=== PATIENT | male | born 1950 | race Caucasian/White ===

== ENCOUNTER 2016-11-17 12:54 | Day surgery (SDC) | payer OTHER ==
[2016-11-17] MEDS: MARCAINE 0.25% WITH EPI IJ ONE ×2 (13:38→14:16)
[2016-11-17] MEDS: KENALOG INJ 40 MG ONE ×2 (13:39→14:16)
--- NOTE | 2016-11-17 14:01 | DR.H&P ---
H&P - History & Physical for Day of: H&P Date: 11/17/16 - Chief Complaint Chief Complaint: my back hurts down to my right calf - Allergies Allergies/Adverse Reactions: Allergies Allergy/AdvReac Type Severity Reaction Status Date / Time No Known Drug Allergy Allergy Verified 12/04/15 09:26 - History of Present Illness History of Present Illness: long standing h/o back pain with radiculopathy. taking trip [place] later in summer and wants some relief. had a series of 4 radha 3-4 yrs ago with moderate to good relief - Social History Does patient currently use any type of tobacco product: No Have you used tobacco products in the last 12 months: No Type of Tobacco Use: None How many years tobacco product used: 35 Packs per day or dips/chews per day: pt quit in 2013 Does any household member use tobacco: No Alcohol Use: Occasionally Drug Use: None - Physical Exam Vital Signs: Temperature 98.1 F Pulse Rate 79 Respiratory Rate 18 Blood Pressure 128/75 O2 Sat by Pulse Oximetry 95 Musculoskeletal: Back:Lumbar (pain on rotation/lateral tilt. no stepoff/ deformity.) Mood Description: Calm Affect: Normal - Assessment/Plan (1) Lumbar disc disease with radiculopathy Status: Acute Plan: intralaminar radha L4-5 right
[2016-11-17 14:46] VITALS: BP 143/73
== END 2016-11-17 14:45 | disposition home or self-care (01) ==
LOC: SURG1 12:54
PROVIDERS: ATTEND Specialist
PROC: B01BZZZ Fluoroscopy of Spinal Cord (ICD-10-PCS; principal; 2016-11-17 13:00)
PROC: 3E0R33Z Introduction of Anti-inflammatory into Spinal Canal, Percutaneous Approach (ICD-10-PCS; principal; 2016-11-17 13:00)
PROC: 3E0R3BZ Introduction of Anesthetic Agent into Spinal Canal, Percutaneous Approach (ICD-10-PCS; principal; 2016-11-17 13:00)
DX: M51.36 Other intervertebral disc degeneration, lumbar region (principal)
CPT/HCPCS: 62323; 76000; A4222; S0020; J3301

== ENCOUNTER → 2017-05-21 | Outpatient (CLI) | payer OTHER ==
[2017-05-21 14:15] LABS: BASOPHILS % (AUTO) 0.6 % (0.2-1.0); EOSINOPHILS % (AUTO) 0.7 % (0.9-2.9); HEMATOCRIT 43.2 % (42.0-54.0); HEMOGLOBIN 14.8 g/dL (13.5-18.0); LYMPHOCYTES # (AUTO) 0.8 X10^3/uL (1.3-2.9); LYMPHOCYTES % (AUTO) 14.2 % (21.0-51.0); MEAN CORPUSCULAR HEMOGLOBIN 32.6 pg (27.0-34.0); MEAN CORPUSCULAR HGB CONC 34.3 g/dL (33.0-35.0); MEAN CORPUSCULAR VOLUME 95.1 fL (80.0-100.0); MEAN PLATELET VOLUME 7.8 fL (7.4-11.0); MONOCYTES # (AUTO) 0.5 x10^3/uL (0.3-0.8); MONOCYTES % (AUTO) 9.4 % (0.0-13.0); NEUTROPHILS # (AUTO) 4.3 x10^3/uL (2.2-4.8); NEUTROPHILS % (AUTO) 75.1 % (42.0-75.0); PLATELET COUNT 198 X10^3/uL (150.0-450.0); RED BLOOD COUNT 4.54 X10^6/uL (4.7-6.0); RED CELL DISTRIBUTION WIDTH 14.8 % (11.6-16.5); WHITE BLOOD COUNT 5.7 X10^3/uL (3.6-10.0)
[2017-05-21 14:19] LABS: ALANINE AMINOTRANSFERASE 108 Units/L (12-78); ALBUMIN 3.8 g/dL (3.4-5.0); ALKALINE PHOSPHATASE 87 Units/L (46-116); ASPARTATE AMINO TRANSFERASE 65 Units/L (15-37); BLOOD UREA NITROGEN 13 mg/dL (7-18); CARBON DIOXIDE 25.3 mmol/L (21-32); CHLORIDE 104 mmol/L (98-107); COR NA(FOR HYPERGLY) 139 mmol/L (136-145); CREATININE 1.02 mg/dL (0.70-1.30); SODIUM 139 mmol/L (136-145); eGFR BLACK RACES > 60 (>60); eGFR NON BLACK RACES > 60 (>60)
[2017-05-21 14:20] LABS: BILIRUBIN,URINE 1+ (NEGATIVE); BLOOD/HEMOGLOBIN,URINE NEGATIVE (NEGATIVE); GLUCOSE, URINE NEGATIVE (NEGATIVE); KETONES,URINE 1+ (NEGATIVE); LEUKOCYTE ESTERASE ,URINE 1+ (NEGATIVE); NITRITES,URINE NEGATIVE (NEGATIVE); PROTEIN,URINE 2+ (NEGATIVE); UROBILINOGEN,URINE 2+ (NORMAL)
[2017-05-21 14:29] LABS: APPEARANCE,URINE CLEAR (CLEAR); COLOR,URINE DARK YELLOW (YELLOW)
[2017-05-21 14:30] LABS: BACTERIA,URINE TRACE /HPF (NEGATIVE); MUCUS,URINE FEW /HPF (NEGATIVE); RBC,URINE NONE SEEN /HPF (NEGATIVE); SQUAMOUS EPITHELIAL CELL,UR FEW /HPF (NEGATIVE)
[2017-05-21 14:58] LABS: ERYTHROCYTE SEDIMENTATION RATE 9 MM/HOUR (0-15)
--- NOTE | 2017-05-25 14:22 | RAD ---
HISTORY: Preoperative exam for knee surgery Study: Two views of the chest Comparison: None Findings: The trachea is midline. The cardiac silhouette is enlarged. Subsegmental atelectasis is noted withi n the lung bases. Otherwise the lungs are clear without focal infiltrate or effusion. IMPRESSION: 1. Cardiomegaly. Reported By:
== END | disposition home or self-care (01) ==
LOC: LAB 13:06
PROVIDERS: ATTEND Orthopaedic Surgery
DX: Z01.818 Encounter for other preprocedural examination (principal); Z79.899 Other long term (current) drug therapy; Z11.8 Encounter for screening for other infectious and parasitic diseases; Z79.01 Long term (current) use of anticoagulants; I51.7 Cardiomegaly; M17.0 Bilateral primary osteoarthritis of knee
CPT/HCPCS: 36415; 71020; 80053; 81001; 85025; 85610; 85652; 85730; 86140; 86850; 86900; 86901; 87640; 87641; 93005; 93010

== ENCOUNTER 2017-05-27 07:10 | Inpatient (IN) | payer OTHER ==
[2017-05-27] MEDS ORDERED: D5 LR 1000 ML 1,000 ML IV ONE (07:25)
[2017-05-27] MEDS ORDERED: NS 100 ML IV 100 ML IV ONE (07:25)
[2017-05-27] MEDS ORDERED: ANCEF VIAL 1 GM ONE (07:26)
[2017-05-27] MEDS ORDERED: DILAUDID INJ ONE ×2 (07:27→12:37)
[2017-05-27] MEDS ORDERED: FENTANYL INJ 250 mcg ONE (07:27)
[2017-05-27] MEDS ORDERED: BACTROBAN OINT ONE (07:28)
[2017-05-27] MEDS ORDERED: HYDROGEN PEROXIDE 3% ONE (07:28)
[2017-05-27] MEDS ORDERED: MARCAINE 0.25% INJ ONE (07:28)
[2017-05-27 07:52] VITALS: BMI 35.9
[2017-05-27] MEDS ORDERED: NS 1000 ML 20 ML, MARCAINE 0.5% 20 ML IV NR ×2 (08:00)
[2017-05-27] MEDS ORDERED: MARCAINE IV NR ×6 (08:00)
[2017-05-27] MEDS ORDERED: [UNRECOGNIZED DRUG - OTHER] IV NR ×6 (08:00)
[2017-05-27] MEDS ORDERED: MORPHINE SULFATE IV NR ×6 (08:00)
[2017-05-27] MEDS ORDERED: NS IV NR ×6 (08:00)
[2017-05-27] MEDS ORDERED: NAROPIN EPIDURAL 0.2% 100 ML ONE (08:17)
[2017-05-27] MEDS ORDERED: NS IRRIGATION 1000 ML 1,000 ML with BACITRACIN VIAL 50,000 UNT IR ONE ×2 (09:04)
[2017-05-27] MEDS ORDERED: NS IRRIGATION 3000 ML 3,000 ML with BACITRACIN VIAL 50,000 UNT IR ONE ×4 (09:04)
[2017-05-27 09:25] LABS: BILIRUBIN,URINE NEGATIVE (NEGATIVE); BLOOD/HEMOGLOBIN,URINE NEGATIVE (NEGATIVE); GLUCOSE, URINE NEGATIVE (NEGATIVE); KETONES,URINE NEGATIVE (NEGATIVE); LEUKOCYTE ESTERASE ,URINE NEGATIVE (NEGATIVE); NITRITES,URINE NEGATIVE (NEGATIVE); PROTEIN,URINE NEGATIVE (NEGATIVE); UROBILINOGEN,URINE NORMAL (NORMAL)
[2017-05-27 09:47] LABS: APPEARANCE,URINE CLEAR (CLEAR); BACTERIA,URINE NEGATIVE /HPF (NEGATIVE); COLOR,URINE YELLOW (YELLOW); RBC,URINE 0 /HPF (NEGATIVE); SQUAMOUS EPITHELIAL CELL,UR RARE /HPF (NEGATIVE)
[2017-05-27] MEDS ORDERED: NAROPIN EPIDURAL 0.2% 400 MG, NS 250 ML IV 200 ML EPI PRN ×2 (10:00)
[2017-05-27] MEDS ORDERED: Q PUMP EPI ONE (10:00)
[2017-05-27] MEDS ORDERED: NEO-SYNEPHRINE INJ ONE (10:03)
[2017-05-27] MEDS ORDERED: ROBINUL ONE (10:04)
[2017-05-27] MEDS ORDERED: XYLOCAINE 2 % (PLAIN) ONE (10:04)
[2017-05-27] MEDS ORDERED: VERSED ONE (10:04)
[2017-05-27] MEDS ORDERED: SUPRANE IN ONE (10:04)
[2017-05-27] MEDS ORDERED: NORCURON INJ 10 MG VIAL ONE (10:04)
[2017-05-27] MEDS ORDERED: QUELICIN (OR ANECTINE) ONE (10:04)
[2017-05-27] MEDS ORDERED: NEOSTIGMINE INJ ONE (10:04)
[2017-05-27] MEDS ORDERED: DIPRIVAN VIAL ONE (10:04)
[2017-05-27] MEDS ORDERED: ZOFRAN INJ 4 MG VIAL ONE (10:04)
[2017-05-27] MEDS ORDERED: EPHEDRINE SULFATE INJ ONE (10:04)
[2017-05-27] MEDS: LR 1000 ML IV 1,000 ML IV ONE ×2 (10:27→10:43)
[2017-05-27] MEDS ORDERED: ZOFRAN INJ 4 MG VIAL IVP PRN ×2 (12:22→12:30)
[2017-05-27] MEDS ORDERED: REGLAN INJ 10 MG VIAL IVP PRN (12:30)
[2017-05-27] MEDS ORDERED: PHENERGAN INJ 25 MG IVP PRN (12:30)
[2017-05-27] MEDS ORDERED: BENADRYL INJ 50 MG VIAL IVP PRN (12:30)
[2017-05-27] MEDS: DILAUDID INJ IVP PRN ×4 (12:38→12:53)
[2017-05-27] MEDS: MORPHINE SULFATE PCA 30 MG IV PRN (13:58)
--- NOTE | 2017-05-27 14:45 | RAD ---
Examination: Left knee, two views History: Postop TKA Comparison reference: 11/01/2015 Findings: Arthroplasty components are now present, related anatomically. There is no evidence for dis placement, periprosthetic fracture or hardware abnormality. The expected postsurgical soft tissue patrick nges are observed. Impression: Interval performance of left TKA; no postoperative complication identified. Reported By:
[2017-05-27] MEDS ORDERED: NS 1000 ML 1,000 ML ONE (16:42)
[2017-05-27] MEDS: NS 1000 ML 1,000 ML IV SCH (17:30)
[2017-05-27] MEDS ORDERED: NS 1000 ML 1,000 ML IV SCH (17:30)
[2017-05-27] MEDS: MORPHINE SULFATE INJ 2 MG INJ IVP PRN (22:45)
[2017-05-28 06:13] LABS: BASOPHILS % (AUTO) 0.1 % (0.2-1.0); HEMATOCRIT 36.4 % (42.0-54.0); HEMOGLOBIN 12.5 g/dL (13.5-18.0); LYMPHOCYTES # (AUTO) 0.5 X10^3/uL (1.3-2.9); LYMPHOCYTES % (AUTO) 6.1 % (21.0-51.0); MEAN CORPUSCULAR HEMOGLOBIN 32.5 pg (27.0-34.0); MEAN CORPUSCULAR HGB CONC 34.3 g/dL (33.0-35.0); MEAN CORPUSCULAR VOLUME 94.7 fL (80.0-100.0); MONOCYTES % (AUTO) 12.8 % (0.0-13.0); NEUTROPHILS # (AUTO) 6.3 x10^3/uL (2.2-4.8); PLATELET COUNT 193 X10^3/uL (150.0-450.0); RED BLOOD COUNT 3.84 X10^6/uL (4.7-6.0); RED CELL DISTRIBUTION WIDTH 14.1 % (11.6-16.5); WHITE BLOOD COUNT 7.8 X10^3/uL (3.6-10.0)
[2017-05-28 06:17] LABS: BLOOD UREA NITROGEN 10 mg/dL (7-18); CALCIUM 8.7 mg/dL (8.5-10.1); CARBON DIOXIDE 27.9 mmol/L (21-32); CHLORIDE 104 mmol/L (98-107); COR NA(FOR HYPERGLY) 140 mmol/L (136-145); CREATININE 0.82 mg/dL (0.70-1.30); SODIUM 139 mmol/L (136-145); eGFR BLACK RACES > 60 (>60); eGFR NON BLACK RACES > 60 (>60)
[2017-05-28] MEDS: NS 1000 ML 1,000 ML IV SCH ×4 (06:52→22:26)
[2017-05-28] MEDS: MORPHINE SULFATE PCA 30 MG IV PRN (07:44)
[2017-05-28] MEDS ORDERED: TERAZOSIN HCL 2 MG PO SCH (09:00)
[2017-05-28] MEDS ORDERED: PATIENT'S HOME MEDICATION (Cholecalciferol (Vitamin D3) [Vitamin D3] 5,000 UNIT) PO SCH (09:00)
[2017-05-28] MEDS ORDERED: PATIENT'S HOME MEDICATION (Biotin [Biotin] 10,000 MCG) PO SCH (09:00)
[2017-05-28] MEDS: VITAMIN D3 PO SCH (10:20)
[2017-05-28] MEDS: ASPIRIN EC 81 MG PO SCH ×2 (10:20→10:22)
[2017-05-28] MEDS: ZYLOPRIM PO SCH (10:21)
[2017-05-28] MEDS: CELEXA PO SCH (10:21)
[2017-05-28] MEDS: MOBIC TAB 15 MG PO SCH (10:21)
[2017-05-28] MEDS: TAB-A-VITE PO SCH (10:21)
[2017-05-28] MEDS: ZyrTEC TAB 10 MG PO SCH (10:21)
[2017-05-28] MEDS: HYTRIN PO SCH (10:22)
[2017-05-28] MEDS: PERCOCET TAB 5/325 MG PO PRN ×2 (15:17→22:04)
[2017-05-28] MEDS: MORPHINE SULFATE INJ 2 MG INJ IVP PRN ×2 (18:18→23:43)
[2017-05-28] MEDS ORDERED: PATIENT'S HOME MEDICATION (Rosuvastatin Calcium [Rosuvastatin Calcium] 20 MG) PO SCH (21:00)
[2017-05-28] MEDS: LOVENOX INJ 30 MG SYR SC SCH (21:57)
[2017-05-28] MEDS: MILK OF MAGNESIA PO SCH ×2 (21:57→22:02)
[2017-05-28] MEDS: COLACE CAP 100 MG PO SCH (21:57)
[2017-05-28] MEDS: CRESTOR TAB 10 MG PO SCH (21:57)
[2017-05-28] MEDS ORDERED: VALIUM ONE (23:37)
[2017-05-28] MEDS: VALIUM PO PRN (23:43)
[2017-05-29 06:11] LABS: BASOPHILS % (AUTO) 0.3 % (0.2-1.0); EOSINOPHILS % (AUTO) 0.7 % (0.9-2.9); HEMATOCRIT 34.6 % (42.0-54.0); HEMOGLOBIN 11.9 g/dL (13.5-18.0); LYMPHOCYTES # (AUTO) 0.7 X10^3/uL (1.3-2.9); LYMPHOCYTES % (AUTO) 11.4 % (21.0-51.0); MEAN CORPUSCULAR HEMOGLOBIN 32.6 pg (27.0-34.0); MEAN CORPUSCULAR HGB CONC 34.5 g/dL (33.0-35.0); MEAN CORPUSCULAR VOLUME 94.6 fL (80.0-100.0); MEAN PLATELET VOLUME 8.1 fL (7.4-11.0); MONOCYTES # (AUTO) 0.9 x10^3/uL (0.3-0.8); MONOCYTES % (AUTO) 13.3 % (0.0-13.0); NEUTROPHILS # (AUTO) 4.8 x10^3/uL (2.2-4.8); NEUTROPHILS % (AUTO) 74.3 % (42.0-75.0); PLATELET COUNT 159 X10^3/uL (150.0-450.0); RED BLOOD COUNT 3.65 X10^6/uL (4.7-6.0); RED CELL DISTRIBUTION WIDTH 13.9 % (11.6-16.5); WHITE BLOOD COUNT 6.5 X10^3/uL (3.6-10.0)
[2017-05-29 06:40] LABS: BLOOD UREA NITROGEN 8 mg/dL (7-18); CALCIUM 8.9 mg/dL (8.5-10.1); CHLORIDE 104 mmol/L (98-107); COR NA(FOR HYPERGLY) 139 mmol/L (136-145); CREATININE 0.86 mg/dL (0.70-1.30); SODIUM 139 mmol/L (136-145); eGFR BLACK RACES > 60 (>60); eGFR NON BLACK RACES > 60 (>60)
[2017-05-29] MEDS: MORPHINE SULFATE INJ 2 MG INJ IVP PRN (07:01)
[2017-05-29] MEDS: VALIUM PO PRN (07:01)
[2017-05-29] MEDS: VITAMIN D3 PO SCH (08:28)
[2017-05-29] MEDS: MOBIC TAB 15 MG PO SCH (08:29)
[2017-05-29] MEDS: HYTRIN PO SCH (08:29)
[2017-05-29] MEDS: ZYLOPRIM PO SCH (08:29)
[2017-05-29] MEDS: ZyrTEC TAB 10 MG PO SCH (08:29)
[2017-05-29] MEDS: PERCOCET TAB 5/325 MG PO PRN ×2 (08:30→13:17)
[2017-05-29] MEDS: MILK OF MAGNESIA PO SCH ×2 (08:30→21:09)
[2017-05-29] MEDS: CELEXA PO SCH (08:30)
[2017-05-29] MEDS: TAB-A-VITE PO SCH (08:30)
[2017-05-29] MEDS: ASPIRIN EC 81 MG PO SCH (08:30)
[2017-05-29] MEDS ORDERED: MORPHINE SULFATE INJ 2 MG INJ IVP PRN ×2 (09:38→12:26)
[2017-05-29] MEDS: NS 1000 ML 1,000 ML IV SCH (10:53)
[2017-05-29] MEDS: BACITRACIN ZINC TOP PRN (12:20)
[2017-05-29] MEDS ORDERED: BACITRACIN ZINC TOP SCH (13:00)
[2017-05-29] MEDS: ROXICODONE TAB 5 MG PO PRN ×2 (15:43→18:37)
[2017-05-29] MEDS: LOVENOX INJ 30 MG SYR SC SCH (21:08)
[2017-05-29] MEDS: COLACE CAP 100 MG PO SCH (21:08)
[2017-05-29] MEDS: KLONOPIN TAB 1 MG PO SCH (21:08)
[2017-05-29] MEDS: CRESTOR TAB 10 MG PO SCH (21:08)
[2017-05-30] MEDS: ROXICODONE TAB 5 MG PO PRN ×4 (02:10→20:48)
[2017-05-30] MEDS: NS 1000 ML 1,000 ML IV SCH ×3 (03:00→16:46)
[2017-05-30 06:27] LABS: BASOPHILS % (AUTO) 0.6 % (0.2-1.0); EOSINOPHILS % (AUTO) 0.9 % (0.9-2.9); HEMATOCRIT 33.1 % (42.0-54.0); HEMOGLOBIN 11.3 g/dL (13.5-18.0); LYMPHOCYTES # (AUTO) 0.7 X10^3/uL (1.3-2.9); MEAN CORPUSCULAR HGB CONC 34.2 g/dL (33.0-35.0); MEAN CORPUSCULAR VOLUME 93.6 fL (80.0-100.0); MEAN PLATELET VOLUME 7.9 fL (7.4-11.0); MONOCYTES # (AUTO) 0.6 x10^3/uL (0.3-0.8); MONOCYTES % (AUTO) 11.5 % (0.0-13.0); NEUTROPHILS # (AUTO) 4.2 x10^3/uL (2.2-4.8); PLATELET COUNT 169 X10^3/uL (150.0-450.0); RED BLOOD COUNT 3.54 X10^6/uL (4.7-6.0); RED CELL DISTRIBUTION WIDTH 14.1 % (11.6-16.5); WHITE BLOOD COUNT 5.6 X10^3/uL (3.6-10.0)
[2017-05-30 06:31] LABS: BLOOD UREA NITROGEN 8 mg/dL (7-18); CALCIUM 8.8 mg/dL (8.5-10.1); CARBON DIOXIDE 25.2 mmol/L (21-32); CHLORIDE 104 mmol/L (98-107); CREATININE 0.85 mg/dL (0.70-1.30); SODIUM 138 mmol/L (136-145); eGFR BLACK RACES > 60 (>60); eGFR NON BLACK RACES > 60 (>60)
[2017-05-30] MEDS: MOBIC TAB 15 MG PO SCH (08:12)
[2017-05-30] MEDS: ZyrTEC TAB 10 MG PO SCH (08:13)
[2017-05-30] MEDS: VITAMIN D3 PO SCH (08:13)
[2017-05-30] MEDS: TAB-A-VITE PO SCH (08:13)
[2017-05-30] MEDS: ZYLOPRIM PO SCH (08:14)
[2017-05-30] MEDS: CELEXA PO SCH (08:14)
[2017-05-30] MEDS: HYTRIN PO SCH (08:14)
[2017-05-30] MEDS: ASPIRIN EC 81 MG PO SCH (08:14)
[2017-05-30] MEDS: MILK OF MAGNESIA PO SCH ×2 (08:15→20:54)
[2017-05-30] MEDS: VALIUM PO PRN (09:40)
[2017-05-30] MEDS: KLONOPIN TAB 1 MG PO SCH (20:50)
[2017-05-30] MEDS: CRESTOR TAB 10 MG PO SCH (20:50)
[2017-05-30] MEDS: COLACE CAP 100 MG PO SCH (20:50)
[2017-05-30] MEDS: LOVENOX INJ 30 MG SYR SC SCH (20:51)
[2017-05-31] MEDS: ROXICODONE TAB 5 MG PO PRN ×3 (05:48→19:32)
[2017-05-31 06:22] LABS: BASOPHILS % (AUTO) 0.5 % (0.2-1.0); EOSINOPHILS # (AUTO) 0.1 x10^3/uL (0.0-0.2); EOSINOPHILS % (AUTO) 2.4 % (0.9-2.9); HEMATOCRIT 31.2 % (42.0-54.0); LYMPHOCYTES # (AUTO) 0.6 X10^3/uL (1.3-2.9); MEAN CORPUSCULAR HEMOGLOBIN 32.8 pg (27.0-34.0); MEAN CORPUSCULAR HGB CONC 35.3 g/dL (33.0-35.0); MEAN CORPUSCULAR VOLUME 93.2 fL (80.0-100.0); MEAN PLATELET VOLUME 7.4 fL (7.4-11.0); MONOCYTES # (AUTO) 0.7 x10^3/uL (0.3-0.8); MONOCYTES % (AUTO) 12.4 % (0.0-13.0); NEUTROPHILS # (AUTO) 3.9 x10^3/uL (2.2-4.8); NEUTROPHILS % (AUTO) 72.7 % (42.0-75.0); PLATELET COUNT 221 X10^3/uL (150.0-450.0); RED BLOOD COUNT 3.35 X10^6/uL (4.7-6.0); RED CELL DISTRIBUTION WIDTH 14.1 % (11.6-16.5); WHITE BLOOD COUNT 5.3 X10^3/uL (3.6-10.0)
[2017-05-31 06:43] LABS: ALANINE AMINOTRANSFERASE 38 Units/L (12-78); ALBUMIN 2.6 g/dL (3.4-5.0); ALKALINE PHOSPHATASE 59 Units/L (46-116); ASPARTATE AMINO TRANSFERASE 25 Units/L (15-37); BLOOD UREA NITROGEN 9 mg/dL (7-18); CALCIUM 8.7 mg/dL (8.5-10.1); CARBON DIOXIDE 23.9 mmol/L (21-32); CHLORIDE 106 mmol/L (98-107); COR CA(FOR HYPOALB) 9.8 mg/dL (8.5-10.1); CREATININE 0.75 mg/dL (0.70-1.30); SODIUM 140 mmol/L (136-145); eGFR BLACK RACES > 60 (>60); eGFR NON BLACK RACES > 60 (>60)
[2017-05-31] MEDS: TAB-A-VITE PO SCH (09:22)
[2017-05-31] MEDS: VITAMIN D3 PO SCH (09:22)
[2017-05-31] MEDS: ASPIRIN EC 81 MG PO SCH (09:22)
[2017-05-31] MEDS: ZYLOPRIM PO SCH (09:22)
[2017-05-31] MEDS: CELEXA PO SCH (09:22)
[2017-05-31] MEDS: MOBIC TAB 15 MG PO SCH (09:22)
[2017-05-31] MEDS: HYTRIN PO SCH (09:23)
[2017-05-31] MEDS: ZyrTEC TAB 10 MG PO SCH (09:23)
[2017-05-31] MEDS: NS 1000 ML 1,000 ML IV SCH (09:23)
[2017-05-31] MEDS: MILK OF MAGNESIA PO SCH ×2 (09:24→23:21)
[2017-05-31] MEDS ORDERED: NS 250 ML IV 250 ML IV ONE (21:27)
[2017-05-31] MEDS: VANCOMYCIN HCL 1 GM VIAL IV SCH (21:34)
[2017-05-31] MEDS: KLONOPIN TAB 1 MG PO SCH (21:34)
[2017-05-31] MEDS: LOVENOX INJ 30 MG SYR SC SCH (21:35)
[2017-05-31] MEDS: CRESTOR TAB 10 MG PO SCH (21:35)
[2017-05-31] MEDS: COLACE CAP 100 MG PO SCH (21:48)
[2017-06-01] MEDS: ROXICODONE TAB 5 MG PO PRN ×5 (01:11→22:34)
[2017-06-01 05:27] LABS: BASOPHILS % (AUTO) 0.6 % (0.2-1.0); EOSINOPHILS # (AUTO) 0.1 x10^3/uL (0.0-0.2); EOSINOPHILS % (AUTO) 2.4 % (0.9-2.9); HEMATOCRIT 33.4 % (42.0-54.0); HEMOGLOBIN 11.4 g/dL (13.5-18.0); LYMPHOCYTES # (AUTO) 0.8 X10^3/uL (1.3-2.9); LYMPHOCYTES % (AUTO) 15.6 % (21.0-51.0); MEAN CORPUSCULAR HGB CONC 34.2 g/dL (33.0-35.0); MEAN CORPUSCULAR VOLUME 93.6 fL (80.0-100.0); MEAN PLATELET VOLUME 7.2 fL (7.4-11.0); MONOCYTES # (AUTO) 0.7 x10^3/uL (0.3-0.8); MONOCYTES % (AUTO) 12.4 % (0.0-13.0); NEUTROPHILS # (AUTO) 3.7 x10^3/uL (2.2-4.8); PLATELET COUNT 264 X10^3/uL (150.0-450.0); RED BLOOD COUNT 3.57 X10^6/uL (4.7-6.0); RED CELL DISTRIBUTION WIDTH 13.8 % (11.6-16.5); WHITE BLOOD COUNT 5.4 X10^3/uL (3.6-10.0)
[2017-06-01 05:33] LABS: ALANINE AMINOTRANSFERASE 41 Units/L (12-78); ALBUMIN 2.7 g/dL (3.4-5.0); ALKALINE PHOSPHATASE 67 Units/L (46-116); ASPARTATE AMINO TRANSFERASE 26 Units/L (15-37); BLOOD UREA NITROGEN 11 mg/dL (7-18); CALCIUM 8.7 mg/dL (8.5-10.1); CARBON DIOXIDE 28.3 mmol/L (21-32); CHLORIDE 106 mmol/L (98-107); COR CA(FOR HYPOALB) 9.7 mg/dL (8.5-10.1); CREATININE 0.92 mg/dL (0.70-1.30); SODIUM 141 mmol/L (136-145); TOTAL PROTEIN 6.3 g/dL (6.4-8.2); eGFR BLACK RACES > 60 (>60); eGFR NON BLACK RACES > 60 (>60)
--- NOTE | 2017-06-01 05:50 | PCM.PROG ---
Progress Note - Progress Note for Day of Date: 05/28/17 - Subjective Subjective: IS STATUS POST LEFT TOTAL KNEE REPLACEMENT. SURGERY WAS ON 05/27/17 BY . TODAY, PATIENT IS ALERT AND ORIENTED, LYING IN BED ON MORNING ROUNDS. HE IS NOTED WITH COMPLAINTS OF LEFT KNEE PAIN. THIS IS TO BE EXPECTED FOLLOWING SURGERY. ON EXAMINATION, LUNGS ARE CLEAR TO AUSCULTATION. ABDOMEN IS ROUND, SOFT, AND NON-TENDER WITH NORMAL BOWEL SOUNDS NOTED IN ALL QUADRANTS. LEFT BILATERAL LEGS ARE NOTED WITH HUSEYIN HOSE AND SCDS. LEFT KNEE IS NOTED WITH A SURGICAL DRESSING. DRESSING DRY AND INTACT WITH NO SIGNS OR SYMPTOMS OF INFECTION NOTED TO SITE. HIS VITAL SIGNS THIS MORNING ARE 99.8-83-16 -97%-98/56. ABNORMAL LAB VALUES INCLUDE THE FOLLOWING: RBC 3.84, HGB 12.5, HCT 36.4, GLUCOSE 140. POST OP KNEE XRAY REPORTS NO POSTOPERATIVE COMPLICATION IDENTIFIED. TODAY, WE PLAN TO CONTINUE WITH PHYSICAL THERAPY AND OCCUPATIONAL THERAPY WITH WEIGHTBEARING PER 'S RECOMMENDATIONS. WE WILL CONTINUE WITH CURRENT MEDICATIONS AND REVIEW PATIENT'S HOME MEDICATONS AND RESTART APPROPRIATE. WE PLAN TO FOLLOW UP WITH AM LABS AND CONTINUE TO MONITOR PATIENT. - Past Medical Family Social History Past Med/Fam/Surg Hx: No changes since H&P Allergies: Allergies No Known Drug Allergies Allergy (Verified 05/27/17 07:43) - Review of Systems ROS: No change since H&P - Vital Signs and I&O's Vital Signs: Temperature 98.4 F Pulse Rate [Left Brachial] 70 Pulse Rate [Right Brachial] 83 Pulse Rate 70 Respiratory Rate 13 Blood Pressure [Left Arm] 149/77 Blood Pressure [Right Arm] 120/62 Blood Pressure 94/53 O2 Sat by Pulse Oximetry 96 Intake and Output: Intake & Output 05/29/17 05/30/17 05/31/17 06/01/17 12:59 12:59 11:59 11:59 Intake Total 1445 Output Total 600 Balance 845 - Physical Exam Oriented: Normal Eyes: Normal Ear: Normal Nose: Normal Throat: Normal Respiratory: Normal Cardiovascular: Normal : Normal Auscultation: Bowel Sounds: Normal Palpation: Normal Tenderness: Normal Skin: Wound (surgical wound left knee) Musculoskeletal: Left, Knee, Tender, Instability (status post left total knee replacement, left knee surgical incision ) Psychiatric: Normal Mood Description: Calm Speech Pattern: Clear, Appropriate - Laboratory and Diagnostics Result Diagrams: 06/01/17 04:45 06/01/17 04:45 Labs: Laboratory WBC 5.4 X10^3/uL (3.6-10.0) 06/01/17 04:45 RBC 3.57 X10^6/uL (4.7-6.0) L 06/01/17 04:45 Hgb 11.4 g/dL (13.5-18.0) L 06/01/17 04:45 Hct 33.4 % (42.0-54.0) L 06/01/17 04:45 MCV 93.6 fL (80.0-100.0) 06/01/17 04:45 MCH 32.0 pg (27.0-34.0) 06/01/17 04:45 MCHC 34.2 g/dL (33.0-35.0) 06/01/17 04:45 RDW 13.8 % (11.6-16.5) 06/01/17 04:45 Plt Count 264 X10^3/uL (150.0-450.0) 06/01/17 04:45 MPV 7.2 fL (7.4-11.0) L 06/01/17 04:45 Neut % 69.0 % (42.0-75.0) 06/01/17 04:45 Lymph % 15.6 % (21.0-51.0) L 06/01/17 04:45 [place] % 12.4 % (0.0-13.0) 06/01/17 04:45 Eos % 2.4 % (0.9-2.9) 06/01/17 04:45 Baso % 0.6 % (0.2-1.0) 06/01/17 04:45 Neut # 3.7 x10^3/uL (2.2-4.8) 06/01/17 04:45 Lymph # 0.8 X10^3/uL (1.3-2.9) L 06/01/17 04:45 [place] # 0.7 x10^3/uL (0.3-0.8) 06/01/17 04:45 Eos # 0.1 x10^3/uL (0.0-0.2) 06/01/17 04:45 Baso # 0.0 X10^3/uL (0.0-0.1) 06/01/17 04:45 Absolute Nucleated RBC 0.1 /100WBC 06/01/17 04:45 Sodium 141 mmol/L (136-145) 06/01/17 04:45 Corrected Sodium TNP 06/01/17 04:45 Potassium 3.9 mmol/L (3.5-5.1) 06/01/17 04:45 Chloride 106 mmol/L (98-107) 06/01/17 04:45 Carbon Dioxide 28.3 mmol/L (21-32) 06/01/17 04:45 BUN 11 mg/dL (7-18) 06/01/17 04:45 Creatinine 0.92 mg/dL (0.70-1.30) 06/01/17 04:45 Est GFR (MDRD) Af Amer > 60 (>60) 06/01/17 04:45 Est GFR (MDRD) Non-Af > 60 (>60) 06/01/17 04:45 Glucose 109 mg/dL (65-99) H 06/01/17 04:45 Calcium 8.7 mg/dL (8.5-10.1) 06/01/17 04:45 Corrected Calcium 9.7 mg/dL (8.5-10.1) 06/01/17 04:45 Total Bilirubin 0.80 mg/dL (0.2-1.0) 06/01/17 04:45 AST 26 Units/L (15-37) 06/01/17 04:45 ALT 41 Units/L (12-78) 06/01/17 04:45 Alkaline Phosphatase 67 Units/L (46-116) 06/01/17 04:45 Total Protein 6.3 g/dL (6.4-8.2) L 06/01/17 04:45 Albumin 2.7 g/dL (3.4-5.0) L 06/01/17 04:45 Globulin 3.6 g/dL (2.5-4.5) 06/01/17 04:45 Albumin/Globulin Ratio 0.8 Ratio (1.1-2.1) L 06/01/17 04:45 Specimen Type Catherized urine 05/27/17 09:07 Urine Color Yellow (YELLOW) 05/27/17 09:07 Urine Appearance Clear (CLEAR) 05/27/17 09:07 Urine pH 6.0 (5.0 - 8.0) 05/27/17 09:07 Ur Specific [place] 1.015 (1.000-1.030) 05/27/17 09:07 Urine Protein Negative (NEGATIVE) 05/27/17 09:07 Urine Glucose (UA) Negative (NEGATIVE) 05/27/17 09:07 Urine Ketones Negative (NEGATIVE) 05/27/17 09:07 Urine Occult Blood Negative (NEGATIVE) 05/27/17 09:07 Urine Nitrite Negative (NEGATIVE) 05/27/17 09:07 Urine Bilirubin Negative (NEGATIVE) 05/27/17 09:07 Urine Urobilinogen Normal (NORMAL) 05/27/17 09:07 Ur Leukocyte Esterase Negative (NEGATIVE) 05/27/17 09:07 Urine RBC 0 /HPF (NEGATIVE) 05/27/17 09:07 Urine WBC 0 /HPF (NEGATIVE) 05/27/17 09:07 Ur Squamous Epith Cells Rare /HPF (NEGATIVE) 05/27/17 09:07 Urine Bacteria Negative /HPF (NEGATIVE) 05/27/17 09:07 Ur Culture Indicated? No/not indicated 05/27/17 09:07 - Plan (1) Total knee replacement status Status: Acute Qualifiers: Laterality: left Qualified Code(s): Z96.652 - Presence of left artificial knee joint Plan: status post left total knee replacement. continue PT/OT. fall precautions. administer pain medications. continue to monitor
[2017-06-01] MEDS ORDERED: NS 250 ML IV 250 ML IV ONE (08:22)
[2017-06-01] MEDS: ASPIRIN EC 81 MG PO SCH (08:59)
[2017-06-01] MEDS: MOBIC TAB 15 MG PO SCH (09:00)
[2017-06-01] MEDS: TAB-A-VITE PO SCH (09:00)
[2017-06-01] MEDS: HYTRIN PO SCH (09:00)
[2017-06-01] MEDS: MILK OF MAGNESIA PO SCH ×2 (09:00→22:14)
[2017-06-01] MEDS: VANCOMYCIN HCL 1 GM VIAL IV SCH (09:00)
[2017-06-01] MEDS: CELEXA PO SCH (09:00)
[2017-06-01] MEDS: ZyrTEC TAB 10 MG PO SCH (09:01)
[2017-06-01] MEDS: ZYLOPRIM PO SCH (09:01)
[2017-06-01] MEDS: VITAMIN D3 PO SCH (10:09)
--- NOTE | 2017-06-01 10:42 | PCM.PROG ---
Progress Note - Progress Note for Day of Date: 05/29/17 - Subjective Subjective: IS STATUS POST LEFT TOTAL KNEE REPLACEMENT. SURGERY WAS ON 05/27/17 BY . TODAY, PATIENT IS ALERT AND ORIENTED, SITTING UP IN BED ON MORNING ROUNDS. HE CONTINUES WITH COMPLAINTS OF SEVERE LEFT KNEE PAIN. PATIENT REPORTS THAT PAIN IS WORSE TODAY THAN YESTERDAY. STAFF REPORTS THAT PATIENT IS NOT TOLERATING PHYSICAL THERAPY WELL DUE TO PAIN. PATIENT ALSO REPORTS DIFFICULTY SLEEPING DUE TO PAIN. ON EXAMINATION, LUNGS ARE CLEAR TO AUSCULTATION. ABDOMEN IS ROUND, SOFT, AND NON-TENDER WITH NORMAL BOWEL SOUNDS NOTED IN ALL QUADRANTS. LEFT BILATERAL LEGS ARE NOTED WITH HUSEYIN HOSE AND SCDS. SURGICAL DRESSING TO LEFT KNEE IS DRY AND INTACT WITH NO SIGNS OR SYMPTOMS OF INFECTION NOTED TO SITE. HIS VITAL SIGNS THIS MORNING ARE 99.6-78-20-94%-150/ 79. ABNORMAL LAB VALUES INCLUDE THE FOLLOWING: RBC 3.65, HGB 11.9, HCT 34.6, GLUCOSE 112. WE DISCUSSED WITH PATIENT HIS PLANS FOR AFTER DISCHARGE. PATIENT REPORTS THAT HE HAS NO ONE TO CARE FOR HIM AT HOME AFTER DISCHARGE. WE DISCUSSED AN EXTENDED STAY FOR THERAPY WITH PATIENT ON OUR SWINGBED OPTION. PATIENT IS IN AGREEMENT. WE WILL FURTHER DISCUSS THIS WITH AND CASE MANAGEMENT. TODAY, WE PLAN TO CONTINUE WITH PHYSICAL THERAPY AND OCCUPATIONAL THERAPY WITH WEIGHTBEARING PER 'S RECOMMENDATIONS. WE WILL START KLONOPIN 1MG AT BEDTIME AND INCREASE MORPHINE TO EVERY TWO HOURS NEEDED. WE PLAN TO FOLLOW UP WITH AM LABS AND CONTINUE TO MONITOR PATIENT. - Past Medical Family Social History Past Med/Fam/Surg Hx: No changes since H&P Allergies: Allergies No Known Drug Allergies Allergy (Verified 05/27/17 07:43) - Review of Systems ROS: No change since H&P - Vital Signs and I&O's Vital Signs: Temperature 97.9 F Pulse Rate [Left Brachial] 72 Pulse Rate [Right Brachial] 83 Pulse Rate 70 Respiratory Rate 18 Blood Pressure [Left Arm] 119/57 Blood Pressure [Right Arm] 120/62 Blood Pressure 94/53 O2 Sat by Pulse Oximetry 93 Intake and Output: Intake & Output 05/29/17 05/30/17 05/31/17 06/01/17 12:59 12:59 11:59 11:59 Intake Total 1525 Output Total 1350 Balance 175 - Physical Exam Oriented: Normal Eyes: Normal Ear: Normal Nose: Normal Throat: Normal Respiratory: Normal Cardiovascular: Normal : Normal Auscultation: Bowel Sounds: Normal Palpation: Normal Tenderness: Normal Skin: Wound (surgical wound left knee) Musculoskeletal: Left, Knee, Tender, Instability (status post left total knee replacement, left knee surgical incision ) Psychiatric: Normal Mood Description: Calm Speech Pattern: Clear, Appropriate - Laboratory and Diagnostics Result Diagrams: 06/01/17 04:45 06/01/17 04:45 Labs: Laboratory WBC 5.4 X10^3/uL (3.6-10.0) 06/01/17 04:45 RBC 3.57 X10^6/uL (4.7-6.0) L 06/01/17 04:45 Hgb 11.4 g/dL (13.5-18.0) L 06/01/17 04:45 Hct 33.4 % (42.0-54.0) L 06/01/17 04:45 MCV 93.6 fL (80.0-100.0) 06/01/17 04:45 MCH 32.0 pg (27.0-34.0) 06/01/17 04:45 MCHC 34.2 g/dL (33.0-35.0) 06/01/17 04:45 RDW 13.8 % (11.6-16.5) 06/01/17 04:45 Plt Count 264 X10^3/uL (150.0-450.0) 06/01/17 04:45 MPV 7.2 fL (7.4-11.0) L 06/01/17 04:45 Neut % 69.0 % (42.0-75.0) 06/01/17 04:45 Lymph % 15.6 % (21.0-51.0) L 06/01/17 04:45 [place] % 12.4 % (0.0-13.0) 06/01/17 04:45 Eos % 2.4 % (0.9-2.9) 06/01/17 04:45 Baso % 0.6 % (0.2-1.0) 06/01/17 04:45 Neut # 3.7 x10^3/uL (2.2-4.8) 06/01/17 04:45 Lymph # 0.8 X10^3/uL (1.3-2.9) L 06/01/17 04:45 [place] # 0.7 x10^3/uL (0.3-0.8) 06/01/17 04:45 Eos # 0.1 x10^3/uL (0.0-0.2) 06/01/17 04:45 Baso # 0.0 X10^3/uL (0.0-0.1) 06/01/17 04:45 Absolute Nucleated RBC 0.1 /100WBC 06/01/17 04:45 Sodium 141 mmol/L (136-145) 06/01/17 04:45 Corrected Sodium TNP 06/01/17 04:45 Potassium 3.9 mmol/L (3.5-5.1) 06/01/17 04:45 Chloride 106 mmol/L (98-107) 06/01/17 04:45 Carbon Dioxide 28.3 mmol/L (21-32) 06/01/17 04:45 BUN 11 mg/dL (7-18) 06/01/17 04:45 Creatinine 0.92 mg/dL (0.70-1.30) 06/01/17 04:45 Est GFR (MDRD) Af Amer > 60 (>60) 06/01/17 04:45 Est GFR (MDRD) Non-Af > 60 (>60) 06/01/17 04:45 Glucose 109 mg/dL (65-99) H 06/01/17 04:45 Calcium 8.7 mg/dL (8.5-10.1) 06/01/17 04:45 Corrected Calcium 9.7 mg/dL (8.5-10.1) 06/01/17 04:45 Total Bilirubin 0.80 mg/dL (0.2-1.0) 06/01/17 04:45 AST 26 Units/L (15-37) 06/01/17 04:45 ALT 41 Units/L (12-78) 06/01/17 04:45 Alkaline Phosphatase 67 Units/L (46-116) 06/01/17 04:45 Total Protein 6.3 g/dL (6.4-8.2) L 06/01/17 04:45 Albumin 2.7 g/dL (3.4-5.0) L 06/01/17 04:45 Globulin 3.6 g/dL (2.5-4.5) 06/01/17 04:45 Albumin/Globulin Ratio 0.8 Ratio (1.1-2.1) L 06/01/17 04:45 Specimen Type Catherized urine 05/27/17 09:07 Urine Color Yellow (YELLOW) 05/27/17 09:07 Urine Appearance Clear (CLEAR) 05/27/17 09:07 Urine pH 6.0 (5.0 - 8.0) 05/27/17 09:07 Ur Specific [place] 1.015 (1.000-1.030) 05/27/17 09:07 Urine Protein Negative (NEGATIVE) 05/27/17 09:07 Urine Glucose (UA) Negative (NEGATIVE) 05/27/17 09:07 Urine Ketones Negative (NEGATIVE) 05/27/17 09:07 Urine Occult Blood Negative (NEGATIVE) 05/27/17 09:07 Urine Nitrite Negative (NEGATIVE) 05/27/17 09:07 Urine Bilirubin Negative (NEGATIVE) 05/27/17 09:07 Urine Urobilinogen Normal (NORMAL) 05/27/17 09:07 Ur Leukocyte Esterase Negative (NEGATIVE) 05/27/17 09:07 Urine RBC 0 /HPF (NEGATIVE) 05/27/17 09:07 Urine WBC 0 /HPF (NEGATIVE) 05/27/17 09:07 Ur Squamous Epith Cells Rare /HPF (NEGATIVE) 05/27/17 09:07 Urine Bacteria Negative /HPF (NEGATIVE) 05/27/17 09:07 Ur Culture Indicated? No/not indicated 05/27/17 09:07 - Plan (1) Total knee replacement status Status: Acute Qualifiers: Laterality: left Qualified Code(s): Z96.652 - Presence of left artificial knee joint Plan: status post left total knee replacement. continue PT/OT. fall precautions. administer pain medications. continue lovenox for dvt prophylaxis, continue to monitor (2) Constipation Status: Acute Qualifiers: Constipation type: drug induced constipation Qualified Code(s): K59.03 - Drug induced constipation Plan: CONTINUE COLACE AND MILK OF MAGNESIA, CONTINUE TO MONITOR (3) Gout Status: Chronic Qualifiers: Gout site: unspecified site Encounter type: subsequent encounter Chronicity: chronic Presence of tophus: without tophus Plan: CONTINUE ZYLOPRIM, CONTINUE TO MONITOR (4) Seasonal allergies Status: Chronic Qualifiers: Chronicity: chronic Allergic rhinitis trigger: unspecified Qualified Code (s): J30.2 - Other seasonal allergic rhinitis Plan: CONTINUE ZYRTEC, CONTINUE TO MONITOR (5) Generalized anxiety disorder Status: Chronic Plan: CONTINUE VALIUM 5MG PO Q8H PRN, CONTINUE TO MONITOR (6) Hypertension Status: Chronic Qualifiers: Hypertension type: essential hypertension Qualified Code(s): I10 - Essential (primary) hypertension Plan: CONTINUE HYTRIN, CONTINUE TO MONITOR
[2017-06-01] MEDS: BACITRACIN ZINC TOP PRN (12:10)
--- NOTE | 2017-06-01 12:24 | VAS ---
History: Left leg pain and swelling Study: Left lower extremity venous Findings: linear array ultrasound and Doppler evaluation of the veins of the left lower extremity are performed. The common and superficial femoral and popliteal veins are patent and show appropriate co mpression and augmentation. Impression: There is no ultrasound evidence of left lower extremity deep venous thrombosis. Reported By:
[2017-06-01] MEDS: CELEBREX PO SCH ×2 (13:21→21:14)
[2017-06-01] MEDS: NEURONTIN CAP 100 MG PO SCH ×2 (13:21→22:15)
--- NOTE | 2017-06-01 15:06 | OR.GENERIC ---
Post-Op Note Generic - Post-Op Note Operative Report: PREOPERATIVE DIAGNOSIS: LEFT degenerative arthritis of the knees. POSTOPERATIVE DIAGNOSIS: LEFT degenerative arthritis of the knees. PROCEDURE PERFORMED: LEFT total knee arthroplasty ANESTHESIA: General. COMPLICATIONS: None. ESTIMATED BLOOD LOSS: 100 CC. COMPONENTS: William Triathlon PS Femur #5, tibia #6, base plate plus cemented stem, 9 mm PS insert, patella 9mm x 33, HISTORY OF PRESENT ILLNESS: The patient is a 70-year-old male who presented to the office complaining of LEFT knee pain for a couple of years. He has failed conservative management with therapy, cortisone and Synvisc injection. The patient complained of increasing pain and stiffness, which affected his daily activities of living. PROCEDURE: After all potential complications, risks as well as anticipated benefits of the above-named procedure was discussed at length, the patient's informed consent was obtained. The LEFT knee was marked. He got a femoral block with catheter in place. Appropriate antibiotic was administered. He was wheeled to the operating room and placed on the operating room table in supine position. All bony prominences were well padded at this time. Then anesthesia administered general anesthetic to the patient. The nonsterile tourniquet was then applied to the LEFT upper thigh of the patient, but not inflated at this time. The LEFT lower extremity was sterilely prepped and draped in the usual sterile fashion. The right upper extremity was then elevated and exsanguinated using an Esmarch and the tourniquet was inflated using 325 mmHg. Incision marked after identifying tibial tubercle, patella, and patellar ligament. A straight midline incision starting 5-6 centimeters proximal to the proximal pole of the patella was placed and continuing just distal to the tibial tubercle. The skin incision was carried straight down to the deep fascia which exposed the extensor mechanism. Medially skin flap was elevated just deep to the fascia the perforating arteries which supply the skin run just superficial to the deep fascia. The medial aspect of patellar tendon and quadriceps tendon was identified. Medial para patellar arthrotomy was performed. Starting from the proximal aspect in a longitudinal manner curving medially around the patella and leaving 3-5 mm of soft tissue on the patella to assist with arthrotomy closure later in the case. The arthrotomy completed distally by a straight distal cut along the medial border of the patellar ligament avoiding any disruption of the tendon insertion on the tibial tubercle. Proximal tibia soft tissue release completed. Sharp dissection of the medial capsular sleeve off of the tibia to provide exposure of the joint. Patient had fixed varus deformity and dissection was carried more posteriorly to provide good exposure. The medial tibial osteophytes were present and removed. The knee was flexed beyond 90 and patella was everted. Fat pad, ACL, PCL and meniscus were removed. Appropriate femoral rotation was identified by intercondylar sulcus and epicondylar axis. The femoral intramedullary guide was placed with the entry point in the midline just anterior to the intercondylar notch. Canal irrigated and suctioned. Femoral distal cutting gig placed and after rotational alignment confirmed, the jig was secured with pins. Femur was sized to # 5 with anterior referencing. A 4 in 1 Cutting block was placed and rest of the femoral cuts finished. Posterior capsule released and posterior osteophytes removed. Care was taken to protect MCL during the cuts. Tibial retractors placed and proximal tibia exposed. Extra medullary tibial guide and cutting placed in desired varus/ valgus alignment with posterior slope. Desired resection was measured with tibial resection of the diseased side. Jig fixed with multiple pins. Tibial cut finished with saw and resected bone removed. Tibia was sized to #6 and placed in appropriate rotation at medial 1/3 of patellar ligament. The tibia was prepared after fixing the base plate. The tibial and femoral trial implants were placed and soft tissue balancing was accessed. A 9-mm trial poly provided the best stability and complete extension and 120 deg flexion. No lift off of components was noted. Flexion and extension gaps were good. There was minimal tightness noted medially and that was addressed with medial release. It was stable to varus and valgus stress in flexion and extension. The hip to ankle alignment was found to be correct. The patella was prepared and a 9-mm patellar cut was completed with a jig. Patella was sized to 33, 3 lug holes created. Patella was denervated by cautery along the circumference and Marginal osteophytes removed. patella medialized and the patellar thickness with prosthesis matched the pre-resection thickness. Patellar tracking was checked with no hand technique and found to be tracking well. Posterior capsule injected with cocktail. Through irrigation with pulse lavage completed and bone tapped dry. Cementing completed with final definitive prosthesis with trial poly. The extruded cement was removed. The rest of the cock tail was injected. A 9mm definitive poly was inserted. Final check of alignment, ROM and stability was done and found satisfactory. Thorough irrigation was done. Arthrotomy was closed water tight in interrupted sutures. Tourniquet deflated and hemostasis maintained. No need for drain seen. The subcutaneous tissue and skin closed. Sterile dressing applied. Patient was woken up from the anesthesia and was stable when he was shifted to PACU. Post op instructions were ordered and also that discussed with the family. The family was met in the consultation room after the surgery to update them about the surgery.
[2017-06-01] MEDS: CRESTOR TAB 10 MG PO SCH (21:14)
[2017-06-01] MEDS: COLACE CAP 100 MG PO SCH (21:14)
[2017-06-01] MEDS: LOVENOX INJ 30 MG SYR SC SCH (21:15)
[2017-06-01] MEDS: KLONOPIN TAB 1 MG PO SCH (21:15)
[2017-06-02] MEDS: ROXICODONE TAB 5 MG PO PRN ×4 (04:36→21:24)
[2017-06-02] MEDS: NEURONTIN CAP 100 MG PO SCH ×3 (05:49→21:20)
[2017-06-02 06:20] LABS: ALANINE AMINOTRANSFERASE 39 Units/L (12-78); ALBUMIN 2.6 g/dL (3.4-5.0); ALKALINE PHOSPHATASE 69 Units/L (46-116); ASPARTATE AMINO TRANSFERASE 28 Units/L (15-37); BASOPHILS % (AUTO) 0.7 % (0.2-1.0); BLOOD UREA NITROGEN 13 mg/dL (7-18); CALCIUM 8.8 mg/dL (8.5-10.1); CARBON DIOXIDE 25.5 mmol/L (21-32); CHLORIDE 105 mmol/L (98-107); COR CA(FOR HYPOALB) 9.9 mg/dL (8.5-10.1); CREATININE 0.88 mg/dL (0.70-1.30); EOSINOPHILS # (AUTO) 0.2 x10^3/uL (0.0-0.2); HEMATOCRIT 32.4 % (42.0-54.0); HEMOGLOBIN 11.2 g/dL (13.5-18.0); LYMPHOCYTES % (AUTO) 17.4 % (21.0-51.0); MEAN CORPUSCULAR HEMOGLOBIN 32.2 pg (27.0-34.0); MEAN CORPUSCULAR HGB CONC 34.5 g/dL (33.0-35.0); MEAN CORPUSCULAR VOLUME 93.2 fL (80.0-100.0); MONOCYTES # (AUTO) 0.8 x10^3/uL (0.3-0.8); MONOCYTES % (AUTO) 14.5 % (0.0-13.0); NEUTROPHILS # (AUTO) 3.6 x10^3/uL (2.2-4.8); NEUTROPHILS % (AUTO) 64.4 % (42.0-75.0); PLATELET COUNT 272 X10^3/uL (150.0-450.0); RED BLOOD COUNT 3.48 X10^6/uL (4.7-6.0); RED CELL DISTRIBUTION WIDTH 13.9 % (11.6-16.5); SODIUM 139 mmol/L (136-145); WHITE BLOOD COUNT 5.6 X10^3/uL (3.6-10.0); eGFR BLACK RACES > 60 (>60); eGFR NON BLACK RACES > 60 (>60)
[2017-06-02] MEDS: ASPIRIN EC 81 MG PO SCH (08:05)
[2017-06-02] MEDS: CELEXA PO SCH (08:07)
[2017-06-02] MEDS: MOBIC TAB 15 MG PO SCH (08:07)
[2017-06-02] MEDS: MILK OF MAGNESIA PO SCH ×2 (08:07→22:23)
[2017-06-02] MEDS: TAB-A-VITE PO SCH (08:07)
[2017-06-02] MEDS: VITAMIN D3 PO SCH (08:07)
[2017-06-02] MEDS: CELEBREX PO SCH ×2 (08:07→21:23)
[2017-06-02] MEDS: HYTRIN PO SCH (08:07)
[2017-06-02] MEDS: ZyrTEC TAB 10 MG PO SCH (08:08)
[2017-06-02] MEDS: ZYLOPRIM PO SCH (08:08)
--- NOTE | 2017-06-02 10:54 | PCM.PROG ---
Progress Note - Progress Note for Day of Date: 06/01/17 - Subjective Subjective: Mr. Arroyo is post left knee replacement. he reports that the knee pain is still bothering him. he reports that he cannot get "comfortable". he does have some back pain too. he is currently on oral narcotic pain mediations. he has developed a resh in the left upper thigh. he was placed in a knee immobilizer and he reports that it has been itching and irritaing his skin. he reports that he has been taking alcohol every day for many years now and he is kind of getting withdrawal symptoms. his labs are normal WBC normal, no temp. Dressing was changed today. the incison site is clean and dry, NO INFECTION SIGNS. knee minimal effusion , no warmth noted. he has been having issue with urinary retention and reports that it has been bothering him. we will add celecoxib and neurontin for his pain. we will discontinue the knee immobilizer. he cannot be sent to jail for rehb as there are no beds for him. so we will swing him for PT. we will stop antibiotics as he does not have any infection. we will get urine analysis and culture also. his DVT scan is negative. plan- continue PT. oral zaynab meds. urinary consultation. urine analusis and culture. regular dressing change every 3 days. - Past Medical Family Social History Past Med/Fam/Surg Hx: No changes since H&P Allergies: Allergies No Known Drug Allergies Allergy (Verified 05/27/17 07:43) - Review of Systems ROS: No change since H&P - Vital Signs and I&O's Vital Signs: Temperature 98.4 F Pulse Rate [Left Brachial] 71 Pulse Rate [Right Brachial] 83 Pulse Rate 70 Respiratory Rate 20 Blood Pressure [Left Arm] 124/68 Blood Pressure [Right Arm] 119/61 Blood Pressure 94/53 O2 Sat by Pulse Oximetry 94 Intake and Output: Intake & Output 05/30/17 05/31/17 06/01/17 06/02/17 12:59 11:59 11:59 11:59 Intake Total 1525 2020 Output Total 1350 1500 Balance 175 520 - Physical Exam Oriented: Normal Eyes: Normal Ear: Normal Nose: Normal Throat: Normal Respiratory: Normal Cardiovascular: Normal : Normal Auscultation: Bowel Sounds: Normal Tenderness: Normal Skin: Wound (surgical wound left knee) Musculoskeletal: Left, Knee, Tender, Instability (status post left total knee replacement, left knee surgical incision ) Psychiatric: Normal Mood Description: Calm Speech Pattern: Clear, Appropriate - Laboratory and Diagnostics Result Diagrams: 06/02/17 04:15 06/02/17 04:15 Labs: Laboratory WBC 5.6 X10^3/uL (3.6-10.0) 06/02/17 04:15 RBC 3.48 X10^6/uL (4.7-6.0) L 06/02/17 04:15 Hgb 11.2 g/dL (13.5-18.0) L 06/02/17 04:15 Hct 32.4 % (42.0-54.0) L 06/02/17 04:15 MCV 93.2 fL (80.0-100.0) 06/02/17 04:15 MCH 32.2 pg (27.0-34.0) 06/02/17 04:15 MCHC 34.5 g/dL (33.0-35.0) 06/02/17 04:15 RDW 13.9 % (11.6-16.5) 06/02/17 04:15 Plt Count 272 X10^3/uL (150.0-450.0) 06/02/17 04:15 MPV 7.0 fL (7.4-11.0) L 06/02/17 04:15 Neut % 64.4 % (42.0-75.0) 06/02/17 04:15 Lymph % 17.4 % (21.0-51.0) L 06/02/17 04:15 [place] % 14.5 % (0.0-13.0) H 06/02/17 04:15 Eos % 3.0 % (0.9-2.9) H 06/02/17 04:15 Baso % 0.7 % (0.2-1.0) 06/02/17 04:15 Neut # 3.6 x10^3/uL (2.2-4.8) 06/02/17 04:15 Lymph # 1.0 X10^3/uL (1.3-2.9) L 06/02/17 04:15 [place] # 0.8 x10^3/uL (0.3-0.8) 06/02/17 04:15 Eos # 0.2 x10^3/uL (0.0-0.2) 06/02/17 04:15 Baso # 0.0 X10^3/uL (0.0-0.1) 06/02/17 04:15 Absolute Nucleated RBC 0.1 /100WBC 06/02/17 04:15 Sodium 139 mmol/L (136-145) 06/02/17 04:15 Corrected Sodium TNP 06/02/17 04:15 Potassium 3.8 mmol/L (3.5-5.1) 06/02/17 04:15 Chloride 105 mmol/L (98-107) 06/02/17 04:15 Carbon Dioxide 25.5 mmol/L (21-32) 06/02/17 04:15 BUN 13 mg/dL (7-18) 06/02/17 04:15 Creatinine 0.88 mg/dL (0.70-1.30) 06/02/17 04:15 Est GFR (MDRD) Af Amer > 60 (>60) 06/02/17 04:15 Est GFR (MDRD) Non-Af > 60 (>60) 06/02/17 04:15 Glucose 106 mg/dL (65-99) H 06/02/17 04:15 Calcium 8.8 mg/dL (8.5-10.1) 06/02/17 04:15 Corrected Calcium 9.9 mg/dL (8.5-10.1) 06/02/17 04:15 Total Bilirubin 1.00 mg/dL (0.2-1.0) 06/02/17 04:15 AST 28 Units/L (15-37) 06/02/17 04:15 ALT 39 Units/L (12-78) 06/02/17 04:15 Alkaline Phosphatase 69 Units/L (46-116) 06/02/17 04:15 Total Protein 6.0 g/dL (6.4-8.2) L 06/02/17 04:15 Albumin 2.6 g/dL (3.4-5.0) L 06/02/17 04:15 Globulin 3.4 g/dL (2.5-4.5) 06/02/17 04:15 Albumin/Globulin Ratio 0.8 Ratio (1.1-2.1) L 06/02/17 04:15 Specimen Type Catherized urine 05/27/17 09:07 Urine Color Yellow (YELLOW) 05/27/17 09:07 Urine Appearance Clear (CLEAR) 05/27/17 09:07 Urine pH 6.0 (5.0 - 8.0) 05/27/17 09:07 Ur Specific [place] 1.015 (1.000-1.030) 05/27/17 09:07 Urine Protein Negative (NEGATIVE) 05/27/17 09:07 Urine Glucose (UA) Negative (NEGATIVE) 05/27/17 09:07 Urine Ketones Negative (NEGATIVE) 05/27/17 09:07 Urine Occult Blood Negative (NEGATIVE) 05/27/17 09:07 Urine Nitrite Negative (NEGATIVE) 05/27/17 09:07 Urine Bilirubin Negative (NEGATIVE) 05/27/17 09:07 Urine Urobilinogen Normal (NORMAL) 05/27/17 09:07 Ur Leukocyte Esterase Negative (NEGATIVE) 05/27/17 09:07 Urine RBC 0 /HPF (NEGATIVE) 05/27/17 09:07 Urine WBC 0 /HPF (NEGATIVE) 05/27/17 09:07 Ur Squamous Epith Cells Rare /HPF (NEGATIVE) 05/27/17 09:07 Urine Bacteria Negative /HPF (NEGATIVE) 05/27/17 09:07 Ur Culture Indicated? No/not indicated 05/27/17 09:07 - Plan (1) Total knee replacement status Status: Acute Qualifiers: Laterality: left Qualified Code(s): Z96.652 - Presence of left artificial knee joint Plan: status post left total knee replacement. continue PT/OT. fall precautions. administer pain medications. continue lovenox for dvt prophylaxis, continue to monitor
--- NOTE | 2017-06-02 12:32 | PCM.PROG ---
Progress Note - Progress Note for Day of Date: 06/01/17 - Subjective Subjective: IS STATUS POST LEFT TOTAL KNEE REPLACEMENT. SURGERY WAS ON 05/27/17 BY . TODAY, PATIENT IS ALERT AND ORIENTED, LYING IN BED ON MORNING ROUNDS. HE CONTINUES WITH COMPLAINTS OF SEVERE LEFT KNEE PAIN. PATIENT REPORTS THAT PAIN DOES NOT SEEM TO BE IMPROVING. STAFF CONTINUES TO REPORT THAT PATIENT IS NOT TOLERATING PHYSICAL THERAPY WELL DUE TO PAIN. ON EXAMINATION, LUNGS ARE CLEAR TO AUSCULTATION. ABDOMEN IS ROUND, SOFT, AND NON-TENDER WITH NORMAL BOWEL SOUNDS NOTED IN ALL QUADRANTS. LEFT BILATERAL LEGS ARE NOTED WITH HUSEYIN HOSE AND SCDS. SURGICAL DRESSING TO LEFT KNEE NOTED TO BE DRY AND INTACT. LEFT UPPER LEG IS NOTED WITH MODERATE REDNESS AND WARMTH FROM KNEE TO GROIN. HIS VITAL SIGNS THIS MORNING ARE 97.9-72-18-93%-119/57. ABNORMAL LAB VALUES INCLUDE THE FOLLOWING: RBC 3.57, HGB 11.4, HCT 33.4, GLUCOSE 109, TOTAL PROTEIN 6.3, ALBUMIN 2.7, ALBUMIN 0.8. WE ORDERED A VENOUS DOPPLER OF THE LEFT LEG TO ASSESS FOR DVT. IT REPORTED NEGATIVE FOR DVT. PATIENT AND ARE IN AGREEMENT TO SWING PATIENT FOR PHYSICAL THERAPY. TODAY, WE PLAN TO CONTINUE WITH PHYSICAL THERAPY. WE PLAN TO FOLLOW UP WITH AM LABS AND CONTINUE TO MONITOR PATIENT. - Past Medical Family Social History Past Med/Fam/Surg Hx: No changes since H&P Allergies: Allergies No Known Drug Allergies Allergy (Verified 05/27/17 07:43) - Review of Systems ROS: No change since H&P - Vital Signs and I&O's Vital Signs: Temperature 98.4 F Pulse Rate [Left Brachial] 71 Pulse Rate [Right Brachial] 83 Pulse Rate 70 Respiratory Rate 20 Blood Pressure [Left Arm] 124/68 Blood Pressure [Right Arm] 119/61 Blood Pressure 94/53 O2 Sat by Pulse Oximetry 94 Intake and Output: Intake & Output 05/31/17 06/01/17 06/02/17 06/03/17 11:59 11:59 11:59 11:59 Intake Total 1525 2020 Output Total 1350 1500 Balance 175 520 - Physical Exam Oriented: Normal Eyes: Normal Ear: Normal Nose: Normal Throat: Normal Respiratory: Normal Cardiovascular: Normal : Normal Auscultation: Bowel Sounds: Normal Tenderness: Normal Skin: Wound (surgical wound left knee) Musculoskeletal: Left, Knee, Tender, Instability (status post left total knee replacement, left knee surgical incision ) Psychiatric: Normal Mood Description: Calm Speech Pattern: Clear, Appropriate - Laboratory and Diagnostics Result Diagrams: 06/02/17 04:15 06/02/17 04:15 Labs: Laboratory WBC 5.6 X10^3/uL (3.6-10.0) 06/02/17 04:15 RBC 3.48 X10^6/uL (4.7-6.0) L 06/02/17 04:15 Hgb 11.2 g/dL (13.5-18.0) L 06/02/17 04:15 Hct 32.4 % (42.0-54.0) L 06/02/17 04:15 MCV 93.2 fL (80.0-100.0) 06/02/17 04:15 MCH 32.2 pg (27.0-34.0) 06/02/17 04:15 MCHC 34.5 g/dL (33.0-35.0) 06/02/17 04:15 RDW 13.9 % (11.6-16.5) 06/02/17 04:15 Plt Count 272 X10^3/uL (150.0-450.0) 06/02/17 04:15 MPV 7.0 fL (7.4-11.0) L 06/02/17 04:15 Neut % 64.4 % (42.0-75.0) 06/02/17 04:15 Lymph % 17.4 % (21.0-51.0) L 06/02/17 04:15 [place] % 14.5 % (0.0-13.0) H 06/02/17 04:15 Eos % 3.0 % (0.9-2.9) H 06/02/17 04:15 Baso % 0.7 % (0.2-1.0) 06/02/17 04:15 Neut # 3.6 x10^3/uL (2.2-4.8) 06/02/17 04:15 Lymph # 1.0 X10^3/uL (1.3-2.9) L 06/02/17 04:15 [place] # 0.8 x10^3/uL (0.3-0.8) 06/02/17 04:15 Eos # 0.2 x10^3/uL (0.0-0.2) 06/02/17 04:15 Baso # 0.0 X10^3/uL (0.0-0.1) 06/02/17 04:15 Absolute Nucleated RBC 0.1 /100WBC 06/02/17 04:15 Sodium 139 mmol/L (136-145) 06/02/17 04:15 Corrected Sodium TNP 06/02/17 04:15 Potassium 3.8 mmol/L (3.5-5.1) 06/02/17 04:15 Chloride 105 mmol/L (98-107) 06/02/17 04:15 Carbon Dioxide 25.5 mmol/L (21-32) 06/02/17 04:15 BUN 13 mg/dL (7-18) 06/02/17 04:15 Creatinine 0.88 mg/dL (0.70-1.30) 06/02/17 04:15 Est GFR (MDRD) Af Amer > 60 (>60) 06/02/17 04:15 Est GFR (MDRD) Non-Af > 60 (>60) 06/02/17 04:15 Glucose 106 mg/dL (65-99) H 06/02/17 04:15 Calcium 8.8 mg/dL (8.5-10.1) 06/02/17 04:15 Corrected Calcium 9.9 mg/dL (8.5-10.1) 06/02/17 04:15 Total Bilirubin 1.00 mg/dL (0.2-1.0) 06/02/17 04:15 AST 28 Units/L (15-37) 06/02/17 04:15 ALT 39 Units/L (12-78) 06/02/17 04:15 Alkaline Phosphatase 69 Units/L (46-116) 06/02/17 04:15 Total Protein 6.0 g/dL (6.4-8.2) L 06/02/17 04:15 Albumin 2.6 g/dL (3.4-5.0) L 06/02/17 04:15 Globulin 3.4 g/dL (2.5-4.5) 06/02/17 04:15 Albumin/Globulin Ratio 0.8 Ratio (1.1-2.1) L 06/02/17 04:15 Specimen Type Catherized urine 05/27/17 09:07 Urine Color Yellow (YELLOW) 05/27/17 09:07 Urine Appearance Clear (CLEAR) 05/27/17 09:07 Urine pH 6.0 (5.0 - 8.0) 05/27/17 09:07 Ur Specific [place] 1.015 (1.000-1.030) 05/27/17 09:07 Urine Protein Negative (NEGATIVE) 05/27/17 09:07 Urine Glucose (UA) Negative (NEGATIVE) 05/27/17 09:07 Urine Ketones Negative (NEGATIVE) 05/27/17 09:07 Urine Occult Blood Negative (NEGATIVE) 05/27/17 09:07 Urine Nitrite Negative (NEGATIVE) 05/27/17 09:07 Urine Bilirubin Negative (NEGATIVE) 05/27/17 09:07 Urine Urobilinogen Normal (NORMAL) 05/27/17 09:07 Ur Leukocyte Esterase Negative (NEGATIVE) 05/27/17 09:07 Urine RBC 0 /HPF (NEGATIVE) 05/27/17 09:07 Urine WBC 0 /HPF (NEGATIVE) 05/27/17 09:07 Ur Squamous Epith Cells Rare /HPF (NEGATIVE) 05/27/17 09:07 Urine Bacteria Negative /HPF (NEGATIVE) 05/27/17 09:07 Ur Culture Indicated? No/not indicated 05/27/17 09:07 - Plan (1) Total knee replacement status Status: Acute Qualifiers: Laterality: left Qualified Code(s): Z96.652 - Presence of left artificial knee joint Plan: status post left total knee replacement. continue PT/OT. fall precautions. administer pain medications. continue lovenox for dvt prophylaxis, continue to monitor (2) Constipation Status: Acute Qualifiers: Constipation type: drug induced constipation Qualified Code(s): K59.03 - Drug induced constipation Plan: CONTINUE COLACE AND MILK OF MAGNESIA, CONTINUE TO MONITOR (3) Gout Status: Chronic Qualifiers: Gout site: unspecified site Encounter type: subsequent encounter Chronicity: chronic Presence of tophus: without tophus Plan: CONTINUE ZYLOPRIM, CONTINUE TO MONITOR (4) Seasonal allergies Status: Chronic Qualifiers: Chronicity: chronic Allergic rhinitis trigger: unspecified Qualified Code (s): J30.2 - Other seasonal allergic rhinitis Plan: CONTINUE ZYRTEC, CONTINUE TO MONITOR (5) Generalized anxiety disorder Status: Chronic Plan: CONTINUE VALIUM 5MG PO Q8H PRN, CONTINUE TO MONITOR (6) Hypertension Status: Chronic Qualifiers: Hypertension type: essential hypertension Qualified Code(s): I10 - Essential (primary) hypertension Plan: CONTINUE HYTRIN, CONTINUE TO MONITOR
[2017-06-02] MEDS: CRESTOR TAB 10 MG PO SCH (21:20)
[2017-06-02] MEDS: COLACE CAP 100 MG PO SCH (21:20)
[2017-06-02] MEDS: KLONOPIN TAB 1 MG PO SCH (21:20)
[2017-06-02] MEDS: LOVENOX INJ 30 MG SYR SC SCH (21:21)
[2017-06-03] MEDS: NEURONTIN CAP 100 MG PO SCH (05:25)
[2017-06-03] MEDS: ROXICODONE TAB 5 MG PO PRN (05:45)
[2017-06-03 06:16] LABS: BASOPHILS % (AUTO) 0.8 % (0.2-1.0); EOSINOPHILS # (AUTO) 0.1 x10^3/uL (0.0-0.2); EOSINOPHILS % (AUTO) 2.5 % (0.9-2.9); HEMATOCRIT 33.9 % (42.0-54.0); HEMOGLOBIN 11.7 g/dL (13.5-18.0); LYMPHOCYTES # (AUTO) 1.1 X10^3/uL (1.3-2.9); LYMPHOCYTES % (AUTO) 19.6 % (21.0-51.0); MEAN CORPUSCULAR HEMOGLOBIN 32.2 pg (27.0-34.0); MEAN CORPUSCULAR HGB CONC 34.6 g/dL (33.0-35.0); MONOCYTES # (AUTO) 0.8 x10^3/uL (0.3-0.8); MONOCYTES % (AUTO) 13.7 % (0.0-13.0); NEUTROPHILS # (AUTO) 3.6 x10^3/uL (2.2-4.8); NEUTROPHILS % (AUTO) 63.4 % (42.0-75.0); PLATELET COUNT 278 X10^3/uL (150.0-450.0); RED BLOOD COUNT 3.65 X10^6/uL (4.7-6.0); RED CELL DISTRIBUTION WIDTH 14.1 % (11.6-16.5); WHITE BLOOD COUNT 5.7 X10^3/uL (3.6-10.0)
[2017-06-03 06:29] LABS: ALANINE AMINOTRANSFERASE 42 Units/L (12-78); ALBUMIN 2.7 g/dL (3.4-5.0); ALKALINE PHOSPHATASE 76 Units/L (46-116); ASPARTATE AMINO TRANSFERASE 33 Units/L (15-37); BLOOD UREA NITROGEN 13 mg/dL (7-18); CALCIUM 8.9 mg/dL (8.5-10.1); CARBON DIOXIDE 26.7 mmol/L (21-32); CHLORIDE 105 mmol/L (98-107); COR CA(FOR HYPOALB) 9.9 mg/dL (8.5-10.1); CREATININE 0.86 mg/dL (0.70-1.30); SODIUM 140 mmol/L (136-145); TOTAL PROTEIN 6.1 g/dL (6.4-8.2); eGFR BLACK RACES > 60 (>60); eGFR NON BLACK RACES > 60 (>60)
[2017-06-03] MEDS: ZYLOPRIM PO SCH (08:12)
[2017-06-03] MEDS: HYTRIN PO SCH (08:13)
[2017-06-03] MEDS: CELEBREX PO SCH (08:13)
[2017-06-03] MEDS: VITAMIN D3 PO SCH (08:13)
[2017-06-03] MEDS: ZyrTEC TAB 10 MG PO SCH (08:13)
[2017-06-03] MEDS: ASPIRIN EC 81 MG PO SCH (08:13)
[2017-06-03] MEDS: MOBIC TAB 15 MG PO SCH (08:13)
[2017-06-03] MEDS: CELEXA PO SCH (08:13)
[2017-06-03] MEDS: TAB-A-VITE PO SCH (08:13)
[2017-06-03] MEDS: MILK OF MAGNESIA PO SCH (08:14)
[2017-06-03 12:31] VITALS: BP 125/67
--- NOTE | 2017-06-04 21:47 | PCM.PROG ---
Progress Note - Progress Note for Day of Date: 06/02/17 - Subjective Subjective: IS STATUS POST LEFT TOTAL KNEE REPLACEMENT. SURGERY WAS ON 05/27/17 BY . TODAY, PATIENT IS ALERT AND ORIENTED, LYING IN BED ON MORNING ROUNDS. HE CONTINUES WITH COMPLAINTS OF SEVERE LEFT KNEE PAIN. PATIENT CONTINUES WITH MINIMAL PARTICIPATION IN PHYSICAL THERAPY DUE TO PAIN. ON EXAMINATION, LUNGS ARE CLEAR TO AUSCULTATION. ABDOMEN IS ROUND, SOFT, AND NON- TENDER WITH NORMAL BOWEL SOUNDS NOTED IN ALL QUADRANTS. LEFT BILATERAL LEGS ARE NOTED WITH HUSEYIN RODRIGUEZ AND SCDS. SURGICAL DRESSING TO LEFT KNEE NOTED TO BE DRY AND INTACT. REDNESS TO LEFT UPPER LEG APPEAR TO HAVE MINIMAL IMPROVEMENT SINCE YESTERDAY. HIS VITAL SIGNS THIS MORNING ARE 98.4-71-20-94%-124/68. ABNORMAL LAB VALUES INCLUDE THE FOLLOWING: RBC 3.48, HGB 11.2, HCT 32.4, GLUCOSE 106, TOTAL PROTEIN 6.0, ALBUMIN 2.6, ALBUMIN 0.8. STARTED GABAPENTIN AND CELEBREX TO AID IN PAIN RELIEF. TODAY, WE PLAN TO CONTINUE WITH PHYSICAL THERAPY. WE PLAN TO FOLLOW UP WITH AM LABS AND CONTINUE TO MONITOR PATIENT. - Past Medical Family Social History Past Med/Fam/Surg Hx: No changes since H&P Allergies: Allergies No Known Drug Allergies Allergy (Verified 05/27/17 07:43) - Review of Systems ROS: No change since H&P - Vital Signs and I&O's Vital Signs: Temperature 97.8 F Pulse Rate [Left Brachial] 84 Pulse Rate [Right Brachial] 83 Pulse Rate 70 Respiratory Rate 20 Blood Pressure [Left Arm] 125/67 Blood Pressure [Right Arm] 146/83 Blood Pressure 94/53 O2 Sat by Pulse Oximetry 92 Intake and Output: Intake & Output 06/02/17 06/03/17 06/04/17 06/05/17 11:59 11:59 11:59 11:59 Intake Total 2020 1210 Output Total 1500 240 Balance 520 970 - Physical Exam Oriented: Normal Eyes: Normal Ear: Normal Nose: Normal Throat: Normal Respiratory: Normal Cardiovascular: Normal : Normal Auscultation: Bowel Sounds: Normal Palpation: Normal Tenderness: Normal Skin: Wound (surgical wound left knee) Musculoskeletal: Left, Knee, Tender, Instability (status post left total knee replacement, left knee surgical incision ) Psychiatric: Normal Mood Description: Calm Speech Pattern: Clear, Appropriate - Laboratory and Diagnostics Result Diagrams: 06/03/17 04:50 06/03/17 04:50 Labs: Laboratory WBC 5.7 X10^3/uL (3.6-10.0) 06/03/17 04:50 RBC 3.65 X10^6/uL (4.7-6.0) L 06/03/17 04:50 Hgb 11.7 g/dL (13.5-18.0) L 06/03/17 04:50 Hct 33.9 % (42.0-54.0) L 06/03/17 04:50 MCV 93.0 fL (80.0-100.0) 06/03/17 04:50 MCH 32.2 pg (27.0-34.0) 06/03/17 04:50 MCHC 34.6 g/dL (33.0-35.0) 06/03/17 04:50 RDW 14.1 % (11.6-16.5) 06/03/17 04:50 Plt Count 278 X10^3/uL (150.0-450.0) 06/03/17 04:50 MPV 7.0 fL (7.4-11.0) L 06/03/17 04:50 Neut % 63.4 % (42.0-75.0) 06/03/17 04:50 Lymph % 19.6 % (21.0-51.0) L 06/03/17 04:50 [place] % 13.7 % (0.0-13.0) H 06/03/17 04:50 Eos % 2.5 % (0.9-2.9) 06/03/17 04:50 Baso % 0.8 % (0.2-1.0) 06/03/17 04:50 Neut # 3.6 x10^3/uL (2.2-4.8) 06/03/17 04:50 Lymph # 1.1 X10^3/uL (1.3-2.9) L 06/03/17 04:50 [place] # 0.8 x10^3/uL (0.3-0.8) 06/03/17 04:50 Eos # 0.1 x10^3/uL (0.0-0.2) 06/03/17 04:50 Baso # 0.0 X10^3/uL (0.0-0.1) 06/03/17 04:50 Absolute Nucleated RBC 0.1 /100WBC 06/03/17 04:50 Sodium 140 mmol/L (136-145) 06/03/17 04:50 Corrected Sodium TNP 06/03/17 04:50 Potassium 3.9 mmol/L (3.5-5.1) 06/03/17 04:50 Chloride 105 mmol/L (98-107) 06/03/17 04:50 Carbon Dioxide 26.7 mmol/L (21-32) 06/03/17 04:50 BUN 13 mg/dL (7-18) 06/03/17 04:50 Creatinine 0.86 mg/dL (0.70-1.30) 06/03/17 04:50 Est GFR (MDRD) Af Amer > 60 (>60) 06/03/17 04:50 Est GFR (MDRD) Non-Af > 60 (>60) 06/03/17 04:50 Glucose 107 mg/dL (65-99) H 06/03/17 04:50 Calcium 8.9 mg/dL (8.5-10.1) 06/03/17 04:50 Corrected Calcium 9.9 mg/dL (8.5-10.1) 06/03/17 04:50 Total Bilirubin 1.10 mg/dL (0.2-1.0) H 06/03/17 04:50 AST 33 Units/L (15-37) 06/03/17 04:50 ALT 42 Units/L (12-78) 06/03/17 04:50 Alkaline Phosphatase 76 Units/L (46-116) 06/03/17 04:50 Total Protein 6.1 g/dL (6.4-8.2) L 06/03/17 04:50 Albumin 2.7 g/dL (3.4-5.0) L 06/03/17 04:50 Globulin 3.4 g/dL (2.5-4.5) 06/03/17 04:50 Albumin/Globulin Ratio 0.8 Ratio (1.1-2.1) L 06/03/17 04:50 Specimen Type Catherized urine 05/27/17 09:07 Urine Color Yellow (YELLOW) 05/27/17 09:07 Urine Appearance Clear (CLEAR) 05/27/17 09:07 Urine pH 6.0 (5.0 - 8.0) 05/27/17 09:07 Ur Specific [place] 1.015 (1.000-1.030) 05/27/17 09:07 Urine Protein Negative (NEGATIVE) 05/27/17 09:07 Urine Glucose (UA) Negative (NEGATIVE) 05/27/17 09:07 Urine Ketones Negative (NEGATIVE) 05/27/17 09:07 Urine Occult Blood Negative (NEGATIVE) 05/27/17 09:07 Urine Nitrite Negative (NEGATIVE) 05/27/17 09:07 Urine Bilirubin Negative (NEGATIVE) 05/27/17 09:07 Urine Urobilinogen Normal (NORMAL) 05/27/17 09:07 Ur Leukocyte Esterase Negative (NEGATIVE) 05/27/17 09:07 Urine RBC 0 /HPF (NEGATIVE) 05/27/17 09:07 Urine WBC 0 /HPF (NEGATIVE) 05/27/17 09:07 Ur Squamous Epith Cells Rare /HPF (NEGATIVE) 05/27/17 09:07 Urine Bacteria Negative /HPF (NEGATIVE) 05/27/17 09:07 Ur Culture Indicated? No/not indicated 05/27/17 09:07 - Plan (1) Total knee replacement status Status: Acute Qualifiers: Laterality: left Qualified Code(s): Z96.652 - Presence of left artificial knee joint Plan: status post left total knee replacement. continue PT/OT. fall precautions. administer pain medications. continue lovenox for dvt prophylaxis, continue to monitor (2) Constipation Status: Acute Qualifiers: Constipation type: drug induced constipation Qualified Code(s): K59.03 - Drug induced constipation Plan: CONTINUE COLACE AND MILK OF MAGNESIA, CONTINUE TO MONITOR (3) Gout Status: Chronic Qualifiers: Gout site: unspecified site Encounter type: subsequent encounter Chronicity: chronic Presence of tophus: without tophus Plan: CONTINUE ZYLOPRIM, CONTINUE TO MONITOR (4) Seasonal allergies Status: Chronic Qualifiers: Chronicity: chronic Allergic rhinitis trigger: unspecified Qualified Code (s): J30.2 - Other seasonal allergic rhinitis Plan: CONTINUE ZYRTEC, CONTINUE TO MONITOR (5) Generalized anxiety disorder Status: Chronic Plan: CONTINUE VALIUM 5MG PO Q8H PRN, CONTINUE TO MONITOR (6) Hypertension Status: Chronic Qualifiers: Hypertension type: essential hypertension Qualified Code(s): I10 - Essential (primary) hypertension Plan: CONTINUE HYTRIN, CONTINUE TO MONITOR
== END 2017-06-03 12:00 | disposition swing bed (61) | DRG 470 ==
LOC: MED/SURG 07:10
PROVIDERS: ADMIT Orthopaedic Surgery; ATTEND Internal Medicine
PROC: 0SRD0J9 Replacement of Left Knee Joint with Synthetic Substitute, Cemented, Open Approach (ICD-10-PCS; principal; 2017-05-27 09:15)
DX: M17.12 Unilateral primary osteoarthritis, left knee (principal); M25.562 Pain in left knee; M25.462 Effusion, left knee; I10 Essential (primary) hypertension; K59.03 Drug induced constipation; J30.2 Other seasonal allergic rhinitis; F41.8 Other specified anxiety disorders; M1A.9XX0 Chronic gout, unspecified, without tophus (tophi); R33.8 Other retention of urine; R26.89 Other abnormalities of gait and mobility
CPT/HCPCS: 36415; 64448; 73560; 80048; 80053; 81001; 85025; 93971; 94640; 94762; 97535; A4216; A4222; S0020; J0170; J0330; J0690; J0696; J1030; J1170; J1650; J2001; J2250; J2270; J2271; J2370; J2405; J2710; J2795; J3010; J3370; J3490; J7120

== ENCOUNTER 2017-06-03 12:00 | Inpatient (IN) | payer OTHER ==
[2017-06-03] MEDS ORDERED: MILK OF MAGNESIA PO SCH (14:41)
[2017-06-03] MEDS ORDERED: PATIENT'S HOME MEDICATION (Cholecalciferol (Vitamin D3) [Vitamin D3] 5,000 UNIT) PO SCH (14:41)
[2017-06-03] MEDS ORDERED: PATIENT'S HOME MEDICATION (Biotin [Biotin] 10,000 MCG) PO SCH (14:41)
[2017-06-03] MEDS: ROXICODONE TAB 5 MG PO PRN ×2 (15:22→21:26)
[2017-06-03] MEDS: MILK OF MAGNESIA PO SCH ×2 (17:26→21:22)
[2017-06-03] MEDS: CELEBREX PO SCH (21:16)
[2017-06-03] MEDS: COLACE CAP 100 MG PO SCH (21:17)
[2017-06-03] MEDS: CRESTOR TAB 10 MG PO SCH (21:17)
[2017-06-03] MEDS: KLONOPIN TAB 1 MG PO SCH (21:18)
[2017-06-03] MEDS: NEURONTIN CAP 100 MG PO SCH (21:18)
[2017-06-03] MEDS: LOVENOX INJ 30 MG SYR SC SCH (21:21)
[2017-06-04] MEDS: NEURONTIN CAP 100 MG PO SCH ×3 (05:53→22:29)
[2017-06-04] MEDS ORDERED: MOBIC TAB 15 MG PO SCH (09:00)
[2017-06-04] MEDS ORDERED: ZESTRIL TAB 20 MG ONE (09:18)
[2017-06-04] MEDS: TAB-A-VITE PO SCH (09:43)
[2017-06-04] MEDS: MILK OF MAGNESIA PO SCH ×4 (09:44→21:18)
[2017-06-04] MEDS: CELEBREX PO SCH ×2 (09:44→21:17)
[2017-06-04] MEDS: ROXICODONE TAB 5 MG PO PRN ×3 (09:44→20:50)
[2017-06-04] MEDS: ZESTRIL TAB 20 MG PO SCH (09:44)
[2017-06-04] MEDS: HYTRIN PO SCH (09:44)
[2017-06-04] MEDS: ZyrTEC TAB 10 MG PO SCH (09:44)
[2017-06-04] MEDS: CELEXA PO SCH (09:44)
[2017-06-04] MEDS: MIRALAX POWDER (1 DOSE 17GM) PO SCH (09:49)
[2017-06-04] MEDS: ZYLOPRIM PO SCH (09:49)
[2017-06-04 11:09] VITALS: BMI 34.2
[2017-06-04] MEDS: CRESTOR TAB 10 MG PO SCH (20:50)
[2017-06-04] MEDS: COLACE CAP 100 MG PO SCH (20:52)
[2017-06-04] MEDS: KLONOPIN TAB 1 MG PO SCH (21:17)
[2017-06-04] MEDS: LOVENOX INJ 30 MG SYR SC SCH (21:17)
[2017-06-05] MEDS: ROXICODONE TAB 5 MG PO PRN ×4 (05:08→21:32)
[2017-06-05] MEDS: NEURONTIN CAP 100 MG PO SCH ×3 (05:08→21:33)
[2017-06-05] MEDS ORDERED: ZESTRIL TAB 20 MG ONE (08:30)
[2017-06-05] MEDS: HYTRIN PO SCH (08:37)
[2017-06-05] MEDS: MILK OF MAGNESIA PO SCH ×4 (08:37→21:33)
[2017-06-05] MEDS: TAB-A-VITE PO SCH (08:37)
[2017-06-05] MEDS: ZESTRIL TAB 20 MG PO SCH (08:37)
[2017-06-05] MEDS: CELEBREX PO SCH ×2 (08:37→21:33)
[2017-06-05] MEDS: CELEXA PO SCH (08:37)
[2017-06-05] MEDS: MIRALAX POWDER (1 DOSE 17GM) PO SCH (08:37)
[2017-06-05] MEDS: ZyrTEC TAB 10 MG PO SCH (08:38)
[2017-06-05] MEDS: ZYLOPRIM PO SCH (08:38)
[2017-06-05] MEDS ORDERED: NS 1000 ML 1,000 ML ONE (09:55)
[2017-06-05] MEDS: CRESTOR TAB 10 MG PO SCH (21:32)
[2017-06-05] MEDS: LOVENOX INJ 30 MG SYR SC SCH (21:32)
[2017-06-05] MEDS: COLACE CAP 100 MG PO SCH (21:33)
[2017-06-05] MEDS: KLONOPIN TAB 1 MG PO SCH (21:33)
[2017-06-06] MEDS: ROXICODONE TAB 5 MG PO PRN ×4 (02:37→21:28)
[2017-06-06] MEDS: NEURONTIN CAP 100 MG PO SCH ×3 (05:47→21:28)
[2017-06-06 06:22] LABS: BASOPHILS # (AUTO) 0.1 X10^3/uL (0.0-0.1); BASOPHILS % (AUTO) 0.8 % (0.2-1.0); EOSINOPHILS # (AUTO) 0.1 x10^3/uL (0.0-0.2); EOSINOPHILS % (AUTO) 1.8 % (0.9-2.9); HEMOGLOBIN 11.8 g/dL (13.5-18.0); LYMPHOCYTES # (AUTO) 1.3 X10^3/uL (1.3-2.9); LYMPHOCYTES % (AUTO) 18.4 % (21.0-51.0); MEAN CORPUSCULAR HEMOGLOBIN 32.9 pg (27.0-34.0); MEAN CORPUSCULAR HGB CONC 35.6 g/dL (33.0-35.0); MEAN CORPUSCULAR VOLUME 92.5 fL (80.0-100.0); MEAN PLATELET VOLUME 6.8 fL (7.4-11.0); MONOCYTES # (AUTO) 0.7 x10^3/uL (0.3-0.8); MONOCYTES % (AUTO) 10.6 % (0.0-13.0); NEUTROPHILS # (AUTO) 4.7 x10^3/uL (2.2-4.8); NEUTROPHILS % (AUTO) 68.4 % (42.0-75.0); PLATELET COUNT 308 X10^3/uL (150.0-450.0); RED BLOOD COUNT 3.57 X10^6/uL (4.7-6.0); RED CELL DISTRIBUTION WIDTH 14.6 % (11.6-16.5); WHITE BLOOD COUNT 6.8 X10^3/uL (3.6-10.0)
[2017-06-06 06:40] LABS: ALANINE AMINOTRANSFERASE 45 Units/L (12-78); ALBUMIN 2.8 g/dL (3.4-5.0); ALKALINE PHOSPHATASE 83 Units/L (46-116); ASPARTATE AMINO TRANSFERASE 39 Units/L (15-37); BLOOD UREA NITROGEN 14 mg/dL (7-18); CARBON DIOXIDE 26.4 mmol/L (21-32); CHLORIDE 106 mmol/L (98-107); CREATININE 0.86 mg/dL (0.70-1.30); SODIUM 141 mmol/L (136-145); TOTAL PROTEIN 6.1 g/dL (6.4-8.2); eGFR BLACK RACES > 60 (>60); eGFR NON BLACK RACES > 60 (>60)
[2017-06-06] MEDS: ZYLOPRIM PO SCH (08:33)
[2017-06-06] MEDS: TAB-A-VITE PO SCH (08:33)
[2017-06-06] MEDS: CELEXA PO SCH (08:33)
[2017-06-06] MEDS: ZyrTEC TAB 10 MG PO SCH (08:33)
[2017-06-06] MEDS: HYTRIN PO SCH (08:33)
[2017-06-06] MEDS: VALIUM PO PRN (08:33)
[2017-06-06] MEDS: CELEBREX PO SCH ×2 (08:33→21:28)
[2017-06-06] MEDS: MILK OF MAGNESIA PO SCH ×3 (08:34→17:16)
[2017-06-06] MEDS: MIRALAX POWDER (1 DOSE 17GM) PO SCH (08:35)
[2017-06-06] MEDS: ZESTRIL TAB 20 MG PO SCH (13:55)
[2017-06-06] MEDS: COLACE CAP 100 MG PO SCH (21:28)
[2017-06-06] MEDS: CRESTOR TAB 10 MG PO SCH (21:28)
[2017-06-06] MEDS: KLONOPIN TAB 1 MG PO SCH (21:28)
[2017-06-06] MEDS: LOVENOX INJ 30 MG SYR SC SCH (21:29)
[2017-06-07] MEDS: MILK OF MAGNESIA PO SCH ×5 (01:42→21:04)
[2017-06-07] MEDS: NEURONTIN CAP 100 MG PO SCH ×3 (05:53→21:04)
[2017-06-07] MEDS ORDERED: ZESTRIL TAB 20 MG ONE (07:23)
[2017-06-07] MEDS: CELEXA PO SCH (09:11)
[2017-06-07] MEDS: MIRALAX POWDER (1 DOSE 17GM) PO SCH (09:11)
[2017-06-07] MEDS: HYTRIN PO SCH (09:12)
[2017-06-07] MEDS: ZYLOPRIM PO SCH (09:12)
[2017-06-07] MEDS: CELEBREX PO SCH ×2 (09:13→21:04)
[2017-06-07] MEDS: ZESTRIL TAB 20 MG PO SCH (09:13)
[2017-06-07] MEDS: ZyrTEC TAB 10 MG PO SCH (09:14)
[2017-06-07] MEDS: TAB-A-VITE PO SCH (09:26)
[2017-06-07] MEDS: ROXICODONE TAB 5 MG PO PRN ×3 (10:42→21:05)
[2017-06-07] MEDS: COLACE CAP 100 MG PO SCH (21:04)
[2017-06-07] MEDS: CRESTOR TAB 10 MG PO SCH (21:04)
[2017-06-07] MEDS: LOVENOX INJ 30 MG SYR SC SCH (21:05)
[2017-06-07] MEDS: KLONOPIN TAB 1 MG PO SCH (21:05)
[2017-06-08] MEDS: NEURONTIN CAP 100 MG PO SCH ×3 (05:11→21:00)
[2017-06-08] MEDS ORDERED: ZESTRIL TAB 20 MG ONE (07:28)
[2017-06-08] MEDS: CELEXA PO SCH (09:18)
[2017-06-08] MEDS: ROXICODONE TAB 5 MG PO PRN ×3 (09:18→20:55)
[2017-06-08] MEDS: ZYLOPRIM PO SCH (09:18)
[2017-06-08] MEDS: CELEBREX PO SCH ×2 (09:18→20:54)
[2017-06-08] MEDS: HYTRIN PO SCH (09:18)
[2017-06-08] MEDS: VALIUM PO PRN (09:18)
[2017-06-08] MEDS: ZESTRIL TAB 20 MG PO SCH (09:18)
[2017-06-08] MEDS: ZyrTEC TAB 10 MG PO SCH (09:18)
[2017-06-08] MEDS: MIRALAX POWDER (1 DOSE 17GM) PO SCH (09:19)
[2017-06-08] MEDS: TAB-A-VITE PO SCH (09:19)
[2017-06-08] MEDS: MILK OF MAGNESIA PO SCH ×4 (09:19→21:00)
[2017-06-08] MEDS: COLACE CAP 100 MG PO SCH (20:54)
[2017-06-08] MEDS: KLONOPIN TAB 1 MG PO SCH (20:55)
[2017-06-08] MEDS: CRESTOR TAB 10 MG PO SCH (20:55)
[2017-06-08] MEDS: LOVENOX INJ 30 MG SYR SC SCH (20:57)
--- NOTE | 2017-06-08 21:21 | PCM.PROG ---
Progress Note - Progress Note for Day of Date: 06/06/17 - Subjective Subjective: IS STATUS POST LEFT TOTAL KNEE REPLACEMENT. SURGERY WAS ON 05/27/17 BY . PATIENT IS CURRENTLY ON SWINGBED STATUS FOR PHYSICAL THERAPY. TODAY, PATIENT IS ALERT AND ORIENTED, LYING IN BED ON MORNING ROUNDS. HE CONTINUES WITH COMPLAINTS OF LEFT KNEE PAIN, HOWEVER, REPORTS THAT PAIN HAS IMPROVED SINCE OUR LAST VISIT WITH HIM. PATIENT CONTINUES WITH MINIMAL PARTICIPATION IN PHYSICAL THERAPY DUE TO PAIN. ON EXAMINATION, LUNGS ARE CLEAR TO AUSCULTATION. ABDOMEN IS ROUND, SOFT, AND NON-TENDER WITH NORMAL BOWEL SOUNDS NOTED IN ALL QUADRANTS. BILATERAL LEGS ARE NOTED WITH HUSEYIN HOSE AND SCDS. S[place]VER[place] DRESSING TO LEFT KNEE NOTED TO BE DRY AND INTACT. REDNESS THAT WAS NOTED TO LEFT UPPER LEG HAS DECREASED A SIGNIFICANT AMOUNT. HIS VITAL SIGNS THIS MORNING ARE 98.6-67-20-94%-126/54. ABNORMAL LAB VALUES INCLUDE THE FOLLOWING: RBC 3.57, HGB 11.8, HCT 33.0, GLUCOSE 1062, TOTAL BILI 1.10, AST 39, TOTAL PROTEIN 6.1, ALBUMIN 2.8, A/G RATIO 0.8. PATIENT WAS NOTED WITH A DECREASE IN BLOOD PRESSURE TO 58/32 WHILE AMBULATING YESTERDAY. AFTER REST, BLOOD PRESSURE INCREASED TO 75/45. PATIENT REMAINED ALERT AND ORIENTED TO SITUATION. TODAY, WE PLAN TO CONTINUE WITH PHYSICAL THERAPY. WE PLAN TO FOLLOW UP WITH AM LABS AND CONTINUE TO MONITOR PATIENT. WE WILL CONTINUE TO MONITOR BLOOD PRESSURE. - Past Medical Family Social History Past Med/Fam/Surg Hx: No changes since H&P Allergies: Allergies No Known Drug Allergies Allergy (Verified 05/27/17 07:43) - Review of Systems ROS: No change since H&P - Vital Signs and I&O's Vital Signs: Temperature 98.6 F Pulse Rate [Left] 80 Pulse Rate [Right] 85 Respiratory Rate 18 Blood Pressure [Left Arm] 99/53 Blood Pressure [Right Arm] 96/57 Blood Pressure 125/67 O2 Sat by Pulse Oximetry 92 Intake and Output: Intake & Output 06/06/17 06/07/17 06/08/17 06/09/17 11:59 11:59 11:59 11:59 Intake Total 680 910 820 720 Output Total 275 Balance 680 635 820 720 - Physical Exam Oriented: Normal Eyes: Normal Ear: Normal Nose: Normal Throat: Normal Respiratory: Normal Cardiovascular: Edema (LEFT UPPER EXTREMITY EDEMA ) : Normal Auscultation: Bowel Sounds: Normal Palpation: Normal Tenderness: Normal Skin: Red, Tender, Wound Musculoskeletal: Left, Knee, Leg, Swelling, Tender, Instability Psychiatric: Normal Mood Description: Calm Affect: Normal Speech Pattern: Clear, Appropriate - Laboratory and Diagnostics Result Diagrams: 06/06/17 04:35 06/06/17 04:35 Labs: Laboratory WBC 6.8 X10^3/uL (3.6-10.0) 06/06/17 04:35 RBC 3.57 X10^6/uL (4.7-6.0) L 06/06/17 04:35 Hgb 11.8 g/dL (13.5-18.0) L 06/06/17 04:35 Hct 33.0 % (42.0-54.0) L 06/06/17 04:35 MCV 92.5 fL (80.0-100.0) 06/06/17 04:35 MCH 32.9 pg (27.0-34.0) 06/06/17 04:35 MCHC 35.6 g/dL (33.0-35.0) H 06/06/17 04:35 RDW 14.6 % (11.6-16.5) 06/06/17 04:35 Plt Count 308 X10^3/uL (150.0-450.0) 06/06/17 04:35 MPV 6.8 fL (7.4-11.0) L 06/06/17 04:35 Neut % 68.4 % (42.0-75.0) 06/06/17 04:35 Lymph % 18.4 % (21.0-51.0) L 06/06/17 04:35 Snyder % 10.6 % (0.0-13.0) 06/06/17 04:35 Eos % 1.8 % (0.9-2.9) 06/06/17 04:35 Baso % 0.8 % (0.2-1.0) 06/06/17 04:35 Neut # 4.7 x10^3/uL (2.2-4.8) 06/06/17 04:35 Lymph # 1.3 X10^3/uL (1.3-2.9) 06/06/17 04:35 Snyder # 0.7 x10^3/uL (0.3-0.8) 06/06/17 04:35 Eos # 0.1 x10^3/uL (0.0-0.2) 06/06/17 04:35 Baso # 0.1 X10^3/uL (0.0-0.1) 06/06/17 04:35 Absolute Nucleated RBC 0.2 /100WBC 06/06/17 04:35 Sodium 141 mmol/L (136-145) 06/06/17 04:35 Corrected Sodium TNP 06/06/17 04:35 Potassium 3.8 mmol/L (3.5-5.1) 06/06/17 04:35 Chloride 106 mmol/L (98-107) 06/06/17 04:35 Carbon Dioxide 26.4 mmol/L (21-32) 06/06/17 04:35 BUN 14 mg/dL (7-18) 06/06/17 04:35 Creatinine 0.86 mg/dL (0.70-1.30) 06/06/17 04:35 Est GFR (MDRD) Af Amer > 60 (>60) 06/06/17 04:35 Est GFR (MDRD) Non-Af > 60 (>60) 06/06/17 04:35 Glucose 102 mg/dL (65-99) H 06/06/17 04:35 Calcium 9.0 mg/dL (8.5-10.1) 06/06/17 04:35 Corrected Calcium 10.0 mg/dL (8.5-10.1) 06/06/17 04:35 Total Bilirubin 1.10 mg/dL (0.2-1.0) H 06/06/17 04:35 AST 39 Units/L (15-37) H 06/06/17 04:35 ALT 45 Units/L (12-78) 06/06/17 04:35 Alkaline Phosphatase 83 Units/L (46-116) 06/06/17 04:35 Total Protein 6.1 g/dL (6.4-8.2) L 06/06/17 04:35 Albumin 2.8 g/dL (3.4-5.0) L 06/06/17 04:35 Globulin 3.3 g/dL (2.5-4.5) 06/06/17 04:35 Albumin/Globulin Ratio 0.8 Ratio (1.1-2.1) L 06/06/17 04:35 - Plan (1) Total knee replacement status Status: Acute Qualifiers: Laterality: left Qualified Code(s): Z96.652 - Presence of left artificial knee joint Plan: PHYSICAL THERAPY, WOUND CARE, ADMINISTER PAIN MEDS, CONTINUE TO MONITOR
[2017-06-09 05:21] LABS: ALANINE AMINOTRANSFERASE 51 Units/L (12-78); ALKALINE PHOSPHATASE 101 Units/L (46-116); ASPARTATE AMINO TRANSFERASE 46 Units/L (15-37); BLOOD UREA NITROGEN 15 mg/dL (7-18); CALCIUM 9.6 mg/dL (8.5-10.1); CARBON DIOXIDE 28.5 mmol/L (21-32); COR CA(FOR HYPOALB) 10.4 mg/dL (8.5-10.1); CREATININE 1.06 mg/dL (0.70-1.30); TOTAL PROTEIN 6.5 g/dL (6.4-8.2); eGFR BLACK RACES > 60 (>60); eGFR NON BLACK RACES > 60 (>60)
[2017-06-09 05:30] LABS: BASOPHILS % (AUTO) 0.5 % (0.2-1.0); EOSINOPHILS # (AUTO) 0.2 x10^3/uL (0.0-0.2); EOSINOPHILS % (AUTO) 2.5 % (0.9-2.9); HEMATOCRIT 36.1 % (42.0-54.0); HEMOGLOBIN 12.3 g/dL (13.5-18.0); LYMPHOCYTES # (AUTO) 1.4 X10^3/uL (1.3-2.9); MEAN CORPUSCULAR HEMOGLOBIN 31.7 pg (27.0-34.0); MEAN CORPUSCULAR HGB CONC 34.1 g/dL (33.0-35.0); MEAN CORPUSCULAR VOLUME 93.1 fL (80.0-100.0); MEAN PLATELET VOLUME 6.8 fL (7.4-11.0); MONOCYTES # (AUTO) 0.8 x10^3/uL (0.3-0.8); MONOCYTES % (AUTO) 10.2 % (0.0-13.0); NEUTROPHILS # (AUTO) 5.2 x10^3/uL (2.2-4.8); NEUTROPHILS % (AUTO) 67.8 % (42.0-75.0); PLATELET COUNT 326 X10^3/uL (150.0-450.0); RED BLOOD COUNT 3.88 X10^6/uL (4.7-6.0); RED CELL DISTRIBUTION WIDTH 14.6 % (11.6-16.5); WHITE BLOOD COUNT 7.6 X10^3/uL (3.6-10.0)
[2017-06-09 05:33] LABS: CHLORIDE 102 mmol/L (98-107); SODIUM 140 mmol/L (136-145)
[2017-06-09] MEDS: NEURONTIN CAP 100 MG PO SCH ×2 (05:46→12:59)
[2017-06-09] MEDS: ROXICODONE TAB 5 MG PO PRN ×2 (05:47→12:59)
[2017-06-09] MEDS ORDERED: ZESTRIL TAB 20 MG ONE (08:41)
[2017-06-09] MEDS: HYTRIN PO SCH (09:36)
[2017-06-09] MEDS: VALIUM PO PRN (09:36)
[2017-06-09] MEDS: TAB-A-VITE PO SCH (09:36)
[2017-06-09] MEDS: MIRALAX POWDER (1 DOSE 17GM) PO SCH (09:37)
[2017-06-09] MEDS: ZYLOPRIM PO SCH (09:37)
[2017-06-09] MEDS: ZESTRIL TAB 20 MG PO SCH (09:37)
[2017-06-09] MEDS: CELEXA PO SCH (09:37)
[2017-06-09] MEDS: ZyrTEC TAB 10 MG PO SCH (09:37)
[2017-06-09] MEDS: CELEBREX PO SCH (09:37)
[2017-06-09] MEDS: MILK OF MAGNESIA PO SCH ×2 (09:37→12:59)
[2017-06-09 11:22] VITALS: BP 88/54
== END 2017-06-09 14:00 | disposition home health service (06) | DRG 950 ==
LOC: MED/SURG 12:00
PROVIDERS: ADMIT Internal Medicine; ATTEND Internal Medicine
DX: Z51.89 Encounter for other specified aftercare (principal); M17.12 Unilateral primary osteoarthritis, left knee; M25.562 Pain in left knee; M25.462 Effusion, left knee; I10 Essential (primary) hypertension; J30.2 Other seasonal allergic rhinitis; F41.8 Other specified anxiety disorders; M1A.9XX0 Chronic gout, unspecified, without tophus (tophi); R33.8 Other retention of urine; R26.89 Other abnormalities of gait and mobility; Z96.652 Presence of left artificial knee joint
CPT/HCPCS: 36415; 80053; 85025; 97535; A4216; J1650

== ENCOUNTER → 2017-06-15 | Outpatient (CLI) | payer OTHER ==
[2017-06-09 11:22] VITALS: BP 88/54
--- NOTE | 2017-06-15 12:45 | RAD ---
Examination: Left knee, four views History: Follow up total knee Comparison reference: 05/27/2017 Findings: Arthroplasty components remain anatomically related, without evidence for displacement, fra cture or hardware abnormality. There is persistent but improving postsurgical soft tissue change in t he anterior soft tissues. The patella remains in normal position. There is no evidence for large syno vial effusion. Impression: Stable appearance of left TKA. Reported By:
== END ==
LOC: RAD 11:43
PROVIDERS: ATTEND Orthopaedic Surgery
DX: Z98.890 Other specified postprocedural states (principal); Z96.652 Presence of left artificial knee joint
CPT/HCPCS: 73564

== ENCOUNTER → 2017-07-06 | Outpatient (CLI) | payer OTHER ==
[2017-06-09 11:22] VITALS: BP 88/54
--- NOTE | 2017-07-06 15:00 | RAD ---
Examination: Left knee, three views History: Postop Comparison reference 06/15/2017 Findings: Arthroplasty components remain anatomically related without evidence for displacement, frac ture, loosening or infection. No definite synovial effusion is identified. Impression: Stable appearance of left TKA. Reported By:
== END ==
LOC: RAD 14:13
PROVIDERS: ATTEND Orthopaedic Surgery
DX: M17.0 Bilateral primary osteoarthritis of knee (principal); Z96.652 Presence of left artificial knee joint
CPT/HCPCS: 73564

== ENCOUNTER → 2017-10-15 | Outpatient (CLI) | payer OTHER ==
[2017-10-15 14:03] LABS: BASOPHILS # (AUTO) 0.1 X10^3/uL (0.0-0.1); BASOPHILS % (AUTO) 0.8 % (0.2-1.0); EOSINOPHILS # (AUTO) 0.1 x10^3/uL (0.0-0.2); EOSINOPHILS % (AUTO) 2.4 % (0.9-2.9); HEMATOCRIT 42.5 % (42.0-54.0); HEMOGLOBIN 14.4 g/dL (13.5-18.0); LYMPHOCYTES # (AUTO) 1.3 X10^3/uL (1.3-2.9); LYMPHOCYTES % (AUTO) 20.4 % (21.0-51.0); MEAN CORPUSCULAR HEMOGLOBIN 30.3 pg (27.0-34.0); MEAN CORPUSCULAR HGB CONC 33.8 g/dL (33.0-35.0); MEAN CORPUSCULAR VOLUME 89.8 fL (80.0-100.0); MONOCYTES # (AUTO) 0.6 x10^3/uL (0.3-0.8); MONOCYTES % (AUTO) 9.1 % (0.0-13.0); NEUTROPHILS # (AUTO) 4.2 x10^3/uL (2.2-4.8); NEUTROPHILS % (AUTO) 67.3 % (42.0-75.0); PLATELET COUNT 191 X10^3/uL (150.0-450.0); RED BLOOD COUNT 4.73 X10^6/uL (4.7-6.0); RED CELL DISTRIBUTION WIDTH 15.3 % (11.6-16.5); WHITE BLOOD COUNT 6.2 X10^3/uL (3.6-10.0)
[2017-10-15 14:06] LABS: BILIRUBIN,URINE NEGATIVE (NEGATIVE); BLOOD/HEMOGLOBIN,URINE NEGATIVE (NEGATIVE); GLUCOSE, URINE NEGATIVE (NEGATIVE); KETONES,URINE NEGATIVE (NEGATIVE); LEUKOCYTE ESTERASE ,URINE 1+ (NEGATIVE); NITRITES,URINE NEGATIVE (NEGATIVE); PROTEIN,URINE 1+ (NEGATIVE); UROBILINOGEN,URINE 2+ (NORMAL)
[2017-10-15 14:15] LABS: APPEARANCE,URINE CLEAR (CLEAR); COLOR,URINE YELLOW (YELLOW)
[2017-10-15 14:16] LABS: RBC,URINE 0-2 /HPF (NONE SEEN)
[2017-10-15 14:17] LABS: BACTERIA,URINE TRACE /HPF (NEGATIVE); SQUAMOUS EPITHELIAL CELL,UR MODERATE /HPF (NEGATIVE)
[2017-10-15 14:21] LABS: ALANINE AMINOTRANSFERASE 55 Units/L (12-78); ALBUMIN 3.8 g/dL (3.4-5.0); ALKALINE PHOSPHATASE 98 Units/L (46-116); ASPARTATE AMINO TRANSFERASE 30 Units/L (15-37); BLOOD UREA NITROGEN 18 mg/dL (7-18); CALCIUM 8.7 mg/dL (8.5-10.1); CARBON DIOXIDE 26.6 mmol/L (21-32); CHLORIDE 103 mmol/L (98-107); COR NA(FOR HYPERGLY) 141 mmol/L (136-145); CREATININE 0.97 mg/dL (0.70-1.30); SODIUM 141 mmol/L (136-145); TOTAL PROTEIN 7.3 g/dL (6.4-8.2); eGFR BLACK RACES > 60 (>60); eGFR NON BLACK RACES > 60 (>60)
--- NOTE | 2017-10-15 14:51 | RAD ---
HISTORY: Preoperative exam for knee replacement Study: Two views of the chest Comparison: May 21, 2017 Findings: The trachea is midline. The cardiac silhouette is enlarged. The lungs are clear without focal infil trate or effusion. IMPRESSION: 1. Cardiomegaly. Reported By:
[2017-10-15 15:14] LABS: ERYTHROCYTE SEDIMENTATION RATE 5 MM/HOUR (0-15)
== END | disposition home or self-care (01) | DRG 951 ==
LOC: LAB 13:07
PROVIDERS: ATTEND Orthopaedic Surgery
DX: Z01.818 Encounter for other preprocedural examination (principal); Z79.899 Other long term (current) drug therapy; Z11.8 Encounter for screening for other infectious and parasitic diseases; Z79.01 Long term (current) use of anticoagulants; Z01.810 Encounter for preprocedural cardiovascular examination; Z01.811 Encounter for preprocedural respiratory examination; M17.0 Bilateral primary osteoarthritis of knee; I51.7 Cardiomegaly
CPT/HCPCS: 36415; 71046; 80053; 81001; 81003; 85025; 85610; 85652; 85730; 86140; 86850; 86900; 86901; 87640; 87641; 93005; 93010

== ENCOUNTER 2017-10-19 07:45 | Inpatient (IN) | payer OTHER ==
[2017-10-19] MEDS ORDERED: ANCEF 1 GM IV PREMIX* 1 GM/50 ML BAG IV ONE ×2 (07:58→10:34)
[2017-10-19] MEDS ORDERED: D5 LR 1000 ML 1,000 ML IV ONE (07:58)
[2017-10-19 08:30] VITALS: BMI 33.7
[2017-10-19] MEDS ORDERED: DILAUDID INJ ONE ×2 (09:26→13:43)
[2017-10-19] MEDS ORDERED: FENTANYL INJ 250 mcg ONE (09:26)
[2017-10-19] MEDS ORDERED: LR 1000 ML IV 1,000 ML IV ONE ×2 (10:10→14:27)
[2017-10-19] MEDS ORDERED: NS IRRIGATION 1000 ML 1,000 ML with BACITRACIN VIAL 50,000 UNT IR ONE ×2 (10:43)
[2017-10-19] MEDS ORDERED: NS IRRIGATION 3000 ML 3,000 ML with BACITRACIN VIAL 50,000 UNT IR ONE ×4 (10:43)
[2017-10-19] MEDS ORDERED: FENTANYL INJ 100 mcg ONE (11:24)
[2017-10-19] MEDS: MARCAINE 0.25% INJ ONE ×2 (11:26→15:35)
[2017-10-19] MEDS: XYLOCAINE 1% and EPINEPHRINE 1:100,000 ONE ×2 (11:26→15:35)
[2017-10-19] MEDS ORDERED: ZOFRAN INJ 4 MG VIAL IVP PRN (13:34)
[2017-10-19] MEDS ORDERED: REGLAN INJ 10 MG VIAL IVP PRN (13:34)
[2017-10-19] MEDS ORDERED: DILAUDID INJ IVP PRN (13:34)
[2017-10-19] MEDS ORDERED: PHENERGAN INJ 25 MG IVP PRN (13:34)
[2017-10-19] MEDS ORDERED: BENADRYL INJ 50 MG VIAL IVP PRN (13:34)
[2017-10-19] MEDS ORDERED: DILAUDID INJ IVP ONE ×2 (13:45→14:05)
--- NOTE | 2017-10-19 14:41 | RAD ---
HISTORY: Right knee arthroplasty Study: Right knee: Two views Comparison: 11/01/2015 Findings: A right knee arthroplasty has been performed. Lucency is noted around the femoral component, most li azid due to repositioning. The tibial component is imbedded in methacrylate. Surgical drain and sta ples are present. Gas is noted within the soft tissues. IMPRESSION: 1. Right knee arthroplasty has been performed. 2. Lucency around the femoral component suggesting there was repositioning. Reported By:
[2017-10-19 14:47] LABS: HEMATOCRIT 39.1 % (42.0-54.0); HEMOGLOBIN 13.2 g/dL (13.5-18.0)
[2017-10-19] MEDS: MORPHINE SULFATE PCA 30 MG IV PRN ×2 (15:18→21:37)
[2017-10-19] MEDS: LR 1000 ML IV 1,000 ML IV SCH (19:17)
[2017-10-19] MEDS: DILAUDID INJ IVP PRN ×2 (19:17→21:36)
[2017-10-20] MEDS: DILAUDID INJ IVP PRN ×3 (05:58→16:09)
[2017-10-20 06:04] LABS: BLOOD UREA NITROGEN 18 mg/dL (7-18); CALCIUM 8.4 mg/dL (8.5-10.1); CARBON DIOXIDE 28.6 mmol/L (21-32); CHLORIDE 101 mmol/L (98-107); COR NA(FOR HYPERGLY) 138 mmol/L (136-145); CREATININE 1.48 mg/dL (0.70-1.30); SODIUM 138 mmol/L (136-145); eGFR BLACK RACES > 60 (>60); eGFR NON BLACK RACES 51 (>60)
[2017-10-20 06:19] LABS: BASOPHILS % (AUTO) 0.3 % (0.2-1.0); EOSINOPHILS # (AUTO) 0.1 x10^3/uL (0.0-0.2); EOSINOPHILS % (AUTO) 0.6 % (0.9-2.9); HEMATOCRIT 35.2 % (42.0-54.0); HEMOGLOBIN 12.1 g/dL (13.5-18.0); LYMPHOCYTES # (AUTO) 0.9 X10^3/uL (1.3-2.9); MEAN CORPUSCULAR HEMOGLOBIN 30.7 pg (27.0-34.0); MEAN CORPUSCULAR HGB CONC 34.4 g/dL (33.0-35.0); MEAN CORPUSCULAR VOLUME 89.4 fL (80.0-100.0); MEAN PLATELET VOLUME 8.2 fL (7.4-11.0); MONOCYTES # (AUTO) 1.3 x10^3/uL (0.3-0.8); MONOCYTES % (AUTO) 13.9 % (0.0-13.0); NEUTROPHILS # (AUTO) 7.3 x10^3/uL (2.2-4.8); NEUTROPHILS % (AUTO) 76.2 % (42.0-75.0); PLATELET COUNT 196 X10^3/uL (150.0-450.0); RED BLOOD COUNT 3.93 X10^6/uL (4.7-6.0); RED CELL DISTRIBUTION WIDTH 15.4 % (11.6-16.5); WHITE BLOOD COUNT 9.6 X10^3/uL (3.6-10.0)
[2017-10-20] MEDS: MORPHINE SULFATE PCA 30 MG IV PRN (08:07)
[2017-10-20] MEDS: LR 1000 ML IV 1,000 ML IV SCH ×2 (08:12→20:40)
[2017-10-20] MEDS ORDERED: PATIENT'S HOME MEDICATION (Biotin [Biotin] 10,000 MCG) PO SCH (10:30)
[2017-10-20] MEDS: CELEXA PO SCH (11:14)
[2017-10-20] MEDS: ZyrTEC TAB 10 MG PO SCH (11:14)
[2017-10-20] MEDS: ZYLOPRIM PO SCH (11:14)
[2017-10-20] MEDS: TAB-A-VITE PO SCH (11:14)
[2017-10-20] MEDS: LOVENOX INJ 30 MG SYR SC SCH ×2 (12:43→20:38)
[2017-10-20] MEDS ORDERED: VERSED ONE (13:58)
[2017-10-20] MEDS ORDERED: SUPRANE IN ONE (13:58)
[2017-10-20] MEDS ORDERED: ZOFRAN INJ 4 MG VIAL ONE (13:58)
[2017-10-20] MEDS ORDERED: DIPRIVAN VIAL ONE (13:58)
[2017-10-20] MEDS ORDERED: QUELICIN (OR ANECTINE) ONE (13:58)
[2017-10-20] MEDS ORDERED: NORCURON INJ 10 MG VIAL ONE (13:58)
[2017-10-20] MEDS ORDERED: XYLOCAINE 2 % (PLAIN) ONE (13:58)
[2017-10-20] MEDS ORDERED: EPHEDRINE SULFATE INJ ONE (13:58)
[2017-10-20] MEDS ORDERED: NEOSTIGMINE INJ ONE (13:58)
[2017-10-20] MEDS ORDERED: ROBINUL ONE (13:58)
[2017-10-20] MEDS ORDERED: MORPHINE SULFATE PCA 30 MG IV PRN (15:31)
--- NOTE | 2017-10-20 20:30 | PCM.PROG ---
Progress Note - Progress Note for Day of Date: 10/20/17 - Subjective Subjective: Mister Samuel Bello is postoperative day 1. He had a right total knee arthroplasty. No complications. His pain is well controlled at this time. 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 He has been having issues with blood pressure. We will have Dr. Porter look at it and make recommendations. he could not get his physical therapy due to low blood pressure. Surgical dressing clean and dry. Drain in place. Afebrile. Stable vitals.postoperative x-ray looks acceptable alignment and well fixed left total knee arthroplasty. - Past Medical Family Social History Allergies: Allergies No Known Drug Allergies Allergy (Verified 05/27/17 07:43) - Vital Signs and I&O's Vital Signs: Temperature 98.8 F Pulse Rate [Left Brachial] 85 Pulse Rate 98 Respiratory Rate 20 Blood Pressure [Left Arm] 109/50 Blood Pressure [Right Arm] 96/57 Blood Pressure 109/52 O2 Sat by Pulse Oximetry 94 Intake and Output: Intake & Output 10/18/17 10/19/17 10/20/17 10/21/17 11:59 11:59 11:59 11:59 Intake Total 770 1380 Output Total 6175 650 Balance -5405 730 - Physical Exam Speech Pattern: Clear, Appropriate - Laboratory and Diagnostics Result Diagrams: 10/20/17 04:25 10/20/17 04:25 Labs: Laboratory WBC 9.6 X10^3/uL (3.6-10.0) 10/20/17 04:25 RBC 3.93 X10^6/uL (4.7-6.0) L 10/20/17 04:25 Hgb 12.1 g/dL (13.5-18.0) L 10/20/17 04:25 Hct 35.2 % (42.0-54.0) L 10/20/17 04:25 MCV 89.4 fL (80.0-100.0) 10/20/17 04:25 MCH 30.7 pg (27.0-34.0) 10/20/17 04:25 MCHC 34.4 g/dL (33.0-35.0) 10/20/17 04:25 RDW 15.4 % (11.6-16.5) 10/20/17 04:25 Plt Count 196 X10^3/uL (150.0-450.0) 10/20/17 04:25 MPV 8.2 fL (7.4-11.0) 10/20/17 04:25 Neut % (Auto) 76.2 % (42.0-75.0) H 10/20/17 04:25 Lymph % (Auto) 9.0 % (21.0-51.0) L 10/20/17 04:25 Glenn % (Auto) 13.9 % (0.0-13.0) H 10/20/17 04:25 Eos % (Auto) 0.6 % (0.9-2.9) L 10/20/17 04:25 Baso % (Auto) 0.3 % (0.2-1.0) 10/20/17 04:25 Neut # (Auto) 7.3 x10^3/uL (2.2-4.8) H 10/20/17 04:25 Lymph # (Auto) 0.9 X10^3/uL (1.3-2.9) L 10/20/17 04:25 Glenn # (Auto) 1.3 x10^3/uL (0.3-0.8) H 10/20/17 04:25 Eos # (Auto) 0.1 x10^3/uL (0.0-0.2) 10/20/17 04:25 Baso # (Auto) 0.0 X10^3/uL (0.0-0.1) 10/20/17 04:25 Absolute Nucleated RBC 0.0 /100WBC 10/20/17 04:25 Sodium 138 mmol/L (136-145) 10/20/17 04:25 Corrected Sodium 138 mmol/L (136-145) 10/20/17 04:25 Potassium 4.3 mmol/L (3.5-5.1) 10/20/17 04:25 Chloride 101 mmol/L (98-107) 10/20/17 04:25 Carbon Dioxide 28.6 mmol/L (21-32) 10/20/17 04:25 BUN 18 mg/dL (7-18) 10/20/17 04:25 Creatinine 1.48 mg/dL (0.70-1.30) H 10/20/17 04:25 Est GFR (MDRD) Af Amer > 60 (>60) 10/20/17 04:25 Est GFR (MDRD) Non-Af 51 (>60) L 10/20/17 04:25 Glucose 116 mg/dL (65-99) H 10/20/17 04:25 Calcium 8.4 mg/dL (8.5-10.1) L 10/20/17 04:25 - Plan (1) Total knee replacement status Status: Chronic Qualifiers: Laterality: right Qualified Code(s): Z96.651 - Presence of right artificial knee joint Plan: he is first postoperative right total knee arthroplasty. #1. Continue physical therapy. #2. We will transition him to oral by mouth pain meds. #3. We will remove the drains tomorrw. 4. Medical management per Dr. Porter.
[2017-10-20] MEDS: HYTRIN PO SCH (20:38)
[2017-10-20] MEDS: PERCOCET TAB 5/325 MG PO PRN (20:39)
[2017-10-21] MEDS: PERCOCET TAB 5/325 MG PO PRN ×5 (00:29→22:18)
[2017-10-21] MEDS: DILAUDID INJ IVP PRN ×2 (02:18→04:34)
[2017-10-21 05:42] LABS: BLOOD UREA NITROGEN 11 mg/dL (7-18); CALCIUM 8.5 mg/dL (8.5-10.1); CARBON DIOXIDE 27.8 mmol/L (21-32); CHLORIDE 99 mmol/L (98-107); COR NA(FOR HYPERGLY) 135 mmol/L (136-145); CREATININE 0.95 mg/dL (0.70-1.30); SODIUM 135 mmol/L (136-145); eGFR BLACK RACES > 60 (>60); eGFR NON BLACK RACES > 60 (>60)
[2017-10-21 05:52] LABS: BASOPHILS % (AUTO) 0.3 % (0.2-1.0); EOSINOPHILS # (AUTO) 0.1 x10^3/uL (0.0-0.2); HEMATOCRIT 33.1 % (42.0-54.0); HEMOGLOBIN 11.5 g/dL (13.5-18.0); LYMPHOCYTES # (AUTO) 0.9 X10^3/uL (1.3-2.9); LYMPHOCYTES % (AUTO) 8.8 % (21.0-51.0); MEAN CORPUSCULAR HEMOGLOBIN 30.9 pg (27.0-34.0); MEAN CORPUSCULAR HGB CONC 34.7 g/dL (33.0-35.0); MEAN CORPUSCULAR VOLUME 88.9 fL (80.0-100.0); MEAN PLATELET VOLUME 7.8 fL (7.4-11.0); MONOCYTES # (AUTO) 1.2 x10^3/uL (0.3-0.8); MONOCYTES % (AUTO) 11.5 % (0.0-13.0); NEUTROPHILS # (AUTO) 8.1 x10^3/uL (2.2-4.8); NEUTROPHILS % (AUTO) 78.4 % (42.0-75.0); PLATELET COUNT 192 X10^3/uL (150.0-450.0); RED BLOOD COUNT 3.73 X10^6/uL (4.7-6.0); RED CELL DISTRIBUTION WIDTH 15.1 % (11.6-16.5); WHITE BLOOD COUNT 10.3 X10^3/uL (3.6-10.0)
[2017-10-21] MEDS: TAB-A-VITE PO SCH (08:04)
[2017-10-21] MEDS: CELEXA PO SCH (08:04)
[2017-10-21] MEDS: ZyrTEC TAB 10 MG PO SCH (08:04)
[2017-10-21] MEDS: HYTRIN PO SCH (08:04)
[2017-10-21] MEDS: LOVENOX INJ 30 MG SYR SC SCH ×2 (08:05→20:02)
[2017-10-21] MEDS: ZYLOPRIM PO SCH (08:05)
[2017-10-21] MEDS: VITAMIN D3 PO SCH (08:05)
--- NOTE | 2017-10-21 13:43 | OR.GENERIC ---
Post-Op Note Generic - Post-Op Note Operative Report: PREOPERATIVE DIAGNOSIS: Degenerative arthritis of the RIGHT knee. POSTOPERATIVE DIAGNOSIS: Degenerative arthritis of the RIGHT knee. PROCEDURE PERFORMED: RIGHT total knee arthroplasty. DATE OF SURGERY-10/19/2017 BLOOD LOSS: 200 cc. ANESTHESIA: General. IMPLANT USED FOR PROCEDURE: William Triathlon femur- size 5, posterior stabilized tibia-size 6, 12 50 cemented stem Patella-symmetrical , 319 Polyethylene insert- size 611 mm INDICATIONS- Mr. JANELLE Acosta is a 67-year-old male presented to the office after risks LEFT total knee arthroplasty. The patient wanted to have a RIGHT total knee arthroplasty done. Past history is significant for failing conservative management in the form of injection placed physical therapy and multiple injections.it is affecting him significantly and on a daily basis. He is not able to do activities of daily living. He needs assistance with that. Patient will proceed with a RIGHT total knee arthroplasty. Risks and benefits were discussed with him. Complications including but not limited to infection, loosening him a patella fracture, fracture around the fracture stem, instability , need for revision for the total knee arthroplasty were discussed with him. Patient agreed and consented for surgery. GROSS INTRAOPERATIVE FINDINGS: Degenerative rahman of three compartments of the trochlea, the medial, as well as the lateral femoral condyles as well was the plateau. pREOPERATIVE- patient was seen in the preoperative holding area. RIGHT knee was marked. Patient with appropriate block. Patient was met with the conduit installer.patient got the appropriate antibiotic. consent was again revisited. Patient consented for the procedure. PROCEDURE: The patient was wheeled back to operating room and was placed supine on the operating room table. At this time, a nonsterile tourniquet was placed on the left upper thigh, but not inflated. An Esmarch was then used to exsanguinate the extremity and the left extremity was then prepped and draped in the usual sterile fashion for this procedure. The tourniquet was then inflated to 325 mmHg. At this time, a standard midline incision was made. medial parapatellar arthrotomy was completed. medial release of proximl tibia, fat pad excision, ant femoral synovium excision was ompleted. Medail and lateral meniscua and ACL and PCL was excised.the patella was everted. At this time with a better exposure of the proximal tibia, we placed external tibial guide. This was placed with longitudinal axis of the tibia and carefully positioned in order to obtain an optimal cut for the proximal tibia. At this time with careful soft tissue retraction and protection, an oscillating saw was used to make a proximal tibial osteotomy. Prior to the osteotomy, the cut was checked with a depth gauge in order to assure appropriate bony resection. At this time, I then used a drill to cannulate the distal femoral canal in order to place the intramedullary guide. Distal femroal osteotomy was completed. siz 5 femur was determined. Epicondylar axis was determined. 4 in 1 block placed and bone cuts complted. posterior osteophytes removed with osteotome and curette. box cut finished. The block was then removed and an osteotome was then used to remove all the bony cut pieces. the tibia was sized and found to be size 6. Keep in mind the appropriate rotation as well as alignment of the tibia was prepared. A Luis Miguel retractor was then reinserted and replaced peg tibial tray in order to peg the proximal tibia. Once the drill holes were performed, we then copiously irrigated the wound and then suctioned it dry to get ready and prepped for cementation of the drilled components Flexion and extension gaps were checked and found to be appropriate. Once this was removed, we then implanted our trial components of size 5 to the femur and a size 6 mm tibial tray with 11 mm plastic articulating surface. The knee was taken through range of motion and revealed excellent femorotibial articulation. The patella was prepared free hand and its inital thickness maintained. At this time, the prosthesis was removed. . At this time, polymethyl methacrylate cement was then mixed. The cement was placed on the tibial surface as well as the underneath surface of the component. The component was then placed and impacted with excess cement removed. In a similar fashion, the femoral and atellar component was also placed. A 11 mm plastic tray was then placed and the leg held in full extension and compression in order to obtain adequate bony cement content. Once the cement was fully hardened, the knee was flexed and a small osteotome was used to remove any extruding cement from around the prosthesis of the bone. Once this was performed, copious irrigation was used to irrigate the wound and the wound was then suctioned dry. We decided to go with a #11 mm polyethylene tray. At this time, this was placed to the tibial articulation and then left in place. This was rechecked with careful attention to detail with checking no soft tissue interpositioned between the polyethylene tray and the metal tray of the tibia. The knee was again taken through range of motion and revealed excellent tracking of the patella with good femur and tibial contact. A drain was placed and cut to length. At this time, the knee was irrigated and copiously suction dried. #1-0 vicryl suture was then used to approximate the medial parapatellar arthrotomy in figure -of-eight fashion. A tight capsular closure was performed. This was reinforced with a #1-0 running Vicryl suture. At this time, the knee was again taken through range of motion to assure tight capsular closure. At this time, copious irrigation was used to irrigate the superficial wound. #2-0 Vicryl was used to approximate the wound with [id number] inverted suture. The skin was then approximated with kimo. The leg was then cleansed. Sterile dressing consisting of Adaptic, 4x4, ABDs, and Kerlix roll were then applied. At this time, the patient was extubated and transferred to recovery in stable condition. Prognosis is good for this patient.post op xrays were satisfactory.
--- NOTE | 2017-10-21 13:47 | PCM.PROG ---
Progress Note - Progress Note for Day of Date: 10/21/17 - Subjective Subjective: Mister Samule Bello is postoperative day 2. He had a right total knee arthroplasty. No complications. His pain is well controlled at this time. 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 He is taking by mouth pain medications at this time. His blood pressure is being well maintained at this time. He got his physical therapy and is walking well. Dressing was changed. Drain was removed. Surgical incision clean and dry without any signs of infection. Afebrile. Stable vitals.postoperative x-ray looks acceptable alignment and well fixed left total knee arthroplasty. - Past Medical Family Social History Allergies: Allergies No Known Drug Allergies Allergy (Verified 05/27/17 07:43) - Vital Signs and I&O's Vital Signs: Temperature 98 F Pulse Rate [Left Brachial] 88 Pulse Rate 98 Respiratory Rate 22 Blood Pressure [Left Arm] 105/56 Blood Pressure [Right Arm] 96/57 Blood Pressure 109/52 O2 Sat by Pulse Oximetry 94 Intake and Output: Intake & Output 10/19/17 10/20/17 10/21/17 10/22/17 11:59 11:59 11:59 11:59 Intake Total 770 2880 Output Total 6175 2300 Balance -5405 580 - Physical Exam Speech Pattern: Clear - Laboratory and Diagnostics Result Diagrams: 10/21/17 05:14 10/21/17 05:14 Labs: Laboratory WBC 10.3 X10^3/uL (3.6-10.0) H 10/21/17 05:14 RBC 3.73 X10^6/uL (4.7-6.0) L 10/21/17 05:14 Hgb 11.5 g/dL (13.5-18.0) L 10/21/17 05:14 Hct 33.1 % (42.0-54.0) L 10/21/17 05:14 MCV 88.9 fL (80.0-100.0) 10/21/17 05:14 MCH 30.9 pg (27.0-34.0) 10/21/17 05:14 MCHC 34.7 g/dL (33.0-35.0) 10/21/17 05:14 RDW 15.1 % (11.6-16.5) 10/21/17 05:14 Plt Count 192 X10^3/uL (150.0-450.0) 10/21/17 05:14 MPV 7.8 fL (7.4-11.0) 10/21/17 05:14 Neut % (Auto) 78.4 % (42.0-75.0) H 10/21/17 05:14 Lymph % (Auto) 8.8 % (21.0-51.0) L 10/21/17 05:14 Hunt % (Auto) 11.5 % (0.0-13.0) 10/21/17 05:14 Eos % (Auto) 1.0 % (0.9-2.9) 10/21/17 05:14 Baso % (Auto) 0.3 % (0.2-1.0) 10/21/17 05:14 Neut # (Auto) 8.1 x10^3/uL (2.2-4.8) H 10/21/17 05:14 Lymph # (Auto) 0.9 X10^3/uL (1.3-2.9) L 10/21/17 05:14 Hunt # (Auto) 1.2 x10^3/uL (0.3-0.8) H 10/21/17 05:14 Eos # (Auto) 0.1 x10^3/uL (0.0-0.2) 10/21/17 05:14 Baso # (Auto) 0.0 X10^3/uL (0.0-0.1) 10/21/17 05:14 Absolute Nucleated RBC 0.0 /100WBC 10/21/17 05:14 Sodium 135 mmol/L (136-145) L 10/21/17 05:14 Corrected Sodium 135 mmol/L (136-145) L 10/21/17 05:14 Potassium 4.1 mmol/L (3.5-5.1) 10/21/17 05:14 Chloride 99 mmol/L (98-107) 10/21/17 05:14 Carbon Dioxide 27.8 mmol/L (21-32) 10/21/17 05:14 BUN 11 mg/dL (7-18) 10/21/17 05:14 Creatinine 0.95 mg/dL (0.70-1.30) 10/21/17 05:14 Est GFR (MDRD) Af Amer > 60 (>60) 10/21/17 05:14 Est GFR (MDRD) Non-Af > 60 (>60) 10/21/17 05:14 Glucose 114 mg/dL (65-99) H 10/21/17 05:14 Calcium 8.5 mg/dL (8.5-10.1) 10/21/17 05:14 - Plan (1) Total knee replacement status Status: Chronic Qualifiers: Laterality: right Qualified Code(s): Z96.651 - Presence of right artificial knee joint Plan: he is 2nd postoperative right total knee arthroplasty. #1. Continue physical therapy. #2. continue him to oral by mouth pain meds. #3. Medical management per Dr. Porter. #4. We can plan on discharging him. visitor services representative consultation to discuss that with the family.
--- NOTE | 2017-10-21 21:23 | PCM.PROG ---
Progress Note - Progress Note for Day of Date: 10/20/17 - Subjective Subjective: IS STATUS POST RIGHT TOTAL KNEE. HE IS ONE DAY POST-OP. TODAY, HE IS ALERT AND ORIENTED, LYING IN BED ON MORNING ROUNDS. SPOUSE IS AT BEDSIDE. HE IS NOTED WITH COMPLAINTS OF RIGHT KNEE PAIN. A SURGICAL DRESSING IS NOTED TO KNEE. DRY AND INTACT WITH NO SIGNS OR SX INFECTION NOTED AT THIS TIME. A HEMOVAC IS ALSO IN PLACE. HIS VITALS THIS MORNING ARE 97.9-89-20-95%-113/56. LABS WERE OBTAINED. ABNORMAL LAB VALUES INCLUDE THE FOLLOWING: RBC 3.93, HGB 12.1, HCT 35.2, CREATININE 1.48, GLUCOSE 116, CALCIUM 8.4. PATIENTS BLOOD PRESSURE HAS RAN IN THE 90s/50s THROUGHOUT THE NIGHT. HE HAS A HISTORY OF HYPERTENSION. WE WILL HOLD HIS ANTIHYPERTENSIVES AT THIS TIME. TODAY, WE WILL CONTINUE WITH CURRENT PLAN OF CARE. PHYSICAL THERAPY WILL WORK WITH PATIENT WHEN HIS BLOOD PRESSURE IS STABLE. OTHERWISE, WE PLAN TO FOLLOW UP WITH AM LABS AND CONTINUE TO MONITOR PATIENT. - Past Medical Family Social History Past Med/Fam/Surg Hx: No changes since H&P Allergies: Allergies No Known Drug Allergies Allergy (Verified 05/27/17 07:43) - Review of Systems ROS: No change since H&P - Vital Signs and I&O's Vital Signs: Temperature 98.8 F Pulse Rate [Left Brachial] 91 Pulse Rate 98 Respiratory Rate 22 Blood Pressure [Left Arm] 132/61 Blood Pressure [Right Arm] 96/57 Blood Pressure 109/52 O2 Sat by Pulse Oximetry 91 Intake and Output: Intake & Output 10/19/17 10/20/17 10/21/17 10/22/17 11:59 11:59 11:59 11:59 Intake Total 770 2880 680 Output Total 6175 2300 1300 Balance -5405 580 -620 - Physical Exam Oriented: Normal Eyes: Normal Ear: Normal Nose: Normal Throat: Normal Respiratory: Normal Cardiovascular: Normal : Normal Auscultation: Bowel Sounds: Normal Palpation: Normal Tenderness: Normal Skin: Wound (RIGHT KNEE SURGICAL WOUND) Musculoskeletal: Right, Knee, Tender Psychiatric: Normal Mood Description: Calm Affect: Normal Speech Pattern: Clear - Laboratory and Diagnostics Result Diagrams: 10/21/17 05:14 10/21/17 05:14 Labs: Laboratory WBC 10.3 X10^3/uL (3.6-10.0) H 10/21/17 05:14 RBC 3.73 X10^6/uL (4.7-6.0) L 10/21/17 05:14 Hgb 11.5 g/dL (13.5-18.0) L 10/21/17 05:14 Hct 33.1 % (42.0-54.0) L 10/21/17 05:14 MCV 88.9 fL (80.0-100.0) 10/21/17 05:14 MCH 30.9 pg (27.0-34.0) 10/21/17 05:14 MCHC 34.7 g/dL (33.0-35.0) 10/21/17 05:14 RDW 15.1 % (11.6-16.5) 10/21/17 05:14 Plt Count 192 X10^3/uL (150.0-450.0) 10/21/17 05:14 MPV 7.8 fL (7.4-11.0) 10/21/17 05:14 Neut % (Auto) 78.4 % (42.0-75.0) H 10/21/17 05:14 Lymph % (Auto) 8.8 % (21.0-51.0) L 10/21/17 05:14 Dubois % (Auto) 11.5 % (0.0-13.0) 10/21/17 05:14 Eos % (Auto) 1.0 % (0.9-2.9) 10/21/17 05:14 Baso % (Auto) 0.3 % (0.2-1.0) 10/21/17 05:14 Neut # (Auto) 8.1 x10^3/uL (2.2-4.8) H 10/21/17 05:14 Lymph # (Auto) 0.9 X10^3/uL (1.3-2.9) L 10/21/17 05:14 Dubois # (Auto) 1.2 x10^3/uL (0.3-0.8) H 10/21/17 05:14 Eos # (Auto) 0.1 x10^3/uL (0.0-0.2) 10/21/17 05:14 Baso # (Auto) 0.0 X10^3/uL (0.0-0.1) 10/21/17 05:14 Absolute Nucleated RBC 0.0 /100WBC 10/21/17 05:14 Sodium 135 mmol/L (136-145) L 10/21/17 05:14 Corrected Sodium 135 mmol/L (136-145) L 10/21/17 05:14 Potassium 4.1 mmol/L (3.5-5.1) 10/21/17 05:14 Chloride 99 mmol/L (98-107) 10/21/17 05:14 Carbon Dioxide 27.8 mmol/L (21-32) 10/21/17 05:14 BUN 11 mg/dL (7-18) 10/21/17 05:14 Creatinine 0.95 mg/dL (0.70-1.30) 10/21/17 05:14 Est GFR (MDRD) Af Amer > 60 (>60) 10/21/17 05:14 Est GFR (MDRD) Non-Af > 60 (>60) 10/21/17 05:14 Glucose 114 mg/dL (65-99) H 10/21/17 05:14 Calcium 8.5 mg/dL (8.5-10.1) 10/21/17 05:14 - Plan (1) Total knee replacement status Status: Chronic Qualifiers: Laterality: right Qualified Code(s): Z96.651 - Presence of right artificial knee joint Plan: he is 1ST postoperative right total knee arthroplasty. #1. Continue physical therapy. #2. continue him to oral by mouth pain meds. #3. Medical management #4 legal services manager consultation to discuss that with the family.
[2017-10-22] MEDS: PERCOCET TAB 5/325 MG PO PRN ×4 (02:19→16:37)
[2017-10-22 05:51] LABS: BLOOD UREA NITROGEN 9 mg/dL (7-18); CALCIUM 8.9 mg/dL (8.5-10.1); CARBON DIOXIDE 25.7 mmol/L (21-32); CHLORIDE 100 mmol/L (98-107); COR NA(FOR HYPERGLY) 136 mmol/L (136-145); CREATININE 0.85 mg/dL (0.70-1.30); SODIUM 136 mmol/L (136-145); eGFR BLACK RACES > 60 (>60); eGFR NON BLACK RACES > 60 (>60)
[2017-10-22] MEDS: LR 1000 ML IV 1,000 ML IV SCH (06:05)
[2017-10-22 06:12] LABS: BASOPHILS % (AUTO) 0.4 % (0.2-1.0); EOSINOPHILS # (AUTO) 0.1 x10^3/uL (0.0-0.2); EOSINOPHILS % (AUTO) 1.4 % (0.9-2.9); HEMATOCRIT 33.2 % (42.0-54.0); HEMOGLOBIN 11.4 g/dL (13.5-18.0); LYMPHOCYTES # (AUTO) 0.9 X10^3/uL (1.3-2.9); LYMPHOCYTES % (AUTO) 9.2 % (21.0-51.0); MEAN CORPUSCULAR HEMOGLOBIN 30.8 pg (27.0-34.0); MEAN CORPUSCULAR HGB CONC 34.4 g/dL (33.0-35.0); MEAN CORPUSCULAR VOLUME 89.7 fL (80.0-100.0); MEAN PLATELET VOLUME 8.1 fL (7.4-11.0); MONOCYTES # (AUTO) 1.1 x10^3/uL (0.3-0.8); MONOCYTES % (AUTO) 11.2 % (0.0-13.0); NEUTROPHILS # (AUTO) 7.5 x10^3/uL (2.2-4.8); NEUTROPHILS % (AUTO) 77.8 % (42.0-75.0); PLATELET COUNT 201 X10^3/uL (150.0-450.0); RED CELL DISTRIBUTION WIDTH 15.2 % (11.6-16.5); WHITE BLOOD COUNT 9.7 X10^3/uL (3.6-10.0)
[2017-10-22] MEDS: ZYLOPRIM PO SCH (08:17)
[2017-10-22] MEDS: VITAMIN D3 PO SCH (08:18)
[2017-10-22] MEDS: ZyrTEC TAB 10 MG PO SCH (08:18)
[2017-10-22] MEDS: TAB-A-VITE PO SCH (08:19)
[2017-10-22] MEDS: HYTRIN PO SCH (08:19)
[2017-10-22] MEDS: CELEXA PO SCH (08:19)
[2017-10-22] MEDS: LOVENOX INJ 30 MG SYR SC SCH (08:19)
[2017-10-22] MEDS ORDERED: DULCOLAX SUPPOSITORY 10 MG RECTAL ONE (14:38)
[2017-10-22 16:46] VITALS: BP 128/62
[2017-10-22] MEDS ORDERED: HYTRIN PO ONE (19:31)
== END 2017-10-22 16:45 | DRG 554 ==
LOC: MED/SURG 07:45
PROVIDERS: ADMIT Orthopaedic Surgery; ATTEND Internal Medicine
PROC: 0SRC069 Replacement of Right Knee Joint with Oxidized Zirconium on Polyethylene Synthetic Substitute, Cemented, Open Approach (ICD-10-PCS; principal; 2017-10-19 09:30)
DX: M17.11 Unilateral primary osteoarthritis, right knee (principal); M25.561 Pain in right knee; R26.89 Other abnormalities of gait and mobility; Z96.652 Presence of left artificial knee joint
CPT/HCPCS: 36415; 73560; 80048; 85014; 85018; 85025; 94762; 97535; A4216; A4222; S0020; J0330; J0690; J1170; J1650; J2001; J2250; J2271; J2405; J2710; J3010; J3490; J7120

== ENCOUNTER 2022-11-24 16:22 | Inpatient (IN) ==
[2022-11-24] MEDS ORDERED: TORADOL 30 MG VIAL IVP PRN (17:10)
[2022-11-24 17:33] LABS: BASOPHILS % (AUTO) 0.4 % (0.2-1.0); EOSINOPHILS % (AUTO) 0.2 % (0.9-2.9); HEMATOCRIT 38.4 % (42.0-54.0); HEMOGLOBIN 13.1 g/dL (13.5-18.0); LYMPHOCYTES # (AUTO) 0.5 X10^3/uL (1.3-2.9); LYMPHOCYTES % (AUTO) 4.1 % (21.0-51.0); MEAN CORPUSCULAR HEMOGLOBIN 28.9 pg (27.0-34.0); MEAN CORPUSCULAR HGB CONC 34.1 g/dL (33.0-35.0); MEAN CORPUSCULAR VOLUME 84.9 fL (80.0-100.0); MEAN PLATELET VOLUME 7.7 fL (7.4-11.0); MONOCYTES # (AUTO) 1.1 x10^3/uL (0.3-0.8); MONOCYTES % (AUTO) 9.2 % (0.0-13.0); NEUTROPHILS # (AUTO) 10.6 x10^3/uL (2.2-4.8); NEUTROPHILS % (AUTO) 86.1 % (42.0-75.0); PLATELET COUNT 315 X10^3/uL (150.0-450.0); RED BLOOD COUNT 4.53 X10^6/uL (4.7-6.0); RED CELL DISTRIBUTION WIDTH 13.8 % (11.6-16.5); WHITE BLOOD COUNT 12.4 X10^3/uL (3.6-10.0)
[2022-11-24 17:42] LABS: ALANINE AMINOTRANSFERASE 35 Units/L (12-78); ALBUMIN 2.9 g/dL (3.4-5.0); ALKALINE PHOSPHATASE 107 Units/L (46-116); AMYLASE 34 Units/L (25-115); ASPARTATE AMINO TRANSFERASE 37 Units/L (15-37); BLOOD UREA NITROGEN 22 mg/dL (7-18); CALCIUM 8.6 mg/dL (8.5-10.1); CARBON DIOXIDE 19.8 mmol/L (21-32); CHLORIDE 97 mmol/L (98-107); COR CA(FOR HYPOALB) 9.5 mg/dL (8.5-10.1); COR NA(FOR HYPERGLY) 133 mmol/L (136-145); CREATININE 1.26 mg/dL (0.70-1.30); GLUCOSE 143 mg/dL (65-99); LIPASE 62 Units/L (73-393); POTASSIUM 3.2 mmol/L (3.5-5.1); SODIUM 132 mmol/L (136-145); TOTAL PROTEIN 7.4 g/dL (6.4-8.2); eGFR NON BLACK RACES 60 (>60)
[2022-11-24] MEDS: NS 1,000 ML IV 1,000 ML IV SCH (18:13)
[2022-11-24] MEDS: CIPRO IV 400 MG PREMIX* 400 MG/200 ML IV.SOLN. IV SCH (18:19)
[2022-11-24] MEDS ORDERED: MICRO K EXTEN CAP 10 MEQ PO PRN (18:20)
[2022-11-24] MEDS ORDERED: POTASSIUM CHL 60 MEQ/NS 0.45% 500 ML IV PRN (18:20)
[2022-11-24] MEDS ORDERED: POTASSIUM CHLORIDE LIQ 20 MEQ UDC PO PRN (18:20)
[2022-11-24] MEDS ORDERED: NS 100 ML IV 100 ML ONE (21:02)
[2022-11-24] MEDS: FORTAZ or TAZICEF VIAL INJ 1 G in NS 100 ML IV + SPIKE MINIBAG* 100 ML IV SCH (21:07)
[2022-11-24 21:29] LABS: BILIRUBIN,URINE 2+ (NEGATIVE); BLOOD/HEMOGLOBIN,URINE 1+ (NEGATIVE); GLUCOSE, URINE NEGATIVE (NEGATIVE); KETONES,URINE 1+ (NEGATIVE); LEUKOCYTE ESTERASE ,URINE 1+ (NEGATIVE); NITRITES,URINE POSITIVE (NEGATIVE); PROTEIN,URINE 2+ (NEGATIVE); UROBILINOGEN,URINE 4+ (NORMAL)
[2022-11-24 21:40] LABS: APPEARANCE,URINE HAZY (CLEAR); BACTERIA,URINE TRACE /HPF (NEGATIVE); COLOR,URINE DARK YELLOW (YELLOW); SQUAMOUS EPITHELIAL CELL,UR RARE /HPF (NEGATIVE)
[2022-11-25] MEDS ORDERED: NS 100 ML IV 100 ML ONE (06:17)
[2022-11-25] MEDS: FORTAZ or TAZICEF VIAL INJ 1 G in NS 100 ML IV + SPIKE MINIBAG* 100 ML IV SCH (06:20)
[2022-11-25 06:21] LABS: BASOPHILS % (AUTO) 0.5 % (0.2-1.0); EOSINOPHILS # (AUTO) 0.1 x10^3/uL (0.0-0.2); EOSINOPHILS % (AUTO) 1.7 % (0.9-2.9); HEMATOCRIT 33.9 % (42.0-54.0); LYMPHOCYTES # (AUTO) 0.6 X10^3/uL (1.3-2.9); LYMPHOCYTES % (AUTO) 8.4 % (21.0-51.0); MEAN CORPUSCULAR HEMOGLOBIN 29.9 pg (27.0-34.0); MEAN CORPUSCULAR HGB CONC 35.5 g/dL (33.0-35.0); MEAN CORPUSCULAR VOLUME 84.2 fL (80.0-100.0); MEAN PLATELET VOLUME 8.1 fL (7.4-11.0); MONOCYTES # (AUTO) 0.6 x10^3/uL (0.3-0.8); MONOCYTES % (AUTO) 9.1 % (0.0-13.0); NEUTROPHILS # (AUTO) 5.7 x10^3/uL (2.2-4.8); NEUTROPHILS % (AUTO) 80.3 % (42.0-75.0); PLATELET COUNT 231 X10^3/uL (150.0-450.0); RED BLOOD COUNT 4.02 X10^6/uL (4.7-6.0); RED CELL DISTRIBUTION WIDTH 13.9 % (11.6-16.5); WHITE BLOOD COUNT 7.1 X10^3/uL (3.6-10.0)
[2022-11-25] MEDS: NS 1,000 ML IV 1,000 ML IV SCH ×3 (06:21→20:18)
[2022-11-25 06:34] LABS: ALANINE AMINOTRANSFERASE 36 Units/L (12-78); ALBUMIN 2.3 g/dL (3.4-5.0); ALKALINE PHOSPHATASE 93 Units/L (46-116); ASPARTATE AMINO TRANSFERASE 40 Units/L (15-37); BLOOD UREA NITROGEN 18 mg/dL (7-18); CALCIUM 8.1 mg/dL (8.5-10.1); CARBON DIOXIDE 24.2 mmol/L (21-32); CHLORIDE 99 mmol/L (98-107); COR CA(FOR HYPOALB) 9.5 mg/dL (8.5-10.1); GLUCOSE 99 mg/dL (65-99); SODIUM 134 mmol/L (136-145); TOTAL PROTEIN 6.4 g/dL (6.4-8.2); eGFR NON BLACK RACES > 60 (>60)
[2022-11-25 06:39] LABS: POTASSIUM 2.9 mmol/L (3.5-5.1)
[2022-11-25] MEDS: K-DUR TAB 20 MEQ PO PRN (06:44)
--- NOTE | 2022-11-25 07:58 | CT ---
HISTORYAbdominal painSTUDYCT abdomen pelvis with contrastTechnique: Axial post-contrast images with coronal and sagittal reformats. Dose reduction procedures were used with mA/kv adjusted for body size.COMPARISONNoneFINDINGSMild peripheral interstitial lung changes are present in the right lung base. Multiple foci of subsegmental atelectasis present in the left lung base. The liver is normal in size and configuration and demonstrates no significant focal space-occupying disease. The attenuation of the hepatic parenchyma is decreased suggestive of diffuse fatty infiltration. No opaque stones are present within the gallbladder. The spleen, adrenal glands, and pancreas are within normal limits. Kidneys are unobstructed and without stones or masses. No ureteral calculi are identified. Calcific atherosclerotic changes present throughout the abdominal aorta and common iliac vessels. There is minimal saccular dilatation of the mid infrarenal abdominal aorta however AP diameter is only 3.4 cm and transverse diameter only 3.1 cm. No intraperitoneal or retroperitoneal lymphadenopathy of significance is identified. The appendix is normal. There are no findings suggestive of enteritis, colitis, or diverticulitis. There is diffuse diverticulosis coli involving the distal descending and sigmoid colon. No pelvic masses, pelvic fluid, or pelvic lymphadenopathy is identified. No bladder abnormality is identified. Prostate gland is not enlarged. Diffuse degenerative disc and facet degenerative joint disease is present throughout the lumbar spine.IMPRESSIONNo acute inflammatory process identified within the abdomen or pelvisDiffuse fatty infiltration of the liverMild saccular dilatation of the mid infrarenal abdominal aorta maximum AP diameter is only 3.4 cm and maximum transverse diameter is only 3.1 cmElectronically signed by: CHERI CORBETT (November 25, 2022 07:56:45)
[2022-11-25] MEDS: CIPRO IV 400 MG PREMIX* 400 MG/200 ML IV.SOLN. IV SCH ×2 (08:41→20:16)
[2022-11-25] MEDS ORDERED: TORADOL 15 MG VIAL IVP SCH (11:00)
[2022-11-25] MEDS: LOVENOX INJ 40 MG SYR SC SCH ×2 (12:02→13:11)
--- NOTE | 2022-11-25 12:17 | DR.UPDATE ---
H&P Update H&P Reviewed: Yes Any changes to H&P?: Yes Changes noted:: WAS ADMITTED TO THE HOSPITAL FOR FURTHER TREATMENT AND EVALUATION OF LLQ ABDOMINAL PAIN, NAUSEA, AND DECREASED APPETITE. ON ADMISSION, HE RATED HIS ABDOMINAL PAIN A 5/10. HIS VITALS WERE 98.1-18-91%-97/56. LABS WERE OBTAINED. WBC 12.4, RBC 4.53, HGB 13.1, HCT 38.4, PLT COUNT 315, SODIUM 132, POTASSIUM 3.2, CHLORIDE 97, BUN 22, CREATININE 1.26, GLUCOSE 143, MAGENSIUM 1.9, TOTAL BILI 1.60, AST 37, ALT 35, ALK PHOS 107, TOTAL PROTEIN 7.4, ALBUMIN 2.9, AMYLASE 34, LIPASE 62. A URINALYSIS WAS OBTAINED AND REVEALED: WBC 3-5, RBC 3-5, LEUKOCYTES 1+, BACTERIA TRACE, MUCUS MODERATE, NITRITE POSITIVE. A URINE CULTURE WAS SET UP. AN ABDOMEN/PELVIS CT WITH CONTRAST WAS OBTAINED TO RULE OUT A KIDNEY STONE AND OTHER ABNORMALITIES. IT REVEALED: Mild peripheral interstitial lung changes are present in the right lung base. Multiple foci of subsegmental atelectasis present in the left lung base. The liver is normal in size and configuration and demonstrates no significant focal space-occupying disease. The attenuation of the hepatic parenchyma is decreased suggestive of diffuse fatty infiltration. No opaque stones are present within the gallbladder. The spleen, adrenal glands, and pancreas are within normal limits. Kidneys are unobstructed and without stones or masses. No ureteral calculi are identified. Calcific atherosclerotic changes present throughout the abdominal aorta and common iliac vessels. There is minimal saccular dilatation of the mid infrarenal abdominal aorta however AP diameter is only 3.4 cm and transverse diameter only 3.1 cm. No intraperitoneal or retroperitoneal lymphadenopathy of significance is identified. The appendix is normal. There are no findings suggestive of enteritis, colitis, or diverticulitis. There is diffuse diverticulosis coli involving the distal descending and sigmoid colon. No pelvic masses, pelvic fluid, or pelvic lymphadenopathy is identified. No bladder abnormality is identified. Prostate gland is not enlarged. Diffuse degenerative disc and facet degenerative joint disease is present throughout the lumbar spine. HE WAS STARTED ON NORMAL SALINE AT 80 ML/HR, CIPRO 400MG IV Q12H, CEFTAZIDIME 1G IV Q8H, LOVENOX 40MG SC DAILY, TORADOL 15MG IV Q8H, OTBS ACHS, AND THE POTASSIUM AND MAGNESIUM PROTOCOLS. WE WILL REVIEW HIS HOME MEDICATIONS AND RESUME APPROPRIATE. OTHERWISE, WE WILL FOLLOW-UP WITH AM LABS AND CONTINUE TO MONITOR. TIME SPENT ON CLINICAL ASSESSMENT, REVIWING LABS AND IMAGING, DECISION MAKING, AND DOCUMENTATION GREATER THAN 75 MINUTES. Patient was examined?: Yes
[2022-11-25] MEDS: FORTAZ or TAZICEF VIAL INJ 1 G in NS 100 ML IV 100 ML IV SCH ×2 (13:10→21:35)
[2022-11-25] MEDS: TORADOL 15 MG VIAL IVP SCH ×2 (15:10→23:28)
[2022-11-26] MEDS: FORTAZ or TAZICEF VIAL INJ 1 G in NS 100 ML IV 100 ML IV SCH ×3 (06:21→21:45)
[2022-11-26 06:50] LABS: BASOPHILS % (AUTO) 0.3 % (0.2-1.0); EOSINOPHILS # (AUTO) 0.1 x10^3/uL (0.0-0.2); EOSINOPHILS % (AUTO) 1.1 % (0.9-2.9); HEMATOCRIT 35.6 % (42.0-54.0); HEMOGLOBIN 12.3 g/dL (13.5-18.0); LYMPHOCYTES # (AUTO) 0.4 X10^3/uL (1.3-2.9); MEAN CORPUSCULAR HEMOGLOBIN 29.4 pg (27.0-34.0); MEAN CORPUSCULAR HGB CONC 34.5 g/dL (33.0-35.0); MEAN CORPUSCULAR VOLUME 85.2 fL (80.0-100.0); MEAN PLATELET VOLUME 8.5 fL (7.4-11.0); MONOCYTES # (AUTO) 0.4 x10^3/uL (0.3-0.8); MONOCYTES % (AUTO) 7.3 % (0.0-13.0); NEUTROPHILS # (AUTO) 5.2 x10^3/uL (2.2-4.8); NEUTROPHILS % (AUTO) 85.3 % (42.0-75.0); PLATELET COUNT 229 X10^3/uL (150.0-450.0); RED BLOOD COUNT 4.17 X10^6/uL (4.7-6.0); WHITE BLOOD COUNT 6.1 X10^3/uL (3.6-10.0)
[2022-11-26 07:03] LABS: ALANINE AMINOTRANSFERASE 39 Units/L (12-78); ALBUMIN 2.2 g/dL (3.4-5.0); ALKALINE PHOSPHATASE 110 Units/L (46-116); ASPARTATE AMINO TRANSFERASE 52 Units/L (15-37); BLOOD UREA NITROGEN 13 mg/dL (7-18); CALCIUM 7.9 mg/dL (8.5-10.1); CARBON DIOXIDE 22.1 mmol/L (21-32); CHLORIDE 103 mmol/L (98-107); COR CA(FOR HYPOALB) 9.3 mg/dL (8.5-10.1); COR NA(FOR HYPERGLY) 138 mmol/L (136-145); CREATININE 0.95 mg/dL (0.70-1.30); GLUCOSE 127 mg/dL (65-99); POTASSIUM 3.3 mmol/L (3.5-5.1); SODIUM 137 mmol/L (136-145); TOTAL PROTEIN 6.1 g/dL (6.4-8.2); eGFR NON BLACK RACES > 60 (>60)
[2022-11-26] MEDS: TORADOL 15 MG VIAL IVP SCH (09:29)
[2022-11-26] MEDS: NS 1,000 ML IV 1,000 ML IV SCH ×2 (09:30→21:46)
[2022-11-26] MEDS: LOVENOX INJ 40 MG SYR SC SCH (09:30)
[2022-11-26] MEDS: CIPRO IV 400 MG PREMIX* 400 MG/200 ML IV.SOLN. IV SCH ×2 (09:30→21:43)
[2022-11-26] MEDS: K-DUR TAB 20 MEQ PO PRN (09:30)
[2022-11-26] MEDS: MAGNESIUM SULFATE 1 GRAM/100 mL PREMIX 1 G/100 ML BAG IV PRN ×2 (09:30→11:27)
[2022-11-26] MEDS: MODAFINIL 200 MG PO SCH (10:57)
--- NOTE | 2022-11-26 11:10 | EKG ---
Test Reason : SOB Blood Pressure : */* mmHG Vent. Rate : 70 BPM Atrial Rate : 70 BPM P-R Int : 200 ms QRS Dur : 156 ms QT Int : 430 ms P-R-T Axes : 49 0 94 degrees QTc Int : 464 ms Normal sinus rhythm Nonspecific intraventricular block Lateral infarct , age undetermined Abnormal ECG No previous ECGs available Confirmed by Ranjeet Peralta ([id number]) on 11/28/2022 10:22:56 AM Referred By: Confirmed By: Ranjeet Peralta
[2022-11-26] MEDS: OXYBUTYNIN CHLORIDE ER PO SCH (11:26)
[2022-11-26] MEDS: SINGULAIR TAB 10 MG PO SCH (11:26)
[2022-11-26] MEDS: PLAQUENIL PO SCH ×2 (11:26→21:46)
[2022-11-26] MEDS: JANUVIA PO SCH (11:26)
[2022-11-26] MEDS: NEURONTIN CAP 100 MG PO SCH (11:26)
[2022-11-26] MEDS: ZYLOPRIM PO SCH (11:26)
[2022-11-26] MEDS: CYMBALTA PO SCH (11:26)
[2022-11-26] MEDS: SYNTHROID 75 mcg TAB PO SCH (11:26)
[2022-11-26] MEDS: ROXICODONE TAB 15 MG PO PRN (11:27)
[2022-11-26] MEDS: GLUCOPHAGE XR 24-HR PO SCH (11:27)
[2022-11-26] MEDS: TORADOL 30 MG VIAL IVP SCH ×3 (11:46→22:37)
--- NOTE | 2022-11-26 13:32 | EKG ---
Test Reason : SOB Blood Pressure : */* mmHG Vent. Rate : 75 BPM Atrial Rate : 75 BPM P-R Int : 182 ms QRS Dur : 172 ms QT Int : 432 ms P-R-T Axes : 80 0 82 degrees QTc Int : 482 ms Normal sinus rhythm Left bundle branch block Abnormal ECG When compared with ECG of 26-NOV-2022 10:30, (Unconfirmed) Left bundle branch block has replaced Nonspecific intraventricular block Confirmed by Ranjeet Peralta ([id number]) on 11/28/2022 10:20:52 AM Referred By: Confirmed By: Ranjeet Peralta
[2022-11-26] MEDS: MIRAPEX TAB 1 MG PO SCH ×2 (14:20→21:46)
--- NOTE | 2022-11-26 18:23 | EKG ---
Test Reason : SOB Blood Pressure : */* mmHG Vent. Rate : 76 BPM Atrial Rate : 76 BPM P-R Int : 196 ms QRS Dur : 174 ms QT Int : 456 ms P-R-T Axes : 35 14 88 degrees QTc Int : 513 ms Normal sinus rhythm Left bundle branch block Abnormal ECG When compared with ECG of 26-NOV-2022 13:25, (Unconfirmed) No significant change was found Confirmed by Ranjeet Peralta ([id number]) on 11/28/2022 10:20:20 AM Referred By: Confirmed By: Ranjeet Peralta
[2022-11-26] MEDS: KLONOPIN TAB 1 MG PO SCH (21:49)
[2022-11-27] MEDS: ROXICODONE TAB 15 MG PO PRN ×2 (00:13→19:45)
[2022-11-27] MEDS: FORTAZ or TAZICEF VIAL INJ 1 G in NS 100 ML IV 100 ML IV SCH ×3 (05:44→22:07)
[2022-11-27] MEDS: TORADOL 30 MG VIAL IVP SCH ×4 (05:46→22:42)
[2022-11-27] MEDS: MIRAPEX TAB 1 MG PO SCH ×3 (05:46→22:08)
[2022-11-27 06:00] LABS: BASOPHILS # (AUTO) 0.1 X10^3/uL (0.0-0.1); BASOPHILS % (AUTO) 0.4 % (0.2-1.0); EOSINOPHILS # (AUTO) 0.1 x10^3/uL (0.0-0.2); EOSINOPHILS % (AUTO) 0.5 % (0.9-2.9); HEMATOCRIT 36.3 % (42.0-54.0); HEMOGLOBIN 12.2 g/dL (13.5-18.0); LYMPHOCYTES # (AUTO) 0.6 X10^3/uL (1.3-2.9); LYMPHOCYTES % (AUTO) 4.2 % (21.0-51.0); MEAN CORPUSCULAR HEMOGLOBIN 28.9 pg (27.0-34.0); MEAN CORPUSCULAR HGB CONC 33.6 g/dL (33.0-35.0); MEAN PLATELET VOLUME 7.9 fL (7.4-11.0); MONOCYTES # (AUTO) 0.9 x10^3/uL (0.3-0.8); MONOCYTES % (AUTO) 6.4 % (0.0-13.0); NEUTROPHILS % (AUTO) 88.5 % (42.0-75.0); PLATELET COUNT 256 X10^3/uL (150.0-450.0); RED BLOOD COUNT 4.22 X10^6/uL (4.7-6.0); RED CELL DISTRIBUTION WIDTH 14.5 % (11.6-16.5); WHITE BLOOD COUNT 14.7 X10^3/uL (3.6-10.0)
[2022-11-27] MEDS: SYNTHROID 75 mcg TAB PO SCH (06:17)
[2022-11-27 07:03] LABS: ALANINE AMINOTRANSFERASE 33 Units/L (12-78); ALKALINE PHOSPHATASE 107 Units/L (46-116); ASPARTATE AMINO TRANSFERASE 40 Units/L (15-37); BLOOD UREA NITROGEN 8 mg/dL (7-18); CALCIUM 7.8 mg/dL (8.5-10.1); CARBON DIOXIDE 21.4 mmol/L (21-32); CHLORIDE 100 mmol/L (98-107); COR CA(FOR HYPOALB) 9.4 mg/dL (8.5-10.1); CREATININE 0.91 mg/dL (0.70-1.30); GLUCOSE 96 mg/dL (65-99); MAGNESIUM 2.1 mg/dL (2.0-2.9); POTASSIUM 4.1 mmol/L (3.5-5.1); SODIUM 132 mmol/L (136-145); TOTAL PROTEIN 5.9 g/dL (6.4-8.2); eGFR NON BLACK RACES > 60 (>60)
[2022-11-27] MEDS: NEURONTIN CAP 100 MG PO SCH (09:31)
[2022-11-27] MEDS: SINGULAIR TAB 10 MG PO SCH (09:32)
[2022-11-27] MEDS: GLUCOPHAGE XR 24-HR PO SCH (09:32)
[2022-11-27] MEDS: JANUVIA PO SCH (09:32)
[2022-11-27] MEDS: ZYLOPRIM PO SCH (09:32)
[2022-11-27] MEDS: CYMBALTA PO SCH (09:32)
[2022-11-27] MEDS: OXYBUTYNIN CHLORIDE ER PO SCH (09:32)
[2022-11-27] MEDS: PLAQUENIL PO SCH ×2 (09:32→20:52)
[2022-11-27] MEDS: CIPRO IV 400 MG PREMIX* 400 MG/200 ML IV.SOLN. IV SCH ×2 (09:33→20:51)
[2022-11-27] MEDS: LOVENOX INJ 40 MG SYR SC SCH (09:33)
[2022-11-27] MEDS: MODAFINIL 200 MG PO SCH (09:55)
[2022-11-27] MEDS: NS 1,000 ML IV 1,000 ML IV SCH ×2 (11:28→22:43)
[2022-11-27] MEDS: KLONOPIN TAB 1 MG PO SCH (20:49)
[2022-11-27] MEDS: COLACE CAP 100 MG PO SCH (20:51)
[2022-11-28] MEDS: FORTAZ or TAZICEF VIAL INJ 1 G in NS 100 ML IV 100 ML IV SCH (05:10)
[2022-11-28] MEDS: MIRAPEX TAB 1 MG PO SCH ×3 (05:10→21:30)
[2022-11-28] MEDS: TORADOL 30 MG VIAL IVP SCH ×4 (05:10→22:17)
[2022-11-28] MEDS: SYNTHROID 75 mcg TAB PO SCH (06:10)
[2022-11-28 06:12] LABS: BASOPHILS % (AUTO) 0.2 % (0.2-1.0); EOSINOPHILS # (AUTO) 0.2 x10^3/uL (0.0-0.2); HEMATOCRIT 35.8 % (42.0-54.0); HEMOGLOBIN 12.2 g/dL (13.5-18.0); LYMPHOCYTES # (AUTO) 0.6 X10^3/uL (1.3-2.9); LYMPHOCYTES % (AUTO) 3.1 % (21.0-51.0); MEAN CORPUSCULAR HEMOGLOBIN 29.1 pg (27.0-34.0); MEAN CORPUSCULAR HGB CONC 34.1 g/dL (33.0-35.0); MEAN CORPUSCULAR VOLUME 85.2 fL (80.0-100.0); MEAN PLATELET VOLUME 7.6 fL (7.4-11.0); MONOCYTES # (AUTO) 0.9 x10^3/uL (0.3-0.8); MONOCYTES % (AUTO) 4.8 % (0.0-13.0); NEUTROPHILS # (AUTO) 16.3 x10^3/uL (2.2-4.8); NEUTROPHILS % (AUTO) 90.9 % (42.0-75.0); PLATELET COUNT 251 X10^3/uL (150.0-450.0); RED BLOOD COUNT 4.21 X10^6/uL (4.7-6.0); RED CELL DISTRIBUTION WIDTH 14.4 % (11.6-16.5)
[2022-11-28 06:27] LABS: ALANINE AMINOTRANSFERASE 25 Units/L (12-78); ALBUMIN 1.9 g/dL (3.4-5.0); ALKALINE PHOSPHATASE 104 Units/L (46-116); ASPARTATE AMINO TRANSFERASE 25 Units/L (15-37); BLOOD UREA NITROGEN 10 mg/dL (7-18); CARBON DIOXIDE 21.8 mmol/L (21-32); CHLORIDE 100 mmol/L (98-107); COR CA(FOR HYPOALB) 9.7 mg/dL (8.5-10.1); CREATININE 0.91 mg/dL (0.70-1.30); GLUCOSE 100 mg/dL (65-99); POTASSIUM 3.7 mmol/L (3.5-5.1); SODIUM 132 mmol/L (136-145); TOTAL PROTEIN 5.9 g/dL (6.4-8.2); eGFR NON BLACK RACES > 60 (>60)
[2022-11-28 06:47] LABS: BAND NEUTROPHILS % 6 % (0-10); PLATELET MORPHOLOGY COMMENT NORMAL (NORMAL)
[2022-11-28] MEDS: CIPRO IV 400 MG PREMIX* 400 MG/200 ML IV.SOLN. IV SCH ×2 (09:16→20:41)
[2022-11-28] MEDS: SINGULAIR TAB 10 MG PO SCH (09:17)
[2022-11-28] MEDS: COLACE CAP 100 MG PO SCH ×2 (09:17→20:41)
[2022-11-28] MEDS: PLAQUENIL PO SCH ×2 (09:17→20:41)
[2022-11-28] MEDS: NEURONTIN CAP 100 MG PO SCH (09:18)
[2022-11-28] MEDS: JANUVIA PO SCH (09:18)
[2022-11-28] MEDS: ZYLOPRIM PO SCH (09:18)
[2022-11-28] MEDS: CYMBALTA PO SCH (09:18)
[2022-11-28] MEDS: GLUCOPHAGE XR 24-HR PO SCH (09:18)
[2022-11-28] MEDS: OXYBUTYNIN CHLORIDE ER PO SCH (09:18)
[2022-11-28] MEDS: LOVENOX INJ 40 MG SYR SC SCH (09:19)
[2022-11-28] MEDS: K-DUR TAB 20 MEQ PO PRN (09:26)
[2022-11-28] MEDS: ZOSYN VIAL 3.375 GRAMS 3.375 G in NS 100 ML IV 100 ML IV SCH ×2 (10:33→21:29)
[2022-11-28] MEDS: NS 1,000 ML IV 1,000 ML IV SCH ×2 (11:30→20:41)
--- NOTE | 2022-11-28 12:32 | RAD ---
HISTORYSOBSTUDYPortable AP chestCOMPARISONReport only October 15, 2017FINDINGSThe heart is enlarged. There is linear atelectasis noted at the level of the left diaphragm. A diffuse interstitial infiltrate is noted in the right lung without airspace component or pleural effusion.IMPRESSIONInterstitial process in the right lung may represent an acute inflammatory process, less likely asymmetric edema. Correlate with clinical findings in this regard and follow-up.Electronically signed by: MAURISIO SALMERON (November 28, 2022 12:31:49)
[2022-11-28] MEDS ORDERED: KLONOPIN TAB 1 MG ONE (19:31)
[2022-11-28] MEDS: KLONOPIN TAB 1 MG PO SCH (20:42)
[2022-11-29] MEDS: ROXICODONE TAB 15 MG PO PRN ×2 (00:19→16:53)
[2022-11-29] MEDS: NS 1,000 ML IV 1,000 ML IV SCH ×3 (02:41→20:47)
[2022-11-29] MEDS: TORADOL 30 MG VIAL IVP SCH (05:25)
[2022-11-29] MEDS: ZOSYN VIAL 3.375 GRAMS 3.375 G in NS 100 ML IV 100 ML IV SCH ×3 (05:26→22:04)
[2022-11-29] MEDS: MIRAPEX TAB 1 MG PO SCH ×3 (05:26→22:03)
[2022-11-29 05:57] LABS: BASOPHILS % (AUTO) 0.3 % (0.2-1.0); EOSINOPHILS # (AUTO) 0.3 x10^3/uL (0.0-0.2); EOSINOPHILS % (AUTO) 3.1 % (0.9-2.9); HEMATOCRIT 36.6 % (42.0-54.0); HEMOGLOBIN 12.5 g/dL (13.5-18.0); LYMPHOCYTES # (AUTO) 0.5 X10^3/uL (1.3-2.9); LYMPHOCYTES % (AUTO) 5.5 % (21.0-51.0); MEAN CORPUSCULAR HGB CONC 34.1 g/dL (33.0-35.0); MEAN PLATELET VOLUME 7.1 fL (7.4-11.0); MONOCYTES # (AUTO) 0.4 x10^3/uL (0.3-0.8); MONOCYTES % (AUTO) 4.9 % (0.0-13.0); NEUTROPHILS % (AUTO) 86.2 % (42.0-75.0); PLATELET COUNT 265 X10^3/uL (150.0-450.0); RED CELL DISTRIBUTION WIDTH 14.7 % (11.6-16.5)
[2022-11-29] MEDS: SYNTHROID 75 mcg TAB PO SCH (06:05)
[2022-11-29 06:13] LABS: ALANINE AMINOTRANSFERASE 37 Units/L (12-78); ALBUMIN 1.9 g/dL (3.4-5.0); ALKALINE PHOSPHATASE 115 Units/L (46-116); ASPARTATE AMINO TRANSFERASE 56 Units/L (15-37); BLOOD UREA NITROGEN 14 mg/dL (7-18); CARBON DIOXIDE 24.8 mmol/L (21-32); CHLORIDE 102 mmol/L (98-107); COR CA(FOR HYPOALB) 9.7 mg/dL (8.5-10.1); CREATININE 0.89 mg/dL (0.70-1.30); GLUCOSE 90 mg/dL (65-99); POTASSIUM 3.5 mmol/L (3.5-5.1); SODIUM 135 mmol/L (136-145); TOTAL PROTEIN 5.8 g/dL (6.4-8.2); eGFR NON BLACK RACES > 60 (>60)
[2022-11-29 06:38] LABS: WHITE BLOOD COUNT 9.2 X10^3/uL (3.6-10.0)
[2022-11-29] MEDS: MODAFINIL 200 MG PO SCH (07:29)
[2022-11-29] MEDS: K-DUR TAB 20 MEQ PO PRN (08:12)
[2022-11-29] MEDS: CYMBALTA PO SCH (08:13)
[2022-11-29] MEDS: PLAQUENIL PO SCH ×2 (08:13→20:42)
[2022-11-29] MEDS: SINGULAIR TAB 10 MG PO SCH (08:13)
[2022-11-29] MEDS: NEURONTIN CAP 100 MG PO SCH (08:13)
[2022-11-29] MEDS: OXYBUTYNIN CHLORIDE ER PO SCH (08:13)
[2022-11-29] MEDS: COLACE CAP 100 MG PO SCH ×2 (08:13→20:42)
[2022-11-29] MEDS: ZYLOPRIM PO SCH (08:13)
[2022-11-29] MEDS: LOVENOX INJ 40 MG SYR SC SCH (08:14)
[2022-11-29] MEDS: CIPRO IV 400 MG PREMIX* 400 MG/200 ML IV.SOLN. IV SCH (08:14)
[2022-11-29] MEDS ORDERED: TESSALON PERLES PO PRN (10:33)
--- NOTE | 2022-11-29 10:53 | PCM.PROG ---
Progress Note Progress Note for Day of Date of Exam: 11/29/22 Subjective Subjective: Patient seen at bedside, no events overnight. He is currently being treated for diverticulitis and pneumonia. He states having shortness of breath and cough. He has been using O2 here, currently on room air. He reports dry cough. He has not been eating much, reports no appetite, denies N/V/D. Labs/imaging reviewed CXR: Right lung infiltrate Urine Cx (-) Plan: Will add nebs and pulmicort. Wean O2 as tolerated. RT assessment for home O2 needs. Will DC Cipro, continue Zosyn. Add tessalon pearls for cough. Continue home medications. PT/OT as tolerated. Monitor AM labs/imaging. Past Medical Family Social History Allergies: Allergies No Known Drug Allergies Allergy (Verified 02/05/19 11:58) Vital Signs and I&O's Vital Signs: Temperature 97.9 F Pulse Rate [Right Brachial] 90 Pulse Rate [Left] 78 Respiratory Rate 20 Blood Pressure [Right Arm] 110/78 Blood Pressure [Left Arm] 107/63 O2 Sat by Pulse Oximetry 92 Intake and Output: Intake & Output 11/26/22 11/27/22 11/28/22 11/29/22 23:59 23:59 23:59 23:59 Intake Total 3956 / 3956 2265 / 2265 2642 / 2642 702 / 702 Output Total 500 / 500 Balance 3456 / 3456 2265 / 2265 2642 / 2642 702 / 702 Physical Exam Oriented: Normal Eyes: Normal Throat: Normal Respiratory: Right, Wheezes and Rhonchi Cardiovascular: Normal Auscultation: Bowel Sounds: Normal Tenderness: Epigastric and Mild Skin: Normal Musculoskeletal: Normal Psychiatric: Normal Mood Description: Calm Affect: Normal Speech Pattern: Clear and Appropriate Laboratory and Diagnostics Result Diagrams: 11/29/22 05:40 11/29/22 05:40 Labs: 11/24/22 21:10 Urine,Clean Catch Urine Culture - Final Laboratory WBC 9.2 X10^3/uL (3.6-10.0) D 11/29/22 05:40 RBC 4.30 X10^6/uL (4.7-6.0) L 11/29/22 05:40 Hgb 12.5 g/dL (13.5-18.0) L 11/29/22 05:40 Hct 36.6 % (42.0-54.0) L 11/29/22 05:40 MCV 85.0 fL (80.0-100.0) 11/29/22 05:40 MCH 29.0 pg (27.0-34.0) 11/29/22 05:40 MCHC 34.1 g/dL (33.0-35.0) 11/29/22 05:40 RDW 14.7 % (11.6-16.5) 11/29/22 05:40 Plt Count 265 X10^3/uL (150.0-450.0) 11/29/22 05:40 Plt Count Comment Adequate (ADEQUATE) 11/28/22 05:46 MPV 7.1 fL (7.4-11.0) L 11/29/22 05:40 Neut % (Auto) 86.2 % (42.0-75.0) H 11/29/22 05:40 Lymph % (Auto) 5.5 % (21.0-51.0) L 11/29/22 05:40 [place] % (Auto) 4.9 % (0.0-13.0) 11/29/22 05:40 Eos % (Auto) 3.1 % (0.9-2.9) H 11/29/22 05:40 Baso % (Auto) 0.3 % (0.2-1.0) 11/29/22 05:40 Neut # (Auto) 8.0 x10^3/uL (2.2-4.8) H 11/29/22 05:40 Lymph # (Auto) 0.5 X10^3/uL (1.3-2.9) L 11/29/22 05:40 [place] # (Auto) 0.4 x10^3/uL (0.3-0.8) 11/29/22 05:40 Eos # (Auto) 0.3 x10^3/uL (0.0-0.2) H 11/29/22 05:40 Baso # (Auto) 0.0 X10^3/uL (0.0-0.1) 11/29/22 05:40 Absolute Nucleated RBC 0.0 /100WBC 11/29/22 05:40 Total Counted 100 11/28/22 05:46 Neutrophils % (Manual) 92 % (39-76) H 11/28/22 05:46 Band Neutrophils % 6 % (0-10) 11/28/22 05:46 Lymphocytes % (Manual) Not Reportable 11/28/22 05:46 Eosinophils % (Manual) 2 % (0-6) 11/28/22 05:46 Plt Morphology Comment Normal (NORMAL) 11/28/22 05:46 RBC Morphology Normal (NORMAL) 11/28/22 05:46 Sodium 135 mmol/L (136-145) L 11/29/22 05:40 Corrected Sodium TNP 11/29/22 05:40 Potassium 3.5 mmol/L (3.5-5.1) 11/29/22 05:40 Chloride 102 mmol/L (98-107) 11/29/22 05:40 Carbon Dioxide 24.8 mmol/L (21-32) 11/29/22 05:40 BUN 14 mg/dL (7-18) 11/29/22 05:40 Creatinine 0.89 mg/dL (0.70-1.30) 11/29/22 05:40 Est GFR (MDRD) Af Amer > 60 (>60) 11/29/22 05:40 Est GFR (MDRD) Non-Af > 60 (>60) 11/29/22 05:40 Glucose 90 mg/dL (65-99) 11/29/22 05:40 POC Glucose (mg/dL) 84 mg/dL (65-99) 11/29/22 05:28 Calcium 8.0 mg/dL (8.5-10.1) L 11/29/22 05:40 Corrected Calcium 9.7 mg/dL (8.5-10.1) 11/29/22 05:40 Magnesium 2.1 mg/dL (2.0-2.9) 11/27/22 05:29 Total Bilirubin 1.40 mg/dL (0.2-1.0) H 11/29/22 05:40 AST 56 Units/L (15-37) H 11/29/22 05:40 ALT 37 Units/L (12-78) 11/29/22 05:40 Alkaline Phosphatase 115 Units/L (46-116) 11/29/22 05:40 Creatine Kinase 25 Units/L (39-308) L 11/26/22 18:48 Troponin I High Sens 18.2 ng/L (4.0-60.0) 11/26/22 18:48 Total Protein 5.8 g/dL (6.4-8.2) L 11/29/22 05:40 Albumin 1.9 g/dL (3.4-5.0) L 11/29/22 05:40 Globulin 3.9 g/dL (2.5-4.5) 11/29/22 05:40 Albumin/Globulin Ratio 0.5 Ratio (1.1-2.1) L 11/29/22 05:40 Amylase 34 Units/L (25-115) 11/24/22 17:20 Lipase 62 Units/L (73-393) L 11/24/22 17:20 Specimen Type Clean catch urine 11/24/22 21:10 Urine Color Dark yellow (YELLOW) 11/24/22 21:10 Urine Appearance Hazy (CLEAR) 11/24/22 21:10 Urine pH 5.0 (5.0 - 8.0) 11/24/22 21:10 Ur Specific [place] 1.020 (1.000-1.030) 11/24/22 21:10 Urine Protein 2+ (NEGATIVE) 11/24/22 21:10 Urine Glucose (UA) Negative (NEGATIVE) 11/24/22 21:10 Urine Ketones 1+ (NEGATIVE) 11/24/22 21:10 Urine Blood 1+ (NEGATIVE) 11/24/22 21:10 Urine Nitrite Positive (NEGATIVE) 11/24/22 21:10 Urine Bilirubin 2+ (NEGATIVE) 11/24/22 21:10 Urine Urobilinogen 4+ (NORMAL) 11/24/22 21:10 Ur Leukocyte Esterase 1+ (NEGATIVE) 11/24/22 21:10 Urine RBC 3-5 /HPF (0-3) A 11/24/22 21:10 Urine WBC 3-5 /HPF (0-5) 11/24/22 21:10 Ur Squamous Epith Cells Rare /HPF (NEGATIVE) 11/24/22 21:10 Urine Bacteria Trace /HPF (NEGATIVE) 11/24/22 21:10 Urine Mucus Moderate /HPF (NEGATIVE) 11/24/22 21:10 Ur Culture Indicated? Yes/culture set up 05/01/23 21:10 Plan (1) Pneumonia: Status: Acute (2) Abdominal pain: Status: Acute (3) Decreased appetite: Status: Acute (4) Hypertension: Status: Chronic Qualifiers: Hypertension type: essential hypertension Qualified Code(s): I10 - Essential (primary) hypertension (5) Generalized anxiety disorder: Status: Chronic (6) Type 2 diabetes mellitus: Status: Acute
[2022-11-29] MEDS: GLUCOPHAGE XR 24-HR PO SCH (11:06)
[2022-11-29] MEDS: JANUVIA PO SCH (11:06)
[2022-11-29] MEDS: PULMICORT NEB TX 0.5 MG NEB SCH ×2 (11:12→20:45)
[2022-11-29] MEDS: DUONEB 0.5 MG/3 MG (3 mL) NEB SCH ×4 (11:12→17:00)
--- NOTE | 2022-11-29 17:13 | PCM.PROG ---
Progress Note - Progress Note for Day of Date of Exam: 11/25/22 - Subjective Subjective: IS CURRENTLY OBSERVATION STATUS FOR TREATMENT OF ABDOMINAL PAIN, DEHYDRATION, NAUSEA, AND GENERALIZED WEAKNESS. TODAY, HE IS ALERT AND ORIENTED, LYING IN BED ON MORNING ROUNDS. HE CONTINUES TO COMPLAIN OF ABDOMINAL PAIN AND WEAKNESS. PAIN IS DIFFUSE. HE DENIES SIGNIFICANT IMPROVEMENT IN SYMPTOMS SINCE ADMISSION. ADDITIONALLY, HE COMPLAINS OF FREQUENT URINATION. ON EXAMINATION, HEART IS REGULAR IN RATE AND RHYTHM. BILATERAL LUNGS ARE NOTED WITH DIMINISHED LUNG SOUNDS THROUGOUT. ABDOMEN IS ROUND, SOFT, AND NOTED WITH LLQ TENDERNESS. NORMAL BOWEL SOUNDS NOTED IN ALL QUADRANTS. GOOD MOVEMENT NOTED TO UPPER AND LOWER EXTREMITIES. TRACE EDEMA NOTED TO LOWER EXTREMITIES. HIS JED LS THIS MORNING ARE: 97.8-68-18-94%-101/50. LABS WERE OBTAINED. WBC 7.1, RBC 4.02, HGB 12.0, HCT 33.9, PLT COUNT 231, SODIUM 134, POTASSIUM 2.9, CHLORIDE 99, BUN 18, CREATININE 90, GLUCOSE 99, CALCIUM 8.1, TOTAL BILI 1.10, AST 40, ALT 36, ALK PHOS 93, TOTAL PROTEIN 6.4, ALBUMIN 2.3. URINE CULTURE IS PENDING. HE IS CURRENTLY RECEIVING NORMAL SALINE AT 80 ML/HR, CIPRO 400MG IV Q12H, CEFTAZIDIME 1G IV Q8H, LOVENOX 40MG SC DAILY, TORADOL 15MG IV Q8H, OTBS ACHS, AND THE POTASSIUM AND MAGNESIUM PROTOCOLS. HIS HOME MEDICATIONS WERE RESUMED. WE WILL CONTINUE WITH CURRENT PLAN OF CARE TODAY. OTHERWISE, WE WILL FOLLOW-UP WITH AM LABS AND CONTINUE TO MONITOR. TIME SPENT ON CLINICAL ASSESSMENT, REVIEWING LABS AND IMAGING, DECISION MAKING, AND DOCUMENTATION GREATER THAN 45 MINUTES. - Past Medical Family Social History Past Med/Fam/Surg Hx: No changes since H&P Allergies: Allergies No Known Drug Allergies Allergy (Verified 02/05/19 11:58) - Review of Systems ROS: No change since H&P - Vital Signs and I&O's Vital Signs: Temperature 98 F Pulse Rate [Right Brachial] 90 Pulse Rate [Left] 78 Pulse Rate 90 Respiratory Rate 22 Blood Pressure [Right Arm] 130/69 Blood Pressure [Left Arm] 107/63 O2 Sat by Pulse Oximetry 94 Intake and Output: Intake & Output 05/04/23 11/28/22 11/29/22 11/30/22 11:59 11:59 11:59 11:59 Intake Total 3026 / 3026 2435 / 2435 2464 / 2464 813 / 813 Output Total 200 / 200 Balance 2826 / 2826 2435 / 2435 2464 / 2464 813 / 813 - Physical Exam Oriented: Normal Eyes: Normal Ear: Normal Throat: Normal Respiratory: Diminished Cardiovascular: Normal Auscultation: Bowel Sounds: Normal Palpation: Normal Tenderness: LLQ, Mild Skin: Normal Musculoskeletal: Normal Psychiatric: Normal Mood Description: Calm Affect: Normal Speech Pattern: Clear, Appropriate - Laboratory and Diagnostics Result Diagrams: 11/29/22 05:40 11/29/22 10:40 Labs: 11/24/22 21:10 Urine,Clean Catch Urine Culture - Final Laboratory WBC 9.2 X10^3/uL (3.6-10.0) D 11/29/22 05:40 RBC 4.30 X10^6/uL (4.7-6.0) L 11/29/22 05:40 Hgb 12.5 g/dL (13.5-18.0) L 11/29/22 05:40 Hct 36.6 % (42.0-54.0) L 11/29/22 05:40 MCV 85.0 fL (80.0-100.0) 11/29/22 05:40 MCH 29.0 pg (27.0-34.0) 11/29/22 05:40 MCHC 34.1 g/dL (33.0-35.0) 11/29/22 05:40 RDW 14.7 % (11.6-16.5) 11/29/22 05:40 Plt Count 265 X10^3/uL (150.0-450.0) 11/29/22 05:40 Plt Count Comment Adequate (ADEQUATE) 11/28/22 05:46 MPV 7.1 fL (7.4-11.0) L 11/29/22 05:40 Neut % (Auto) 86.2 % (42.0-75.0) H 11/29/22 05:40 Lymph % (Auto) 5.5 % (21.0-51.0) L 11/29/22 05:40 [place] % (Auto) 4.9 % (0.0-13.0) 11/29/22 05:40 Eos % (Auto) 3.1 % (0.9-2.9) H 11/29/22 05:40 Baso % (Auto) 0.3 % (0.2-1.0) 11/29/22 05:40 Neut # (Auto) 8.0 x10^3/uL (2.2-4.8) H 11/29/22 05:40 Lymph # (Auto) 0.5 X10^3/uL (1.3-2.9) L 11/29/22 05:40 [place] # (Auto) 0.4 x10^3/uL (0.3-0.8) 11/29/22 05:40 Eos # (Auto) 0.3 x10^3/uL (0.0-0.2) H 11/29/22 05:40 Baso # (Auto) 0.0 X10^3/uL (0.0-0.1) 11/29/22 05:40 Absolute Nucleated RBC 0.0 /100WBC 11/29/22 05:40 Total Counted 100 11/28/22 05:46 Neutrophils % (Manual) 92 % (39-76) H 11/28/22 05:46 Band Neutrophils % 6 % (0-10) 11/28/22 05:46 Lymphocytes % (Manual) Not Reportable 11/28/22 05:46 Eosinophils % (Manual) 2 % (0-6) 11/28/22 05:46 Plt Morphology Comment Normal (NORMAL) 11/28/22 05:46 RBC Morphology Normal (NORMAL) 11/28/22 05:46 Sodium 135 mmol/L (136-145) L 11/29/22 05:40 Corrected Sodium TNP 11/29/22 05:40 Potassium 4.5 mmol/L (3.5-5.1) 11/29/22 10:40 Chloride 102 mmol/L (98-107) 11/29/22 05:40 Carbon Dioxide 24.8 mmol/L (21-32) 11/29/22 05:40 BUN 14 mg/dL (7-18) 11/29/22 05:40 Creatinine 0.89 mg/dL (0.70-1.30) 11/29/22 05:40 Est GFR (MDRD) Af Amer > 60 (>60) 11/29/22 05:40 Est GFR (MDRD) Non-Af > 60 (>60) 11/29/22 05:40 Glucose 90 mg/dL (65-99) 11/29/22 05:40 POC Glucose (mg/dL) 87 mg/dL (65-99) 11/29/22 16:21 Calcium 8.0 mg/dL (8.5-10.1) L 11/29/22 05:40 Corrected Calcium 9.7 mg/dL (8.5-10.1) 11/29/22 05:40 Magnesium 2.1 mg/dL (2.0-2.9) 11/27/22 05:29 Total Bilirubin 1.40 mg/dL (0.2-1.0) H 11/29/22 05:40 AST 56 Units/L (15-37) H 11/29/22 05:40 ALT 37 Units/L (12-78) 11/29/22 05:40 Alkaline Phosphatase 115 Units/L (46-116) 11/29/22 05:40 Creatine Kinase 25 Units/L (39-308) L 11/26/22 18:48 Troponin I High Sens 18.2 ng/L (4.0-60.0) 11/26/22 18:48 Total Protein 5.8 g/dL (6.4-8.2) L 11/29/22 05:40 Albumin 1.9 g/dL (3.4-5.0) L 11/29/22 05:40 Globulin 3.9 g/dL (2.5-4.5) 11/29/22 05:40 Albumin/Globulin Ratio 0.5 Ratio (1.1-2.1) L 11/29/22 05:40 Amylase 34 Units/L (25-115) 11/24/22 17:20 Lipase 62 Units/L (73-393) L 11/24/22 17:20 Specimen Type Clean catch urine 11/24/22 21:10 Urine Color Dark yellow (YELLOW) 11/24/22 21:10 Urine Appearance Hazy (CLEAR) 11/24/22 21:10 Urine pH 5.0 (5.0 - 8.0) 11/24/22 21:10 Ur Specific [place] 1.020 (1.000-1.030) 11/24/22 21:10 Urine Protein 2+ (NEGATIVE) 11/24/22 21:10 Urine Glucose (UA) Negative (NEGATIVE) 11/24/22 21:10 Urine Ketones 1+ (NEGATIVE) 11/24/22 21:10 Urine Blood 1+ (NEGATIVE) 11/24/22 21:10 Urine Nitrite Positive (NEGATIVE) 11/24/22 21:10 Urine Bilirubin 2+ (NEGATIVE) 11/24/22 21:10 Urine Urobilinogen 4+ (NORMAL) 11/24/22 21:10 Ur Leukocyte Esterase 1+ (NEGATIVE) 11/24/22 21:10 Urine RBC 3-5 /HPF (0-3) A 11/24/22 21:10 Urine WBC 3-5 /HPF (0-5) 11/24/22 21:10 Ur Squamous Epith Cells Rare /HPF (NEGATIVE) 11/24/22 21:10 Urine Bacteria Trace /HPF (NEGATIVE) 11/24/22 21:10 Urine Mucus Moderate /HPF (NEGATIVE) 11/24/22 21:10 Ur Culture Indicated? Yes/culture set up 11/24/22 21:10 - Plan (1) Abdominal pain Status: Acute Qualifiers: Abdominal location: left lower quadrant Qualified Code(s): R10.32 - Left lower quadrant pain Plan: NORMAL SALINE AT 80 ML/HR, CIPRO 400MG IV Q12H, CEFTAZIDIME 1G IV Q8H, LOVENOX 40MG SC DAILY, TORADOL 15MG IV Q8H, OTBS ACHS, AND THE POTASSIUM AND MAGNESIUM PROTOCOLS. HIS HOME MEDICATIONS WERE RESUMED. (2) Dehydration Status: Acute (3) Urinary tract infection Status: Acute Qualifiers: Urinary tract infection type: acute cystitis Hematuria presence: without hematuria Qualified Code(s): N30.00 - Acute cystitis without hematuria (4) Nausea Status: Acute (5) Generalized weakness Status: Acute (6) BPH (benign prostatic hyperplasia) Status: Chronic Qualifiers: Lower urinary tract symptom presence: symptoms present Lower urinary tract symptom detail: urinary frequency Qualified Code(s): N40.1 - Benign prostatic hyperplasia with lower urinary tract symptoms; R35.0 - Frequency of micturition (7) Hypothyroidism Status: Chronic Qualifiers: Hypothyroidism type: acquired Qualified Code(s): E03.9 - Hypothyroidism, unspecified (8) Gout Status: Chronic Qualifiers: Gout site: unspecified site Encounter type: subsequent encounter Chronicity: chronic Presence of tophus: without tophus
--- NOTE | 2022-11-29 18:00 | PCM.PROG ---
Progress Note - Progress Note for Day of Date of Exam: 11/26/22 - Subjective Subjective: IS CURRENTLY OBSERVATION STATUS FOR TREATMENT OF ABDOMINAL PAIN, URINARY TRACT INFECTION, DEHYDRATION, NAUSEA, AND GENERALIZED WEAKNESS. TODAY, HE IS ALERT AND ORIENTED, LYING IN BED ON MORNING ROUNDS. HE CONTINUES TO COMPLAIN OF ABDOMINAL PAIN AND WEAKNESS. PAIN IS DIFFUSE. HE DENIES SIGNIFICANT IMPROVEMENT IN SYMPTOMS SINCE ADMISSION. ADDITIONALLY, HE COMPLAINS OF FREQUENT URINATION, DIFFICULTY SLEEPING, AND SHORTNESS OF BREATH. ON EXAMINATION, HEART IS REGULAR IN RATE AND RHYTHM. BILATERAL LUNGS ARE NOTED WITH DIMINISHED LUNG SOUNDS THROUGOUT. ABDOMEN IS ROUND, SOFT, AND NOTED WITH DIFFUSE TENDERNESS. NORMAL BOWEL SOUNDS NOTED IN ALL QUADRANTS. GOOD MOVEMENT NOTED TO UPPER AND LOWER EXTREMITIES. TRACE EDEMA NOTED TO LOWER EXTREMITIES. HIS VITALS THIS MORNING ARE: 98.5-71-20-91%-120/59. LABS WERE OBTAINED. WBC 6.1, RBC 4.17, HGB 12.3, HCT 35.6, PLT COUNT 229, SODIUM 137, POTASSIUM 3.3, BUN 13, CREATININE 0.95, GLUCOSE 127, CALCIUM 7.9, MAGNESIUM 1.8, TOTAL BILI 1.00, AST 52, ALT 39, ALK PHOS 110, TOTAL PROTEIN 6.1, ALBUMIN 2.2. URINE CULTURE IS PENDING. HE IS CURRENTLY RECEIVING NORMAL SALINE AT 80 ML/HR, CIPRO 400MG IV Q12H, CEFTAZIDIME 1G IV Q8H, LOVENOX 40MG SC DAILY, TORADOL 15MG IV Q8H, OTBS ACHS, AND THE POTASSIUM AND MAGNESIUM PROTOCOLS. HIS HOME MEDICATIONS WERE RESUMED. TODAY, WE WILL OBTAIN SERIAL CARDIAC ENZYMES AND EKGS. WE WILL INCREASE TORADOL TO 30MG IV Q6H AND ADD KLONOPIN 1MG AT BEDTIME. OTHERWISE, WE WILL CONTINUE WITH CURRENT PLAN OF CARE. WE WILL FOLLOW-UP WITH AM LABS AND CONTINUE TO MONITOR. TIME SPENT ON CLINICAL ASSESSMENT, REVIEWING LABS AND IMAGING, DECISION MAKING, AND DOCUMENTATION GREATER THAN 45 MINUTES. - Past Medical Family Social History Past Med/Fam/Surg Hx: No changes since H&P Allergies: Allergies No Known Drug Allergies Allergy (Verified 02/05/19 11:58) - Review of Systems ROS: No change since H&P - Vital Signs and I&O's Vital Signs: Temperature 98 F Pulse Rate [Right Brachial] 90 Pulse Rate [Left] 78 Pulse Rate 90 Respiratory Rate 22 Blood Pressure [Right Arm] 130/69 Blood Pressure [Left Arm] 107/63 O2 Sat by Pulse Oximetry 94 Intake and Output: Intake & Output 11/27/22 11/28/22 11/29/22 11/30/22 11:59 11:59 11:59 11:59 Intake Total 3026 / 3026 2435 / 2435 2464 / 2464 1013 / 1013 Output Total 200 / 200 Balance 2826 / 2826 2435 / 2435 2464 / 2464 1013 / 1013 - Physical Exam Oriented: Normal Eyes: Normal Ear: Normal Nose: Normal Throat: Normal Respiratory: Diminished Cardiovascular: Normal : Frequency Auscultation: Bowel Sounds: Normal Palpation: Normal Tenderness: Diffuse, Mild Skin: Normal Musculoskeletal: Normal Psychiatric: Normal Mood Description: Calm Affect: Normal Speech Pattern: Clear, Appropriate - Laboratory and Diagnostics Result Diagrams: 11/29/22 05:40 11/29/22 10:40 Labs: 11/24/22 21:10 Urine,Clean Catch Urine Culture - Final Laboratory WBC 9.2 X10^3/uL (3.6-10.0) D 11/29/22 05:40 RBC 4.30 X10^6/uL (4.7-6.0) L 11/29/22 05:40 Hgb 12.5 g/dL (13.5-18.0) L 11/29/22 05:40 Hct 36.6 % (42.0-54.0) L 11/29/22 05:40 MCV 85.0 fL (80.0-100.0) 11/29/22 05:40 MCH 29.0 pg (27.0-34.0) 11/29/22 05:40 MCHC 34.1 g/dL (33.0-35.0) 11/29/22 05:40 RDW 14.7 % (11.6-16.5) 11/29/22 05:40 Plt Count 265 X10^3/uL (150.0-450.0) 11/29/22 05:40 Plt Count Comment Adequate (ADEQUATE) 11/28/22 05:46 MPV 7.1 fL (7.4-11.0) L 11/29/22 05:40 Neut % (Auto) 86.2 % (42.0-75.0) H 11/29/22 05:40 Lymph % (Auto) 5.5 % (21.0-51.0) L 11/29/22 05:40 [place] % (Auto) 4.9 % (0.0-13.0) 11/29/22 05:40 Eos % (Auto) 3.1 % (0.9-2.9) H 11/29/22 05:40 Baso % (Auto) 0.3 % (0.2-1.0) 11/29/22 05:40 Neut # (Auto) 8.0 x10^3/uL (2.2-4.8) H 11/29/22 05:40 Lymph # (Auto) 0.5 X10^3/uL (1.3-2.9) L 11/29/22 05:40 [place] # (Auto) 0.4 x10^3/uL (0.3-0.8) 11/29/22 05:40 Eos # (Auto) 0.3 x10^3/uL (0.0-0.2) H 11/29/22 05:40 Baso # (Auto) 0.0 X10^3/uL (0.0-0.1) 11/29/22 05:40 Absolute Nucleated RBC 0.0 /100WBC 11/29/22 05:40 Total Counted 100 11/28/22 05:46 Neutrophils % (Manual) 92 % (39-76) H 11/28/22 05:46 Band Neutrophils % 6 % (0-10) 11/28/22 05:46 Lymphocytes % (Manual) Not Reportable 11/28/22 05:46 Eosinophils % (Manual) 2 % (0-6) 11/28/22 05:46 Plt Morphology Comment Normal (NORMAL) 11/28/22 05:46 RBC Morphology Normal (NORMAL) 11/28/22 05:46 Sodium 135 mmol/L (136-145) L 11/29/22 05:40 Corrected Sodium TNP 11/29/22 05:40 Potassium 4.5 mmol/L (3.5-5.1) 11/29/22 10:40 Chloride 102 mmol/L (98-107) 11/29/22 05:40 Carbon Dioxide 24.8 mmol/L (21-32) 11/29/22 05:40 BUN 14 mg/dL (7-18) 11/29/22 05:40 Creatinine 0.89 mg/dL (0.70-1.30) 11/29/22 05:40 Est GFR (MDRD) Af Amer > 60 (>60) 11/29/22 05:40 Est GFR (MDRD) Non-Af > 60 (>60) 11/29/22 05:40 Glucose 90 mg/dL (65-99) 11/29/22 05:40 POC Glucose (mg/dL) 87 mg/dL (65-99) 11/29/22 16:21 Calcium 8.0 mg/dL (8.5-10.1) L 11/29/22 05:40 Corrected Calcium 9.7 mg/dL (8.5-10.1) 11/29/22 05:40 Magnesium 2.1 mg/dL (2.0-2.9) 11/27/22 05:29 Total Bilirubin 1.40 mg/dL (0.2-1.0) H 11/29/22 05:40 AST 56 Units/L (15-37) H 11/29/22 05:40 ALT 37 Units/L (12-78) 11/29/22 05:40 Alkaline Phosphatase 115 Units/L (46-116) 11/29/22 05:40 Creatine Kinase 25 Units/L (39-308) L 11/26/22 18:48 Troponin I High Sens 18.2 ng/L (4.0-60.0) 11/26/22 18:48 Total Protein 5.8 g/dL (6.4-8.2) L 11/29/22 05:40 Albumin 1.9 g/dL (3.4-5.0) L 11/29/22 05:40 Globulin 3.9 g/dL (2.5-4.5) 11/29/22 05:40 Albumin/Globulin Ratio 0.5 Ratio (1.1-2.1) L 11/29/22 05:40 Amylase 34 Units/L (25-115) 11/24/22 17:20 Lipase 62 Units/L (73-393) L 11/24/22 17:20 Specimen Type Clean catch urine 11/24/22 21:10 Urine Color Dark yellow (YELLOW) 11/24/22 21:10 Urine Appearance Hazy (CLEAR) 11/24/22 21:10 Urine pH 5.0 (5.0 - 8.0) 11/24/22 21:10 Ur Specific [place] 1.020 (1.000-1.030) 11/24/22 21:10 Urine Protein 2+ (NEGATIVE) 11/24/22 21:10 Urine Glucose (UA) Negative (NEGATIVE) 11/24/22 21:10 Urine Ketones 1+ (NEGATIVE) 11/24/22 21:10 Urine Blood 1+ (NEGATIVE) 11/24/22 21:10 Urine Nitrite Positive (NEGATIVE) 11/24/22 21:10 Urine Bilirubin 2+ (NEGATIVE) 11/24/22 21:10 Urine Urobilinogen 4+ (NORMAL) 11/24/22 21:10 Ur Leukocyte Esterase 1+ (NEGATIVE) 11/24/22 21:10 Urine RBC 3-5 /HPF (0-3) A 11/24/22 21:10 Urine WBC 3-5 /HPF (0-5) 11/24/22 21:10 Ur Squamous Epith Cells Rare /HPF (NEGATIVE) 11/24/22 21:10 Urine Bacteria Trace /HPF (NEGATIVE) 11/24/22 21:10 Urine Mucus Moderate /HPF (NEGATIVE) 11/24/22 21:10 Ur Culture Indicated? Yes/culture set up 11/24/22 21:10 - Plan (1) Abdominal pain Status: Acute Qualifiers: Abdominal location: left lower quadrant Qualified Code(s): R10.32 - Left lower quadrant pain Plan: NORMAL SALINE AT 80 ML/HR, CIPRO 400MG IV Q12H, CEFTAZIDIME 1G IV Q8H, LOVENOX 40MG SC DAILY, TORADOL 30MG IV Q6H, KLONOPIN 1GM HS, OTBS ACHS, AND THE POTASSIUM AND MAGNESIUM PROTOCOLS. HIS HOME MEDICATIONS WERE RESUMED. SERIAL CARDIAC ENZYMES AND EKGS (2) Dehydration Status: Acute (3) Urinary tract infection Status: Acute Qualifiers: Urinary tract infection type: acute cystitis Hematuria presence: without hematuria Qualified Code(s): N30.00 - Acute cystitis without hematuria (4) Nausea Status: Acute (5) Generalized weakness Status: Acute (6) Dyspnea Status: Acute Qualifiers: Dyspnea type: shortness of breath Qualified Code(s): R06.02 - Shortness of breath (7) BPH (benign prostatic hyperplasia) Status: Chronic Qualifiers: Lower urinary tract symptom presence: symptoms present Lower urinary tract symptom detail: urinary frequency Qualified Code(s): N40.1 - Benign prostatic hyperplasia with lower urinary tract symptoms; R35.0 - Frequency of micturition (8) Hypothyroidism Status: Chronic Qualifiers: Hypothyroidism type: acquired Qualified Code(s): E03.9 - Hypothyroidism, unspecified (9) Gout Status: Chronic Qualifiers: Gout site: unspecified site Encounter type: subsequent encounter Chronicity: chronic Presence of tophus: without tophus
--- NOTE | 2022-11-29 19:09 | PCM.PROG ---
Progress Note - Progress Note for Day of Date of Exam: 11/27/22 - Subjective Subjective: IS CURRENTLY OBSERVATION STATUS FOR TREATMENT OF ABDOMINAL PAIN, DEHYDRATION, NAUSEA, SHORTNESS OF BREATH, AND GENERALIZED WEAKNESS. TODAY, HE IS ALERT AND ORIENTED, LYING IN BED ON MORNING ROUNDS. HE CONTINUES TO COMPLAIN OF GENERALIZED WEAKNESS, DIFFUSE ABDOMINAL PAIN, AND SHORT NESS OF BREATH. HE COMPLAINS OF CONSTIPATION. ON EXAMINATION, HEART IS REGULAR IN RATE AND RHYTHM. BILATERAL LUNGS ARE NOTED WITH DIMINISHED LUNG SOUNDS THROUGOUT. ABDOMEN IS ROUND, SOFT, AND NOTED WITH DIFFUSE TENDERNESS. NORMAL BOWEL SOUNDS NOTED IN ALL QUADRANTS. GOOD MOVEMENT NOTED TO UPPER AND LOWER EXTREMITIES. TRACE EDEMA NOTED TO LOWER EXTREMITIES. HIS VITALS THIS MORNING ARE: 98.2-81-20-92%-133/63. LABS WERE OBTAINED. WBC 14.7, RBC 4.22, HGB 12.2, HCT 36.3, PLT COUNT 256, SODIUM 132, POTASSIUM 4.1, CHLORIDE 100, BUN 8, CREATININE 0.91, GLUCOSE 96, CALCIUM 7.8, MAGNESIUM 2.1, TOTAL BILI 1.10, AST 40, ALT 33, ALK PHOS 107, TOTAL PROTEIN 5.9, ALBUMIN 2.0. CARDIAC ENZYMES AND EKGs HAVE BEEN WITHIN NORMAL LIMITS. URINE CULTURE IS PENDING. HE IS CURRENTLY RECEIVING NORMAL SALINE AT 80 ML/HR, CIPRO 400MG IV Q12H, CEFTAZIDIME 1G IV Q8H, LOVENOX 40MG SC DAILY, TORADOL 15MG IV Q8H, OTBS ACHS, AND THE POTASSIUM AND MAGNESIUM PROTOCOLS. HIS HOME MEDICATIONS WERE RESUMED. TODAY, WE WILL ADD COLACE 200MG PO Q12H. OTHERWISE, WE WILL CONTINUE WITH CURRENT PLAN OF CARE. WE WILL FOLLOW-UP WITH AM LABS AND CONTINUE TO MONITOR. TIME SPENT ON CLINICAL ASSESSMENT, REVIEWING LABS AND IMAGING, DECISION MAKING, AND DOCUMENTATION GREATER THAN 45 MINUTES. - Past Medical Family Social History Past Med/Fam/Surg Hx: No changes since H&P Allergies: Allergies No Known Drug Allergies Allergy (Verified 02/05/19 11:58) - Review of Systems ROS: No change since H&P - Vital Signs and I&O's Vital Signs: Temperature 98 F Pulse Rate [Right Brachial] 90 Pulse Rate [Left] 78 Pulse Rate 90 Respiratory Rate 22 Blood Pressure [Right Arm] 130/69 Blood Pressure [Left Arm] 107/63 O2 Sat by Pulse Oximetry 94 Intake and Output: Intake & Output 11/27/22 11/28/22 11/29/22 11/30/22 11:59 11:59 11:59 11:59 Intake Total 3026 / 3026 2435 / 2435 2464 / 2464 1013 / 1013 Output Total 200 / 200 Balance 2826 / 2826 2435 / 2435 2464 / 2464 1013 / 1013 - Physical Exam Oriented: Normal Eyes: Normal Ear: Normal Nose: Normal Throat: Normal Respiratory: Diminished Cardiovascular: Normal : Frequency Auscultation: Bowel Sounds: Normal Palpation: Normal Tenderness: Diffuse, Mild Skin: Normal Musculoskeletal: Normal Psychiatric: Normal Mood Description: Calm Affect: Normal Speech Pattern: Clear, Appropriate - Laboratory and Diagnostics Result Diagrams: 11/29/22 05:40 11/29/22 10:40 Labs: 11/24/22 21:10 Urine,Clean Catch Urine Culture - Final Laboratory WBC 9.2 X10^3/uL (3.6-10.0) D 11/29/22 05:40 RBC 4.30 X10^6/uL (4.7-6.0) L 11/29/22 05:40 Hgb 12.5 g/dL (13.5-18.0) L 11/29/22 05:40 Hct 36.6 % (42.0-54.0) L 11/29/22 05:40 MCV 85.0 fL (80.0-100.0) 11/29/22 05:40 MCH 29.0 pg (27.0-34.0) 11/29/22 05:40 MCHC 34.1 g/dL (33.0-35.0) 11/29/22 05:40 RDW 14.7 % (11.6-16.5) 11/29/22 05:40 Plt Count 265 X10^3/uL (150.0-450.0) 11/29/22 05:40 Plt Count Comment Adequate (ADEQUATE) 11/28/22 05:46 MPV 7.1 fL (7.4-11.0) L 11/29/22 05:40 Neut % (Auto) 86.2 % (42.0-75.0) H 11/29/22 05:40 Lymph % (Auto) 5.5 % (21.0-51.0) L 11/29/22 05:40 [place] % (Auto) 4.9 % (0.0-13.0) 11/29/22 05:40 Eos % (Auto) 3.1 % (0.9-2.9) H 11/29/22 05:40 Baso % (Auto) 0.3 % (0.2-1.0) 11/29/22 05:40 Neut # (Auto) 8.0 x10^3/uL (2.2-4.8) H 11/29/22 05:40 Lymph # (Auto) 0.5 X10^3/uL (1.3-2.9) L 11/29/22 05:40 [place] # (Auto) 0.4 x10^3/uL (0.3-0.8) 11/29/22 05:40 Eos # (Auto) 0.3 x10^3/uL (0.0-0.2) H 11/29/22 05:40 Baso # (Auto) 0.0 X10^3/uL (0.0-0.1) 11/29/22 05:40 Absolute Nucleated RBC 0.0 /100WBC 11/29/22 05:40 Total Counted 100 11/28/22 05:46 Neutrophils % (Manual) 92 % (39-76) H 11/28/22 05:46 Band Neutrophils % 6 % (0-10) 11/28/22 05:46 Lymphocytes % (Manual) Not Reportable 11/28/22 05:46 Eosinophils % (Manual) 2 % (0-6) 11/28/22 05:46 Plt Morphology Comment Normal (NORMAL) 11/28/22 05:46 RBC Morphology Normal (NORMAL) 11/28/22 05:46 Sodium 135 mmol/L (136-145) L 11/29/22 05:40 Corrected Sodium TNP 11/29/22 05:40 Potassium 4.5 mmol/L (3.5-5.1) 11/29/22 10:40 Chloride 102 mmol/L (98-107) 11/29/22 05:40 Carbon Dioxide 24.8 mmol/L (21-32) 11/29/22 05:40 BUN 14 mg/dL (7-18) 11/29/22 05:40 Creatinine 0.89 mg/dL (0.70-1.30) 11/29/22 05:40 Est GFR (MDRD) Af Amer > 60 (>60) 11/29/22 05:40 Est GFR (MDRD) Non-Af > 60 (>60) 11/29/22 05:40 Glucose 90 mg/dL (65-99) 11/29/22 05:40 POC Glucose (mg/dL) 87 mg/dL (65-99) 11/29/22 16:21 Calcium 8.0 mg/dL (8.5-10.1) L 11/29/22 05:40 Corrected Calcium 9.7 mg/dL (8.5-10.1) 11/29/22 05:40 Magnesium 2.1 mg/dL (2.0-2.9) 11/27/22 05:29 Total Bilirubin 1.40 mg/dL (0.2-1.0) H 11/29/22 05:40 AST 56 Units/L (15-37) H 11/29/22 05:40 ALT 37 Units/L (12-78) 11/29/22 05:40 Alkaline Phosphatase 115 Units/L (46-116) 11/29/22 05:40 Creatine Kinase 25 Units/L (39-308) L 11/26/22 18:48 Troponin I High Sens 18.2 ng/L (4.0-60.0) 11/26/22 18:48 Total Protein 5.8 g/dL (6.4-8.2) L 11/29/22 05:40 Albumin 1.9 g/dL (3.4-5.0) L 11/29/22 05:40 Globulin 3.9 g/dL (2.5-4.5) 11/29/22 05:40 Albumin/Globulin Ratio 0.5 Ratio (1.1-2.1) L 11/29/22 05:40 Amylase 34 Units/L (25-115) 11/24/22 17:20 Lipase 62 Units/L (73-393) L 11/24/22 17:20 Specimen Type Clean catch urine 11/24/22 21:10 Urine Color Dark yellow (YELLOW) 11/24/22 21:10 Urine Appearance Hazy (CLEAR) 11/24/22 21:10 Urine pH 5.0 (5.0 - 8.0) 11/24/22 21:10 Ur Specific [place] 1.020 (1.000-1.030) 11/24/22 21:10 Urine Protein 2+ (NEGATIVE) 11/24/22 21:10 Urine Glucose (UA) Negative (NEGATIVE) 11/24/22 21:10 Urine Ketones 1+ (NEGATIVE) 11/24/22 21:10 Urine Blood 1+ (NEGATIVE) 11/24/22 21:10 Urine Nitrite Positive (NEGATIVE) 11/24/22 21:10 Urine Bilirubin 2+ (NEGATIVE) 11/24/22 21:10 Urine Urobilinogen 4+ (NORMAL) 11/24/22 21:10 Ur Leukocyte Esterase 1+ (NEGATIVE) 11/24/22 21:10 Urine RBC 3-5 /HPF (0-3) A 11/24/22 21:10 Urine WBC 3-5 /HPF (0-5) 11/24/22 21:10 Ur Squamous Epith Cells Rare /HPF (NEGATIVE) 11/24/22 21:10 Urine Bacteria Trace /HPF (NEGATIVE) 11/24/22 21:10 Urine Mucus Moderate /HPF (NEGATIVE) 11/24/22 21:10 Ur Culture Indicated? Yes/culture set up 11/24/22 21:10 - Plan (1) Abdominal pain Status: Acute Qualifiers: Abdominal location: left lower quadrant Qualified Code(s): R10.32 - Left lower quadrant pain Plan: NORMAL SALINE AT 80 ML/HR, CIPRO 400MG IV Q12H, CEFTAZIDIME 1G IV Q8H, LOVENOX 40MG SC DAILY, TORADOL 30MG IV Q6H, KLONOPIN 1GM HS, OTBS ACHS, COLACE 200MG PO Q12H, AND THE POTASSIUM AND MAGNESIUM PROTOCOLS. HIS HOME MEDICATIONS WERE RESUMED. (2) Dehydration Status: Acute (3) Urinary tract infection Status: Acute Qualifiers: Urinary tract infection type: acute cystitis Hematuria presence: without hematuria Qualified Code(s): N30.00 - Acute cystitis without hematuria (4) Nausea Status: Acute (5) Generalized weakness Status: Acute (6) Dyspnea Status: Acute Qualifiers: Dyspnea type: shortness of breath Qualified Code(s): R06.02 - Shortness of breath (7) BPH (benign prostatic hyperplasia) Status: Chronic Qualifiers: Lower urinary tract symptom presence: symptoms present Lower urinary tract symptom detail: urinary frequency Qualified Code(s): N40.1 - Benign prostatic hyperplasia with lower urinary tract symptoms; R35.0 - Frequency of micturition (8) Hypothyroidism Status: Chronic Qualifiers: Hypothyroidism type: acquired Qualified Code(s): E03.9 - Hypothyroidism, unspecified (9) Gout Status: Chronic Qualifiers: Gout site: unspecified site Encounter type: subsequent encounter Technology Officer nicity: chronic Presence of tophus: without tophus
--- NOTE | 2022-11-29 19:34 | PCM.PROG ---
Progress Note - Progress Note for Day of Date of Exam: 11/28/22 - Subjective Subjective: IS CURRENTLY OBSERVATION STATUS FOR TREATMENT OF ABDOMINAL PAIN, DEHYDRATION, NAUSEA, SHORTNESS OF BREATH, AND GENERALIZED WEAKNESS. TODAY, HE IS ALERT AND ORIENTED, LYING IN BED ON MORNING ROUNDS. HE CONTINUES TO COMPLAIN OF GENERALIZED WEAKNESS, DIFFUSE ABDOMINAL PAIN (MILD), AN D INCREASED SHORTNESS OF BREATH. ON EXAMINATION, HEART IS REGULAR IN RATE AND RHYTHM. BILATERAL LUNGS ARE NOTED WITH RHONCHI THROUGOUT. ABDOMEN IS ROUND, SOFT, AND NOTED WITH DIFFUSE TENDERNESS. NORMAL BOWEL SOUNDS NOTED IN ALL QUADRANTS. GOOD MOVEMENT NOTED TO UPPER AND LOWER EXTREMITIES. TRACE EDEMA NOTED TO LOWER EXTREMITIES. HIS VITALS THIS MORNING ARE: 97.7-75-18-94%-91/55. LABS WERE OBTAINED. WBC 18.0, RBC 4.21, HGB 12.2, HCT 35.8, PLT COUNT 251, SODIUM 132, POTASSIUM 3.7, CHLORIDE 100, BUN 10, CREATININE 0.91, GLUCOSE 100, CALCIUM 8.0, TOTAL BILI 1.50, AST 25, ALT 25, ALK PHOS 104, TOTAL PROTEIN 5.9, ALBUMIN 1.9. A CHEST XRAY WAS OBTAINED AND REVEALED: Interstitial process in the right lung may represent an acute inflammatory process, less likely asymmetric edema. Correlate with clinical findings in this regard and follow-up. HE IS CURRENTLY RECEIVING NORMAL SALINE AT 80 ML/HR, CIPRO 400MG IV Q12H, CEFTAZIDIME 1G IV Q8H, LOVENOX 40MG SC DAILY, TORADOL 30MG IV Q6H, COLACE 200MG IV Q12H, KLONOPIN 2MG HS, OTBS ACHS, AND THE POTASSIUM AND MAGNESIUM PROTOCOLS. HIS HOME MEDICATIONS WERE RESUMED. TODAY, WE WILL DISCONTINUE THE CEFTAZIDIME AND ADD ZOSYN 3.375G IV TID. OTHERWISE, WE WILL CONTINUE WITH CURRENT PLAN OF CARE. WE WILL FOLLOW-UP WITH AM LABS AND CHEST XRAY AND CONTINUE TO MONITOR. TIME SPENT ON CLINICAL ASSESSMENT, REVIEWING LABS AND IMAGING, DECISION MAKING, AND DOCUMENTATION GREATER THAN 45 MINUTES. - Past Medical Family Social History Past Med/Fam/Surg Hx: No changes since H&P Allergies: Allergies No Known Drug Allergies Allergy (Verified 02/05/19 11:58) - Review of Systems ROS: No change since H&P - Vital Signs and I&O's Vital Signs: Temperature 98 F Pulse Rate [Right Brachial] 90 Pulse Rate [Left] 78 Pulse Rate 90 Respiratory Rate 22 Blood Pressure [Right Arm] 130/69 Blood Pressure [Left Arm] 107/63 O2 Sat by Pulse Oximetry 94 Intake and Output: Intake & Output 11/27/22 11/28/22 11/29/22 11/30/22 11:59 11:59 11:59 11:59 Intake Total 3026 / 3026 2435 / 2435 2464 / 2464 1013 / 1013 Output Total 200 / 200 Balance 2826 / 2826 2435 / 2435 2464 / 2464 1013 / 1013 - Physical Exam Oriented: Normal Eyes: Normal Ear: Normal Nose: Normal Throat: Normal Respiratory: Diminished, Rhonchi Cardiovascular: Normal : Frequency Auscultation: Bowel Sounds: Normal Palpation: Normal Tenderness: Diffuse, Mild Skin: Normal Musculoskeletal: Normal Psychiatric: Normal Mood Description: Calm Affect: Normal Speech Pattern: Clear, Appropriate - Laboratory and Diagnostics Result Diagrams: 11/29/22 05:40 11/29/22 10:40 Labs: 11/24/22 21:10 Urine,Clean Catch Urine Culture - Final Laboratory WBC 9.2 X10^3/uL (3.6-10.0) D 11/29/22 05:40 RBC 4.30 X10^6/uL (4.7-6.0) L 11/29/22 05:40 Hgb 12.5 g/dL (13.5-18.0) L 11/29/22 05:40 Hct 36.6 % (42.0-54.0) L 11/29/22 05:40 MCV 85.0 fL (80.0-100.0) 11/29/22 05:40 MCH 29.0 pg (27.0-34.0) 11/29/22 05:40 MCHC 34.1 g/dL (33.0-35.0) 11/29/22 05:40 RDW 14.7 % (11.6-16.5) 11/29/22 05:40 Plt Count 265 X10^3/uL (150.0-450.0) 11/29/22 05:40 Plt Count Comment Adequate (ADEQUATE) 11/28/22 05:46 MPV 7.1 fL (7.4-11.0) L 11/29/22 05:40 Neut % (Auto) 86.2 % (42.0-75.0) H 11/29/22 05:40 Lymph % (Auto) 5.5 % (21.0-51.0) L 11/29/22 05:40 [place] % (Auto) 4.9 % (0.0-13.0) 11/29/22 05:40 Eos % (Auto) 3.1 % (0.9-2.9) H 11/29/22 05:40 Baso % (Auto) 0.3 % (0.2-1.0) 11/29/22 05:40 Neut # (Auto) 8.0 x10^3/uL (2.2-4.8) H 11/29/22 05:40 Lymph # (Auto) 0.5 X10^3/uL (1.3-2.9) L 11/29/22 05:40 [place] # (Auto) 0.4 x10^3/uL (0.3-0.8) 11/29/22 05:40 Eos # (Auto) 0.3 x10^3/uL (0.0-0.2) H 11/29/22 05:40 Baso # (Auto) 0.0 X10^3/uL (0.0-0.1) 11/29/22 05:40 Absolute Nucleated RBC 0.0 /100WBC 11/29/22 05:40 Total Counted 100 11/28/22 05:46 Neutrophils % (Manual) 92 % (39-76) H 11/28/22 05:46 Band Neutrophils % 6 % (0-10) 11/28/22 05:46 Lymphocytes % (Manual) Not Reportable 11/28/22 05:46 Eosinophils % (Manual) 2 % (0-6) 11/28/22 05:46 Plt Morphology Comment Normal (NORMAL) 11/28/22 05:46 RBC Morphology Normal (NORMAL) 11/28/22 05:46 Sodium 135 mmol/L (136-145) L 11/29/22 05:40 Corrected Sodium TNP 11/29/22 05:40 Potassium 4.5 mmol/L (3.5-5.1) 11/29/22 10:40 Chloride 102 mmol/L (98-107) 11/29/22 05:40 Carbon Dioxide 24.8 mmol/L (21-32) 11/29/22 05:40 BUN 14 mg/dL (7-18) 11/29/22 05:40 Creatinine 0.89 mg/dL (0.70-1.30) 11/29/22 05:40 Est GFR (MDRD) Af Amer > 60 (>60) 11/29/22 05:40 Est GFR (MDRD) Non-Af > 60 (>60) 11/29/22 05:40 Glucose 90 mg/dL (65-99) 11/29/22 05:40 POC Glucose (mg/dL) 87 mg/dL (65-99) 11/29/22 16:21 Calcium 8.0 mg/dL (8.5-10.1) L 11/29/22 05:40 Corrected Calcium 9.7 mg/dL (8.5-10.1) 11/29/22 05:40 Magnesium 2.1 mg/dL (2.0-2.9) 11/27/22 05:29 Total Bilirubin 1.40 mg/dL (0.2-1.0) H 11/29/22 05:40 AST 56 Units/L (15-37) H 11/29/22 05:40 ALT 37 Units/L (12-78) 11/29/22 05:40 Alkaline Phosphatase 115 Units/L (46-116) 11/29/22 05:40 Creatine Kinase 25 Units/L (39-308) L 11/26/22 18:48 Troponin I High Sens 18.2 ng/L (4.0-60.0) 11/26/22 18:48 Total Protein 5.8 g/dL (6.4-8.2) L 11/29/22 05:40 Albumin 1.9 g/dL (3.4-5.0) L 11/29/22 05:40 Globulin 3.9 g/dL (2.5-4.5) 11/29/22 05:40 Albumin/Globulin Ratio 0.5 Ratio (1.1-2.1) L 11/29/22 05:40 Amylase 34 Units/L (25-115) 11/24/22 17:20 Lipase 62 Units/L (73-393) L 11/24/22 17:20 Specimen Type Clean catch urine 11/24/22 21:10 Urine Color Dark yellow (YELLOW) 11/24/22 21:10 Urine Appearance Hazy (CLEAR) 11/24/22 21:10 Urine pH 5.0 (5.0 - 8.0) 11/24/22 21:10 Ur Specific [place] 1.020 (1.000-1.030) 11/24/22 21:10 Urine Protein 2+ (NEGATIVE) 11/24/22 21:10 Urine Glucose (UA) Negative (NEGATIVE) 11/24/22 21:10 Urine Ketones 1+ (NEGATIVE) 11/24/22 21:10 Urine Blood 1+ (NEGATIVE) 11/24/22 21:10 Urine Nitrite Positive (NEGATIVE) 11/24/22 21:10 Urine Bilirubin 2+ (NEGATIVE) 11/24/22 21:10 Urine Urobilinogen 4+ (NORMAL) 11/24/22 21:10 Ur Leukocyte Esterase 1+ (NEGATIVE) 11/24/22 21:10 Urine RBC 3-5 /HPF (0-3) A 11/24/22 21:10 Urine WBC 3-5 /HPF (0-5) 11/24/22 21:10 Ur Squamous Epith Cells Rare /HPF (NEGATIVE) 11/24/22 21:10 Urine Bacteria Trace /HPF (NEGATIVE) 11/24/22 21:10 Urine Mucus Moderate /HPF (NEGATIVE) 11/24/22 21:10 Ur Culture Indicated? Yes/culture set up 11/24/22 21:10 - Plan (1) Abdominal pain Status: Acute Qualifiers: Abdominal location: left lower quadrant Qualified Code(s): R10.32 - Left lower quadrant pain Plan: NORMAL SALINE AT 80 ML/HR, CIPRO 400MG IV Q12H, ZOSYN 3.375G IV TID, LOVENOX 40MG SC DAILY, TORADOL 30MG IV Q6H, KLONOPIN 2MG HS, OTBS ACHS, COLACE 200MG PO Q12H, AND THE POTASSIUM AND MAGNESIUM PROTOCOLS. HIS HOME MEDICATIONS WERE RESUMED. (2) Dehydration Status: Acute (3) Urinary tract infection Status: Acute Qualifiers: Urinary tract infection type: acute cystitis Hematuria presence: without hematuria Qualified Code(s): N30.00 - Acute cystitis without hematuria (4) Nausea Status: Acute (5) Generalized weakness Status: Acute (6) Dyspnea Status: Acute Qualifiers: Dyspnea type: shortness of breath Qualified Code(s): R06.02 - Shortness of breath (7) BPH (benign prostatic hyperplasia) Status: Chronic Qualifiers: Lower urinary tract symptom presence: symptoms present Lower urinary tract symptom detail: urinary frequency Qualified Code(s): N40.1 - Benign prostatic hyperplasia with lower urinary tract symptoms; R35.0 - Frequency of micturition (8) Hypothyroidism Status: Chronic Qualifiers: Hypothyroidism type: acquired Qualified Code(s): E03.9 - Hypothyroidism, unspecified (9) Gout Status: Chronic Qualifiers: Gout site: unspecified site Encounter type: subsequent encounter Chronicity: chronic Presence of tophus: without tophus
[2022-11-29] MEDS: KLONOPIN TAB 1 MG PO SCH (20:42)
--- NOTE | 2022-11-29 21:03 | EKG ---
Test Reason : chest pain Blood Pressure : */* mmHG Vent. Rate : 95 BPM Atrial Rate : 95 BPM P-R Int : 176 ms QRS Dur : 164 ms QT Int : 422 ms P-R-T Axes : 20 10 61 degrees QTc Int : 530 ms Normal sinus rhythm Left bundle branch block Abnormal ECG When compared with ECG of 26-NOV-2022 18:16, No significant change was found Confirmed by Ranjeet Peralta ([id number]) on 12/01/2022 7:49:51 AM Referred By: Confirmed By: Ranjeet Peralta
[2022-11-30] MEDS: ROXICODONE TAB 15 MG PO PRN ×2 (00:57→15:04)
[2022-11-30] MEDS: DUONEB 0.5 MG/3 MG (3 mL) NEB SCH ×5 (01:05→17:42)
[2022-11-30 01:06] LABS: ABG ALLEN TEST POS; ABG BASE EXCESS -1.5 mmol/L (-2.0-2.0); ABG HCO3 20.9 mmol/L (22-26)
--- NOTE | 2022-11-30 01:21 | RAD ---
HISTORYINCREASED shortness of breath relevant Clinical InformationSTUDYCHEST, 1 VIEWCOMPARISONFrontal chest radiograph November 28, 2022FINDINGSThe heart silhouette is enlarged. Bilateral interstitial and airspace infiltrates are present. There is pulmonary vascular congestion.IMPRESSIONCongestive heart failure versus pneumonia. Little interval change.Electronically signed by: Brandon Momin (November 30, 2022 01:20:45)
[2022-11-30] MEDS ORDERED: ATIVAN INJ 2 MG VIAL IVP ONE (01:51)
[2022-11-30] MEDS ORDERED: LASIX IVP ONE ×2 (01:51→01:55)
[2022-11-30] MEDS ORDERED: ATIVAN INJ 2 MG VIAL ONE ×2 (01:59→16:11)
[2022-11-30] MEDS: NS 1,000 ML IV 1,000 ML IV SCH (04:19)
[2022-11-30 05:38] LABS: BASOPHILS % (AUTO) 0 % (0.2-1.0); EOSINOPHILS # (AUTO) 0.1 x10^3/uL (0.0-0.2); EOSINOPHILS % (AUTO) 0.8 % (0.9-2.9); HEMATOCRIT 37.9 % (42.0-54.0); HEMOGLOBIN 12.9 g/dL (13.5-18.0); LYMPHOCYTES # (AUTO) 0.5 X10^3/uL (1.3-2.9); LYMPHOCYTES % (AUTO) 3.4 % (21.0-51.0); MEAN CORPUSCULAR HEMOGLOBIN 28.8 pg (27.0-34.0); MEAN CORPUSCULAR VOLUME 84.8 fL (80.0-100.0); MEAN PLATELET VOLUME 7.1 fL (7.4-11.0); MONOCYTES # (AUTO) 0.6 x10^3/uL (0.3-0.8); MONOCYTES % (AUTO) 4.3 % (0.0-13.0); NEUTROPHILS # (AUTO) 12.8 x10^3/uL (2.2-4.8); NEUTROPHILS % (AUTO) 91.5 % (42.0-75.0); PLATELET COUNT 320 X10^3/uL (150.0-450.0); RED BLOOD COUNT 4.47 X10^6/uL (4.7-6.0); RED CELL DISTRIBUTION WIDTH 14.7 % (11.6-16.5)
[2022-11-30 05:39] LABS: BLOOD UREA NITROGEN 10 mg/dL (7-18); CALCIUM 7.8 mg/dL (8.5-10.1); CARBON DIOXIDE 26.2 mmol/L (21-32); CHLORIDE 98 mmol/L (98-107); COR NA(FOR HYPERGLY) 135 mmol/L (136-145); CREATININE 0.95 mg/dL (0.70-1.30); GLUCOSE 121 mg/dL (65-99); POTASSIUM 3.5 mmol/L (3.5-5.1); SODIUM 134 mmol/L (136-145); eGFR NON BLACK RACES > 60 (>60)
[2022-11-30] MEDS: ZOSYN VIAL 3.375 GRAMS 3.375 G in NS 100 ML IV 100 ML IV SCH ×3 (05:44→21:01)
[2022-11-30] MEDS: MIRAPEX TAB 1 MG PO SCH ×3 (05:44→21:01)
[2022-11-30 06:38] LABS: PLATELET MORPHOLOGY COMMENT NORMAL (NORMAL)
[2022-11-30] MEDS: PLAQUENIL PO SCH ×2 (08:31→20:41)
[2022-11-30] MEDS: SINGULAIR TAB 10 MG PO SCH (08:32)
[2022-11-30] MEDS: NEURONTIN CAP 100 MG PO SCH (08:32)
[2022-11-30] MEDS: GLUCOPHAGE XR 24-HR PO SCH (08:32)
[2022-11-30] MEDS: ZYLOPRIM PO SCH (08:32)
[2022-11-30] MEDS: OXYBUTYNIN CHLORIDE ER PO SCH (08:33)
[2022-11-30] MEDS: K-DUR TAB 20 MEQ PO PRN (08:33)
[2022-11-30] MEDS: CYMBALTA PO SCH (08:34)
[2022-11-30] MEDS: JANUVIA PO SCH (08:34)
[2022-11-30] MEDS: COLACE CAP 100 MG PO SCH ×2 (08:34→20:40)
[2022-11-30] MEDS: SYNTHROID 75 mcg TAB PO SCH (08:35)
[2022-11-30] MEDS: LOVENOX INJ 40 MG SYR SC SCH (08:35)
[2022-11-30 09:18] LABS: BILIRUBIN,URINE NEGATIVE (NEGATIVE); BLOOD/HEMOGLOBIN,URINE 2+ (NEGATIVE); GLUCOSE, URINE NEGATIVE (NEGATIVE); KETONES,URINE NEGATIVE (NEGATIVE); LEUKOCYTE ESTERASE ,URINE NEGATIVE (NEGATIVE); NITRITES,URINE NEGATIVE (NEGATIVE); PROTEIN,URINE NEGATIVE (NEGATIVE); UROBILINOGEN,URINE 1+ (NORMAL)
[2022-11-30] MEDS: PULMICORT NEB TX 0.5 MG NEB SCH ×2 (09:25→21:56)
[2022-11-30 09:27] LABS: APPEARANCE,URINE CLEAR (CLEAR); BACTERIA,URINE TRACE /HPF (NEGATIVE); COLOR,URINE YELLOW (YELLOW); SQUAMOUS EPITHELIAL CELL,UR RARE /HPF (NEGATIVE)
--- NOTE | 2022-11-30 10:42 | PCM.PROG ---
Progress Note Progress Note for Day of Date of Exam: 11/30/22 Subjective Subjective: Patient seen at bedside, overnight patient was in respiratory distress. ABG showed hypoxia, CXR showed pulmonary congestion. Trop (-) and EKG did not show any acute ST changes. He was given IV lasix and placed on BiPAP. He is currently resting on BiPAP with sats in the 90s. Labs/imaging reviewed: WBC 14.0 Trop (-) AB.48/28/57/20.9 CXR: CHF vs pneumonia Plan: DC IVF, add lasix IV daily, order BNP. Repeat ABG. Echo ordered for AM. Wean BIPAP as tolerated to keep sats > 92%. CXR in the AM. Castillo placed. Strict I&Os, daily weights and telemetry. Continue Zosyn. Continue other medications. Monitor AM labs/imaging. Time spent for clinical assessment, reviewing labs/imaging, physical exam, decision making and documentation greater than 45 mins. Past Medical Family Social History Past Med/Fam/Surg Hx: No changes since H&P Allergies: Allergies No Known Drug Allergies Allergy (Verified 02/05/19 11:58) Review of Systems ROS: No change since H&P Vital Signs and I&O's Vital Signs: Temperature 98.2 F Pulse Rate [Right Brachial] 86 Pulse Rate [Left] 78 Pulse Rate 86 Respiratory Rate 26 Blood Pressure [Right Arm] 115/69 Blood Pressure [Left Arm] 107/63 O2 Sat by Pulse Oximetry 92 Intake and Output: Intake & Output 11/27/22 11/28/22 11/29/22 11/30/22 23:59 23:59 23:59 23:59 Intake Total 2265 / 2265 2642 / 2642 2248 / 2248 364 / 364 Balance 2265 / 2265 2642 / 2642 2248 / 2248 364 / 364 Physical Exam Oriented: Normal Eyes: Normal Ear: Normal Nose: Normal Throat: Normal Respiratory: Diminished and Rales Cardiovascular: Normal; negative Edema Auscultation: Bowel Sounds: Normal Tenderness: Normal Skin: Normal Musculoskeletal: Normal Psychiatric: Normal Mood Description: Calm Affect: Normal Speech Pattern: Artificially Ventilated (on Bipap ) Laboratory and Diagnostics Result Diagrams: 11/30/22 05:25 11/30/22 05:25 Labs: 11/24/22 21:10 Urine,Clean Catch Urine Culture - Final Laboratory WBC 14.0 X10^3/uL (3.6-10.0) H 11/30/22 05:25 RBC 4.47 X10^6/uL (4.7-6.0) L 11/30/22 05:25 Hgb 12.9 g/dL (13.5-18.0) L 11/30/22 05:25 Hct 37.9 % (42.0-54.0) L 11/30/22 05:25 MCV 84.8 fL (80.0-100.0) 11/30/22 05:25 MCH 28.8 pg (27.0-34.0) 11/30/22 05:25 MCHC 34.0 g/dL (33.0-35.0) 11/30/22 05:25 RDW 14.7 % (11.6-16.5) 11/30/22 05:25 Plt Count 320 X10^3/uL (150.0-450.0) 11/30/22 05:25 Plt Count Comment Adequate (ADEQUATE) 11/30/22 05:25 MPV 7.1 fL (7.4-11.0) L 11/30/22 05:25 Neut % (Auto) 91.5 % (42.0-75.0) H 11/30/22 05:25 Lymph % (Auto) 3.4 % (21.0-51.0) L 11/30/22 05:25 [place] % (Auto) 4.3 % (0.0-13.0) 11/30/22 05:25 Eos % (Auto) 0.8 % (0.9-2.9) L 11/30/22 05:25 Baso % (Auto) 0 % (0.2-1.0) L 11/30/22 05:25 Neut # (Auto) 12.8 x10^3/uL (2.2-4.8) H 11/30/22 05:25 Lymph # (Auto) 0.5 X10^3/uL (1.3-2.9) L 11/30/22 05:25 [place] # (Auto) 0.6 x10^3/uL (0.3-0.8) 11/30/22 05:25 Eos # (Auto) 0.1 x10^3/uL (0.0-0.2) 11/30/22 05:25 Baso # (Auto) 0.0 X10^3/uL (0.0-0.1) 11/30/22 05:25 Absolute Nucleated RBC 0.1 /100WBC 11/30/22 05:25 Total Counted 100 11/30/22 05:25 Neutrophils % (Manual) 91 % (39-76) H 11/30/22 05:25 Band Neutrophils % 6 % (0-10) 11/28/22 05:46 Lymphocytes % (Manual) 4 % (13-43) L 11/30/22 05:25 Monocytes % (Manual) 5 % (4-9) 11/30/22 05:25 Eosinophils % (Manual) Not Reportable 11/30/22 05:25 Plt Morphology Comment Normal (NORMAL) 11/30/22 05:25 RBC Morphology Normal (NORMAL) 11/30/22 05:25 Sample Site Rrad 11/30/22 01:02 ABG pH 7.480 (7.35-7.45) H 11/30/22 01:02 ABG pCO2 28.0 mmHg (35.0-45.0) L 11/30/22 01:02 ABG pO2 57.0 mmHg (80.0-100.0) L 11/30/22 01:02 ABG HCO3 20.9 mmol/L (22-26) L 11/30/22 01:02 ABG O2 Saturation 91.0 % (90-100) 11/30/22 01:02 ABG Base Excess -1.5 mmol/L (-2.0-2.0) 11/30/22 01:02 Mp Test Pos 11/30/22 01:02 A-a Gradient 136.0 mmHg 11/30/22 01:02 FiO2 32.0 11/30/22 01:02 Blood Gas Comments Susanna well-mtf 11/30/22 01:02 Sodium 134 mmol/L (136-145) L 11/30/22 05:25 Corrected Sodium 135 mmol/L (136-145) L 11/30/22 05:25 Potassium 3.5 mmol/L (3.5-5.1) 11/30/22 05:25 Chloride 98 mmol/L (98-107) 11/30/22 05:25 Carbon Dioxide 26.2 mmol/L (21-32) 11/30/22 05:25 BUN 10 mg/dL (7-18) 11/30/22 05:25 Creatinine 0.95 mg/dL (0.70-1.30) 11/30/22 05:25 Est GFR (MDRD) Af Amer > 60 (>60) 11/30/22 05:25 Est GFR (MDRD) Non-Af > 60 (>60) 11/30/22 05:25 Glucose 121 mg/dL (65-99) H 11/30/22 05:25 POC Glucose (mg/dL) 119 mg/dL (65-99) H 11/30/22 05:34 Calcium 7.8 mg/dL (8.5-10.1) L 11/30/22 05:25 Corrected Calcium 9.7 mg/dL (8.5-10.1) 11/29/22 05:40 Magnesium 2.1 mg/dL (2.0-2.9) 11/27/22 05:29 Total Bilirubin 1.40 mg/dL (0.2-1.0) H 11/29/22 05:40 AST 56 Units/L (15-37) H 11/29/22 05:40 ALT 37 Units/L (12-78) 11/29/22 05:40 Alkaline Phosphatase 115 Units/L (46-116) 11/29/22 05:40 Creatine Kinase 20 Units/L (39-308) L 11/29/22 21:16 Troponin I High Sens 9.8 ng/L (4.0-60.0) 11/29/22 21:16 Total Protein 5.8 g/dL (6.4-8.2) L 11/29/22 05:40 Albumin 1.9 g/dL (3.4-5.0) L 11/29/22 05:40 Globulin 3.9 g/dL (2.5-4.5) 11/29/22 05:40 Albumin/Globulin Ratio 0.5 Ratio (1.1-2.1) L 11/29/22 05:40 Amylase 34 Units/L (25-115) 11/24/22 17:20 Lipase 62 Units/L (73-393) L 11/24/22 17:20 Specimen Type Catherized urine 05/07/23 08:46 Urine Color Yellow (YELLOW) 11/30/22 08:46 Urine Appearance Clear (CLEAR) 11/30/22 08:46 Urine pH 6.0 (5.0 - 8.0) 11/30/22 08:46 Ur Specific [place] 1.025 (1.000-1.030) 11/30/22 08:46 Urine Protein Negative (NEGATIVE) 11/30/22 08:46 Urine Glucose (UA) Negative (NEGATIVE) 11/30/22 08:46 Urine Ketones Negative (NEGATIVE) 11/30/22 08:46 Urine Blood 2+ (NEGATIVE) 11/30/22 08:46 Urine Nitrite Negative (NEGATIVE) 11/30/22 08:46 Urine Bilirubin Negative (NEGATIVE) 11/30/22 08:46 Urine Urobilinogen 1+ (NORMAL) 11/30/22 08:46 Ur Leukocyte Esterase Negative (NEGATIVE) 11/30/22 08:46 Urine RBC 3-5 /HPF (0-3) A 11/30/22 08:46 Urine WBC None seen /HPF (0-5) 11/30/22 08:46 Ur Squamous Epith Cells Rare /HPF (NEGATIVE) 11/30/22 08:46 Urine Bacteria Trace /HPF (NEGATIVE) 11/30/22 08:46 Urine Mucus Moderate /HPF (NEGATIVE) 11/24/22 21:10 Ur Culture Indicated? No/not indicated 11/30/22 08:46 Plan (1) CHF exacerbation: Status: Acute (2) Acute respiratory failure: Status: Acute (3) Urinary tract infection: Status: Acute Qualifiers: Hematuria presence: without hematuria Urinary tract infection type: acute cystitis Qualified Code(s): N30.00 - Acute cystitis without hematuria (4) Generalized weakness: Status: Acute (5) Dyspnea: Status: Acute Qualifiers: Dyspnea type: shortness of breath Qualified Code(s): R06.02 - Shortness of breath (6) BPH (benign prostatic hyperplasia): Status: Chronic Qualifiers: Lower urinary tract symptom detail: urinary frequency Lower urinary tract symptom presence: symptoms present Qualified Code(s): N40.1 - Benign prostatic hyperplasia with lower urinary tract symptoms; R35.0 - Frequency of micturition (7) Hypothyroidism: Status: Chronic Qualifiers: Hypothyroidism type: acquired Qualified Code(s): E03.9 - Hypothy roidism, unspecified (8) Gout: Status: Chronic Qualifiers: Chronicity: chronic Encounter type: subsequent encounter Gout site: unspecified site Presence of tophus: without tophus
[2022-11-30 11:04] LABS: ABG BASE EXCESS 2.8 mmol/L (-2.0-2.0); ABG HCO3 26.1 mmol/L (22-26)
[2022-11-30 11:05] LABS: ABG ALLEN TEST POS
[2022-11-30] MEDS: LASIX IVP SCH (13:18)
[2022-11-30] MEDS: ATIVAN INJ 2 MG VIAL IVP PRN (16:16)
[2022-11-30] MEDS: KLONOPIN TAB 1 MG PO SCH (20:40)
[2022-12-01] MEDS: DUONEB 0.5 MG/3 MG (3 mL) NEB SCH ×5 (00:35→17:23)
[2022-12-01] MEDS: ATIVAN INJ 2 MG VIAL IVP PRN ×2 (01:10→10:33)
[2022-12-01] MEDS: ZOSYN VIAL 3.375 GRAMS 3.375 G in NS 100 ML IV 100 ML IV SCH ×3 (05:54→21:18)
[2022-12-01] MEDS: MIRAPEX TAB 1 MG PO SCH ×3 (05:54→21:22)
[2022-12-01 06:07] LABS: BASOPHILS # (AUTO) 0.1 X10^3/uL (0.0-0.1); BASOPHILS % (AUTO) 0.7 % (0.2-1.0); EOSINOPHILS # (AUTO) 0.2 x10^3/uL (0.0-0.2); EOSINOPHILS % (AUTO) 1.6 % (0.9-2.9); HEMATOCRIT 38.6 % (42.0-54.0); LYMPHOCYTES # (AUTO) 0.7 X10^3/uL (1.3-2.9); MEAN CORPUSCULAR HEMOGLOBIN 28.7 pg (27.0-34.0); MEAN CORPUSCULAR HGB CONC 33.6 g/dL (33.0-35.0); MEAN CORPUSCULAR VOLUME 85.5 fL (80.0-100.0); MEAN PLATELET VOLUME 7.2 fL (7.4-11.0); MONOCYTES # (AUTO) 0.8 x10^3/uL (0.3-0.8); MONOCYTES % (AUTO) 5.4 % (0.0-13.0); NEUTROPHILS # (AUTO) 12.6 x10^3/uL (2.2-4.8); NEUTROPHILS % (AUTO) 87.3 % (42.0-75.0); PLATELET COUNT 285 X10^3/uL (150.0-450.0); RED BLOOD COUNT 4.51 X10^6/uL (4.7-6.0); RED CELL DISTRIBUTION WIDTH 15.3 % (11.6-16.5); WHITE BLOOD COUNT 14.4 X10^3/uL (3.6-10.0)
[2022-12-01 06:25] LABS: ALANINE AMINOTRANSFERASE 27 Units/L (12-78); ALKALINE PHOSPHATASE 224 Units/L (46-116); ASPARTATE AMINO TRANSFERASE 37 Units/L (15-37); BLOOD UREA NITROGEN 13 mg/dL (7-18); CALCIUM 8.4 mg/dL (8.5-10.1); CARBON DIOXIDE 26.1 mmol/L (21-32); CHLORIDE 97 mmol/L (98-107); CREATININE 0.98 mg/dL (0.70-1.30); GLUCOSE 97 mg/dL (65-99); POTASSIUM 3.6 mmol/L (3.5-5.1); SODIUM 132 mmol/L (136-145); TOTAL PROTEIN 6.6 g/dL (6.4-8.2); eGFR NON BLACK RACES > 60 (>60)
--- NOTE | 2022-12-01 06:27 | RAD ---
HISTORYAbdominal pain, hypoxia, congestive heart failureSTUDYChest AP [id number]/07/2023FINDINGSHear t is within normal limits in size. Agata are normal. Lungs appear free of acute alveolar infiltrates. No definite pleural effusions identified. Bony thorax is unremarkable.IMPRESSIONNo definite evidence for congestive heart failure or pneumonia on today's examinationElectronically signed by: CHERI CORBETT (December 01, 2022 06:26:17)
[2022-12-01] MEDS: SYNTHROID 75 mcg TAB PO SCH (06:42)
[2022-12-01] MEDS: PULMICORT NEB TX 0.5 MG NEB SCH ×2 (08:57→20:07)
[2022-12-01] MEDS ORDERED: LASIX IVP ONE (09:12)
[2022-12-01 09:29] LABS: ABG BASE EXCESS 4.8 mmol/L (-2.0-2.0); ABG HCO3 28.1 mmol/L (22-26)
[2022-12-01] MEDS: PLAQUENIL PO SCH ×2 (09:50→21:22)
[2022-12-01] MEDS: ZYLOPRIM PO SCH (09:50)
[2022-12-01] MEDS: SINGULAIR TAB 10 MG PO SCH (09:50)
[2022-12-01] MEDS: COLACE CAP 100 MG PO SCH ×2 (09:53→21:19)
[2022-12-01] MEDS: CYMBALTA PO SCH (09:53)
[2022-12-01] MEDS: JANUVIA PO SCH (09:54)
[2022-12-01] MEDS: GLUCOPHAGE XR 24-HR PO SCH (09:54)
[2022-12-01] MEDS: LOVENOX INJ 40 MG SYR SC SCH (09:54)
[2022-12-01] MEDS: NEURONTIN CAP 100 MG PO SCH (09:54)
[2022-12-01] MEDS: LASIX IVP SCH (09:54)
[2022-12-01] MEDS: OXYBUTYNIN CHLORIDE ER PO SCH (09:55)
[2022-12-01] MEDS ORDERED: HALDOL INJ IVP ONE (11:45)
[2022-12-01] MEDS ORDERED: NS 100 ML IV 100 ML ONE (15:34)
[2022-12-01] MEDS: ROXICODONE TAB 15 MG PO PRN (21:20)
[2022-12-01] MEDS: KLONOPIN TAB 1 MG PO SCH (21:21)
[2022-12-01] MEDS ORDERED: NS 1,000 ML IV 1,000 ML ONE (22:32)
[2022-12-01] MEDS: NS 1,000 ML IV 1,000 ML IV SCH (22:37)
[2022-12-01] MEDS: HALDOL INJ IM PRN (23:29)
[2022-12-02] MEDS: DUONEB 0.5 MG/3 MG (3 mL) NEB SCH ×4 (00:13→17:00)
[2022-12-02 04:56] LABS: BASOPHILS # (AUTO) 0.1 X10^3/uL (0.0-0.1); BASOPHILS % (AUTO) 0.4 % (0.2-1.0); EOSINOPHILS # (AUTO) 0.2 x10^3/uL (0.0-0.2); EOSINOPHILS % (AUTO) 1.5 % (0.9-2.9); HEMATOCRIT 38.5 % (42.0-54.0); HEMOGLOBIN 12.9 g/dL (13.5-18.0); LYMPHOCYTES # (AUTO) 0.5 X10^3/uL (1.3-2.9); LYMPHOCYTES % (AUTO) 3.5 % (21.0-51.0); MEAN CORPUSCULAR HEMOGLOBIN 28.7 pg (27.0-34.0); MEAN CORPUSCULAR HGB CONC 33.6 g/dL (33.0-35.0); MEAN CORPUSCULAR VOLUME 85.3 fL (80.0-100.0); MEAN PLATELET VOLUME 7.2 fL (7.4-11.0); MONOCYTES # (AUTO) 0.6 x10^3/uL (0.3-0.8); MONOCYTES % (AUTO) 4.4 % (0.0-13.0); NEUTROPHILS # (AUTO) 12.7 x10^3/uL (2.2-4.8); NEUTROPHILS % (AUTO) 90.2 % (42.0-75.0); PLATELET COUNT 288 X10^3/uL (150.0-450.0); RED BLOOD COUNT 4.52 X10^6/uL (4.7-6.0); WHITE BLOOD COUNT 14.1 X10^3/uL (3.6-10.0)
[2022-12-02 05:10] LABS: ALANINE AMINOTRANSFERASE 24 Units/L (12-78); ALKALINE PHOSPHATASE 122 Units/L (46-116); ASPARTATE AMINO TRANSFERASE 34 Units/L (15-37); BLOOD UREA NITROGEN 15 mg/dL (7-18); CALCIUM 8.3 mg/dL (8.5-10.1); CARBON DIOXIDE 28.1 mmol/L (21-32); CHLORIDE 100 mmol/L (98-107); COR CA(FOR HYPOALB) 9.9 mg/dL (8.5-10.1); CREATININE 0.91 mg/dL (0.70-1.30); GLUCOSE 91 mg/dL (65-99); POTASSIUM 3.3 mmol/L (3.5-5.1); SODIUM 139 mmol/L (136-145); TOTAL PROTEIN 6.6 g/dL (6.4-8.2); eGFR NON BLACK RACES > 60 (>60)
[2022-12-02] MEDS: ZOSYN VIAL 3.375 GRAMS 3.375 G in NS 100 ML IV 100 ML IV SCH ×3 (05:18→21:01)
[2022-12-02] MEDS: MIRAPEX TAB 1 MG PO SCH ×4 (05:19→23:03)
--- NOTE | 2022-12-02 05:23 | RAD ---
HISTORYHYPOXIA, PNEUMONIA, CHFSTUDYCHEST, 1 [id number]/08/2023FINDINGSThe trachea is midline. The cardiac silhouette is enlarged with a tortuous thoracic aorta . The lungs are clear without focal infiltrate or effusion. The bony thorax is unremarkable.IMPRESSIONNo acute cardiopulmonary disease.Electronically signed by: CHERYL MUSE (December 02, 2022 05:22:57)
[2022-12-02 06:00] LABS: PLATELET MORPHOLOGY COMMENT NORMAL (NORMAL)
[2022-12-02] MEDS: SYNTHROID 75 mcg TAB PO SCH (06:10)
[2022-12-02] MEDS: GLUCOPHAGE XR 24-HR PO SCH (08:25)
[2022-12-02] MEDS: JANUVIA PO SCH (08:25)
[2022-12-02] MEDS: PULMICORT NEB TX 0.5 MG NEB SCH ×2 (08:39→21:05)
[2022-12-02] MEDS: PLAQUENIL PO SCH ×3 (08:48→23:03)
[2022-12-02] MEDS: COLACE CAP 100 MG PO SCH ×3 (08:50→23:02)
[2022-12-02] MEDS: OXYBUTYNIN CHLORIDE ER PO SCH (08:51)
[2022-12-02] MEDS: SINGULAIR TAB 10 MG PO SCH (08:52)
[2022-12-02] MEDS: CYMBALTA PO SCH (09:06)
[2022-12-02] MEDS: ZYLOPRIM PO SCH (09:07)
[2022-12-02] MEDS: LOVENOX INJ 40 MG SYR SC SCH (10:00)
[2022-12-02] MEDS: LASIX IVP SCH (10:00)
[2022-12-02] MEDS: NEURONTIN CAP 100 MG PO SCH (10:20)
[2022-12-02] MEDS: ROXICODONE TAB 15 MG PO PRN (12:33)
[2022-12-02] MEDS: POTASSIUM CHL 40 MEQ/NS 0.45% 500 ML IV PRN (13:10)
[2022-12-02] MEDS: HALDOL INJ IM PRN ×2 (16:19→21:01)
[2022-12-02] MEDS: KLONOPIN TAB 1 MG PO SCH ×2 (21:04→23:04)
[2022-12-02] MEDS ORDERED: NS 250 ML IV 250 ML IV ONE (23:26)
[2022-12-03] MEDS: DUONEB 0.5 MG/3 MG (3 mL) NEB SCH ×4 (00:10→17:10)
[2022-12-03] MEDS: K-RIDER 10 MEQ/NS 100 ML 10 MEQ/100 ML BAG IV PRN ×4 (00:36→04:19)
[2022-12-03 05:12] LABS: BASOPHILS % (AUTO) 0.3 % (0.2-1.0); EOSINOPHILS # (AUTO) 0.2 x10^3/uL (0.0-0.2); EOSINOPHILS % (AUTO) 1.2 % (0.9-2.9); HEMATOCRIT 40.6 % (42.0-54.0); HEMOGLOBIN 13.7 g/dL (13.5-18.0); LYMPHOCYTES # (AUTO) 0.7 X10^3/uL (1.3-2.9); LYMPHOCYTES % (AUTO) 4.6 % (21.0-51.0); MEAN CORPUSCULAR HEMOGLOBIN 28.7 pg (27.0-34.0); MEAN CORPUSCULAR HGB CONC 33.8 g/dL (33.0-35.0); MEAN CORPUSCULAR VOLUME 84.8 fL (80.0-100.0); MEAN PLATELET VOLUME 7.1 fL (7.4-11.0); MONOCYTES # (AUTO) 0.7 x10^3/uL (0.3-0.8); MONOCYTES % (AUTO) 4.6 % (0.0-13.0); NEUTROPHILS # (AUTO) 12.8 x10^3/uL (2.2-4.8); NEUTROPHILS % (AUTO) 89.3 % (42.0-75.0); PLATELET COUNT 312 X10^3/uL (150.0-450.0); RED BLOOD COUNT 4.78 X10^6/uL (4.7-6.0); RED CELL DISTRIBUTION WIDTH 14.7 % (11.6-16.5); WHITE BLOOD COUNT 14.3 X10^3/uL (3.6-10.0)
[2022-12-03] MEDS: ZOSYN VIAL 3.375 GRAMS 3.375 G in NS 100 ML IV 100 ML IV SCH ×3 (05:23→22:01)
[2022-12-03] MEDS: MIRAPEX TAB 1 MG PO SCH ×3 (05:23→21:57)
[2022-12-03 05:26] LABS: ALANINE AMINOTRANSFERASE 24 Units/L (12-78); ALBUMIN 2.2 g/dL (3.4-5.0); ALKALINE PHOSPHATASE 128 Units/L (46-116); ASPARTATE AMINO TRANSFERASE 43 Units/L (15-37); BLOOD UREA NITROGEN 15 mg/dL (7-18); CALCIUM 8.6 mg/dL (8.5-10.1); CARBON DIOXIDE 25.2 mmol/L (21-32); CHLORIDE 100 mmol/L (98-107); COR NA(FOR HYPERGLY) 138 mmol/L (136-145); CREATININE 0.95 mg/dL (0.70-1.30); GLUCOSE 111 mg/dL (65-99); MAGNESIUM 1.9 mg/dL (2.0-2.9); POTASSIUM 3.8 mmol/L (3.5-5.1); SODIUM 138 mmol/L (136-145); TOTAL PROTEIN 7.1 g/dL (6.4-8.2); eGFR NON BLACK RACES > 60 (>60)
[2022-12-03] MEDS: SYNTHROID 75 mcg TAB PO SCH (06:10)
--- NOTE | 2022-12-03 07:03 | RAD ---
HISTORYShortness of breathSTUDYCHEST, 1 [id number]/08/2023FINDINGSThe trachea is midline. The cardiac silhouette is enlarged with a tortuous thoracic aorta. Interval development interstitial changes with prominent vascular markings are observed consistent with underlying CHF.. The bony thorax is unremarkable.IMPRESSIONIncreased interstitial changes with prominent vascular markings are observed consistent with underlying CHF.Electronically signed by: CHERYL MUSE (December 03, 2022 07:01:00)
[2022-12-03] MEDS: GLUCOPHAGE XR 24-HR PO SCH (09:32)
[2022-12-03] MEDS: JANUVIA PO SCH (09:33)
[2022-12-03] MEDS: COLACE CAP 100 MG PO SCH ×2 (10:32→21:57)
[2022-12-03] MEDS: LOVENOX INJ 40 MG SYR SC SCH (10:32)
[2022-12-03] MEDS: NEURONTIN CAP 100 MG PO SCH (10:32)
[2022-12-03] MEDS: OXYBUTYNIN CHLORIDE ER PO SCH (10:32)
[2022-12-03] MEDS: CYMBALTA PO SCH (10:33)
[2022-12-03] MEDS: LASIX IVP SCH ×2 (10:33→22:00)
[2022-12-03] MEDS: ZYLOPRIM PO SCH (10:33)
[2022-12-03] MEDS: PLAQUENIL PO SCH ×2 (10:33→21:57)
[2022-12-03] MEDS: SINGULAIR TAB 10 MG PO SCH (10:33)
--- NOTE | 2022-12-03 12:52 | CT ---
HISTORYAMSSTUDYBRAIN W/O CONCOMPARISONNone available.TECHNIQUEAxial non-contrast images of the head were obtained with coronal and sagittal reformats provided.Radiation dose: 917.54 mGy-cm total DLPFINDINGSNo abnormal areas of acute attenuation in the brain parenchyma.Stoll-white differentiation remains intact.No intracranial, extra-axial, fluid collection.No hemorrhage.Periventricular chronic microvascular disease.No mass, mass effect or midline shift.Age related brain parenchymal global atrophy.No ventriculomegaly.No acute fracture.Sinuses are well aerated.Mastoid air cells are well aerated.Globes and intra-orbital contents are unremarkable.IMPRESSIONNo acute intracranial abnormality identified.Electronically signed by: Arash Mercer (December 03, 2022 12:45:59)
[2022-12-03] MEDS: ROXICODONE TAB 15 MG PO PRN ×2 (12:54→21:58)
[2022-12-03] MEDS: ALBUMIN HUMAN 25%- 100 ML 100 ML IV SCH (12:55)
[2022-12-03] MEDS: MEGACE PO SCH ×2 (12:55→21:57)
--- NOTE | 2022-12-03 13:01 | CT ---
HISTORYSOB, HYPOXIASTUDYCTA CHESTCOMPARISONNoneTECHNIQUEMultiple axial images of the chest were obtained from the thoracic inlet to the upper abdomen after the administration of IV contrast. 3D reconstructions utilizing axial MIPS imaging was performed and reviewed. Dose reduction techniques including Automated Exposure Control (AEC) and adjustment of mA and kV were utilized.FINDINGSNo pneumothorax. Small bilateral pleural effusions. Dependent consolidation versus atelectasis in the lungs. Peripheral emphysema most notable in the right upper lobe.No evidence of pulmonary embolism.Mild cardiomegaly. Coronary and aortic calcifications. No mediastinal adenopathy. Coronary and aortic calcifications. No mediastinal adenopathy.No acute osseous abnormality. Multilevel degenerative changes in the visualized spine.Hepatic steatosis. Limited visualized portions of the upper abdomen demonstrate no acute process.IMPRESSIONNo evidence of pulmonary embolism.Small bilateral pleural effusions with compressive atelectasis versus consolidation in the dependent lungs.Electronically signed by: CHERI CORBETT (December 03, 2022 13:00:20)
[2022-12-03] MEDS: PULMICORT NEB TX 0.5 MG NEB SCH ×2 (17:14→21:19)
--- NOTE | 2022-12-03 20:00 | PCM.PROG ---
Progress Note - Progress Note for Day of Date of Exam: 12/02/22 - Subjective Subjective: IS CURRENTLY OBSERVATION STATUS FOR TREATMENT OF ABDOMINAL PAIN, DEHYDRATION, NAUSEA, SHORTNESS OF BREATH, AND GENERALIZED WEAKNESS. HE BEGAN HAVING SOME RESPIRATORY ISSUE OVER THE WEEKEND. HE BECAME HYPOXIC AND WAS PLACED ON THE BIPAP. HE WAS ALSO STARTED ON LASIX DAILY. TODAY, HE IS LYING IN BED WITH EYES CLOSED ON MORNING ROUNDS. HE AWAKENS TO VERBAL STIMULI BUT DOES NOT RESPOND VERBALLY. HE IS CURRENTLY ON HEATED HIGH FLOW OXYGEN AT 48%. HIS SPOUSE IS AT BEDSIDE AND REPORTS THAT HE HAS BEEN AGITATED AT TIMES. ON EXAMINATION, HEART IS REGULAR IN RATE AND RHYTHM. BILATERAL LUNGS ARE NOTED WITH EXPIRATORY WHEEZING AND DIMINISHED LUNG SOUNDS. ABDOMEN IS OBESE, SOFT, AND NOTED WITH DIFFUSE TENDERNESS. NORMAL BOWEL SOUNDS NOTED IN ALL QUADRANTS. TRACE EDEMA NOTED TO LOWER EXTREMITIES. HIS VITALS THIS MORNING ARE: 97.3-93-32-99%-135/62. LABS WERE OBTAINED. WBC 14.1, RBC 4.52, HGB 12.9, HC 38.5, PLT COUNT 288, SODIUM 139, POTASSIUM 3.3, BUN 15, CREATININE 0.91, CALCIUM 8.3, TOTAL BILI 1.40, AST 34, ALT 24, ALK PHOS 122, BNP 149, TOTAL PROTEIN 6.6, ALBUMIN 2.0. A RESPIRATORY VIRAL PANEL IS PENDING. A CHEST XRAY WAS OBTAINED AND REVEALED: No acute cardiopulmonary disease. AN ECHO WAS OBTAINED YESTERDAY AND REVEALED AN EJECTION FRACTION OF 39%. RVSP 28 mmHG. INSIGNIFICANT PERICARDIAL EFFUSION. HE IS CURRENTLY RECEIVING CIPRO 400MG IV Q12H, ZOSYN 3.375G IV TID, DUONEBS Q6H, PULMICORT NEBS BID, TESSALON PERLES TID PRN, LOVENOX 40MG SC DAILY, TORADOL 30MG IV Q6H, COLACE 200MG IV Q12H, KLONOPIN 2MG HS, ATIVAN PRNOTBS ACHS, AND THE POTASSIUM AND MAGNESIUM PROTOCOLS. HIS HOME MEDICATIONS WERE RESUMED. WE WILL DISCONTINUE THE ATIVAN AND ADD HALDOL 5MG IM Q4H PRN. OTHERWISE, WE WILL CONTINUE WITH CURRENT PLAN OF CARE. WE WILL FOLLOW-UP WITH AM LABS AND CHEST XRAY AND CONTINUE TO MONITOR. TIME SPENT ON CLINICAL ASSESSMENT, REVIEWING LABS AND IMAGING, DECISION MAKING, AND DOCUMENTATION GREATER THAN 45 MINUTES. - Past Medical Family Social History Past Med/Fam/Surg Hx: No changes since H&P Allergies: Allergies No Known Drug Allergies Allergy (Verified 02/05/19 11:58) - Review of Systems ROS: No change since H&P - Vital Signs and I&O's Vital Signs: Temperature 97.2 F Pulse Rate [Apical] 78 Pulse Rate [Right Brachial] 80 Pulse Rate [Left] 78 Pulse Rate 98 Respiratory Rate 21 Blood Pressure [Right Arm] 114/59 Blood Pressure [Left Arm] 99/58 O2 Sat by Pulse Oximetry 96 Intake and Output: Intake & Output 12/01/22 12/02/22 12/03/22 12/04/22 11:59 11:59 11:59 11:59 Intake Total 416 / 416 427 / 427 1774 / 1774 367 / 367 Output Total 2500 / 2500 750 / 750 1925 / 1925 1600 / 1600 Balance -2084 / -2084 -323 / -323 -151 / -151 -1233 / -1233 - Physical Exam Oriented: Normal Eyes: Normal Ear: Normal Nose: Normal Throat: Normal Respiratory: Diminished, Wheezes Cardiovascular: Normal. negative: Edema : Frequency Auscultation: Bowel Sounds: Normal Palpation: Normal Tenderness: Normal Skin: Normal Musculoskeletal: Normal Psychiatric: Normal Mood Description: Calm Affect: Normal Speech Pattern: Unclear, Slurred - Laboratory and Diagnostics Result Diagrams: 12/03/22 04:21 12/03/22 04:21 Labs: 11/24/22 21:10 Urine,Clean Catch Urine Culture - Final Laboratory WBC 14.3 X10^3/uL (3.6-10.0) H 12/03/22 04:21 RBC 4.78 X10^6/uL (4.7-6.0) 12/03/22 04:21 Hgb 13.7 g/dL (13.5-18.0) 12/03/22 04:21 Hct 40.6 % (42.0-54.0) L 12/03/22 04:21 MCV 84.8 fL (80.0-100.0) 12/03/22 04:21 MCH 28.7 pg (27.0-34.0) 12/03/22 04:21 MCHC 33.8 g/dL (33.0-35.0) 12/03/22 04:21 RDW 14.7 % (11.6-16.5) 12/03/22 04:21 Plt Count 312 X10^3/uL (150.0-450.0) 12/03/22 04:21 Plt Count Comment Adequate (ADEQUATE) 12/02/22 04:00 MPV 7.1 fL (7.4-11.0) L 12/03/22 04:21 Neut % (Auto) 89.3 % (42.0-75.0) H 12/03/22 04:21 Lymph % (Auto) 4.6 % (21.0-51.0) L 12/03/22 04:21 Bradley % (Auto) 4.6 % (0.0-13.0) 12/03/22 04:21 Eos % (Auto) 1.2 % (0.9-2.9) 12/03/22 04:21 Baso % (Auto) 0.3 % (0.2-1.0) 12/03/22 04:21 Neut # (Auto) 12.8 x10^3/uL (2.2-4.8) H 12/03/22 04:21 Lymph # (Auto) 0.7 X10^3/uL (1.3-2.9) L 12/03/22 04:21 Bradley # (Auto) 0.7 x10^3/uL (0.3-0.8) 12/03/22 04:21 Eos # (Auto) 0.2 x10^3/uL (0.0-0.2) 12/03/22 04:21 Baso # (Auto) 0.0 X10^3/uL (0.0-0.1) 12/03/22 04:21 Absolute Nucleated RBC 0.0 /100WBC 12/03/22 04:21 Total Counted 100 12/02/22 04:00 Neutrophils % (Manual) 92 % (39-76) H 12/02/22 04:00 Band Neutrophils % 6 % (0-10) 11/28/22 05:46 Lymphocytes % (Manual) 4 % (13-43) L 12/02/22 04:00 Monocytes % (Manual) 4 % (4-9) 12/02/22 04:00 Eosinophils % (Manual) Not Reportable 11/30/22 05:25 Plt Morphology Comment Normal (NORMAL) 12/02/22 04:00 RBC Morphology Normal (NORMAL) 12/02/22 04:00 Sample Site Rbra 12/01/22 09:20 ABG pH 7.500 (7.35-7.45) H 12/01/22 09:20 ABG pCO2 36.0 mmHg (35.0-45.0) 12/01/22 09:20 ABG pO2 57.0 mmHg (80.0-100.0) L 12/01/22 09:20 ABG HCO3 28.1 mmol/L (22-26) H 12/01/22 09:20 ABG O2 Saturation 92.0 % (90-100) 12/01/22 09:20 ABG Base Excess 4.8 mmol/L (-2.0-2.0) H 12/01/22 09:20 Mp Test N/a 12/01/22 09:20 A-a Gradient 183.0 mmHg 12/01/22 09:20 FiO2 40.0 12/01/22 09:20 Blood Gas Comments Pt darlene well elj cdn 12/01/22 09:20 Sodium 138 mmol/L (136-145) 12/03/22 04:21 Corrected Sodium 138 mmol/L (136-145) 12/03/22 04:21 Potassium 3.8 mmol/L (3.5-5.1) 12/03/22 04:21 Chloride 100 mmol/L (98-107) 12/03/22 04:21 Carbon Dioxide 25.2 mmol/L (21-32) 12/03/22 04:21 BUN 15 mg/dL (7-18) 12/03/22 04:21 Creatinine 0.95 mg/dL (0.70-1.30) 12/03/22 04:21 Est GFR (MDRD) Af Amer > 60 (>60) 12/03/22 04:21 Est GFR (MDRD) Non-Af > 60 (>60) 12/03/22 04:21 Glucose 111 mg/dL (65-99) H 12/03/22 04:21 POC Glucose (mg/dL) 97 mg/dL (65-99) 12/03/22 17:06 Calcium 8.6 mg/dL (8.5-10.1) 12/03/22 04:21 Corrected Calcium 10.0 mg/dL (8.5-10.1) 12/03/22 04:21 Magnesium 1.9 mg/dL (2.0-2.9) L 12/03/22 04:21 Total Bilirubin 1.50 mg/dL (0.2-1.0) H 12/03/22 04:21 AST 43 Units/L (15-37) H 12/03/22 04:21 ALT 24 Units/L (12-78) 12/03/22 04:21 Alkaline Phosphatase 128 Units/L (46-116) H 12/03/22 04:21 Creatine Kinase 20 Units/L (39-308) L 11/29/22 21:16 Troponin I High Sens 9.8 ng/L (4.0-60.0) 11/29/22 21:16 B-Natriuretic Peptide 229 pg/mL (0-79) H 12/03/22 04:21 Total Protein 7.1 g/dL (6.4-8.2) 12/03/22 04:21 Albumin 2.2 g/dL (3.4-5.0) L 12/03/22 04:21 Globulin 4.9 g/dL (2.5-4.5) H 12/03/22 04:21 Albumin/Globulin Ratio 0.4 Ratio (1.1-2.1) L 12/03/22 04:21 Amylase 34 Units/L (25-115) 11/24/22 17:20 Lipase 62 Units/L (73-393) L 11/24/22 17:20 Specimen Type Catherized urine 11/30/22 08:46 Urine Color Yellow (YELLOW) 11/30/22 08:46 Urine Appearance Clear (CLEAR) 11/30/22 08:46 Urine pH 6.0 (5.0 - 8.0) 11/30/22 08:46 Ur Specific [place] 1.025 (1.000-1.030) 11/30/22 08:46 Urine Protein Negative (NEGATIVE) 11/30/22 08:46 Urine Glucose (UA) Negative (NEGATIVE) 11/30/22 08:46 Urine Ketones Negative (NEGATIVE) 11/30/22 08:46 Urine Blood 2+ (NEGATIVE) 11/30/22 08:46 Urine Nitrite Negative (NEGATIVE) 11/30/22 08:46 Urine Bilirubin Negative (NEGATIVE) 11/30/22 08:46 Urine Urobilinogen 1+ (NORMAL) 11/30/22 08:46 Ur Leukocyte Esterase Negative (NEGATIVE) 11/30/22 08:46 Urine RBC 3-5 /HPF (0-3) A 11/30/22 08:46 Urine WBC None seen /HPF (0-5) 11/30/22 08:46 Ur Squamous Epith Cells Rare /HPF (NEGATIVE) 11/30/22 08:46 Urine Bacteria Trace /HPF (NEGATIVE) 11/30/22 08:46 Urine Mucus Moderate /HPF (NEGATIVE) 11/24/22 21:10 Ur Culture Indicated? No/not indicated 11/30/22 08:46 - Plan (1) CHF exacerbation Status: Acute Qualifiers: Heart failure type: unspecified Qualified Code(s): I50.9 - Heart failure, unspecified (2) Acute respiratory failure Status: Acute Qualifiers: Respiratory failure complication: hypoxia Qualified Code(s): J96.01 - Acute respiratory failure with hypoxia (3) Abdominal pain Status: Acute Qualifiers: Abdominal location: left lower quadrant Qualified Code(s): R10.32 - Left lower quadrant pain Plan: CIPRO 400MG IV Q12H, ZOSYN 3.375G IV TID, DUONEBS Q6H, PULMICORT NEBS BID, TESSALON PERLES TID PRN, LOVENOX 40MG SC DAILY, TORADOL 30MG IV Q6H, COLACE 200MG IV Q12H, KLONOPIN 2MG HS, ATIVAN PRNOTBS ACHS, AND THE POTASSIUM AND MAGNESIUM PROTOCOLS (4) Dehydration Status: Acute (5) Urinary tract infection Status: Acute Qualifiers: Urinary tract infection type: acute cystitis Hematuria presence: without hematuria Qualified Code(s): N30.00 - Acute cystitis without hematuria (6) Nausea Status: Acute (7) Generalized weakness Status: Acute (8) Dyspnea Status: Acute Qualifiers: Dyspnea type: shortness of breath Qualified Code(s): R06.02 - Shortness of breath (9) BPH (benign prostatic hyperplasia) Status: Chronic Qualifiers: Lower urinary tract symptom presence: symptoms present Lower urinary tract symptom detail: urinary frequency Qualified Code(s): N40.1 - Benign prostatic hyperplasia with lower urinary tract symptoms; R35.0 - Frequency of micturition (10) Hypothyroidism Status: Chronic Qualifiers: Hypothyroidism type: acquired Qualified Code(s): E03.9 - Hypothyroidism, unspecified (11) Gout Status: Chronic Qualifiers: Gout site: unspecified site Encounter type: subsequent encounter Chronici ty: chronic Presence of tophus: without tophus
[2022-12-03] MEDS ORDERED: NS 100 ML IV 100 ML ONE (20:42)
[2022-12-03] MEDS: KLONOPIN TAB 1 MG PO SCH (22:00)
[2022-12-04] MEDS: DUONEB 0.5 MG/3 MG (3 mL) NEB SCH ×5 (00:40→18:22)
[2022-12-04 05:02] LABS: BASOPHILS # (AUTO) 0.1 X10^3/uL (0.0-0.1); BASOPHILS % (AUTO) 0.7 % (0.2-1.0); EOSINOPHILS # (AUTO) 0.3 x10^3/uL (0.0-0.2); EOSINOPHILS % (AUTO) 2.8 % (0.9-2.9); HEMATOCRIT 42.5 % (42.0-54.0); HEMOGLOBIN 14.3 g/dL (13.5-18.0); LYMPHOCYTES # (AUTO) 0.8 X10^3/uL (1.3-2.9); LYMPHOCYTES % (AUTO) 7.6 % (21.0-51.0); MEAN CORPUSCULAR HEMOGLOBIN 28.7 pg (27.0-34.0); MEAN CORPUSCULAR HGB CONC 33.8 g/dL (33.0-35.0); MEAN CORPUSCULAR VOLUME 84.9 fL (80.0-100.0); MEAN PLATELET VOLUME 7.3 fL (7.4-11.0); MONOCYTES # (AUTO) 0.6 x10^3/uL (0.3-0.8); MONOCYTES % (AUTO) 5.2 % (0.0-13.0); NEUTROPHILS # (AUTO) 9.4 x10^3/uL (2.2-4.8); NEUTROPHILS % (AUTO) 83.7 % (42.0-75.0); PLATELET COUNT 312 X10^3/uL (150.0-450.0); RED CELL DISTRIBUTION WIDTH 14.6 % (11.6-16.5); WHITE BLOOD COUNT 11.2 X10^3/uL (3.6-10.0)
[2022-12-04 05:15] LABS: ALANINE AMINOTRANSFERASE 27 Units/L (12-78); ALBUMIN 2.8 g/dL (3.4-5.0); ALKALINE PHOSPHATASE 126 Units/L (46-116); ASPARTATE AMINO TRANSFERASE 44 Units/L (15-37); BLOOD UREA NITROGEN 17 mg/dL (7-18); CALCIUM 9.3 mg/dL (8.5-10.1); CARBON DIOXIDE 29.8 mmol/L (21-32); CHLORIDE 98 mmol/L (98-107); COR CA(FOR HYPOALB) 10.3 mg/dL (8.5-10.1); CREATININE 1.07 mg/dL (0.70-1.30); GLUCOSE 103 mg/dL (65-99); POTASSIUM 3.5 mmol/L (3.5-5.1); SODIUM 140 mmol/L (136-145); TOTAL PROTEIN 7.9 g/dL (6.4-8.2); eGFR NON BLACK RACES > 60 (>60)
[2022-12-04] MEDS: ZOSYN VIAL 3.375 GRAMS 3.375 G in NS 100 ML IV 100 ML IV SCH ×3 (05:39→21:13)
[2022-12-04] MEDS: MIRAPEX TAB 1 MG PO SCH ×3 (05:39→21:10)
[2022-12-04] MEDS: ROXICODONE TAB 15 MG PO PRN ×2 (05:40→21:12)
--- NOTE | 2022-12-04 05:49 | RAD ---
HISTORYSOB Relevant Clinical InformationSTUDYCHEST, 1 [id number]/10/2023FINDINGSThe trachea is midline. The cardiac silhouette is unremarkable. Subsegmental atelectasis and/or infiltrate left lung base. The lungs are otherwise clear.. The bony thorax is unremarkable.IMPRESSIONSubsegmental atelectasis and/or infiltrate left lung base..Electronically signed by: Ramiro Patterson (December 04, 2022 05:48:20)
[2022-12-04] MEDS: SYNTHROID 75 mcg TAB PO SCH (06:33)
[2022-12-04] MEDS: PULMICORT NEB TX 0.5 MG NEB SCH ×3 (07:49→20:31)
[2022-12-04] MEDS: PLAQUENIL PO SCH ×2 (09:25→21:11)
[2022-12-04] MEDS: NEURONTIN CAP 100 MG PO SCH (09:25)
[2022-12-04] MEDS: COLACE CAP 100 MG PO SCH ×2 (09:26→21:10)
[2022-12-04] MEDS: CYMBALTA PO SCH (09:26)
[2022-12-04] MEDS: ZYLOPRIM PO SCH (09:26)
[2022-12-04] MEDS: SINGULAIR TAB 10 MG PO SCH (09:26)
[2022-12-04] MEDS: K-DUR TAB 20 MEQ PO PRN (09:26)
[2022-12-04] MEDS: GLUCOPHAGE XR 24-HR PO SCH (09:26)
[2022-12-04] MEDS: OXYBUTYNIN CHLORIDE ER PO SCH (09:26)
[2022-12-04] MEDS: JANUVIA PO SCH (09:26)
[2022-12-04] MEDS: ALBUMIN HUMAN 25%- 100 ML 100 ML IV SCH (09:27)
[2022-12-04] MEDS: LOVENOX INJ 40 MG SYR SC SCH (09:27)
[2022-12-04] MEDS: LASIX IVP SCH ×2 (09:27→21:13)
[2022-12-04] MEDS: MEGACE PO SCH ×2 (12:49→21:11)
[2022-12-04] MEDS ORDERED: NS 100 ML IV 100 ML ONE (17:08)
[2022-12-04] MEDS: KLONOPIN TAB 0.5 MG PO SCH (21:11)
[2022-12-05] MEDS: DUONEB 0.5 MG/3 MG (3 mL) NEB SCH ×4 (00:45→17:10)
[2022-12-05 05:09] LABS: BASOPHILS % (AUTO) 0.3 % (0.2-1.0); EOSINOPHILS # (AUTO) 0.2 x10^3/uL (0.0-0.2); EOSINOPHILS % (AUTO) 2.3 % (0.9-2.9); HEMATOCRIT 41.7 % (42.0-54.0); HEMOGLOBIN 14.4 g/dL (13.5-18.0); LYMPHOCYTES # (AUTO) 0.8 X10^3/uL (1.3-2.9); MEAN CORPUSCULAR HEMOGLOBIN 29.1 pg (27.0-34.0); MEAN CORPUSCULAR HGB CONC 34.5 g/dL (33.0-35.0); MEAN CORPUSCULAR VOLUME 84.3 fL (80.0-100.0); MEAN PLATELET VOLUME 7.1 fL (7.4-11.0); MONOCYTES # (AUTO) 0.6 x10^3/uL (0.3-0.8); MONOCYTES % (AUTO) 5.3 % (0.0-13.0); NEUTROPHILS # (AUTO) 8.8 x10^3/uL (2.2-4.8); NEUTROPHILS % (AUTO) 84.1 % (42.0-75.0); PLATELET COUNT 326 X10^3/uL (150.0-450.0); RED BLOOD COUNT 4.95 X10^6/uL (4.7-6.0); RED CELL DISTRIBUTION WIDTH 14.9 % (11.6-16.5); WHITE BLOOD COUNT 10.5 X10^3/uL (3.6-10.0)
[2022-12-05] MEDS: ZOSYN VIAL 3.375 GRAMS 3.375 G in NS 100 ML IV 100 ML IV SCH ×3 (05:19→21:53)
[2022-12-05] MEDS: MORPHINE SULFATE INJ 2 MG INJ IVP PRN ×2 (05:20→11:46)
[2022-12-05] MEDS: MIRAPEX TAB 1 MG PO SCH ×3 (05:20→22:03)
[2022-12-05 05:27] LABS: ALANINE AMINOTRANSFERASE 28 Units/L (12-78); ALBUMIN 3.3 g/dL (3.4-5.0); ALKALINE PHOSPHATASE 121 Units/L (46-116); ASPARTATE AMINO TRANSFERASE 40 Units/L (15-37); BLOOD UREA NITROGEN 21 mg/dL (7-18); CALCIUM 9.5 mg/dL (8.5-10.1); CARBON DIOXIDE 26.1 mmol/L (21-32); CHLORIDE 99 mmol/L (98-107); COR CA(FOR HYPOALB) 10.1 mg/dL (8.5-10.1); CREATININE 1.18 mg/dL (0.70-1.30); GLUCOSE 103 mg/dL (65-99); MAGNESIUM 1.9 mg/dL (2.0-2.9); POTASSIUM 3.1 mmol/L (3.5-5.1); SODIUM 140 mmol/L (136-145); TOTAL PROTEIN 8.1 g/dL (6.4-8.2); eGFR NON BLACK RACES > 60 (>60)
[2022-12-05] MEDS: SYNTHROID 75 mcg TAB PO SCH (06:09)
--- NOTE | 2022-12-05 08:00 | RAD ---
HISTORYShortness of breathSTUDYChest AP [id number]/11/2023FINDINGSHear t size is normal. Agata are normal. Lungs are mildly hypoinflated but free of acute infiltrates. No pleural effusions are identified. Bony thorax is unremarkable.IMPRESSIONLungs mildly hypoinflated but free of acute infiltratesElectronically signed by: CHERI CORBETT (December 05, 2022 07:58:54)
[2022-12-05] MEDS: PULMICORT NEB TX 0.5 MG NEB SCH ×3 (08:01→20:04)
[2022-12-05] MEDS: ZYLOPRIM PO SCH (09:19)
[2022-12-05] MEDS: NEURONTIN CAP 100 MG PO SCH (09:19)
[2022-12-05] MEDS: ALBUMIN HUMAN 25%- 100 ML 100 ML IV SCH (09:19)
[2022-12-05] MEDS: MEGACE PO SCH ×2 (09:19→21:59)
[2022-12-05] MEDS: LOVENOX INJ 40 MG SYR SC SCH (09:19)
[2022-12-05] MEDS: SINGULAIR TAB 10 MG PO SCH (09:20)
[2022-12-05] MEDS: PLAQUENIL PO SCH ×2 (09:20→21:59)
[2022-12-05] MEDS: COLACE CAP 100 MG PO SCH ×2 (09:20→21:58)
[2022-12-05] MEDS: CYMBALTA PO SCH (09:20)
[2022-12-05] MEDS: OXYBUTYNIN CHLORIDE ER PO SCH (09:20)
[2022-12-05] MEDS: LASIX IVP SCH ×2 (09:20→21:57)
[2022-12-05] MEDS: JANUVIA PO SCH (09:46)
[2022-12-05] MEDS: GLUCOPHAGE XR 24-HR PO SCH (09:46)
[2022-12-05 09:56] VITALS: BMI 31.1
[2022-12-05] MEDS: POTASSIUM CHL 40 MEQ/NS 0.45% 500 ML IV PRN (11:17)
--- NOTE | 2022-12-05 12:09 | EKG ---
Test Reason : chest pain Blood Pressure : */* mmHG Vent. Rate : 86 BPM Atrial Rate : 86 BPM P-R Int : 166 ms QRS Dur : 178 ms QT Int : 464 ms P-R-T Axes : -2 22 130 degrees QTc Int : 555 ms Normal sinus rhythm Left bundle branch block Abnormal ECG When compared with ECG of 29-NOV-2022 20:56, No significant change was found Confirmed by Ranjeet Peralta ([id number]) on 12/06/2022 7:57:04 AM Referred By: Confirmed By: Ranjeet Peralta
[2022-12-05] MEDS: ROXICODONE TAB 15 MG PO PRN (15:47)
[2022-12-05] MEDS: KLONOPIN TAB 0.5 MG PO SCH (21:59)
--- NOTE | 2022-12-05 22:40 | PCM.PROG ---
Progress Note - Progress Note for Day of Date of Exam: 12/03/22 - Subjective Subjective: IS CURRENTLY OBSERVATION STATUS FOR TREATMENT OF CHF, ACUTE RESPIRATORY FAILURE, ABDOMINAL PAIN, DEHYDRATION, NAUSEA, SHORTNESS OF BREATH, AND GENERALIZED WEAKNESS. HE HAS A PAST MEDICAL HISTORY OF HYPERTENSION, SLEEP APNEA, BPH, HYPOTHYROIDISM, GOUT, CHRONIC LOW BACK PAIN, DM II, AND BILATERAL KNEE REPLACEMENTS. UPON MORNING ROUNDS, HE IS LYING IN BED WITH EYES CLOSED. HE OPENS EYES TO VERBAL STIMULI. HE RESPONDS VERBALLY WHEN SPOKEN TO, BUT IS DISORIENTED. HE DOES NOT FOLLOW VERBAL COMMANDS AT THIS TIME. HIS SPOUSE IS AT BEDSIDE. SPOUSE AND NURSE REPORT THAT HE HAS BEEN DISORIENTED AND AGITATED THROUGHOUT THE NIGHT. HE IS CALM THIS MORNING. TODAY, HE IS LYING IN BED WITH EYES CLOSED ON MORNING ROUNDS. HE AWAKENS TO VERBAL STIMULI BUT DOES NOT RESPOND VERBALLY. HE IS CURRENTLY ON HEATED HIGH FLOW OXYGEN AT 53%. SATURATIONS HAVE BEEN IN THE 90s. ON EXAMINATION, HEART IS REGULAR IN RATE AND RHYTHM. BILATERAL LUNGS ARE NOTED WITH EXPIRATORY WHEEZING AND DIMINISHED LUNG SOUNDS. ABDOMEN IS OBESE, SOFT, AND NOTED WITH DIFFUSE TENDERNESS. NORMAL BOWEL SOUNDS NOTED IN ALL QUADRANTS. TRACE EDEMA NOTED TO LOWER EXTREMITIES. HIS VITALS THIS MORNING ARE: 97.2-86-30-97%-160/82. LABS WERE OBTAINED. WBC 14.3, RBC 4.78, HGB 13.7, HCT 40.6, PLT 312, SODIUM 138, POTASSIUM 3.8, CHLORIDE 100, BUN 15, CREATININE 0.95, GLUCOSE 111, MAGNESIUM 1.9, TOTAL BILI 1.50, AST 43, ALT 24, ALK PHOS 128, BNP 229, TOTAL PROTEIN 7.1, ALBUMIN 2.2. RESPIRATORY VIRAL PANEL WAS NEGATIVE FOR COVID OR OTHER VIRUSES/BACTERIA. A CHEST XRAY WAS OBTAINED AND REVEALED: Increased interstitial changes with prominent vascular markings are observed consistent with underlying CHF. AN ECHO WAS OBTAINED ON 12/01/22 AND REVEALED AN EJECTION FRACTION OF 39%. RVSP 28 mmHG. INSIGNIFICANT PERICARDIAL EFFUSION. HE IS CURRENTLY RECEIVING CIPRO 400MG IV Q12H, ZOSYN 3.375G IV TID, DUONEBS Q6H, PULMICORT NEBS BID, LASIX 40MG IV DAILY, TESSALON PERLES TID PRN, LOVENOX 40MG SC DAILY, TORADOL 30MG IV Q6H, COLACE 200MG IV Q12H, KLONOPIN 2MG HS, HALDOL 5MG IM Q4H PRN, OTBS ACHS, AND THE POTASSIUM AND MAGNESIUM PROTOCOLS. HIS HOME MEDICATIONS WERE RESUMED. HOME MEDS INCLUDE: ZYLOPRIM, COLACE, CYMBALTA, NEURONTIN, PLAQUENIL, SYNTHROID, GLUCOPHAGE, SINGULAIR, OXYBUTYNIN, OXYCODONE PRN, MIRAPEX, AND JANUVIA. TODAY, WE WILL OBTAIN A BRAIN CT WITHOUT CONTRAST DUE TO CONFUSION AND WEAKNESS. WE WILL OBTAIN A CHEST CTA TO RULE OUT PULMONARY EMBOLISM. WE WILL REPEAT A URINE CULTURE. WE WILL INCREASE LASIX TO 40MG BID, ADD MEGACE 40MG BID, AND ADD ALBUMIN 25% IV DAILY. OTHERWISE, WE WILL CONTINUE WITH CURRENT PLAN OF CARE. WE WILL FOLLOW-UP WITH AM LABS AND CHEST XRAY AND CONTINUE TO MONITOR. TIME SPENT ON CLINICAL ASSESSMENT, REVIEWING LABS AND IMAGING, DECISION MAKING, AND DOCUMENTATION GREATER THAN 45 MINUTES. - Past Medical Family Social History Past Med/Fam/Surg Hx: No changes since H&P Allergies: Allergies No Known Drug Allergies Allergy (Verified 02/05/19 11:58) - Review of Systems ROS: No change since H&P - Vital Signs and I&O's Vital Signs: Temperature 97.2 F Pulse Rate [Apical] 92 Pulse Rate [Right Brachial] 80 Pulse Rate [Left] 78 Pulse Rate 96 Respiratory Rate 24 Blood Pressure [Right Arm] 119/67 Blood Pressure [Left Arm] 99/58 Blood Pressure 93/57 O2 Sat by Pulse Oximetry 93 Intake and Output: Intake & Output 12/03/22 12/04/22 12/05/22 12/06/22 11:59 11:59 11:59 11:59 Intake Total 1774 / 1774 1004 / 1004 1282 / 1282 1075 / 1075 Output Total 1925 / 1925 3200 / 3200 650 / 650 Balance -151 / -151 -2196 / -2196 632 / 632 1075 / 1075 - Physical Exam Oriented: Not Oriented Eyes: Normal Ear: Normal Nose: Normal Throat: Normal Respiratory: Diminished, Wheezes Cardiovascular: Normal. negative: Edema : Frequency Auscultation: Bowel Sounds: Normal Palpation: Normal Tenderness: Normal Skin: Normal Musculoskeletal: Normal Psychiatric: Agitation Mood Description: Calm Affect: Normal Speech Pattern: Inappropriate, Delayed - Laboratory and Diagnostics Result Diagrams: 12/05/22 04:20 12/05/22 18:26 Labs: 12/03/22 17:25 Urine,[place] Urine Culture - Final 11/24/22 21:10 Urine,Clean Catch Urine Culture - Final Laboratory WBC 10.5 X10^3/uL (3.6-10.0) H 12/05/22 04:20 RBC 4.95 X10^6/uL (4.7-6.0) 12/05/22 04:20 Hgb 14.4 g/dL (13.5-18.0) 12/05/22 04:20 Hct 41.7 % (42.0-54.0) L 12/05/22 04:20 MCV 84.3 fL (80.0-100.0) 12/05/22 04:20 MCH 29.1 pg (27.0-34.0) 12/05/22 04:20 MCHC 34.5 g/dL (33.0-35.0) 12/05/22 04:20 RDW 14.9 % (11.6-16.5) 12/05/22 04:20 Plt Count 326 X10^3/uL (150.0-450.0) 12/05/22 04:20 Plt Count Comment Adequate (ADEQUATE) 12/02/22 04:00 MPV 7.1 fL (7.4-11.0) L 12/05/22 04:20 Neut % (Auto) 84.1 % (42.0-75.0) H 12/05/22 04:20 Lymph % (Auto) 8.0 % (21.0-51.0) L 12/05/22 04:20 [place] % (Auto) 5.3 % (0.0-13.0) 12/05/22 04:20 Eos % (Auto) 2.3 % (0.9-2.9) 12/05/22 04:20 Baso % (Auto) 0.3 % (0.2-1.0) 12/05/22 04:20 Neut # (Auto) 8.8 x10^3/uL (2.2-4.8) H 12/05/22 04:20 Lymph # (Auto) 0.8 X10^3/uL (1.3-2.9) L 12/05/22 04:20 [place] # (Auto) 0.6 x10^3/uL (0.3-0.8) 12/05/22 04:20 Eos # (Auto) 0.2 x10^3/uL (0.0-0.2) 12/05/22 04:20 Baso # (Auto) 0.0 X10^3/uL (0.0-0.1) 12/05/22 04:20 Absolute Nucleated RBC 0.1 /100WBC 12/05/22 04:20 Total Counted 100 12/02/22 04:00 Neutrophils % (Manual) 92 % (39-76) H 12/02/22 04:00 Band Neutrophils % 6 % (0-10) 11/28/22 05:46 Lymphocytes % (Manual) 4 % (13-43) L 12/02/22 04:00 Monocytes % (Manual) 4 % (4-9) 12/02/22 04:00 Eosinophils % (Manual) Not Reportable 11/30/22 05:25 Plt Morphology Comment Normal (NORMAL) 12/02/22 04:00 RBC Morphology Normal (NORMAL) 12/02/22 04:00 Sample Site Rbra 12/01/22 09:20 ABG pH 7.500 (7.35-7.45) H 12/01/22 09:20 ABG pCO2 36.0 mmHg (35.0-45.0) 12/01/22 09:20 ABG pO2 57.0 mmHg (80.0-100.0) L 12/01/22 09:20 ABG HCO3 28.1 mmol/L (22-26) H 12/01/22 09:20 ABG O2 Saturation 92.0 % (90-100) 12/01/22 09:20 ABG Base Excess 4.8 mmol/L (-2.0-2.0) H 12/01/22 09:20 Mp Test N/a 12/01/22 09:20 A-a Gradient 183.0 mmHg 12/01/22 09:20 FiO2 40.0 12/01/22 09:20 Blood Gas Comments Pt darlene well elj cdn 12/01/22 09:20 Sodium 140 mmol/L (136-145) 12/05/22 04:20 Corrected Sodium TNP 12/05/22 04:20 Potassium 3.7 mmol/L (3.5-5.1) 12/05/22 18:26 Chloride 99 mmol/L (98-107) 12/05/22 04:20 Carbon Dioxide 26.1 mmol/L (21-32) 12/05/22 04:20 BUN 21 mg/dL (7-18) H 12/05/22 04:20 Creatinine 1.18 mg/dL (0.70-1.30) 12/05/22 04:20 Est GFR (MDRD) Af Amer > 60 (>60) 12/05/22 04:20 Est GFR (MDRD) Non-Af > 60 (>60) 12/05/22 04:20 Glucose 103 mg/dL (65-99) H 12/05/22 04:20 POC Glucose (mg/dL) 93 mg/dL (65-99) 12/05/22 21:03 Calcium 9.5 mg/dL (8.5-10.1) 12/05/22 04:20 Corrected Calcium 10.1 mg/dL (8.5-10.1) 12/05/22 04:20 Magnesium 1.9 mg/dL (2.0-2.9) L 12/05/22 04:20 Total Bilirubin 1.40 mg/dL (0.2-1.0) H 12/05/22 04:20 AST 40 Units/L (15-37) H 12/05/22 04:20 ALT 28 Units/L (12-78) 12/05/22 04:20 Alkaline Phosphatase 121 Units/L (46-116) H 12/05/22 04:20 Creatine Kinase 20 Units/L (39-308) L 11/29/22 21:16 Troponin I High Sens 9.4 ng/L (4.0-60.0) 12/05/22 18:26 B-Natriuretic Peptide 229 pg/mL (0-79) H 12/03/22 04:21 Total Protein 8.1 g/dL (6.4-8.2) 12/05/22 04:20 Albumin 3.3 g/dL (3.4-5.0) L 12/05/22 04:20 Globulin 4.8 g/dL (2.5-4.5) H 12/05/22 04:20 Albumin/Globulin Ratio 0.7 Ratio (1.1-2.1) L 12/05/22 04:20 Amylase 34 Units/L (25-115) 11/24/22 17:20 Lipase 62 Units/L (73-393) L 11/24/22 17:20 Specimen Type Catherized urine 11/30/22 08:46 Urine Color Yellow (YELLOW) 11/30/22 08:46 Urine Appearance Clear (CLEAR) 11/30/22 08:46 Urine pH 6.0 (5.0 - 8.0) 11/30/22 08:46 Ur Specific [place] 1.025 (1.000-1.030) 11/30/22 08:46 Urine Protein Negative (NEGATIVE) 11/30/22 08:46 Urine Glucose (UA) Negative (NEGATIVE) 11/30/22 08:46 Urine Ketones Negative (NEGATIVE) 11/30/22 08:46 Urine Blood 2+ (NEGATIVE) 11/30/22 08:46 Urine Nitrite Negative (NEGATIVE) 11/30/22 08:46 Urine Bilirubin Negative (NEGATIVE) 11/30/22 08:46 Urine Urobilinogen 1+ (NORMAL) 11/30/22 08:46 Ur Leukocyte Esterase Negative (NEGATIVE) 11/30/22 08:46 Urine RBC 3-5 /HPF (0-3) A 11/30/22 08:46 Urine WBC None seen /HPF (0-5) 11/30/22 08:46 Ur Squamous Epith Cells Rare /HPF (NEGATIVE) 11/30/22 08:46 Urine Bacteria Trace /HPF (NEGATIVE) 11/30/22 08:46 Urine Mucus Moderate /HPF (NEGATIVE) 11/24/22 21:10 Ur Culture Indicated? No/not indicated 11/30/22 08:46 Resp Viral Panel (PCR) See scanned report 12/01/22 18:09 - Plan (1) CHF exacerbation Status: Acute Qualifiers: Heart failure type: unspecified Qualified Code(s): I50.9 - Heart failure, unspecified Plan: SUPPLEMENTAL OXYGEN, CIPRO 400MG IV Q12H, ZOSYN 3.375G IV TID, DUONEBS Q6H, PULMICORT NEBS BID, LASIX 40MG BID, ALBUMIN 25% IV DLY, TESSALON PERLES TID PRN, LOVENOX 40MG SC DAILY, TORADOL 30MG IV Q6H, COLACE 200MG IV Q12H, KLONOPIN 2MG HS, HALDOL 5MG IM Q4H PRN, MEGACE 40MG BID, OTBS ACHS, AND THE POTASSIUM AND MAGNESIUM PROTOCOLS (2) Acute respiratory failure Status: Acute Qualifiers: Respiratory failure complication: hypoxia Qualified Code(s): J96.01 - Acute respiratory failure with hypoxia Plan: OBTAIN CHEST CTA (3) Abdominal pain Status: Resolved Qualifiers: Abdominal location: left lower quadrant Qualified Code(s): R10.32 - Left lower quadrant pain (4) Dehydration Status: Acute Plan: CONTINUE IV FLUIDS (5) Urinary tract infection Status: Acute Qualifiers: Urinary tract infection type: acute cystitis Hematuria presence: without hematuria Qualified Code(s): N30.00 - Acute cystitis without hematuria Plan: CONTINUE IV ANTIBIOTICS (6) Altered mental status Status: Acute Qualifiers: Altered mental status type: transient alteration of awareness Qualified Code(s): R40.4 - Transient alteration of awareness Plan: OBTAIN BRAIN CT (7) Hypoalbuminemia Status: Acute (8) Nausea Status: Acute (9) Generalized weakness Status: Acute Plan: PT/OT (10) Dyspnea Status: Acute Qualifiers: Dyspnea type: shortness of breath Qualified Code(s): R06.02 - Shortness of breath (11) BPH (benign prostatic hyperplasia) Status: Chronic Qualifiers: Lower urinary tract symptom presence: symptoms present Lower urinary tract symptom detail: urinary frequency Qualified Code(s): N40.1 - Benign prostatic hyperplasia with lower urinary tract symptoms; R35.0 - Frequency of micturition Plan: CONTINUE HOME MEDICATIONS (12) Hypothyroidism Status: Chronic Qualifiers: Hypothyroidism type: acquired Qualified Code(s): E03.9 - Hypothyroidism, unspecified Plan: CONTINUE HOME MEDICATIONS (13) Gout Status: Chronic Qualifiers: Gout site: multiple sites Encounter type: subsequent encounter Chronicit y: chronic Presence of tophus: without tophus Plan: CONTINUE HOME MEDICATIONS
--- NOTE | 2022-12-05 23:10 | PCM.PROG ---
Progress Note - Progress Note for Day of Date of Exam: 12/04/22 - Subjective Subjective: IS CURRENTLY OBSERVATION STATUS FOR TREATMENT OF CHF, ACUTE RESPIRATORY FAILURE, DEHYDRATION, HYPOALBUMINEMIA, NAUSEA, SHORTNESS OF BREATH, AND GENERALIZED WEAKNESS. HE HAS A PAST MEDICAL HISTORY OF HYPERTENSION, SLEEP APNEA, BPH, HYPOTHYROIDISM, GOUT, CHRONIC LOW BACK PAIN, DM II, AND BILATERAL KNEE REPLACEMENTS. UPON MORNING ROUNDS, HE IS LYING IN BED WITH EYES CLOSED. HE OPENS EYES TO VERBAL STIMULI. HE RESPONDS VERBALLY WHEN SPOKEN TO, BUT IS DISORIENTED. HE DOES NOT FOLLOW VERBAL COMMANDS AT THIS TIME. HIS SPOUSE IS AT BEDSIDE. SPOUSE AND NURSE REPORT THAT HE CONTINUES WITH AGITATION AT TIMES. THEY REPORT THAT HE HAS HAD INCREASED DROWSINESS OVER THE PAST FEW DAYS. TODAY, HE IS LYING IN BED WITH EYES CLOSED ON MORNING ROUNDS. HE AWAKENS TO VERBAL STIMULI. HE SPEAKS WHEN SPOKEN TO, BUT CONTINUES TO BE DISORIENTED. HE IS CURRENTLY ON NASAL CANNULA AT 2 LPM. SATURATIONS HAVE BEEN IN THE 90s THIS MORNING AND THROUGHOUT THE NIGHT. ON EXAMINATION, HEART IS REGULAR IN RATE AND RHYTHM. BILATERAL LUNGS ARE NOTED WITH EXPIRATORY WHEEZING AND DIMINISHED LUNG SOUNDS. ABDOMEN IS OBESE, SOFT, AND NOTED WITH DIFFUSE TENDERNESS. NORMAL BOWEL SOUNDS NOTED IN ALL QUADRANTS. A BASSETT CATHETER IS NOTED TO BEDSIDE DRAINAGE WITH DARK URINE IN BAG. TRACE EDEMA NOTED TO LOWER EXTREMITIES. HIS VITALS THIS MORNING ARE: 97.8-97-27-97%-141/78. LABS WERE OBTAINED. WBC 11.2, RBC 5.00, HGB 14.3, HCT 42.5, PLT COUNT 312, SODIUM 140, POTASSIUM 3.5, CHLORIDE 98, BUN 17, CREATININE 1.07, GLUCOSE 103, CALCIUM 9.3, TOTAL BILI 1.40, AST 44, ALT 27, ALK PHOS 126, TOTAL PROTEIN 7.9, ALBUMIN 2.8. RESPIRATORY VIRAL PANEL WAS NEGATIVE FOR COVID OR OTHER VIRUSES/BACTERIA. A REPEAT URINE CULTURE IS PENDING DUE TO PATIENT HAVING DARK COLORED URINE. A BRAIN CT WITHOUT CONTRAST WAS OBTAINED YES TERDAY AND WAS UNREMARKABLE. CHEST CTA WAS ALSO OBTAINED YESTERDAY AND REVEALED: No evidence of pulmonary embolism. Small bilateral pleural effusions with compressive atelectasis versus consolidation in the dependent lungs. A CHEST XRAY WAS OBTAINED AND REVEALED: Subsegmental atelectasis and/or infiltrate left lung base. AN ECHO WAS OBTAINED ON 12/01/22 AND REVEALED AN EJECTION FRACTION OF 39%. RVSP 28 mmHG. INSIGNIFICANT PERICARDIAL EFFUSION. HE IS CURRENTLY RECEIVING CIPRO 400MG IV Q12H, ZOSYN 3.375G IV TID, ALBUMIN 25% IV DAILY, DUONEBS Q6H, PULMICORT NEBS BID, LASIX 40MG IV BID, TESSALON PERLES TID PRN, LOVENOX 40MG SC DAILY, MEGACE 40MG BID, TORADOL 30MG IV Q6H, COLACE 200MG IV Q12H, KLONOPIN 2MG HS, HALDOL 5MG IM Q8H PRN, OTBS ACHS, AND THE POTASSIUM AND MAGNESIUM PROTOCOLS. HIS HOME MEDICATIONS WERE RESUMED. HOME MEDS INCLUDE: ZYLOPRIM, COLACE, CYMBALTA, NEURONTIN, PLAQUENIL, SYNTHROID, GLUCOPHAGE, SINGULAIR, OXYBUTYNIN, OXYCODONE PRN, MIRAPEX, AND JANUVIA. TODAY, WE WILL DECREASE HIS KLONOPIN TO 0.5MG HS. WE WILL HAVE PHYSICAL THERAPY WORK WITH HIM. OTHERWISE, WE WILL CONTINUE WITH CURRENT PLAN OF CARE. WE WILL FOLLOW-UP WITH AM LABS AND CHEST XRAY AND CONTINUE TO MONITOR. TIME SPENT ON CLINICAL ASSESSMENT, REVIEWING LABS AND IMAGING, DECISION MAKING, AND DOCUMENTATION GREATER THAN 45 MINUTES. - Past Medical Family Social History Past Med/Fam/Surg Hx: No changes since H&P Allergies: Allergies No Known Drug Allergies Allergy (Verified 02/05/19 11:58) - Review of Systems ROS: No change since H&P - Vital Signs and I&O's Vital Signs: Temperature 97.2 F Pulse Rate [Apical] 92 Pulse Rate [Right Brachial] 80 Pulse Rate [Left] 78 Pulse Rate 96 Respiratory Rate 24 Blood Pressure [Right Arm] 119/67 Blood Pressure [Left Arm] 99/58 Blood Pressure 93/57 O2 Sat by Pulse Oximetry 93 Intake and Output: Intake & Output 12/03/22 12/04/22 12/05/22 12/06/22 11:59 11:59 11:59 11:59 Intake Total 1774 / 1774 1004 / 1004 1282 / 1282 1075 / 1075 Output Total 1925 / 1925 3200 / 3200 650 / 650 Balance -151 / -151 -2196 / -2196 632 / 632 1075 / 1075 - Physical Exam Oriented: Not Oriented Eyes: Normal Ear: Normal Nose: Normal Throat: Normal Respiratory: Diminished, Wheezes Cardiovascular: Normal. negative: Edema : Frequency Auscultation: Bowel Sounds: Normal Palpation: Normal Tenderness: Normal Skin: Normal Musculoskeletal: Normal Psychiatric: Agitation Mood Description: Calm Affect: Normal Speech Pattern: Inappropriate, Delayed - Laboratory and Diagnostics Result Diagrams: 12/05/22 04:20 12/05/22 18:26 Labs: 12/03/22 17:25 Urine,[place] Urine Culture - Final 11/24/22 21:10 Urine,Clean Catch Urine Culture - Final Laboratory WBC 10.5 X10^3/uL (3.6-10.0) H 12/05/22 04:20 RBC 4.95 X10^6/uL (4.7-6.0) 12/05/22 04:20 Hgb 14.4 g/dL (13.5-18.0) 12/05/22 04:20 Hct 41.7 % (42.0-54.0) L 12/05/22 04:20 MCV 84.3 fL (80.0-100.0) 12/05/22 04:20 MCH 29.1 pg (27.0-34.0) 12/05/22 04:20 MCHC 34.5 g/dL (33.0-35.0) 12/05/22 04:20 RDW 14.9 % (11.6-16.5) 12/05/22 04:20 Plt Count 326 X10^3/uL (150.0-450.0) 12/05/22 04:20 Plt Count Comment Adequate (ADEQUATE) 12/02/22 04:00 MPV 7.1 fL (7.4-11.0) L 12/05/22 04:20 Neut % (Auto) 84.1 % (42.0-75.0) H 12/05/22 04:20 Lymph % (Auto) 8.0 % (21.0-51.0) L 12/05/22 04:20 [place] % (Auto) 5.3 % (0.0-13.0) 12/05/22 04:20 Eos % (Auto) 2.3 % (0.9-2.9) 12/05/22 04:20 Baso % (Auto) 0.3 % (0.2-1.0) 12/05/22 04:20 Neut # (Auto) 8.8 x10^3/uL (2.2-4.8) H 12/05/22 04:20 Lymph # (Auto) 0.8 X10^3/uL (1.3-2.9) L 12/05/22 04:20 [place] # (Auto) 0.6 x10^3/uL (0.3-0.8) 12/05/22 04:20 Eos # (Auto) 0.2 x10^3/uL (0.0-0.2) 12/05/22 04:20 Baso # (Auto) 0.0 X10^3/uL (0.0-0.1) 12/05/22 04:20 Absolute Nucleated RBC 0.1 /100WBC 12/05/22 04:20 Total Counted 100 12/02/22 04:00 Neutrophils % (Manual) 92 % (39-76) H 12/02/22 04:00 Band Neutrophils % 6 % (0-10) 11/28/22 05:46 Lymphocytes % (Manual) 4 % (13-43) L 12/02/22 04:00 Monocytes % (Manual) 4 % (4-9) 12/02/22 04:00 Eosinophils % (Manual) Not Reportable 11/30/22 05:25 Plt Morphology Comment Normal (NORMAL) 12/02/22 04:00 RBC Morphology Normal (NORMAL) 12/02/22 04:00 Sample Site Rbra 12/01/22 09:20 ABG pH 7.500 (7.35-7.45) H 12/01/22 09:20 ABG pCO2 36.0 mmHg (35.0-45.0) 12/01/22 09:20 ABG pO2 57.0 mmHg (80.0-100.0) L 12/01/22 09:20 ABG HCO3 28.1 mmol/L (22-26) H 12/01/22 09:20 ABG O2 Saturation 92.0 % (90-100) 12/01/22 09:20 ABG Base Excess 4.8 mmol/L (-2.0-2.0) H 12/01/22 09:20 Mp Test N/a 12/01/22 09:20 A-a Gradient 183.0 mmHg 12/01/22 09:20 FiO2 40.0 12/01/22 09:20 Blood Gas Comments Pt darlene well elj cdn 12/01/22 09:20 Sodium 140 mmol/L (136-145) 12/05/22 04:20 Corrected Sodium TNP 12/05/22 04:20 Potassium 3.7 mmol/L (3.5-5.1) 12/05/22 18:26 Chloride 99 mmol/L (98-107) 12/05/22 04:20 Carbon Dioxide 26.1 mmol/L (21-32) 12/05/22 04:20 BUN 21 mg/dL (7-18) H 12/05/22 04:20 Creatinine 1.18 mg/dL (0.70-1.30) 12/05/22 04:20 Est GFR (MDRD) Af Amer > 60 (>60) 12/05/22 04:20 Est GFR (MDRD) Non-Af > 60 (>60) 12/05/22 04:20 Glucose 103 mg/dL (65-99) H 12/05/22 04:20 POC Glucose (mg/dL) 93 mg/dL (65-99) 12/05/22 21:03 Calcium 9.5 mg/dL (8.5-10.1) 12/05/22 04:20 Corrected Calcium 10.1 mg/dL (8.5-10.1) 12/05/22 04:20 Magnesium 1.9 mg/dL (2.0-2.9) L 12/05/22 04:20 Total Bilirubin 1.40 mg/dL (0.2-1.0) H 12/05/22 04:20 AST 40 Units/L (15-37) H 12/05/22 04:20 ALT 28 Units/L (12-78) 12/05/22 04:20 Alkaline Phosphatase 121 Units/L (46-116) H 12/05/22 04:20 Creatine Kinase 20 Units/L (39-308) L 11/29/22 21:16 Troponin I High Sens 9.4 ng/L (4.0-60.0) 12/05/22 18:26 B-Natriuretic Peptide 229 pg/mL (0-79) H 12/03/22 04:21 Total Protein 8.1 g/dL (6.4-8.2) 12/05/22 04:20 Albumin 3.3 g/dL (3.4-5.0) L 12/05/22 04:20 Globulin 4.8 g/dL (2.5-4.5) H 12/05/22 04:20 Albumin/Globulin Ratio 0.7 Ratio (1.1-2.1) L 12/05/22 04:20 Amylase 34 Units/L (25-115) 11/24/22 17:20 Lipase 62 Units/L (73-393) L 11/24/22 17:20 Specimen Type Catherized urine 11/30/22 08:46 Urine Color Yellow (YELLOW) 11/30/22 08:46 Urine Appearance Clear (CLEAR) 11/30/22 08:46 Urine pH 6.0 (5.0 - 8.0) 11/30/22 08:46 Ur Specific [place] 1.025 (1.000-1.030) 11/30/22 08:46 Urine Protein Negative (NEGATIVE) 11/30/22 08:46 Urine Glucose (UA) Negative (NEGATIVE) 11/30/22 08:46 Urine Ketones Negative (NEGATIVE) 11/30/22 08:46 Urine Blood 2+ (NEGATIVE) 11/30/22 08:46 Urine Nitrite Negative (NEGATIVE) 11/30/22 08:46 Urine Bilirubin Negative (NEGATIVE) 11/30/22 08:46 Urine Urobilinogen 1+ (NORMAL) 11/30/22 08:46 Ur Leukocyte Esterase Negative (NEGATIVE) 11/30/22 08:46 Urine RBC 3-5 /HPF (0-3) A 11/30/22 08:46 Urine WBC None seen /HPF (0-5) 11/30/22 08:46 Ur Squamous Epith Cells Rare /HPF (NEGATIVE) 11/30/22 08:46 Urine Bacteria Trace /HPF (NEGATIVE) 11/30/22 08:46 Urine Mucus Moderate /HPF (NEGATIVE) 11/24/22 21:10 Ur Culture Indicated? No/not indicated 11/30/22 08:46 Resp Viral Panel (PCR) See scanned report 12/01/22 18:09 - Plan (1) CHF exacerbation Status: Acute Qualifiers: Heart failure type: unspecified Qualified Code(s): I50.9 - Heart failure, unspecified Plan: SUPPLEMENTAL OXYGEN, CIPRO 400MG IV Q12H, ZOSYN 3.375G IV TID, DUONEBS Q6H, PULMICORT NEBS BID, LASIX 40MG BID, ALBUMIN 25% IV DLY, TESSALON PERLES TID PRN, LOVENOX 40MG SC DAILY, TORADOL 30MG IV Q6H, COLACE 200MG IV Q12H, KLONOPIN 0.5 MG HS, HALDOL 5MG IM Q4H PRN, MEGACE 40MG BID, OTBS ACHS, AND THE POTASSIUM AND MAGNESIUM PROTOCOLS. RESUME HOME MEDS (2) Acute respiratory failure Status: Acute Qualifiers: Respiratory failure complication: hypoxia Qualified Code(s): J96.01 - Acute respiratory failure with hypoxia Plan: CONTINUE SUPPLEMENTAL OXYGEN, CONTINUE NEBS TX, RESPIRATORY THERAPY (3) Abdominal pain Status: Resolved Qualifiers: Abdominal location: left lower quadrant Qualified Code(s): R10.32 - Left lower quadrant pain (4) Dehydration Status: Acute Plan: CONTINUE IV FLUIDS (5) Urinary tract infection Status: Acute Qualifiers: Urinary tract infection type: acute cystitis Hematuria presence: without hematuria Qualified Code(s): N30.00 - Acute cystitis without hematuria Plan: CONTINUE IV ANTIBIOTICS (6) Altered mental status Status: Acute Qualifiers: Altered mental status type: transient alteration of awareness Qualified Code(s): R40.4 - Transient alteration of awareness (7) Hypoalbuminemia Status: Acute (8) Nausea Status: Acute (9) Generalized weakness Status: Acute Plan: PT/OT (10) Dyspnea Status: Acute Qualifiers: Dyspnea type: shortness of breath Qualified Code(s): R06.02 - Shortness of breath (11) BPH (benign prostatic hyperplasia) Status: Chronic Qualifiers: Lower urinary tract symptom presence: symptoms present Lower urinary tract symptom detail: urinary frequency Qualified Code(s): N40.1 - Benign prostatic hyperplasia with lower urinary tract symptoms; R35.0 - Frequency of micturition Plan: CONTINUE HOME MEDICATIONS (12) Hypothyroidism Status: Chronic Qualifiers: Hypothyroidism type: acquired Qualified Code(s): E03.9 - Hypothyroidism, unspecified Plan: CONTINUE HOME MEDICATIONS (13) Gout Status: Chronic Qualifiers: Gout site: multiple sites Encounter type: subsequent encounter Chronicity: chronic Presence of tophus: without tophus Plan: CONTINUE HOME MEDICATIONS
[2022-12-05] MEDS: MAGNESIUM SULFATE 1 GRAM/100 mL PREMIX 1 G/100 ML BAG IV PRN (23:11)
[2022-12-06] MEDS: DUONEB 0.5 MG/3 MG (3 mL) NEB SCH ×5 (00:11→17:15)
[2022-12-06] MEDS: MAGNESIUM SULFATE 1 GRAM/100 mL PREMIX 1 G/100 ML BAG IV PRN (00:20)
[2022-12-06] MEDS: K-RIDER 10 MEQ/NS 100 ML 10 MEQ/100 ML BAG IV PRN (01:13)
[2022-12-06] MEDS: ROXICODONE TAB 15 MG PO PRN (02:20)
[2022-12-06 05:09] LABS: BASOPHILS # (AUTO) 0.3 X10^3/uL (0.0-0.1); BASOPHILS % (AUTO) 2.5 % (0.2-1.0); EOSINOPHILS # (AUTO) 0.3 x10^3/uL (0.0-0.2); EOSINOPHILS % (AUTO) 2.4 % (0.9-2.9); HEMATOCRIT 41.1 % (42.0-54.0); LYMPHOCYTES # (AUTO) 0.5 X10^3/uL (1.3-2.9); LYMPHOCYTES % (AUTO) 4.8 % (21.0-51.0); MEAN CORPUSCULAR HEMOGLOBIN 28.8 pg (27.0-34.0); MEAN CORPUSCULAR VOLUME 84.6 fL (80.0-100.0); MEAN PLATELET VOLUME 7.3 fL (7.4-11.0); MONOCYTES # (AUTO) 0.5 x10^3/uL (0.3-0.8); MONOCYTES % (AUTO) 4.8 % (0.0-13.0); NEUTROPHILS # (AUTO) 9.6 x10^3/uL (2.2-4.8); NEUTROPHILS % (AUTO) 85.5 % (42.0-75.0); PLATELET COUNT 334 X10^3/uL (150.0-450.0); RED BLOOD COUNT 4.86 X10^6/uL (4.7-6.0); RED CELL DISTRIBUTION WIDTH 14.8 % (11.6-16.5); WHITE BLOOD COUNT 11.2 X10^3/uL (3.6-10.0)
[2022-12-06 05:25] LABS: ALANINE AMINOTRANSFERASE 28 Units/L (12-78); ALBUMIN 3.3 g/dL (3.4-5.0); ALKALINE PHOSPHATASE 127 Units/L (46-116); ASPARTATE AMINO TRANSFERASE 46 Units/L (15-37); BLOOD UREA NITROGEN 20 mg/dL (7-18); CALCIUM 9.2 mg/dL (8.5-10.1); CARBON DIOXIDE 27.2 mmol/L (21-32); CHLORIDE 99 mmol/L (98-107); COR CA(FOR HYPOALB) 9.8 mg/dL (8.5-10.1); CREATININE 1.22 mg/dL (0.70-1.30); GLUCOSE 107 mg/dL (65-99); POTASSIUM 3.5 mmol/L (3.5-5.1); SODIUM 138 mmol/L (136-145); TOTAL PROTEIN 7.9 g/dL (6.4-8.2); eGFR NON BLACK RACES > 60 (>60)
[2022-12-06] MEDS: ZOSYN VIAL 3.375 GRAMS 3.375 G in NS 100 ML IV 100 ML IV SCH ×3 (06:30→21:07)
[2022-12-06] MEDS: MIRAPEX TAB 1 MG PO SCH ×3 (06:30→21:01)
[2022-12-06] MEDS: SYNTHROID 75 mcg TAB PO SCH (06:32)
[2022-12-06] MEDS: PULMICORT NEB TX 0.5 MG NEB SCH ×2 (08:30→21:06)
[2022-12-06] MEDS: LOVENOX INJ 40 MG SYR SC SCH (09:13)
[2022-12-06] MEDS: ALBUMIN HUMAN 25%- 100 ML 100 ML IV SCH (09:14)
[2022-12-06] MEDS: PLAQUENIL PO SCH ×2 (09:15→21:00)
[2022-12-06] MEDS: COLACE CAP 100 MG PO SCH ×2 (09:15→21:04)
[2022-12-06] MEDS: CYMBALTA PO SCH (09:15)
[2022-12-06] MEDS: SINGULAIR TAB 10 MG PO SCH (09:15)
[2022-12-06] MEDS: MEGACE PO SCH ×2 (09:15→21:04)
[2022-12-06] MEDS: GLUCOPHAGE XR 24-HR PO SCH (09:15)
[2022-12-06] MEDS: OXYBUTYNIN CHLORIDE ER PO SCH (09:15)
[2022-12-06] MEDS: ZYLOPRIM PO SCH (09:16)
[2022-12-06] MEDS: JANUVIA PO SCH (09:16)
[2022-12-06] MEDS: NEURONTIN CAP 100 MG PO SCH (09:16)
[2022-12-06] MEDS: LASIX IVP SCH ×2 (09:30→20:57)
--- NOTE | 2022-12-06 13:27 | PCM.PROG ---
Progress Note Progress Note for Day of Date of Exam: 12/06/22 Subjective Subjective: Thursday, 06 Dec 2022 This morning Mr. Bello is awake and alert. The nurses report to me that he had a rough night last night and did not sleep well. He had previously been on clonazepam 1 mg at bedtime to help him rest however last night he only had 0.5 mg. Because of that he did not rest as well I am told. Family is present and I have spoken with them and they report that he is not eating. Dr. Porter started him on Megace about 3 days ago but his appetite has not really picked up much. Patient repeatedly says he wants to go home this morning but since he is not eating he is not a candidate to go home at this time. I encouraged him to eat and told him that he needs to eat to help build his strength back up and he said he understands this and will try to eat some today. I told the family that it would be fine if they could bring him something from outside hospital if you have more inclined to eat that. They also report that yesterday his O2 sat has dropped into the 70s while lying in bed. However when he was sitting up in a chair yesterday on room air he was at 95%. I reassured her a lot of it is positional for him lying in bed and his chest x-ray this morning did not show any pleural effusions. However we will go ahead and add a minute to this morning's labs and tomorrow morning's labs. We will diurese if needed. Repeat regular labs in AM. IS CURRENTLY OBSERVATION STATUS FOR TREATMENT OF CHF, ACUTE RESPIRATORY FAILURE, DEHYDRATION, HYPOALBUMINEMIA, NAUSEA, SHORTNESS OF BREATH, AND GENERALIZED WEAKNESS. HE HAS A PAST MEDICAL HISTORY OF HYPERTENSION, SLEEP APNEA, BPH, HYPOTHYROIDISM, GOUT, CHRONIC LOW BACK PAIN, DM II, AND BILATERAL KNEE REPLACEMENTS. UPON MORNING ROUNDS, HE IS LYING IN BED WITH EYES CLOSED. HE OPENS EYES TO VERBAL STIMULI. HE RESPONDS VERBALLY WHEN SPOKEN TO, BUT IS DISORIENTED. HE DOES NOT FOLLOW VERBAL COMMANDS AT THIS TIME. HIS SPOUSE IS AT BEDSIDE. SPOUSE AND NURSE REPORT THAT HE CONTINUES WITH AGITATION AT TIMES. THEY REPORT THAT HE HAS HAD INCREASED DROWSINESS OVER THE PAST FEW DAYS. TODAY, HE IS LYING IN BED WITH EYES CLOSED ON MORNING ROUNDS. HE AWAKENS TO VERBAL STIMULI. HE SPEAKS WHEN SPOKEN TO, BUT CONTINUES TO BE DISORIENTED. HE IS CURRENTLY ON NASAL CANNULA AT 2 LPM. SATURATIONS HAVE BEEN IN THE 90s THIS MORNING AND THROUGHOUT THE NIGHT. ON EXAMINATION, HEART IS REGULAR IN RATE AND RHYTHM. BILATERAL LUNGS ARE NOTED WITH EXPIRATORY WHEEZING AND DIMINISHED LUNG SOUNDS. ABDOMEN IS OBESE, SOFT, AND NOTED WITH DIFFUSE TENDERNESS. NORMAL BOWEL SOUNDS NOTED IN ALL QUADRANTS. A CASTILLO CATHETER IS NOTED TO BEDSIDE DRAINAGE WITH DARK URINE IN BAG. TRACE EDEMA NOTED TO LOWER EXTREMITIES. HIS VITALS THIS MORNING ARE: 97.8-97-27-97%-141/78. LABS WERE OBTAINED. WBC 11.2, RBC 5.00, HGB 14.3, HCT 42.5, PLT COUNT 312, SODIUM 140, POTASSIUM 3.5, CHLORIDE 98, BUN 17, CREATININE 1.07, GLUCOSE 103, CALCIUM 9.3, TOTAL BILI 1.40, AST 44, ALT 27, ALK PHOS 126, TOTAL PROTEIN 7.9, ALBUMIN 2.8. RESPIRATORY VIRAL PANEL WAS NEGATIVE FOR COVID OR OTHER VIRUSES/BACTERIA. A REPEAT URINE CULTURE IS PENDING DUE TO PATIENT HAVING DARK COLORED URINE. A BRAIN CT WITHOUT CONTRAST WAS OBTAINED YESTERDAY AND WAS UNREMARKABLE. CHEST CTA WAS ALSO OBTAINED YESTERDAY AND REVEALED: No evidence of pulmonary embolism. Small bilateral pleural effusions with compressive atelectasis versus consolidation in the dependent lungs. A CHEST XRAY WAS OBTAINED AND REVEALED: Subsegmental atelectasis and/or infiltrate left lung base. AN ECHO WAS OBTAINED ON 12/01/22 AND REVEALED AN EJECTION FRACTION OF 39%. RVSP 28 mmHG. INSIGNIFICANT PERICARDIAL EFFUSION. HE IS CURRENTLY RECEIVING CIPRO 400MG IV Q12H, ZOSYN 3.375G IV TID, ALBUMIN 25% IV DAILY, DUONEBS Q6H, PULMICORT NEBS BID, LASIX 40MG IV BID, TESSALON PERLES TID PRN, LOVENOX 40MG SC DAILY, MEGACE 40MG BID, TORADOL 30MG IV Q6H, COLACE 200MG IV Q12H, KLONOPIN 2MG HS, HALDOL 5MG IM Q8H PRN, OTBS ACHS, AND THE POTASSIUM AND MAGNESIUM PROTOCOLS. HIS HOME MEDICATIONS WERE RESUMED. HOME MEDS INCLUDE: ZYLOPRIM, COLACE, CYMBALTA, NEURONTIN, PLAQUENIL, SYNTHROID, GLUCOPHAGE, SINGULAIR, OXYBUTYNIN, OXYCODONE PRN, MIRAPEX, AND JANUVIA. TODAY, WE WILL DECREASE HIS KLONOPIN TO 0.5MG HS. WE WILL HAVE PHYSICAL THERAPY WORK WITH HIM. OTHERWISE, WE WILL CONTINUE WITH CURRENT PLAN OF CARE. WE WILL FOLLOW-UP WITH AM LABS AND CHEST XRAY AND CONTINUE TO MONITOR. TIME SPENT ON CLINICAL ASSESSMENT, REVIEWING LABS AND IMAGING, DECISION MAKING, AND DOCUMENTATION GREATER THAN 45 MINUTES. Past Medical Family Social History Past Med/Fam/Surg Hx: No changes since H&P Allergies: Allergies No Known Drug Allergies Allergy (Verified 02/05/19 11:58) Review of Systems ROS: No change since H&P Vital Signs and I&O's Vital Signs: Temperature 98.1 F Pulse Rate [Apical] 92 Pulse Rate [Right Brachial] 80 Pulse Rate [Left] 78 Pulse Rate 74 Respiratory Rate 16 Blood Pressure [Right Arm] 119/67 Blood Pressure [Left Arm] 99/58 Blood Pressure 116/57 O2 Sat by Pulse Oximetry 99 Intake and Output: Intake & Output 12/04/22 12/05/22 12/06/22 12/07/22 11:59 11:59 11:59 11:59 Intake Total 1004 / 1004 1282 / 1282 1914 Output Total 3200 / 3200 650 / 650 Balance -2196 / -2196 632 / 632 1914 Physical Exam Oriented: Not Oriented Eyes: Normal Ear: Normal Nose: Normal Throat: Normal Respiratory: Diminished and Wheezes Cardiovascular: Normal; negative Edema : Frequency Auscultation: Bowel Sounds: Normal Tenderness: Normal Skin: Normal Musculoskeletal: Normal Psychiatric: Agitation Mood Description: Calm Affect: Normal Speech Pattern: Delayed Laboratory and Diagnostics Result Diagrams: 12/06/22 04:10 12/06/22 04:10 Labs: 12/03/22 17:25 Urine,[place] Urine Culture - Final 11/24/22 21:10 Urine,[place] Urine Culture - Final Laboratory WBC 11.2 X10^3/uL (3.6-10.0) H 12/06/22 04:10 RBC 4.86 X10^6/uL (4.7-6.0) 12/06/22 04:10 Hgb 14.0 g/dL (13.5-18.0) 12/06/22 04:10 Hct 41.1 % (42.0-54.0) L 12/06/22 04:10 MCV 84.6 fL (80.0-100.0) 12/06/22 04:10 MCH 28.8 pg (27.0-34.0) 12/06/22 04:10 MCHC 34.0 g/dL (33.0-35.0) 12/06/22 04:10 RDW 14.8 % (11.6-16.5) 12/06/22 04:10 Plt Count 334 X10^3/uL (150.0-450.0) 12/06/22 04:10 Plt Count Comment Adequate (ADEQUATE) 12/02/22 04:00 MPV 7.3 fL (7.4-11.0) L 12/06/22 04:10 Neut % (Auto) 85.5 % (42.0-75.0) H 12/06/22 04:10 Lymph % (Auto) 4.8 % (21.0-51.0) L 12/06/22 04:10 [place] % (Auto) 4.8 % (0.0-13.0) 12/06/22 04:10 Eos % (Auto) 2.4 % (0.9-2.9) 12/06/22 04:10 Baso % (Auto) 2.5 % (0.2-1.0) H 12/06/22 04:10 Neut # (Auto) 9.6 x10^3/uL (2.2-4.8) H 12/06/22 04:10 Lymph # (Auto) 0.5 X10^3/uL (1.3-2.9) L 12/06/22 04:10 [place] # (Auto) 0.5 x10^3/uL (0.3-0.8) 12/06/22 04:10 Eos # (Auto) 0.3 x10^3/uL (0.0-0.2) H 12/06/22 04:10 Baso # (Auto) 0.3 X10^3/uL (0.0-0.1) H 12/06/22 04:10 Absolute Nucleated RBC 0.0 /100WBC 12/06/22 04:10 Total Counted 100 12/02/22 04:00 Neutrophils % (Manual) 92 % (39-76) H 12/02/22 04:00 Band Neutrophils % 6 % (0-10) 11/28/22 05:46 Lymphocytes % (Manual) 4 % (13-43) L 12/02/22 04:00 Monocytes % (Manual) 4 % (4-9) 12/02/22 04:00 Eosinophils % (Manual) Not Reportable 11/30/22 05:25 Plt Morphology Comment Normal (NORMAL) 12/02/22 04:00 RBC Morphology Normal (NORMAL) 12/02/22 04:00 Sample Site Rbra 12/01/22 09:20 ABG pH 7.500 (7.35-7.45) H 12/01/22 09:20 ABG pCO2 36.0 mmHg (35.0-45.0) 12/01/22 09:20 ABG pO2 57.0 mmHg (80.0-100.0) L 12/01/22 09:20 ABG HCO3 28.1 mmol/L (22-26) H 12/01/22 09:20 ABG O2 Saturation 92.0 % (90-100) 12/01/22 09:20 ABG Base Excess 4.8 mmol/L (-2.0-2.0) H 12/01/22 09:20 Mp Test N/a 12/01/22 09:20 A-a Gradient 183.0 mmHg 12/01/22 09:20 FiO2 40.0 12/01/22 09:20 Blood Gas Comments Pt darlene well elj cdn 12/01/22 09:20 Sodium 138 mmol/L (136-145) 12/06/22 04:10 Corrected Sodium TNP 12/06/22 04:10 Potassium 3.5 mmol/L (3.5-5.1) 12/06/22 04:10 Chloride 99 mmol/L (98-107) 12/06/22 04:10 Carbon Dioxide 27.2 mmol/L (21-32) 12/06/22 04:10 BUN 20 mg/dL (7-18) H 12/06/22 04:10 Creatinine 1.22 mg/dL (0.70-1.30) 12/06/22 04:10 Est GFR (MDRD) Af Amer > 60 (>60) 12/06/22 04:10 Est GFR (MDRD) Non-Af > 60 (>60) 12/06/22 04:10 Glucose 107 mg/dL (65-99) H 12/06/22 04:10 POC Glucose (mg/dL) 105 mg/dL (65-99) H 12/06/22 11:22 Calcium 9.2 mg/dL (8.5-10.1) 12/06/22 04:10 Corrected Calcium 9.8 mg/dL (8.5-10.1) 12/06/22 04:10 Magnesium 2.4 mg/dL (2.0-2.9) 12/06/22 04:10 Total Bilirubin 1.40 mg/dL (0.2-1.0) H 12/06/22 04:10 AST 46 Units/L (15-37) H 12/06/22 04:10 ALT 28 Units/L (12-78) 12/06/22 04:10 Alkaline Phosphatase 127 Units/L (46-116) H 12/06/22 04:10 Creatine Kinase 20 Units/L (39-308) L 11/29/22 21:16 Troponin I High Sens 9.4 ng/L (4.0-60.0) 12/05/22 18:26 B-Natriuretic Peptide 229 pg/mL (0-79) H 12/03/22 04:21 Total Protein 7.9 g/dL (6.4-8.2) 12/06/22 04:10 Albumin 3.3 g/dL (3.4-5.0) L 12/06/22 04:10 Globulin 4.6 g/dL (2.5-4.5) H 12/06/22 04:10 Albumin/Globulin Ratio 0.7 Ratio (1.1-2.1) L 12/06/22 04:10 Amylase 34 Units/L (25-115) 11/24/22 17:20 Lipase 62 Units/L (73-393) L 11/24/22 17:20 Specimen Type Catherized urine 11/30/22 08:46 Urine Color Yellow (YELLOW) 11/30/22 08:46 Urine Appearance Clear (CLEAR) 11/30/22 08:46 Urine pH 6.0 (5.0 - 8.0) 11/30/22 08:46 Ur Specific [place] 1.025 (1.000-1.030) 11/30/22 08:46 Urine Protein Negative (NEGATIVE) 11/30/22 08:46 Urine Glucose (UA) Negative (NEGATIVE) 11/30/22 08:46 Urine Ketones Negative (NEGATIVE) 11/30/22 08:46 Urine Blood 2+ (NEGATIVE) 11/30/22 08:46 Urine Nitrite Negative (NEGATIVE) 11/30/22 08:46 Urine Bilirubin Negative (NEGATIVE) 11/30/22 08:46 Urine Urobilinogen 1+ (NORMAL) 11/30/22 08:46 Ur Leukocyte Esterase Negative (NEGATIVE) 11/30/22 08:46 Urine RBC 3-5 /HPF (0-3) A 11/30/22 08:46 Urine WBC None seen /HPF (0-5) 11/30/22 08:46 Ur Squamous Epith Cells Rare /HPF (NEGATIVE) 11/30/22 08:46 Urine Bacteria Trace /HPF (NEGATIVE) 11/30/22 08:46 Urine Mucus Moderate /HPF (NEGATIVE) 11/24/22 21:10 Ur Culture Indicated? No/not indicated 11/30/22 08:46 Resp Viral Panel (PCR) See scanned report 12/01/22 18:09 Radiology Reviewed: Yes Plan (1) CHF exacerbation: Status: Acute Qualifiers: Heart failure type: unspecified Qualified Code(s): I50.9 - Heart failure, unspecified Plan: Check brain natriuretic peptide this morning and tomorrow morning. SUPPLEMENTAL OXYGEN, CIPRO 400MG IV Q12H, ZOSYN 3.375G IV TID, DUONEBS Q6H, PULMICORT NEBS BID, LASIX 40MG BID, ALBUMIN 25% IV DLY, TESSALON PERLES TID PRN, LOVENOX 40MG SC DAILY, TORADOL 30MG IV Q6H, COLACE 200MG IV Q12H, KLONOPIN 0.5 MG HS, HALDOL 5MG IM Q4H PRN, MEGACE 40MG BID, OTBS ACHS, AND THE POTASSIUM AND MAGNESIUM PROTOCOLS RESUME HOME MEDS (2) Acute respiratory failure: Status: Acute Qualifiers: Respiratory failure complication: hypoxia Qualified Code(s): J96.01 - Acute respiratory failure with hypoxia Narrative Support Text: Overall improved. Plan: CONTINUE SUPPLEMENTAL OXYGEN, CONTINUE NEBS TX, RESPIRATORY THERAPY (3) Abdominal pain: Status: Resolved Qualifiers: Abdominal location: left lower quadrant Qualified Code(s): R10.32 - Left lower quadrant pain Narrative Support Text: Overall improved. Plan: CIPRO 400MG IV Q12H, ZOSYN 3.375G IV TID, DUONEBS Q6H, PULMICORT NEBS BID, TESSALON PERLES TID PRN, LOVENOX 40MG SC DAILY, TORADOL 30MG IV Q6H, COLACE 200MG IV Q12H, KLONOPIN 2MG HS, ATIVAN PRNOTBS ACHS, AND THE POTASSIUM AND MAGNESIUM PROTOCOLS (4) Dehydration: Status: Acute Plan: CONTINUE IV FLUIDS (5) Urinary tract infection: Status: Acute Qualifiers: Urinary tract infection type: acute cystitis Hematuria presence: without hematuria Qualified Code(s): N30.00 - Acute cystitis without hematuria Plan: CONTINUE IV ANTIBIOTICS (6) Altered mental status: Status: Acute Qualifiers: Altered mental status type: transient alteration of awareness Qualified Code(s): R40.4 - Transient alteration of awareness Plan: OBTAIN BRAIN CT (7) Hypoalbuminemia: Status: Acute (8) Nausea: Status: Acute (9) Generalized weakness: Status: Acute Plan: PT/OT (10) Dyspnea: Status: Acute Qualifiers: Dyspnea type: shortness of breath Qualified Code(s): R06.02 - Shortness of breath (11) BPH (benign prostatic hyperplasia): Status: Chronic Qualifiers: Lower urinary tract symptom presence: symptoms present Lower urinary tract symptom detail: urinary frequency Qualified Code(s): N40.1 - Benign prostatic hyperplasia with lower urinary tract symptoms; R35.0 - Frequency of micturition Plan: CONTINUE HOME MEDICATIONS (12) Hypothyroidism: Status: Chronic Qualifiers: Hypothyroidism type: acquired Qualified Code(s): E03.9 - Hypothyroidism, unspecified Plan: CONTINUE HOME MEDICATIONS (13) Gout: Status: Chronic Qualifiers: Gout site: multiple sites Encounter type: subsequent encounter Chronicity: chronic Presence of tophus: without tophus Plan: CONTINUE HOME MEDICATIONS
[2022-12-06] MEDS: MORPHINE SULFATE INJ 2 MG INJ IVP PRN (18:56)
[2022-12-06] MEDS: KLONOPIN TAB 1 MG PO SCH (21:00)
[2022-12-07] MEDS: DUONEB 0.5 MG/3 MG (3 mL) NEB SCH ×4 (00:17→17:16)
[2022-12-07 05:22] LABS: BASOPHILS % (AUTO) 0.6 % (0.2-1.0); EOSINOPHILS # (AUTO) 0.3 x10^3/uL (0.0-0.2); EOSINOPHILS % (AUTO) 3.8 % (0.9-2.9); HEMATOCRIT 41.2 % (42.0-54.0); HEMOGLOBIN 14.1 g/dL (13.5-18.0); LYMPHOCYTES % (AUTO) 11.4 % (21.0-51.0); MEAN CORPUSCULAR HEMOGLOBIN 29.1 pg (27.0-34.0); MEAN CORPUSCULAR HGB CONC 34.2 g/dL (33.0-35.0); MEAN PLATELET VOLUME 7.6 fL (7.4-11.0); MONOCYTES # (AUTO) 0.6 x10^3/uL (0.3-0.8); NEUTROPHILS # (AUTO) 6.6 x10^3/uL (2.2-4.8); NEUTROPHILS % (AUTO) 77.2 % (42.0-75.0); PLATELET COUNT 301 X10^3/uL (150.0-450.0); RED BLOOD COUNT 4.85 X10^6/uL (4.7-6.0); RED CELL DISTRIBUTION WIDTH 14.7 % (11.6-16.5); WHITE BLOOD COUNT 8.6 X10^3/uL (3.6-10.0)
[2022-12-07] MEDS: MIRAPEX TAB 1 MG PO SCH ×3 (05:24→21:45)
[2022-12-07] MEDS: ZOSYN VIAL 3.375 GRAMS 3.375 G in NS 100 ML IV 100 ML IV SCH ×3 (05:24→21:36)
[2022-12-07 05:44] LABS: ALANINE AMINOTRANSFERASE 36 Units/L (12-78); ALBUMIN 3.5 g/dL (3.4-5.0); ALKALINE PHOSPHATASE 119 Units/L (46-116); ASPARTATE AMINO TRANSFERASE 52 Units/L (15-37); BLOOD UREA NITROGEN 20 mg/dL (7-18); CALCIUM 9.7 mg/dL (8.5-10.1); CARBON DIOXIDE 29.2 mmol/L (21-32); CHLORIDE 99 mmol/L (98-107); CREATININE 1.26 mg/dL (0.70-1.30); GLUCOSE 94 mg/dL (65-99); POTASSIUM 3.5 mmol/L (3.5-5.1); SODIUM 141 mmol/L (136-145); eGFR NON BLACK RACES 60 (>60)
[2022-12-07] MEDS: SYNTHROID 75 mcg TAB PO SCH (06:06)
--- NOTE | 2022-12-07 07:46 | RAD ---
HISTORYPneumonia CHF SOBSTUDYAP [id number] size is stable. The retrocardiac structures and left diaphragm are not well visualized. This is consistent with a parenchymal abnormality in the left lower lobe. The left upper lung is clear. There is no definite pleural effusion.IMPRESSIONFindings are concerning for a left lower lobe pneumonia. Follow-up suggested.Electronically signed by: MAURISIO SALMERON (December 07, 2022 07:45:07)
[2022-12-07] MEDS ORDERED: DULCOLAX SUPPOSITORY 10 MG RECTAL ONE (07:50)
[2022-12-07] MEDS: CYMBALTA PO SCH (08:13)
[2022-12-07] MEDS: NEURONTIN CAP 100 MG PO SCH (08:13)
[2022-12-07] MEDS: SINGULAIR TAB 10 MG PO SCH (08:13)
[2022-12-07] MEDS: LASIX IVP SCH ×2 (08:13→21:24)
[2022-12-07] MEDS: PLAQUENIL PO SCH ×2 (08:14→21:22)
[2022-12-07] MEDS: JANUVIA PO SCH (08:14)
[2022-12-07] MEDS: LOVENOX INJ 40 MG SYR SC SCH (08:14)
[2022-12-07] MEDS: COLACE CAP 100 MG PO SCH ×2 (08:14→21:22)
[2022-12-07] MEDS: GLUCOPHAGE XR 24-HR PO SCH (08:15)
[2022-12-07] MEDS: MEGACE PO SCH ×2 (08:15→21:22)
[2022-12-07] MEDS: K-DUR TAB 20 MEQ PO PRN (08:15)
[2022-12-07] MEDS: OXYBUTYNIN CHLORIDE ER PO SCH (08:15)
[2022-12-07] MEDS: ZYLOPRIM PO SCH (08:15)
[2022-12-07] MEDS: PULMICORT NEB TX 0.5 MG NEB SCH ×2 (08:29→21:20)
[2022-12-07] MEDS: ALBUMIN HUMAN 25%- 100 ML 100 ML IV SCH (08:48)
[2022-12-07] MEDS: HALDOL INJ IM PRN ×2 (12:11→21:40)
[2022-12-07] MEDS ORDERED: TUSSIONEX PENNKINETIC SUSP PO PRN (13:15)
--- NOTE | 2022-12-07 13:21 | PCM.PROG ---
Progress Note Progress Note for Day of Date of Exam: 12/07/22 Subjective Subjective: Thursday, 07 Dec 2022 The patient is awake this morning. He has had no significant problems since yesterday morning. He did sleep better since we increase his clonazepam back to his regular dose of 2 mg at bedtime. Is reported that he ate a little bit more yesterday than he had on previous days but is still not eating all that much. His BNP is much improved and he is down in the 80s this morning. We did go up on his Lasix yesterday to twice daily. However his chest x-ray this morning shows a new left lower lobe infiltrate consistent with a developing pneumonia. He currently is on Zosyn so I will add IV Levaquin 750 mg daily to his current treatment after we do cultures since he developed this pneumonia while on Zosyn. I will also have them put him on pneumonia protocol so we can check a sputum culture along with blood cultures x2 also. Thursday, 06 Dec 2022 This morning Mr. Bello is awake and alert. The nurses report to me that he had a rough night last night and did not sleep well. He had previously been on clonazepam 1 mg at bedtime to help him rest however last night he only had 0.5 mg. Because of that he did not rest as well I am told. Family is present and I have spoken with them and they report that he is not eating. Dr. Porter started him on Megace about 3 days ago but his appetite has not really picked up much. Patient repeatedly says he wants to go home this morning but since he is not eating he is not a candidate to go home at this time. I encouraged him to eat and told him that he needs to eat to help build his strength back up and he said he understands this and will try to eat some today. I told the family that it would be fine if they could bring him something from outside hospital if you have more inclined to eat that. They also report that yesterday his O2 sat has dropped into the 70s while lying in bed. However when he was sitting up in a chair yesterday on room air he was at 95%. I reassured her a lot of it is p ositional for him lying in bed and his chest x-ray this morning did not show any pleural effusions. However we will go ahead and add a minute to this morning's labs and tomorrow morning's labs. We will diurese if needed. Repeat regular labs in AM. IS CURRENTLY OBSERVATION STATUS FOR TREATMENT OF CHF, ACUTE RESPIRATORY FAILURE, DEHYDRATION, HYPOALBUMINEMIA, NAUSEA, SHORTNESS OF BREATH, AND GENERALIZED WEAKNESS. HE HAS A PAST MEDICAL HISTORY OF HYPERTENSION, SLEEP APNEA, BPH, HYPOTHYROIDISM, GOUT, CHRONIC LOW BACK PAIN, DM II, AND BILATERAL KNEE REPLACEMENTS. UPON MORNING ROUNDS, HE IS LYING IN BED WITH EYES CLOSED. HE OPENS EYES TO VERBAL STIMULI. HE RESPONDS VERBALLY WHEN SPOKEN TO, BUT IS DISORIENTED. HE DOES NOT FOLLOW VERBAL COMMANDS AT THIS TIME. HIS SPOUSE IS AT BEDSIDE. SPOUSE AND NURSE REPORT THAT HE CONTINUES WITH AGITATION AT TIMES. THEY REPORT THAT HE HAS HAD INCREASED DROWSINESS OVER THE PAST FEW DAYS. TODAY, HE IS LYING IN BED WITH EYES CLOSED ON MORNING ROUNDS. HE AWAKENS TO VERBAL STIMULI. HE SPEAKS WHEN SPOKEN TO, BUT CONTINUES TO BE DISORIENTED. HE IS CURRENTLY ON NASAL CANNULA AT 2 LPM. SATURATIONS HAVE BEEN IN THE 90s THIS MORNING AND THROUGHOUT THE NIGHT. ON EXAMINATION, HEART IS REGULAR IN RATE AND RHYTHM. BILATERAL LUNGS ARE NOTED WITH EXPIRATORY WHEEZING AND DIMINISHED LUNG SOUNDS. ABDOMEN IS OBESE, SOFT, AND NOTED WITH DIFFUSE TENDERNESS. NORMAL BOWEL SOUNDS NOTED IN ALL QUADRANTS. A CASTILLO CATHETER IS NOTED TO BEDSIDE DRAINAGE WITH DARK URINE IN BAG. TRACE EDEMA NOTED TO LOWER EXTREMITIES. HIS VITALS THIS MORNING ARE: 97.8-97-27-97%-141/78. LABS WERE OBTAINED. WBC 11.2, RBC 5.00, HGB 14.3, HCT 42.5, PLT COUNT 312, SODIUM 140, POTASSIUM 3.5, CHLORIDE 98, BUN 17, CREATININE 1.07, GLUCOSE 103, CALCIUM 9.3, TOTAL BILI 1.40, AST 44, ALT 27, ALK PHOS 126, TOTAL PROTEIN 7.9, ALBUMIN 2.8. RESPIRATORY VIRAL PANEL WAS NEGATIVE FOR COVID OR OTHER VIRUSES/BACTERIA. A REPEAT URINE CULTURE IS PENDING DUE TO PATIENT HAVING DARK COLORED URINE. A BRAIN CT WITHOUT CONTRAST WAS OBTAINED YESTERDAY AND WAS UNREMARKABLE. CHEST CTA WAS ALSO OBTAINED YESTERDAY AND REVEALED: No evidence of pulmonary embolism. Small bilateral pleural effusions with compressive atelectasis versus consolidation in the dependent lungs. A CHEST XRAY WAS OBTAINED AND REVEALED: Subsegmental atelectasis and/or infiltrate left lung base. AN ECHO WAS OBTAINED ON 12/01/22 AND REVEALED AN EJECTION FRACTION OF 39%. RVSP 28 mmHG. INSIGNIFICANT PERICARDIAL EFFUSION. HE IS CURRENTLY RECEIVING CIPRO 400MG IV Q12H, ZOSYN 3.375G IV TID, ALBUMIN 25% IV DAILY, DUONEBS Q6H, PULMICORT NEBS BID, LASIX 40MG IV BID, TESSALON PERLES TID PRN, LOVENOX 40MG SC DAILY, MEGACE 40MG BID, TORADOL 30MG IV Q6H, COLACE 200MG IV Q12H, KLONOPIN 2MG HS, HALDOL 5MG IM Q8H PRN, OTBS ACHS, AND THE POTASSIUM AND MAGNESIUM PROTOCOLS. HIS HOME MEDICATIONS WERE RESUMED. HOME MEDS INCLUDE: ZYLOP RIM, COLACE, CYMBALTA, NEURONTIN, PLAQUENIL, SYNTHROID, GLUCOPHAGE, SINGULAIR, OXYBUTYNIN, OXYCODONE PRN, MIRAPEX, AND JANUVIA. TODAY, WE WILL DECREASE HIS KLONOPIN TO 0.5MG HS. WE WILL HAVE PHYSICAL THERAPY WORK WITH HIM. OTHERWISE, WE WILL CONTINUE WITH CURRENT PLAN OF CARE. WE WILL FOLLOW-UP WITH AM LABS AND CHEST XRAY AND CONTINUE TO MONITOR. TIME SPENT ON CLINICAL ASSESSMENT, REVIEWING LABS AND IMAGING, DECISION MAKING, AND DOCUMENTATION GREATER THAN 45 MINUTES. Past Medical Family Social History Past Med/Fam/Surg Hx: No changes since H&P Allergies: Allergies No Known Drug Allergies Allergy (Verified 02/05/19 11:58) Review of Systems ROS: No change since H&P Vital Signs and I&O's Vital Signs: Temperature 97.9 F Pulse Rate [Apical] 92 Pulse Rate [Right Brachial] 80 Pulse Rate [Left] 78 Pulse Rate 72 Respiratory Rate 19 Blood Pressure [Right Arm] 119/67 Blood Pressure [Left Arm] 99/58 Blood Pressure 118/57 O2 Sat by Pulse Oximetry 91 Intake and Output: Intake & Output 12/05/22 12/06/22 12/07/22 12/08/22 11:59 11:59 11:59 11:59 Intake Total 1282 / 1282 1914 840 / 840 Output Total 650 / 650 Balance 632 / 632 1914 840 / 840 Physical Exam Oriented: Not Oriented Eyes: Normal Ear: Normal Nose: Normal Throat: Normal Respiratory: Left, Inferior, Diminished and Rhonchi Cardiovascular: Normal; negative Edema : Frequency Auscultation: Bowel Sounds: Normal Tenderness: Normal Skin: Normal Musculoskeletal: Normal Psychiatric: Agitation Mood Description: Calm Affect: Normal Speech Pattern: Delayed Laboratory and Diagnostics Result Diagrams: 12/07/22 04:20 12/07/22 04:20 Labs: 12/03/22 17:25 Urine,[place] Urine Culture - Final 11/24/22 21:10 Urine,Clean Catch Urine Culture - Final Laboratory WBC 8.6 X10^3/uL (3.6-10.0) 12/07/22 04:20 RBC 4.85 X10^6/uL (4.7-6.0) 12/07/22 04:20 Hgb 14.1 g/dL (13.5-18.0) 12/07/22 04:20 Hct 41.2 % (42.0-54.0) L 12/07/22 04:20 MCV 85.0 fL (80.0-100.0) 12/07/22 04:20 MCH 29.1 pg (27.0-34.0) 12/07/22 04:20 MCHC 34.2 g/dL (33.0-35.0) 12/07/22 04:20 RDW 14.7 % (11.6-16.5) 12/07/22 04:20 Plt Count 301 X10^3/uL (150.0-450.0) 12/07/22 04:20 Plt Count Comment Adequate (ADEQUATE) 12/02/22 04:00 MPV 7.6 fL (7.4-11.0) 12/07/22 04:20 Neut % (Auto) 77.2 % (42.0-75.0) H 12/07/22 04:20 Lymph % (Auto) 11.4 % (21.0-51.0) L 12/07/22 04:20 [place] % (Auto) 7.0 % (0.0-13.0) 12/07/22 04:20 Eos % (Auto) 3.8 % (0.9-2.9) H 12/07/22 04:20 Baso % (Auto) 0.6 % (0.2-1.0) 12/07/22 04:20 Neut # (Auto) 6.6 x10^3/uL (2.2-4.8) H 12/07/22 04:20 Lymph # (Auto) 1.0 X10^3/uL (1.3-2.9) L 12/07/22 04:20 [place] # (Auto) 0.6 x10^3/uL (0.3-0.8) 12/07/22 04:20 Eos # (Auto) 0.3 x10^3/uL (0.0-0.2) H 12/07/22 04:20 Baso # (Auto) 0.0 X10^3/uL (0.0-0.1) 12/07/22 04:20 Absolute Nucleated RBC 0.0 /100WBC 12/07/22 04:20 Total Counted 100 12/02/22 04:00 Neutrophils % (Manual) 92 % (39-76) H 12/02/22 04:00 Band Neutrophils % 6 % (0-10) 11/28/22 05:46 Lymphocytes % (Manual) 4 % (13-43) L 12/02/22 04:00 Monocytes % (Manual) 4 % (4-9) 12/02/22 04:00 Eosinophils % (Manual) Not Reportable 11/30/22 05:25 Plt Morphology Comment Normal (NORMAL) 12/02/22 04:00 RBC Morphology Normal (NORMAL) 12/02/22 04:00 Sample Site Rbra 12/01/22 09:20 ABG pH 7.500 (7.35-7.45) H 12/01/22 09:20 ABG pCO2 36.0 mmHg (35.0-45.0) 12/01/22 09:20 ABG pO2 57.0 mmHg (80.0-100.0) L 12/01/22 09:20 ABG HCO3 28.1 mmol/L (22-26) H 12/01/22 09:20 ABG O2 Saturation 92.0 % (90-100) 12/01/22 09:20 ABG Base Excess 4.8 mmol/L (-2.0-2.0) H 12/01/22 09:20 Mp Test N/a 12/01/22 09:20 A-a Gradient 183.0 mmHg 05/08/23 09:20 FiO2 40.0 12/01/22 09:20 Blood Gas Comments Pt darlene well elj cdn 12/01/22 09:20 Sodium 141 mmol/L (136-145) 12/07/22 04:20 Corrected Sodium TNP 12/07/22 04:20 Potassium 3.5 mmol/L (3.5-5.1) 12/07/22 04:20 Chloride 99 mmol/L (98-107) 12/07/22 04:20 Carbon Dioxide 29.2 mmol/L (21-32) 12/07/22 04:20 BUN 20 mg/dL (7-18) H 12/07/22 04:20 Creatinine 1.26 mg/dL (0.70-1.30) 12/07/22 04:20 Est GFR (MDRD) Af Amer > 60 (>60) 12/07/22 04:20 Est GFR (MDRD) Non-Af 60 (>60) 12/07/22 04:20 Glucose 94 mg/dL (65-99) 12/07/22 04:20 POC Glucose (mg/dL) 98 mg/dL (65-99) 12/07/22 11:25 Calcium 9.7 mg/dL (8.5-10.1) 12/07/22 04:20 Corrected Calcium TNP 12/07/22 04:20 Magnesium 2.4 mg/dL (2.0-2.9) 12/06/22 04:10 Total Bilirubin 1.20 mg/dL (0.2-1.0) H 12/07/22 04:20 AST 52 Units/L (15-37) H 12/07/22 04:20 ALT 36 Units/L (12-78) 12/07/22 04:20 Alkaline Phosphatase 119 Units/L (46-116) H 12/07/22 04:20 Creatine Kinase 20 Units/L (39-308) L 11/29/22 21:16 Troponin I High Sens 9.4 ng/L (4.0-60.0) 12/05/22 18:26 B-Natriuretic Peptide 87.9 pg/mL (0-79) H 12/07/22 04:20 Total Protein 8.0 g/dL (6.4-8.2) 12/07/22 04:20 Albumin 3.5 g/dL (3.4-5.0) 12/07/22 04:20 Globulin 4.5 g/dL (2.5-4.5) 12/07/22 04:20 Albumin/Globulin Ratio 0.8 Ratio (1.1-2.1) L 12/07/22 04:20 Amylase 34 Units/L (25-115) 11/24/22 17:20 Lipase 62 Units/L (73-393) L 11/24/22 17:20 Specimen Type Catherized urine 11/30/22 08:46 Urine Color Yellow (YELLOW) 11/30/22 08:46 Urine Appearance Clear (CLEAR) 11/30/22 08:46 Urine pH 6.0 (5.0 - 8.0) 11/30/22 08:46 Ur Specific [place] 1.025 (1.000-1.030) 11/30/22 08:46 Urine Protein Negative (NEGATIVE) 11/30/22 08:46 Urine Glucose (UA) Negative (NEGATIVE) 11/30/22 08:46 Urine Ketones Negative (NEGATIVE) 11/30/22 08:46 Urine Blood 2+ (NEGATIVE) 11/30/22 08:46 Urine Nitrite Negative (NEGATIVE) 11/30/22 08:46 Urine Bilirubin Negative (NEGATIVE) 11/30/22 08:46 Urine Urobilinogen 1+ (NORMAL) 11/30/22 08:46 Ur Leukocyte Esterase Negative (NEGATIVE) 11/30/22 08:46 Urine RBC 3-5 /HPF (0-3) A 11/30/22 08:46 Urine WBC None seen /HPF (0-5) 11/30/22 08:46 Ur Squamous Epith Cells Rare /HPF (NEGATIVE) 11/30/22 08:46 Urine Bacteria Trace /HPF (NEGATIVE) 11/30/22 08:46 Urine Mucus Moderate /HPF (NEGATIVE) 11/24/22 21:10 Ur Culture Indicated? No/not indicated 11/30/22 08:46 Resp Viral Panel (PCR) See scanned report 12/01/22 18:09 Radiology Reviewed: Yes Plan (1) CHF exacerbation: Status: Acute Qualifiers: Heart failure type: unspecified Qualified Code(s): I50.9 - Heart failure, unspecified Plan: Check brain natriuretic peptide this morning and tomorrow morning. SUPPLEMENTAL OXYGEN, CIPRO 400MG IV Q12H, ZOSYN 3.375G IV TID, DUONEBS Q6H, PULMICORT NEBS BID, LASIX 40MG BID, ALBUMIN 25% IV DLY, TESSALON PERLES TID PRN, LOVENOX 40MG SC DAILY, TORADOL 30MG IV Q6H, COLACE 200MG IV Q12H, KLONOPIN 0.5 MG HS, HALDOL 5MG IM Q4H PRN, MEGACE 40MG BID, OTBS ACHS, AND THE POTASSIUM AND MAGNESIUM PROTOCOLS RESUME HOME MEDS (2) Acute respiratory failure: Status: Acute Qualifiers: Respiratory failure complication: hypoxia Qualified Code(s): J96.01 - Acute respiratory failure with hypoxia Plan: CONTINUE SUPPLEMENTAL OXYGEN, CONTINUE NEBS TX, RESPIRATORY THERAPY (3) Abdominal pain: Status: Resolved Qualifiers: Abdominal location: left lower quadrant Qualified Code(s): R10.32 - Left lower quadrant pain Plan: CIPRO 400MG IV Q12H, ZOSYN 3.375G IV TID, DUONEBS Q6H, PULMICORT N EBS BID, TESSALON PERLES TID PRN, LOVENOX 40MG SC DAILY, TORADOL 30MG IV Q6H, COLACE 200MG IV Q12H, KLONOPIN 2MG HS, ATIVAN PRNOTBS ACHS, AND THE POTASSIUM AND MAGNESIUM PROTOCOLS (4) Dehydration: Status: Acute Plan: CONTINUE IV FLUIDS (5) Urinary tract infection: Status: Acute Qualifiers: Urinary tract infection type: acute cystitis Hematuria presence: wit hout hematuria Qualified Code(s): N30.00 - Acute cystitis without hematuria Plan: CONTINUE IV ANTIBIOTICS (6) Altered mental status: Status: Acute Qualifiers: Altered mental status type: transient alteration of awareness Qualified Code(s): R40.4 - Transient alteration of awareness Plan: OBTAIN BRAIN CT (7) Hypoalbuminemia: Status: Acute (8) Nausea: Status: Acute (9) Generalized weakness: Status: Acute Plan: PT/OT (10) Dyspnea: Status: Acute Qualifiers: Dyspnea type: shortness of breath Qualified Code(s): R06.02 - Shortness of breath (11) BPH (benign prostatic hyperplasia): Status: Chronic Qualifiers: Lower urinary tract symptom presence: symptoms present Lower urinary tract symptom detail: urinary frequency Qualified Code(s): N40.1 - Benign prostatic hyperplasia with lower urinary tract symptoms; R35.0 - Frequency of micturition Plan: CONTINUE HOME MEDICATIONS (12) Hypothyroidism: Status: Chronic Qualifiers: Hypothyroidism type: acquired Qualified Code(s): E03.9 - Hypothyroidism, unspecified Plan: CONTINUE HOME MEDICATIONS (13) Gout: Status: Chronic Qualifiers: Gout site: multiple sites Encounter type: subsequent encounter Chronicity: chronic Presence of tophus: without tophus Plan: CONTINUE HOME MEDICATIONS (14) Left lower lobe pneumonia: Status: Acute Narrative Support Text: Chest x-ray this morning shows patient has developed a new left lower lobe infiltrate consistent with nosocomial pneumonia. Patient has currently been on Zosyn and has developed this infiltrate while he has been on that. Plan: Start pneumonia protocol and check sputum cultures and blood cultures x2. After that we will start Levaquin 750 mg IV daily. (15) Anorexia: Status: Acute Plan: Continue Megace 40 mg twice daily.
[2022-12-07] MEDS ORDERED: NS 1/2 1,000 ML IV 1,000 ML IV SCH (14:00)
[2022-12-07] MEDS: MORPHINE SULFATE INJ 2 MG INJ IVP PRN ×2 (14:02→18:17)
[2022-12-07 14:15] LABS: EOSINOPHILS # (AUTO) 0.3 x10^3/uL (0.0-0.2); HEMOGLOBIN 14.3 g/dL (13.5-18.0); LYMPHOCYTES # (AUTO) 0.7 X10^3/uL (1.3-2.9); MEAN CORPUSCULAR HEMOGLOBIN 28.6 pg (27.0-34.0); MONOCYTES # (AUTO) 0.5 x10^3/uL (0.3-0.8); MONOCYTES % (AUTO) 5.7 % (0.0-13.0); NEUTROPHILS % (AUTO) 83.1 % (42.0-75.0); RED BLOOD COUNT 5.01 X10^6/uL (4.7-6.0); WHITE BLOOD COUNT 8.6 X10^3/uL (3.6-10.0)
[2022-12-07] MEDS: VSL#3 PO SCH (14:23)
[2022-12-07] MEDS: LEVAQUIN PREMIX IV 750 MG 750 MG/150 ML BAG IV SCH (14:23)
[2022-12-07] MEDS: ROBITUSSIN DM PO SCH ×3 (14:23→21:44)
[2022-12-07 14:25] LABS: BASOPHILS % (AUTO) 0.4 % (0.2-1.0); HEMATOCRIT 42.7 % (42.0-54.0); LYMPHOCYTES % (AUTO) 7.8 % (21.0-51.0); MEAN CORPUSCULAR HGB CONC 33.6 g/dL (33.0-35.0); MEAN CORPUSCULAR VOLUME 85.2 fL (80.0-100.0); MEAN PLATELET VOLUME 7.4 fL (7.4-11.0); NEUTROPHILS # (AUTO) 7.1 x10^3/uL (2.2-4.8); PLATELET COUNT 277 X10^3/uL (150.0-450.0); RED CELL DISTRIBUTION WIDTH 15.1 % (11.6-16.5)
[2022-12-07 14:26] LABS: ALANINE AMINOTRANSFERASE 39 Units/L (12-78); ALBUMIN 4.1 g/dL (3.4-5.0); ALKALINE PHOSPHATASE 121 Units/L (46-116); ASPARTATE AMINO TRANSFERASE 52 Units/L (15-37); BLOOD UREA NITROGEN 20 mg/dL (7-18); CALCIUM 9.8 mg/dL (8.5-10.1); CARBON DIOXIDE 28.5 mmol/L (21-32); CHLORIDE 97 mmol/L (98-107); CREATININE 1.34 mg/dL (0.70-1.30); GLUCOSE 104 mg/dL (65-99); POTASSIUM 3.4 mmol/L (3.5-5.1); SODIUM 139 mmol/L (136-145); TOTAL PROTEIN 8.5 g/dL (6.4-8.2); eGFR NON BLACK RACES 56 (>60)
--- NOTE | 2022-12-07 15:17 | RAD ---
HISTORYPneumoniaSTUDYAP chestCOMPARISON6:58 a.m. 12/07/2022FINDINGSThere is now partial visualization of the left diaphragm previously obscured. Diffuse interstitial density remains in the left lower lung with blunting of the left costophrenic angle.IMPRESSIONSlight apparent improvement in aeration of the left lower lung. Persistent interstitial changes are nonspecific and could represent inflammatory process. No new abnormality is demonstrated since earlier this date.Electronically signed by: MAURISIO SALMERON (December 07, 2022 15:16:18)
[2022-12-07] MEDS: KLONOPIN TAB 1 MG PO SCH (21:19)
[2022-12-08] MEDS: MIRAPEX TAB 1 MG PO SCH ×3 (05:12→21:10)
[2022-12-08] MEDS: ZOSYN VIAL 3.375 GRAMS 3.375 G in NS 100 ML IV 100 ML IV SCH (05:13)
[2022-12-08 05:32] LABS: BASOPHILS # (AUTO) 0.1 X10^3/uL (0.0-0.1); BASOPHILS % (AUTO) 0.7 % (0.2-1.0); EOSINOPHILS # (AUTO) 0.3 x10^3/uL (0.0-0.2); EOSINOPHILS % (AUTO) 3.4 % (0.9-2.9); HEMATOCRIT 42.5 % (42.0-54.0); HEMOGLOBIN 14.4 g/dL (13.5-18.0); LYMPHOCYTES # (AUTO) 0.9 X10^3/uL (1.3-2.9); LYMPHOCYTES % (AUTO) 9.1 % (21.0-51.0); MEAN CORPUSCULAR HEMOGLOBIN 28.8 pg (27.0-34.0); MEAN CORPUSCULAR HGB CONC 33.9 g/dL (33.0-35.0); MEAN CORPUSCULAR VOLUME 84.8 fL (80.0-100.0); MEAN PLATELET VOLUME 7.7 fL (7.4-11.0); MONOCYTES # (AUTO) 0.7 x10^3/uL (0.3-0.8); MONOCYTES % (AUTO) 7.1 % (0.0-13.0); NEUTROPHILS # (AUTO) 7.8 x10^3/uL (2.2-4.8); NEUTROPHILS % (AUTO) 79.7 % (42.0-75.0); PLATELET COUNT 296 X10^3/uL (150.0-450.0); RED BLOOD COUNT 5.02 X10^6/uL (4.7-6.0); RED CELL DISTRIBUTION WIDTH 14.8 % (11.6-16.5); WHITE BLOOD COUNT 9.7 X10^3/uL (3.6-10.0)
[2022-12-08 05:40] LABS: ALANINE AMINOTRANSFERASE 45 Units/L (12-78); ALBUMIN 3.8 g/dL (3.4-5.0); ALKALINE PHOSPHATASE 118 Units/L (46-116); ASPARTATE AMINO TRANSFERASE 57 Units/L (15-37); BLOOD UREA NITROGEN 19 mg/dL (7-18); CALCIUM 9.7 mg/dL (8.5-10.1); CARBON DIOXIDE 27.1 mmol/L (21-32); CHLORIDE 99 mmol/L (98-107); CREATININE 1.36 mg/dL (0.70-1.30); GLUCOSE 105 mg/dL (65-99); POTASSIUM 3.2 mmol/L (3.5-5.1); SODIUM 140 mmol/L (136-145); TOTAL PROTEIN 8.2 g/dL (6.4-8.2); eGFR NON BLACK RACES 55 (>60)
[2022-12-08] MEDS: KLOR-CON PO PRN (05:58)
[2022-12-08] MEDS: DUONEB 0.5 MG/3 MG (3 mL) NEB SCH ×3 (06:05→13:14)
[2022-12-08] MEDS: SYNTHROID 75 mcg TAB PO SCH (06:23)
--- NOTE | 2022-12-08 06:43 | RAD ---
HISTORYPneumonia, CHF, shortness of breathSTUDYSingle-view [id number] trachea is midline. The cardiac silhouette is enlarged with a tortuous thoracic aorta . Increased interstitial changes with prominent vascular markings are observed consistent with underlying CHF.. The bony thorax is unremarkable.IMPRESSIONIncreased interstitial changes with prominent vascular markings are observed consistent with underlying CHF.Electronically signed by: CHERYL MUSE (December 08, 2022 06:41:14)
[2022-12-08] MEDS: MEGACE PO SCH ×2 (08:14→20:33)
[2022-12-08] MEDS: VSL#3 PO SCH (08:14)
[2022-12-08] MEDS: COLACE CAP 100 MG PO SCH ×2 (08:14→20:33)
[2022-12-08] MEDS: OXYBUTYNIN CHLORIDE ER PO SCH (08:14)
[2022-12-08] MEDS: GLUCOPHAGE XR 24-HR PO SCH (08:14)
[2022-12-08] MEDS: JANUVIA PO SCH (08:14)
[2022-12-08] MEDS: ROBITUSSIN DM PO SCH ×4 (08:14→20:33)
[2022-12-08] MEDS: SINGULAIR TAB 10 MG PO SCH (08:15)
[2022-12-08] MEDS: PLAQUENIL PO SCH ×2 (08:15→20:32)
[2022-12-08] MEDS: NEURONTIN CAP 100 MG PO SCH (08:15)
[2022-12-08] MEDS: ZYLOPRIM PO SCH (08:15)
[2022-12-08] MEDS: CYMBALTA PO SCH (08:15)
[2022-12-08] MEDS: LASIX IVP SCH ×2 (08:15→20:33)
[2022-12-08] MEDS: LOVENOX INJ 40 MG SYR SC SCH (08:15)
[2022-12-08] MEDS: MORPHINE SULFATE INJ 2 MG INJ IVP PRN (08:17)
[2022-12-08] MEDS: PULMICORT NEB TX 0.5 MG NEB SCH ×2 (09:34→21:00)
[2022-12-08] MEDS: ALBUMIN HUMAN 25%- 100 ML 100 ML IV SCH (09:39)
[2022-12-08] MEDS: LEVAQUIN PREMIX IV 750 MG 750 MG/150 ML BAG IV SCH (10:42)
--- NOTE | 2022-12-08 11:28 | PCM.PROG ---
Progress Note - Progress Note for Day of Date of Exam: 12/05/22 - Subjective Subjective: IS CURRENTLY OBSERVATION STATUS FOR TREATMENT OF CHF, ACUTE RESPIRATORY FAILURE, DEHYDRATION, HYPOALBUMINEMIA, NAUSEA, SHORTNESS OF BREATH, AND GENERALIZED WEAKNESS. HE HAS BEEN DISORIENTED FOR THE PAST SEVERAL DAYS. HE HAS A PAST MEDICAL HISTORY OF HYPERTENSION, SLEEP APNEA, BPH, HYPOTHYROIDISM, GOUT, CHRONIC LOW BACK PAIN, DM II, AND BILATERAL KNEE REPLACEMENTS. UPON MORNING ROUNDS, HE IS SITTING UP IN THE CHAIR. HE RESPONDS VERBALLY WHEN SPOKEN TO, BUT IS DISORIENTED AND RESPONDS WITH INAPPROPRIATE ANSWERS. HE DOES NOT FOLLOW VERBAL COMMANDS AT THIS TIME. HIS SPOUSE IS AT BEDSIDE. SPOUSE AND NURSE REPORT THAT HE CONTINUES WITH AGITATION AT TIMES. HE IS NO LONGER IN RESTRAINTS. NURSES REPORT THAT HE HAS BEEN CALM AND HAS NOT HAD ANY INAPPROPRIATE BEHAVIORS SO FAR THIS MORNING. HE IS CURRENTLY ON NASAL CANNULA AT 2 LPM. SATURATIONS HAVE BEEN IN THE 90s THIS MORNING AND THROUGHOUT THE NIGHT. HE DOES NOT APPEAR TO BE IN ANY RESPIRATORY DISTRESS. ON EXAMINATION, HEART IS REGULAR IN RATE AND RHYTHM. BILATERAL LUNGS ARE NOTED WITH DIMINISHED LUNG SOUNDS THROUGHOUT. ABDOMEN IS OBESE, SOFT, AND NOTED WITH DIFFUSE TENDERNESS. NORMAL BOWEL SOUNDS NOTED IN ALL QUADRANTS. A BASSETT CATHETER IS NOTED TO BEDSIDE DRAINAGE WITH DARK URINE IN BAG. TRACE EDEMA NOTED TO LOWER EXT REMITIES. HIS VITALS THIS MORNING ARE: 97.3-77-18-95%-115/66. LABS WERE OBTAINED. WBC 10.5, RBC 4.95, HGB 14.4, HCT 41.7, PLT COUNT 326, SODIUM 140, POTASSIUM 3.1, CHLORIDE 99, CARBON DIOXIDE 26.1, BUN 21, CREATININE 1.18, GLUCOSE 103, CALCIUM 9.5, MAGNESIUM 1.9, TOTAL BILI 1.40, AST 40, ALT 28, ALK PHOS 121, TOTAL PROTEIN 8.1, ALBUMIN 3.3. RESPIRATORY VIRAL PANEL WAS NEGATIVE FOR COVID OR OTHER VIRUSES/BACTERIA. BLOOD AND URINE CULTURES WERE NEGATIVE. A CHEST XRAY WAS REPEATED THIS MORNING AND REVEALED: Lungs mildly hypoinflated but free of acute infiltrates. HE IS CURRENTLY RECEIVING CIPRO 400MG IV Q12H, ALBUMIN 25% IV DAILY, DUONEBS Q6H, PULMICORT NEBS BID, LASIX 40MG IV BID, TESSALON PERLES TID PRN, LOVENOX 40MG SC DAILY, MEGACE 40MG BID, COLACE 200MG IV Q12H, KLONOPIN 0.5MG HS, HALDOL 5MG IM Q8H PRN, MORPHINE 2MG IV Q4H PRN, OTBS ACHS, AND THE POTASSIUM AND MAGNESIUM PROTOCOLS. HIS HOME MEDICATIONS WERE RESUMED. HOME MEDS INCLUDE: ZYLOPRIM, COLACE, CYMBALTA, NEURONTIN, PLAQUENIL, SYNTHROID, GLUCOPHAGE, SINGULAIR, OXYBUTYNIN, OXYCODONE PRN, MIRAPEX, AND JANUVIA. WE WILL CONTINUE WITH CURRENT PLAN OF CARE TODAY. PHYSICAL THERAPY WILL CONTINUE TO WORK WITH HIM. OTHERWISE, WE WILL FOLLOW-UP WITH AM LABS AND CHEST XRAY AND CONTINUE TO MONITOR. TIME SPENT ON CLINICAL ASSESSMENT, REVIEWING LABS AND IMAGING, DECISION MAKING, AND DOCUMENTATION GREATER THAN 45 MINUTES. - Past Medical Family Social History Past Med/Fam/Surg Hx: No changes since H&P Allergies: Allergies No Known Drug Allergies Allergy (Verified 02/05/19 11:58) - Review of Systems ROS: No change since H&P - Vital Signs and I&O's Vital Signs: Temperature 97.2 F Pulse Rate [Apical] 92 Pulse Rate [Right Brachial] 80 Pulse Rate [Left] 78 Pulse Rate 90 Respiratory Rate 18 Blood Pressure [Right Arm] 119/67 Blood Pressure [Left Arm] 99/58 Blood Pressure 125/75 O2 Sat by Pulse Oximetry 95 Intake and Output: Intake & Output 12/05/22 12/06/22 12/07/22 12/08/22 11:59 11:59 11:59 11:59 Intake Total 1282 / 1282 1914 840 / 840 1050 / 1050 Output Total 650 / 650 Balance 632 / 632 1914 840 / 840 1050 / 1050 - Physical Exam Oriented: Not Oriented Eyes: Normal Ear: Normal Nose: Normal Throat: Normal Respiratory: Diminished Cardiovascular: Normal. negative: Edema : Frequency Auscultation: Bowel Sounds: Normal Palpation: Normal Tenderness: Normal Skin: Normal Musculoskeletal: Normal Psychiatric: Agitation Mood Description: Calm Affect: Normal Speech Pattern: Delayed - Laboratory and Diagnostics Result Diagrams: 12/08/22 04:15 12/08/22 04:15 Labs: 12/03/22 17:25 Urine,[place] Urine Culture - Final 11/24/22 21:10 Urine,Clean Catch Urine Culture - Final Laboratory WBC 9.7 X10^3/uL (3.6-10.0) 12/08/22 04:15 RBC 5.02 X10^6/uL (4.7-6.0) 12/08/22 04:15 Hgb 14.4 g/dL (13.5-18.0) 12/08/22 04:15 Hct 42.5 % (42.0-54.0) 12/08/22 04:15 MCV 84.8 fL (80.0-100.0) 12/08/22 04:15 MCH 28.8 pg (27.0-34.0) 12/08/22 04:15 MCHC 33.9 g/dL (33.0-35.0) 12/08/22 04:15 RDW 14.8 % (11.6-16.5) 12/08/22 04:15 Plt Count 296 X10^3/uL (150.0-450.0) 12/08/22 04:15 Plt Count Comment Adequate (ADEQUATE) 12/02/22 04:00 MPV 7.7 fL (7.4-11.0) 12/08/22 04:15 Neut % (Auto) 79.7 % (42.0-75.0) H 12/08/22 04:15 Lymph % (Auto) 9.1 % (21.0-51.0) L 12/08/22 04:15 [place] % (Auto) 7.1 % (0.0-13.0) 12/08/22 04:15 Eos % (Auto) 3.4 % (0.9-2.9) H 12/08/22 04:15 Baso % (Auto) 0.7 % (0.2-1.0) 12/08/22 04:15 Neut # (Auto) 7.8 x10^3/uL (2.2-4.8) H 12/08/22 04:15 Lymph # (Auto) 0.9 X10^3/uL (1.3-2.9) L 12/08/22 04:15 [place] # (Auto) 0.7 x10^3/uL (0.3-0.8) 12/08/22 04:15 Eos # (Auto) 0.3 x10^3/uL (0.0-0.2) H 12/08/22 04:15 Baso # (Auto) 0.1 X10^3/uL (0.0-0.1) 12/08/22 04:15 Absolute Nucleated RBC 0.0 /100WBC 12/08/22 04:15 Total Counted 100 12/02/22 04:00 Neutrophils % (Manual) 92 % (39-76) H 12/02/22 04:00 Band Neutrophils % 6 % (0-10) 11/28/22 05:46 Lymphocytes % (Manual) 4 % (13-43) L 12/02/22 04:00 Monocytes % (Manual) 4 % (4-9) 12/02/22 04:00 Eosinophils % (Manual) Not Reportable 11/30/22 05:25 Plt Morphology Comment Normal (NORMAL) 12/02/22 04:00 RBC Morphology Normal (NORMAL) 12/02/22 04:00 Sample Site Rbra 12/01/22 09:20 ABG pH 7.500 (7.35-7.45) H 12/01/22 09:20 ABG pCO2 36.0 mmHg (35.0-45.0) 12/01/22 09:20 ABG pO2 57.0 mmHg (80.0-100.0) L 12/01/22 09:20 ABG HCO3 28.1 mmol/L (22-26) H 12/01/22 09:20 ABG O2 Saturation 92.0 % (90-100) 12/01/22 09:20 ABG Base Excess 4.8 mmol/L (-2.0-2.0) H 12/01/22 09:20 Mp Test N/a 12/01/22 09:20 A-a Gradient 183.0 mmHg 12/01/22 09:20 FiO2 40.0 12/01/22 09:20 Blood Gas Comments Pt darlene well elj cdn 12/01/22 09:20 Sodium 140 mmol/L (136-145) 12/08/22 04:15 Corrected Sodium TNP 12/08/22 04:15 Potassium 3.2 mmol/L (3.5-5.1) L 12/08/22 04:15 Chloride 99 mmol/L (98-107) 12/08/22 04:15 Carbon Dioxide 27.1 mmol/L (21-32) 12/08/22 04:15 BUN 19 mg/dL (7-18) H 12/08/22 04:15 Creatinine 1.36 mg/dL (0.70-1.30) H 12/08/22 04:15 Est GFR (MDRD) Af Amer > 60 (>60) 12/08/22 04:15 Est GFR (MDRD) Non-Af 55 (>60) L 12/08/22 04:15 Glucose 105 mg/dL (65-99) H 12/08/22 04:15 POC Glucose (mg/dL) 147 mg/dL (65-99) H 12/08/22 05:43 Calcium 9.7 mg/dL (8.5-10.1) 12/08/22 04:15 Corrected Calcium TNP 12/08/22 04:15 Magnesium 2.1 mg/dL (2.0-2.9) 12/08/22 04:15 Total Bilirubin 1.30 mg/dL (0.2-1.0) H 12/08/22 04:15 AST 57 Units/L (15-37) H 12/08/22 04:15 ALT 45 Units/L (12-78) 12/08/22 04:15 Alkaline Phosphatase 118 Units/L (46-116) H 12/08/22 04:15 Creatine Kinase 20 Units/L (39-308) L 11/29/22 21:16 Troponin I High Sens 9.4 ng/L (4.0-60.0) 12/05/22 18:26 B-Natriuretic Peptide 87.9 pg/mL (0-79) H 12/07/22 04:20 Total Protein 8.2 g/dL (6.4-8.2) 12/08/22 04:15 Albumin 3.8 g/dL (3.4-5.0) 12/08/22 04:15 Globulin 4.4 g/dL (2.5-4.5) 12/08/22 04:15 Albumin/Globulin Ratio 0.9 Ratio (1.1-2.1) L 12/08/22 04:15 Amylase 34 Units/L (25-115) 11/24/22 17:20 Lipase 62 Units/L (73-393) L 11/24/22 17:20 Specimen Type Catherized urine 11/30/22 08:46 Urine Color Yellow (YELLOW) 11/30/22 08:46 Urine Appearance Clear (CLEAR) 11/30/22 08:46 Urine pH 6.0 (5.0 - 8.0) 11/30/22 08:46 Ur Specific [place] 1.025 (1.000-1.030) 11/30/22 08:46 Urine Protein Negative (NEGATIVE) 11/30/22 08:46 Urine Glucose (UA) Negative (NEGATIVE) 11/30/22 08:46 Urine Ketones Negative (NEGATIVE) 11/30/22 08:46 Urine Blood 2+ (NEGATIVE) 11/30/22 08:46 Urine Nitrite Negative (NEGATIVE) 11/30/22 08:46 Urine Bilirubin Negative (NEGATIVE) 11/30/22 08:46 Urine Urobilinogen 1+ (NORMAL) 11/30/22 08:46 Ur Leukocyte Esterase Negative (NEGATIVE) 11/30/22 08:46 Urine RBC 3-5 /HPF (0-3) A 11/30/22 08:46 Urine WBC None seen /HPF (0-5) 11/30/22 08:46 Ur Squamous Epith Cells Rare /HPF (NEGATIVE) 11/30/22 08:46 Urine Bacteria Trace /HPF (NEGATIVE) 11/30/22 08:46 Urine Mucus Moderate /HPF (NEGATIVE) 11/24/22 21:10 Ur Culture Indicated? No/not indicated 11/30/22 08:46 Resp Viral Panel (PCR) See scanned report 12/07/22 14:15 - Plan (1) CHF exacerbation Status: Acute Qualifiers: Heart failure type: unspecified Qualified Code(s): I50.9 - Heart failure, unspecified Plan: SUPPLEMENTAL OXYGEN, CIPRO 400MG IV Q12H, DUONEBS Q6H, PULMICORT NEBS BID, LASIX 40MG BID, ALBUMIN 25% IV DLY, TESSALON PERLES TID PRN, LOVENOX 40MG SC DAILY, TORADOL 30MG IV Q6H, COLACE 200MG IV Q12H, KLONOPIN 0.5 MG HS, HALDOL 5MG IM Q4H PRN, MEGACE 40MG BID, OTBS ACHS, AND THE POTASSIUM AND MAGNESIUM PROT OCOLS. RESUME HOME MEDS (2) Acute respiratory failure Status: Acute Qualifiers: Respiratory failure complication: hypoxia Qualified Code(s): J96.01 - Acute respiratory failure with hypoxia Plan: CONTINUE SUPPLEMENTAL OXYGEN, CONTINUE NEBS TX, RESPIRATORY THERAPY (3) Abdominal pain Status: Resolved Qualifiers: Abdominal location: left lower quadrant Qualified Code(s): R10.32 - Left lower quadrant pain (4) Dehydration Status: Acute Plan: CONTINUE IV FLUIDS (5) Urinary tract infection Status: Acute Qualifiers: Urinary tract infection type: acute cystitis Hematuria presence: without hematuria Qualified Code(s): N30.00 - Acute cystitis without hematuria Plan: CONTINUE IV ANTIBIOTICS (6) Altered mental status Status: Acute Qualifiers: Altered mental status type: transient alteration of awareness Qualified Code(s): R40.4 - Transient alteration of awareness (7) Hypoalbuminemia Status: Acute (8) Nausea Status: Acute (9) Generalized weakness Status: Acute Plan: PT/OT (10) Dyspnea Status: Acute Qualifiers: Dyspnea type: shortness of breath Qualified Code(s): R06.02 - Shortness of breath (11) BPH (benign prostatic hyperplasia) Status: Chronic Qualifiers: Lower urinary tract symptom presence: symptoms present Lower urinary tract symptom detail: urinary frequency Qualified Code(s): N40.1 - Benign prostatic hyperplasia with lower urinary tract symptoms; R35.0 - Frequency of micturition Plan: CONTINUE HOME MEDICATIONS (12) Hypothyroidism Status: Chronic Qualifiers: Hypothyroidism type: acquired Qualified Code(s): E03.9 - Hypothyroidism, unspecified Plan: CONTINUE HOME MEDICATIONS (13) Gout Status: Chronic Qualifiers: Gout site: multiple sites Encounter type: subsequent encounter Chronicity: chronic Presence of tophus: without tophus Plan: CONTINUE HOME MEDICATIONS
--- NOTE | 2022-12-08 11:46 | PCM.PROG ---
Progress Note - Progress Note for Day of Date of Exam: 12/08/22 - Subjective Subjective: IS CURRENTLY OBSERVATION STATUS FOR TREATMENT OF CHF, LEFT LOWER LOBE PNEUMONIA. HYPOALBUMINEMIA, GENERALIZED WEAKNESS, AND AMS. HE HAS A PAST MEDICAL HISTORY OF HYPERTENSION, SLEEP APNEA, BPH, HYPOTHYROIDISM, GOUT, CHRONIC LOW BACK PAIN, DM II, AND BILATERAL KNEE REPLACEMENTS. UPON MORNING ROUNDS, HE IS ALERT, LYING IN THE BED ON MORNING ROUNDS. HE RESPONDS VERBALLY WHEN SPOKEN TO, BUT IS DISORIENTED AND RESPONDS WITH INAPPROPRIATE ANSWERS. HE DOES NOT FOLLOW VERBAL COMMANDS AT THIS TIME. HIS SPOUSE IS AT BEDSIDE. SPOUSE AND NURSE REPORT THAT HE CONTINUES WITH AGITATION AT TIMES. HE HAS PULLED OUT HIS IV AND ATTEMPTED TO GET OUT OF BED SEVERAL TIMES. HE IS CURRENTLY ON ROOM AIR, HE WILL NOT LEAVE HIS OXYGEN ON. HIS OXYGEN SATURATIONS HAVE BEEN IN THE 90s ON ROOM AIR. HE DOES NOT APPEAR TO BE IN ANY RESPIRATORY DISTRESS. ON EXAMINATION, HEART IS REGULAR IN RATE AND RHYTHM. BILATERAL LUNGS ARE NOTED WITH DIMINISHED LUNG SOUNDS THROUGHOUT. ABDOMEN IS OBESE, SOFT, AND NOTED WITH DIFFUSE TENDERNESS. NORMAL BOWEL SOUNDS NOTED IN ALL QUADRANTS. TRACE EDEMA NOTED TO LOWER EXTREMITIES. HIS VITALS THIS MORNING ARE: 97.2-100-18-92%-125/75. LABS WERE OBTAINED. WBC 9.7, RBC 5.02, HGB 14.4, HCT 42.5, PLT COUNT 296, SODIUM 140, POTASSIUM 3.1, CHLORIDE 99, BUN 21, CREATININE 1.18, GLUCOSE 103, CALCIUM 9.5, MAGNESIUM 1.9, TOTAL BILI 1.40, AST 40, ALT 28, ALK PHOS 121, TOTAL PROTEIN 8.1, ALBUMIN 3.3. RESPIRATORY VIRAL PANEL WAS NEGATIVE FOR COVID OR OTHER VIRUSES/BACTERIA. BLOOD AND URINE CULTURES WERE NEGATIVE. A CHEST XRAY WAS REPEATED THIS MORNING AND REVEALED: Slight apparent improvement in aeration of the left lower lung. Persistent interstitial changes are nonspecific and could represent inflammatory process. No new abnormality is demonstrated since earlier this date. HE IS CURRENTLY RECEIVING LEVAQUIN 750MG IV DAILY, ALBUMIN 25% IV DAILY, DUONEBS Q6H, PULMICORT NEBS BID, LASIX 40MG IV BID, TESSALON PERLES TID PRN, LOVENOX 40MG SC DAILY, TUSSIONEX 5ML Q12H PRN, MEGACE 40MG BID, COLACE 200MG IV Q12H, KLONOPIN 2MG HS, HALDOL 5MG IM Q8H PRN, MORPHINE 2MG IV Q4H PRN, OTBS ACHS, AND THE POTASSIUM AND MAGNESIUM PROTOCOLS. HIS HOME MEDICATIONS WERE RESUMED. HOME MEDS INCLUDE: ZYLOPRIM, COLACE, CYMBALTA, NEURONTIN, PLAQUENIL, SYNTHROID, GLUCOPHAGE, SINGULAIR, OXYBUTYNIN, OXYCODONE PRN, MIRAPEX, AND JANUVIA. WE WILL CONTINUE WITH CURRENT PLAN OF CARE TODAY. PHYSICAL THERAPY FEELS THAT HE COULD BENEFIT FROM ADDITIONAL THERAPY. HE HAS AN UNSTEADY GAIT AND REQUIRES ASSISTANCE WITH AMBULATION. PATIENTS SPOUSE REPORTS THAT SHE WILL NOT BE ABLE TO TAKE CARE OF HIM AT WHILE HE IS IN THIS CURRENT STATE. WE FEEL THAT HE WOULD BENEFIT FROM BEHAVIORAL HEALTH PRIOR TO A [facility] STAY FOR THERAPY. WE WILL CONTACT BEHAVIORAL HEALTH TODAY. PATIENT IS HEMODYNAMICALLY STABLE AND IS STABLE FROM A RESPIRATORY STANDPOINT. HE IS NO LONGER IN RESPIRATORY DISTRESS. OTHERWISE, WE WILL CONTINUE WITH CURRENT PLAN OF CARE AT THIS TIME. TIME SPENT ON CLINICAL ASSESSMENT, REVIEWING LABS AND IMAGING, DECISION MAKING, AND DOCUMENTATION GREATER THAN 45 MINUTES. - Past Medical Family Social History Past Med/Fam/Surg Hx: No changes since H&P Allergies: Allergies No Known Drug Allergies Allergy (Verified 02/05/19 11:58) - Review of Systems ROS: No change since H&P - Vital Signs and I&O's Vital Signs: Temperature 97.2 F Pulse Rate [Apical] 92 Pulse Rate [Right Brachial] 80 Pulse Rate [Left] 78 Pulse Rate 90 Respiratory Rate 18 Blood Pressure [Right Arm] 119/67 Blood Pressure [Left Arm] 99/58 Blood Pressure 125/75 O2 Sat by Pulse Oximetry 95 Intake and Output: Intake & Output 12/05/22 12/06/22 12/07/22 12/08/22 11:59 11:59 11:59 11:59 Intake Total 1282 / 1282 1914 840 / 840 1050 / 1050 Output Total 650 / 650 Balance 632 / 632 1914 840 / 840 1050 / 1050 - Physical Exam Oriented: Not Oriented Eyes: Normal Ear: Normal Nose: Normal Throat: Normal Respiratory: Diminished Cardiovascular: Normal. negative: Edema : Frequency Auscultation: Bowel Sounds: Normal Palpation: Normal Tenderness: Normal Skin: Normal Musculoskeletal: Normal Psychiatric: Agitation Mood Description: Calm Affect: Normal Speech Pattern: Delayed - Laboratory and Diagnostics Result Diagrams: 12/08/22 04:15 12/08/22 04:15 Labs: 12/03/22 17:25 Urine,[place] Urine Culture - Final 11/24/22 21:10 Urine,Clean Catch Urine Culture - Final Laboratory WBC 9.7 X10^3/uL (3.6-10.0) 12/08/22 04:15 RBC 5.02 X10^6/uL (4.7-6.0) 12/08/22 04:15 Hgb 14.4 g/dL (13.5-18.0) 12/08/22 04:15 Hct 42.5 % (42.0-54.0) 12/08/22 04:15 MCV 84.8 fL (80.0-100.0) 12/08/22 04:15 MCH 28.8 pg (27.0-34.0) 12/08/22 04:15 MCHC 33.9 g/dL (33.0-35.0) 12/08/22 04:15 RDW 14.8 % (11.6-16.5) 12/08/22 04:15 Plt Count 296 X10^3/uL (150.0-450.0) 12/08/22 04:15 Plt Count Comment Adequate (ADEQUATE) 12/02/22 04:00 MPV 7.7 fL (7.4-11.0) 12/08/22 04:15 Neut % (Auto) 79.7 % (42.0-75.0) H 12/08/22 04:15 Lymph % (Auto) 9.1 % (21.0-51.0) L 12/08/22 04:15 [place] % (Auto) 7.1 % (0.0-13.0) 12/08/22 04:15 Eos % (Auto) 3.4 % (0.9-2.9) H 12/08/22 04:15 Baso % (Auto) 0.7 % (0.2-1.0) 12/08/22 04:15 Neut # (Auto) 7.8 x10^3/uL (2.2-4.8) H 12/08/22 04:15 Lymph # (Auto) 0.9 X10^3/uL (1.3-2.9) L 12/08/22 04:15 [place] # (Auto) 0.7 x10^3/uL (0.3-0.8) 12/08/22 04:15 Eos # (Auto) 0.3 x10^3/uL (0.0-0.2) H 12/08/22 04:15 Baso # (Auto) 0.1 X10^3/uL (0.0-0.1) 12/08/22 04:15 Absolute Nucleated RBC 0.0 /100WBC 12/08/22 04:15 Total Counted 100 12/02/22 04:00 Neutrophils % (Manual) 92 % (39-76) H 12/02/22 04:00 Band Neutrophils % 6 % (0-10) 11/28/22 05:46 Lymphocytes % (Manual) 4 % (13-43) L 12/02/22 04:00 Monocytes % (Manual) 4 % (4-9) 12/02/22 04:00 Eosinophils % (Manual) Not Reportable 11/30/22 05:25 Plt Morphology Comment Normal (NORMAL) 12/02/22 04:00 RBC Morphology Normal (NORMAL) 12/02/22 04:00 Sample Site Rbra 12/01/22 09:20 ABG pH 7.500 (7.35-7.45) H 12/01/22 09:20 ABG pCO2 36.0 mmHg (35.0-45.0) 12/01/22 09:20 ABG pO2 57.0 mmHg (80.0-100.0) L 12/01/22 09:20 ABG HCO3 28.1 mmol/L (22-26) H 12/01/22 09:20 ABG O2 Saturation 92.0 % (90-100) 12/01/22 09:20 ABG Base Excess 4.8 mmol/L (-2.0-2.0) H 12/01/22 09:20 Mp Test N/a 12/01/22 09:20 A-a Gradient 183.0 mmHg 12/01/22 09:20 FiO2 40.0 12/01/22 09:20 Blood Gas Comments Pt darlene well elj cdn 12/01/22 09:20 Sodium 140 mmol/L (136-145) 12/08/22 04:15 Corrected Sodium TNP 12/08/22 04:15 Potassium 3.2 mmol/L (3.5-5.1) L 12/08/22 04:15 Chloride 99 mmol/L (98-107) 12/08/22 04:15 Carbon Dioxide 27.1 mmol/L (21-32) 12/08/22 04:15 BUN 19 mg/dL (7-18) H 12/08/22 04:15 Creatinine 1.36 mg/dL (0.70-1.30) H 12/08/22 04:15 Est GFR (MDRD) Af Amer > 60 (>60) 12/08/22 04:15 Est GFR (MDRD) Non-Af 55 (>60) L 12/08/22 04:15 Glucose 105 mg/dL (65-99) H 12/08/22 04:15 POC Glucose (mg/dL) 147 mg/dL (65-99) H 12/08/22 05:43 Calcium 9.7 mg/dL (8.5-10.1) 12/08/22 04:15 Corrected Calcium TNP 12/08/22 04:15 Magnesium 2.1 mg/dL (2.0-2.9) 12/08/22 04:15 Total Bilirubin 1.30 mg/dL (0.2-1.0) H 12/08/22 04:15 AST 57 Units/L (15-37) H 12/08/22 04:15 ALT 45 Units/L (12-78) 12/08/22 04:15 Alkaline Phosphatase 118 Units/L (46-116) H 12/08/22 04:15 Creatine Kinase 20 Units/L (39-308) L 11/29/22 21:16 Troponin I High Sens 9.4 ng/L (4.0-60.0) 12/05/22 18:26 B-Natriuretic Peptide 87.9 pg/mL (0-79) H 12/07/22 04:20 Total Protein 8.2 g/dL (6.4-8.2) 12/08/22 04:15 Albumin 3.8 g/dL (3.4-5.0) 12/08/22 04:15 Globulin 4.4 g/dL (2.5-4.5) 12/08/22 04:15 Albumin/Globulin Ratio 0.9 Ratio (1.1-2.1) L 12/08/22 04:15 Amylase 34 Units/L (25-115) 11/24/22 17:20 Lipase 62 Units/L (73-393) L 11/24/22 17:20 Specimen Type Catherized urine 11/30/22 08:46 Urine Color Yellow (YELLOW) 11/30/22 08:46 Urine Appearance Clear (CLEAR) 11/30/22 08:46 Urine pH 6.0 (5.0 - 8.0) 11/30/22 08:46 Ur Specific [place] 1.025 (1.000-1.030) 11/30/22 08:46 Urine Protein Negative (NEGATIVE) 11/30/22 08:46 Urine Glucose (UA) Negative (NEGATIVE) 11/30/22 08:46 Urine Ketones Negative (NEGATIVE) 11/30/22 08:46 Urine Blood 2+ (NEGATIVE) 11/30/22 08:46 Urine Nitrite Negative (NEGATIVE) 11/30/22 08:46 Urine Bilirubin Negative (NEGATIVE) 11/30/22 08:46 Urine Urobilinogen 1+ (NORMAL) 11/30/22 08:46 Ur Leukocyte Esterase Negative (NEGATIVE) 11/30/22 08:46 Urine RBC 3-5 /HPF (0-3) A 11/30/22 08:46 Urine WBC None seen /HPF (0-5) 11/30/22 08:46 Ur Squamous Epith Cells Rare /HPF (NEGATIVE) 11/30/22 08:46 Urine Bacteria Trace /HPF (NEGATIVE) 11/30/22 08:46 Urine Mucus Moderate /HPF (NEGATIVE) 11/24/22 21:10 Ur Culture Indicated? No/not indicated 11/30/22 08:46 Resp Viral Panel (PCR) See scanned report 12/07/22 14:15 - Plan (1) CHF exacerbation Status: Acute Qualifiers: Heart failure type: unspecified Qualified Code(s): I50.9 - Heart failure, unspecified Plan: SUPPLEMENTAL OXYGEN, LEVAQUIN 750MG IV DAILY, DUONEBS Q6H, PULMICORT NEBS BID, LASIX 40MG BID, ALBUMIN 25% IV DLY, TESSALON PERLES TID PRN, LOVENOX 40MG SC DAILY, TORADOL 30MG IV Q6H, COLACE 200MG IV Q12H, KLONOPIN 2 MG HS, HALDOL 5MG IM Q4H PRN, MEGACE 40MG BID, OTBS ACHS, AND THE POTASSIUM AND MAGNESIUM PROTOCOLS. RESUME HOME MEDS (2) Left lower lobe pneumonia Status: Acute Qualifiers: Pneumonia type: due to unspecified organism Qualified Code(s): J18.9 - Pneumonia, unspecified organism (3) Acute respiratory failure Status: Resolved Qualifiers: Respiratory failure complication: hypoxia Qualified Code(s): J96.01 - Acute respiratory failure with hypoxia Plan: CONTINUE SUPPLEMENTAL OXYGEN, CONTINUE NEBS TX, RESPIRATORY THERAPY (4) Abdominal pain Status: Resolved Qualifiers: Abdominal location: left lower quadrant Qualified Code(s): R10.32 - Left lower quadrant pain (5) Urinary tract infection Status: Acute Qualifiers: Urinary tract infection type: acute cystitis Hematuria presence: without hematuria Qualified Code(s): N30.00 - Acute cystitis without hematuria Plan: CONTINUE IV ANTIBIOTICS (6) Altered mental status Status: Acute Qualifiers: Altered mental status type: transient alteration of awareness Qualified Code(s): R40.4 - Transient alteration of awareness (7) Hypoalbuminemia Status: Acute (8) Nausea Status: Acute (9) Generalized weakness Status: Acute Plan: PT/OT (10) Dyspnea Status: Acute Qualifiers: Dyspnea type: shortness of breath Qualified Code(s): R06.02 - Shortness of breath (11) BPH (benign prostatic hyperplasia) Status: Chronic Qualifiers: Lower urinary tract symptom presence: symptoms present Lower urinary tract symptom detail: urinary frequency Qualified Code(s): N40.1 - Benign prostatic hyperplasia with lower urinary tract symptoms; R35.0 - Frequency of micturition Plan: CONTINUE HOME MEDICATIONS (12) Hypothyroidism Status: Chronic Qualifiers: Hypothyroidism type: acquired Qualified Code(s): E03.9 - Hypothyroidism, unspecified Plan: CONTINUE HOME MEDICATIONS (13) Gout Status: Chronic Qualifiers: Gout site: multiple sites Encounter type: subsequent encounter Chronicity: chronic Presence of tophus: without tophus Plan: CONTINUE HOME MEDICATIONS
[2022-12-08] MEDS: K-DUR TAB 20 MEQ PO PRN (14:25)
[2022-12-08] MEDS: ROXICODONE TAB 15 MG PO PRN (17:29)
[2022-12-08] MEDS: KLONOPIN TAB 1 MG PO SCH (20:32)
[2022-12-09] MEDS: RESTORIL CAP 15 MG PO PRN (01:07)
[2022-12-09] MEDS: MORPHINE SULFATE INJ 2 MG INJ IVP PRN (04:36)
[2022-12-09 05:25] LABS: BASOPHILS # (AUTO) 0.1 X10^3/uL (0.0-0.1); EOSINOPHILS # (AUTO) 0.3 x10^3/uL (0.0-0.2); HEMATOCRIT 40.5 % (42.0-54.0); HEMOGLOBIN 13.9 g/dL (13.5-18.0); LYMPHOCYTES # (AUTO) 1.1 X10^3/uL (1.3-2.9); LYMPHOCYTES % (AUTO) 13.6 % (21.0-51.0); MEAN CORPUSCULAR HGB CONC 34.2 g/dL (33.0-35.0); MEAN CORPUSCULAR VOLUME 84.6 fL (80.0-100.0); MEAN PLATELET VOLUME 7.8 fL (7.4-11.0); MONOCYTES # (AUTO) 0.8 x10^3/uL (0.3-0.8); MONOCYTES % (AUTO) 9.8 % (0.0-13.0); NEUTROPHILS # (AUTO) 5.9 x10^3/uL (2.2-4.8); NEUTROPHILS % (AUTO) 71.6 % (42.0-75.0); PLATELET COUNT 290 X10^3/uL (150.0-450.0); RED BLOOD COUNT 4.78 X10^6/uL (4.7-6.0); RED CELL DISTRIBUTION WIDTH 14.8 % (11.6-16.5); WHITE BLOOD COUNT 8.2 X10^3/uL (3.6-10.0)
[2022-12-09] MEDS: MIRAPEX TAB 1 MG PO SCH ×3 (05:35→21:00)
[2022-12-09 05:36] LABS: ALANINE AMINOTRANSFERASE 46 Units/L (12-78); ALBUMIN 3.9 g/dL (3.4-5.0); ALKALINE PHOSPHATASE 112 Units/L (46-116); ASPARTATE AMINO TRANSFERASE 51 Units/L (15-37); BLOOD UREA NITROGEN 20 mg/dL (7-18); CARBON DIOXIDE 25.8 mmol/L (21-32); CHLORIDE 100 mmol/L (98-107); CREATININE 1.26 mg/dL (0.70-1.30); GLUCOSE 105 mg/dL (65-99); POTASSIUM 3.3 mmol/L (3.5-5.1); SODIUM 139 mmol/L (136-145); TOTAL PROTEIN 8.1 g/dL (6.4-8.2); eGFR NON BLACK RACES 60 (>60)
[2022-12-09] MEDS: DUONEB 0.5 MG/3 MG (3 mL) NEB SCH ×4 (05:54→16:55)
[2022-12-09] MEDS: KLOR-CON PO PRN (05:56)
[2022-12-09] MEDS: SYNTHROID 75 mcg TAB PO SCH (06:00)
[2022-12-09] MEDS: LEVAQUIN PREMIX IV 750 MG 750 MG/150 ML BAG IV SCH (08:50)
[2022-12-09] MEDS: LASIX IVP SCH ×2 (08:51→20:54)
[2022-12-09] MEDS: ALBUMIN HUMAN 25%- 100 ML 100 ML IV SCH (08:51)
[2022-12-09] MEDS: LOVENOX INJ 40 MG SYR SC SCH (09:00)
[2022-12-09] MEDS: JANUVIA PO SCH (09:05)
[2022-12-09] MEDS: PLAQUENIL PO SCH ×2 (09:05→20:53)
[2022-12-09] MEDS: GLUCOPHAGE XR 24-HR PO SCH (09:05)
[2022-12-09] MEDS: MEGACE PO SCH ×2 (09:05→20:52)
[2022-12-09] MEDS: ROBITUSSIN DM PO SCH ×4 (09:06→20:52)
[2022-12-09] MEDS: VSL#3 PO SCH (09:09)
[2022-12-09] MEDS: SINGULAIR TAB 10 MG PO SCH (09:10)
[2022-12-09] MEDS: COLACE CAP 100 MG PO SCH ×2 (09:10→20:53)
[2022-12-09] MEDS: CYMBALTA PO SCH (09:10)
[2022-12-09] MEDS: NEURONTIN CAP 100 MG PO SCH (09:10)
[2022-12-09] MEDS: ZYLOPRIM PO SCH (09:11)
[2022-12-09] MEDS: OXYBUTYNIN CHLORIDE ER PO SCH (09:11)
[2022-12-09] MEDS: PULMICORT NEB TX 0.5 MG NEB SCH ×2 (09:56→20:17)
--- NOTE | 2022-12-09 11:20 | PCM.PROG ---
Progress Note - Progress Note for Day of Date of Exam: 12/09/22 - Subjective Subjective: IS CURRENTLY INPATIENT STATUS FOR TREATMENT OF LEFT LOWER LOBE PNEUMONIA, CHF, HYPOALBUMINEMIA, GENERALIZED WEAKNESS, AND AMS. HE HAS A PAST MEDICAL HISTORY OF HYPERTENSION, SLEEP APNEA, BPH, HYPOTHYROIDISM, GOUT, CHRONIC LOW BACK PAIN, DM II, AND BILATERAL KNEE REPLACEMENTS. UPON MORNING ROUNDS, HE IS ALERT, LYING IN THE BED ON MORNING ROUNDS. HE RESPONDS VERBALLY WHEN SPOKEN TO. HE ANSWERS QUESTIONS AND DOES FOLLOW SIMPLE COMMANDS AT THIS MORNING. HIS SPOUSE IS AT BEDSIDE. SPOUSE AND NURSE REPORTS THAT HE HAD A GOOD, UNEVENTFUL NIGHT. HE RESTED WELL AND WAS NOT COMBATIVE OR AGITATED. THEY REPORT THAT HIS MORNING HAS GONE WELL SO FAR AND HE HAS BEEN CALM. HE HAS NOT BEEN IN RESTRAINTS IN SEVERAL DAYS. HE IS CURRENTLY ON ROOM AIR. HIS OXYGEN SATURATIONS HAVE BEEN IN THE 90s ON ROOM AIR. HE DOES NOT APPEAR TO BE IN ANY RESPIRATORY DISTRESS. ON EXAMINATION, HEART IS REGULAR IN RATE AND RHYTHM. BILATERAL LUNGS ARE NOTED WITH DIMINISHED LUNG SOUNDS THROUGHOUT. ABDOMEN IS OBESE, SOFT, AND NON-TENDER. NORMAL BOWEL SOUNDS NOTED IN ALL QUADRANTS. TRACE EDEMA NOTED TO LOWER EXTREMITIES. HIS VITALS THIS MORNING ARE: 97.1-80-18-93%-109/68. LABS WERE OBTAINED. WBC 8.2, RBC 4.78, HGB 13.9, HCT 40.5, PLT COUNT 290, SODIUM 139, POTASSIUM 3.3, CHLORIDE 100, BUN 20, CREATININE 105, CALCIUM 10.0, TOTAL BILI 1.00, AST 51, ALT 46, ALK PHOS 112, TOTAL PROTEIN 8.1, ALBUMIN 3.9. RESPIRATORY VIRAL PANEL WAS NEGATIVE FOR COVID OR OTHER VIRUSES/BACTERIA. BLOOD CULTURES ARE PENDING. HE IS CURRENTLY RECEIVING LEVAQUIN 750MG IV DAILY, ALBUMIN 25% IV DAILY, DUONEBS Q6H, PULMICORT NEBS BID, LASIX 40MG IV BID, TESSALON PERLES TID PRN, LOVENOX 40MG SC DAILY, TUSSIONEX 5ML Q12H PRN, MEGACE 40MG BID, COLACE 200MG IV Q12H, KLONOPIN 2MG HS, HALDOL 5MG IM Q8H PRN, MORPHINE 2MG IV Q4H PRN, OTBS ACHS, AND THE POTASSIUM AND MAGNESIUM PROTOCOLS. HIS HOME MEDICATIONS WERE RESUMED. HOME MEDS INCLUDE: ZYLOPRIM, COLACE, CYMBALTA, NEURONTIN, PLAQUENIL, SYNTHROID, GLUCOPHAGE, SINGULAIR, OXYBUTYNIN, OXYCODONE PRN, MIRAPEX, AND JANUVIA. WE WILL CONTINUE WITH CURRENT PLAN OF CARE TODAY. PHYSICAL THERAPY FEELS THAT HE COULD BENEFIT FROM ADDITIONAL THERAPY. HE HAS AN UNSTEADY GAIT AND REQUIRES ASSISTANCE WITH AMBULATION. PATIENTS SPOUSE REPORTS THAT SHE WILL NOT BE ABLE TO TAKE CARE OF HIM AT WHILE HE IS IN THIS CURRENT STATE. DUE TO HIS RECENT BEHAVIOURS, WE CONTACTED [facility] AND ARE WAITING TO HEAR AN ANSWER ON ACCEPTANCE. PATIENT IS HEMODYNAMICALLY STABLE AND IS STABLE FROM A RESPIRATORY STANDPOINT. HE IS NO LONGER IN RESPIRATORY DISTRESS. WE WILL CONTINUE TO MONITOR AND OBTAIN LABS AND A CHEST XRAY IN THE MORNING. TIME SPENT ON CLINICAL ASSESSMENT, REVIEWING LABS AND IMAGING, DECISION MAKING, AND DOCUMENTATION GREATER THAN 45 MINUTES. - Past Medical Family Social History Past Med/Fam/Surg Hx: No changes since H&P Allergies: Allergies No Known Drug Allergies Allergy (Verified 02/05/19 11:58) - Review of Systems ROS: No change since H&P - Vital Signs and I&O's Vital Signs: Temperature 97.1 F Pulse Rate [Apical] 92 Pulse Rate [Right Brachial] 80 Pulse Rate [Left] 78 Pulse Rate 80 Respiratory Rate 18 Blood Pressure [Right Arm] 119/67 Blood Pressure [Left Arm] 99/58 Blood Pressure 109/68 O2 Sat by Pulse Oximetry 92 Intake and Output: Intake & Output 12/06/22 12/07/22 12/08/22 12/09/22 11:59 11:59 11:59 11:59 Intake Total 1914 840 / 840 1050 / 1050 1320 / 1320 Output Total 400 / 400 Balance 1914 840 / 840 1050 / 1050 920 / 920 - Physical Exam Oriented: Not Oriented Eyes: Normal Ear: Normal Nose: Normal Throat: Normal Respiratory: Diminished Cardiovascular: Normal. negative: Edema : Frequency Auscultation: Bowel Sounds: Normal Palpation: Normal Tenderness: Normal Skin: Normal Musculoskeletal: Normal Psychiatric: Agitation Mood Description: Calm Affect: Normal Speech Pattern: Delayed - Laboratory and Diagnostics Result Diagrams: 12/09/22 04:20 12/09/22 04:20 Labs: 12/07/22 14:04 Blood Blood Culture - Preliminary 12/07/22 13:56 Blood Blood Culture - Preliminary 12/03/22 17:25 Urine,[place] Urine Culture - Final 11/24/22 21:10 Urine,Clean Catch Urine Culture - Final Laboratory WBC 8.2 X10^3/uL (3.6-10.0) 12/09/22 04:20 RBC 4.78 X10^6/uL (4.7-6.0) 12/09/22 04:20 Hgb 13.9 g/dL (13.5-18.0) 12/09/22 04:20 Hct 40.5 % (42.0-54.0) L 12/09/22 04:20 MCV 84.6 fL (80.0-100.0) 12/09/22 04:20 MCH 29.0 pg (27.0-34.0) 12/09/22 04:20 MCHC 34.2 g/dL (33.0-35.0) 12/09/22 04:20 RDW 14.8 % (11.6-16.5) 12/09/22 04:20 Plt Count 290 X10^3/uL (150.0-450.0) 12/09/22 04:20 Plt Count Comment Adequate (ADEQUATE) 12/02/22 04:00 MPV 7.8 fL (7.4-11.0) 12/09/22 04:20 Neut % (Auto) 71.6 % (42.0-75.0) 12/09/22 04:20 Lymph % (Auto) 13.6 % (21.0-51.0) L 12/09/22 04:20 [place] % (Auto) 9.8 % (0.0-13.0) 12/09/22 04:20 Eos % (Auto) 4.0 % (0.9-2.9) H 12/09/22 04:20 Baso % (Auto) 1.0 % (0.2-1.0) 12/09/22 04:20 Neut # (Auto) 5.9 x10^3/uL (2.2-4.8) H 12/09/22 04:20 Lymph # (Auto) 1.1 X10^3/uL (1.3-2.9) L 12/09/22 04:20 [place] # (Auto) 0.8 x10^3/uL (0.3-0.8) 12/09/22 04:20 Eos # (Auto) 0.3 x10^3/uL (0.0-0.2) H 12/09/22 04:20 Baso # (Auto) 0.1 X10^3/uL (0.0-0.1) 12/09/22 04:20 Absolute Nucleated RBC 0.0 /100WBC 12/09/22 04:20 Total Counted 100 12/02/22 04:00 Neutrophils % (Manual) 92 % (39-76) H 12/02/22 04:00 Band Neutrophils % 6 % (0-10) 11/28/22 05:46 Lymphocytes % (Manual) 4 % (13-43) L 12/02/22 04:00 Monocytes % (Manual) 4 % (4-9) 12/02/22 04:00 Eosinophils % (Manual) Not Reportable 11/30/22 05:25 Plt Morphology Comment Normal (NORMAL) 12/02/22 04:00 RBC Morphology Normal (NORMAL) 12/02/22 04:00 Sample Site [facility] 12/01/22 09:20 ABG pH 7.500 (7.35-7.45) H 12/01/22 09:20 ABG pCO2 36.0 mmHg (35.0-45.0) 12/01/22 09:20 ABG pO2 57.0 mmHg (80.0-100.0) L 12/01/22 09:20 ABG HCO3 28.1 mmol/L (22-26) H 12/01/22 09:20 ABG O2 Saturation 92.0 % (90-100) 12/01/22 09:20 ABG Base Excess 4.8 mmol/L (-2.0-2.0) H 12/01/22 09:20 Mp Test N/a 12/01/22 09:20 A-a Gradient 183.0 mmHg 12/01/22 09:20 FiO2 40.0 12/01/22 09:20 Blood Gas Comments Pt darlene well elj cdn 12/01/22 09:20 Sodium 139 mmol/L (136-145) 12/09/22 04:20 Corrected Sodium TNP 12/09/22 04:20 Potassium 3.3 mmol/L (3.5-5.1) L 12/09/22 04:20 Chloride 100 mmol/L (98-107) 12/09/22 04:20 Carbon Dioxide 25.8 mmol/L (21-32) 12/09/22 04:20 BUN 20 mg/dL (7-18) H 12/09/22 04:20 Creatinine 1.26 mg/dL (0.70-1.30) 12/09/22 04:20 Est GFR (MDRD) Af Amer > 60 (>60) 12/09/22 04:20 Est GFR (MDRD) Non-Af 60 (>60) 12/09/22 04:20 Glucose 105 mg/dL (65-99) H 12/09/22 04:20 POC Glucose (mg/dL) 106 mg/dL (65-99) H 12/08/22 20:50 Calcium 10.0 mg/dL (8.5-10.1) 12/09/22 04:20 Corrected Calcium TNP 12/09/22 04:20 Magnesium 2.1 mg/dL (2.0-2.9) 12/08/22 04:15 Total Bilirubin 1.00 mg/dL (0.2-1.0) 12/09/22 04:20 AST 51 Units/L (15-37) H 12/09/22 04:20 ALT 46 Units/L (12-78) 12/09/22 04:20 Alkaline Phosphatase 112 Units/L (46-116) 12/09/22 04:20 Creatine Kinase 20 Units/L (39-308) L 11/29/22 21:16 Troponin I High Sens 9.4 ng/L (4.0-60.0) 12/05/22 18:26 B-Natriuretic Peptide 87.9 pg/mL (0-79) H 12/07/22 04:20 Total Protein 8.1 g/dL (6.4-8.2) 12/09/22 04:20 Albumin 3.9 g/dL (3.4-5.0) 12/09/22 04:20 Globulin 4.2 g/dL (2.5-4.5) 12/09/22 04:20 Albumin/Globulin Ratio 0.9 Ratio (1.1-2.1) L 12/09/22 04:20 Amylase 34 Units/L (25-115) 11/24/22 17:20 Lipase 62 Units/L (73-393) L 11/24/22 17:20 Specimen Type Catherized urine 11/30/22 08:46 Urine Color Yellow (YELLOW) 11/30/22 08:46 Urine Appearance Clear (CLEAR) 11/30/22 08:46 Urine pH 6.0 (5.0 - 8.0) 11/30/22 08:46 Ur Specific [place] 1.025 (1.000-1.030) 11/30/22 08:46 Urine Protein Negative (NEGATIVE) 11/30/22 08:46 Urine Glucose (UA) Negative (NEGATIVE) 11/30/22 08:46 Urine Ketones Negative (NEGATIVE) 11/30/22 08:46 Urine Blood 2+ (NEGATIVE) 11/30/22 08:46 Urine Nitrite Negative (NEGATIVE) 11/30/22 08:46 Urine Bilirubin Negative (NEGATIVE) 11/30/22 08:46 Urine Urobilinogen 1+ (NORMAL) 11/30/22 08:46 Ur Leukocyte Esterase Negative (NEGATIVE) 11/30/22 08:46 Urine RBC 3-5 /HPF (0-3) A 11/30/22 08:46 Urine WBC None seen /HPF (0-5) 11/30/22 08:46 Ur Squamous Epith Cells Rare /HPF (NEGATIVE) 11/30/22 08:46 Urine Bacteria Trace /HPF (NEGATIVE) 11/30/22 08:46 Urine Mucus Moderate /HPF (NEGATIVE) 11/24/22 21:10 Ur Culture Indicated? No/not indicated 11/30/22 08:46 Resp Viral Panel (PCR) See scanned report 12/07/22 14:15 - Plan (1) CHF exacerbation Status: Acute Qualifiers: Heart failure type: unspecified Qualified Code(s): I50.9 - Heart failure, unspecified Plan: SUPPLEMENTAL OXYGEN, LEVAQUIN 750MG IV DAILY, DUONEBS Q6H, PULMICORT NEBS BID, LASIX 40MG BID, ALBUMIN 25% IV DAILY, TESSALON PERLES TID PRN, LOVENOX 40MG SC DAILY, TORADOL 30MG IV Q6H, COLACE 200MG IV Q12H, KLONOPIN 2 MG HS, [place]LEY LDOL 5MG IM Q4H PRN, MEGACE 40MG BID, OTBS ACHS, AND THE POTASSIUM AND MAGNESIUM PROTOCOLS. RESUME HOME MEDS (2) Left lower lobe pneumonia Status: Acute Qualifiers: Pneumonia type: due to unspecified organism Qualified Code(s): J18.9 - Pneumonia, unspecified organism Plan: Start pneumonia protocol and check sputum cultures and blood cultures x2. After that we will start Levaquin 750 mg IV daily. (3) Acute respiratory failure Status: Resolved Qualifiers: Respiratory failure complication: hypoxia Qualified Code(s): J96.01 - Acute respiratory failure with hypoxia Plan: CONTINUE SUPPLEMENTAL OXYGEN, CONTINUE NEBS TX, RESPIRATORY THERAPY (4) Abdominal pain Status: Resolved Qualifiers: Abdominal location: left lower quadrant Qualified Code(s): R10.32 - Left lower quadrant pain (5) Urinary tract infection Status: Acute Qualifiers: Urinary tract infection type: acute cystitis Hematuria presence: without hematuria Qualified Code(s): N30.00 - Acute cystitis without hematuria Plan: CONTINUE IV ANTIBIOTICS (6) Altered mental status Status: Acute Qualifiers: Altered mental status type: transient alteration of awareness Qualified Code(s): R40.4 - Transient alteration of awareness (7) Hypoalbuminemia Status: Acute (8) Nausea Status: Acute (9) Generalized weakness Status: Acute Plan: PT/OT (10) Dyspnea Status: Acute Qualifiers: Dyspnea type: shortness of breath Qualified Code(s): R06.02 - Shortness of breath (11) BPH (benign prostatic hyperplasia) Status: Chronic Qualifiers: Lower urinary tract symptom presence: symptoms present Lower urinary tract symptom detail: urinary frequency Qualified Code(s): N40.1 - Benign prostatic hyperplasia with lower urinary tract symptoms; R35.0 - Frequency of micturition Plan: CONTINUE HOME MEDICATIONS (12) Hypothyroidism Status: Chronic Qualifiers: Hypothyroidism type: acquired Qualified Code(s): E03.9 - Hypothyroidism, unspecified Plan: CONTINUE HOME MEDICATIONS (13) Gout Status: Chronic Qualifiers: Gout site: multiple sites Encounter type: subsequent encounter Chronicity: chronic Presence of tophus: without tophus Plan: CONTINUE HOME MEDICATIONS
[2022-12-09] MEDS ORDERED: NS 250 ML IV 250 ML IV ONE (11:23)
[2022-12-09] MEDS: ROXICODONE TAB 15 MG PO PRN (11:37)
[2022-12-09] MEDS: KLONOPIN TAB 1 MG PO SCH (20:52)
[2022-12-10] MEDS: DUONEB 0.5 MG/3 MG (3 mL) NEB SCH (00:15)
[2022-12-10] MEDS: RESTORIL CAP 15 MG PO PRN (01:04)
[2022-12-10] MEDS: MORPHINE SULFATE INJ 2 MG INJ IVP PRN ×4 (02:32→22:35)
[2022-12-10 05:21] LABS: BASOPHILS % (AUTO) 0.6 % (0.2-1.0); EOSINOPHILS # (AUTO) 0.3 x10^3/uL (0.0-0.2); EOSINOPHILS % (AUTO) 3.5 % (0.9-2.9); HEMATOCRIT 40.6 % (42.0-54.0); HEMOGLOBIN 13.9 g/dL (13.5-18.0); LYMPHOCYTES % (AUTO) 13.4 % (21.0-51.0); MEAN CORPUSCULAR HEMOGLOBIN 28.8 pg (27.0-34.0); MEAN CORPUSCULAR HGB CONC 34.2 g/dL (33.0-35.0); MEAN CORPUSCULAR VOLUME 84.3 fL (80.0-100.0); MEAN PLATELET VOLUME 7.8 fL (7.4-11.0); MONOCYTES # (AUTO) 0.6 x10^3/uL (0.3-0.8); MONOCYTES % (AUTO) 8.5 % (0.0-13.0); NEUTROPHILS # (AUTO) 5.5 x10^3/uL (2.2-4.8); PLATELET COUNT 270 X10^3/uL (150.0-450.0); RED BLOOD COUNT 4.82 X10^6/uL (4.7-6.0); RED CELL DISTRIBUTION WIDTH 15.1 % (11.6-16.5); WHITE BLOOD COUNT 7.5 X10^3/uL (3.6-10.0)
[2022-12-10 05:33] LABS: ALANINE AMINOTRANSFERASE 46 Units/L (12-78); ALBUMIN 4.1 g/dL (3.4-5.0); ALKALINE PHOSPHATASE 111 Units/L (46-116); ASPARTATE AMINO TRANSFERASE 48 Units/L (15-37); BLOOD UREA NITROGEN 21 mg/dL (7-18); CALCIUM 10.2 mg/dL (8.5-10.1); CARBON DIOXIDE 28.1 mmol/L (21-32); CHLORIDE 99 mmol/L (98-107); CREATININE 1.35 mg/dL (0.70-1.30); GLUCOSE 99 mg/dL (65-99); POTASSIUM 3.4 mmol/L (3.5-5.1); SODIUM 138 mmol/L (136-145); TOTAL PROTEIN 8.2 g/dL (6.4-8.2); eGFR NON BLACK RACES 55 (>60)
[2022-12-10] MEDS: MIRAPEX TAB 1 MG PO SCH ×3 (06:03→21:17)
[2022-12-10] MEDS: SYNTHROID 75 mcg TAB PO SCH (06:04)
[2022-12-10 06:09] LABS: PLATELET MORPHOLOGY COMMENT NORMAL (NORMAL)
[2022-12-10] MEDS: ALBUMIN HUMAN 25%- 100 ML 100 ML IV SCH (08:15)
[2022-12-10] MEDS: OXYBUTYNIN CHLORIDE ER PO SCH (08:17)
[2022-12-10] MEDS: PLAQUENIL PO SCH ×2 (08:17→20:32)
[2022-12-10] MEDS: JANUVIA PO SCH (08:17)
[2022-12-10] MEDS: K-DUR TAB 20 MEQ PO PRN (08:18)
[2022-12-10] MEDS: MEGACE PO SCH ×2 (08:18→20:32)
[2022-12-10] MEDS: GLUCOPHAGE XR 24-HR PO SCH (08:18)
[2022-12-10] MEDS: ROBITUSSIN DM PO SCH ×4 (08:19→20:32)
[2022-12-10] MEDS: COLACE CAP 100 MG PO SCH ×2 (08:19→20:32)
[2022-12-10] MEDS: SINGULAIR TAB 10 MG PO SCH (08:19)
[2022-12-10] MEDS: LASIX IVP SCH ×2 (08:20→20:32)
[2022-12-10] MEDS: NEURONTIN CAP 100 MG PO SCH (08:20)
[2022-12-10] MEDS: VSL#3 PO SCH (08:20)
[2022-12-10] MEDS: ZYLOPRIM PO SCH (08:20)
[2022-12-10] MEDS: CYMBALTA PO SCH (08:20)
[2022-12-10] MEDS: LOVENOX INJ 40 MG SYR SC SCH (08:21)
[2022-12-10] MEDS: LEVAQUIN PREMIX IV 750 MG 750 MG/150 ML BAG IV SCH (08:21)
--- NOTE | 2022-12-10 09:01 | RAD ---
HISTORYPneumonia CHF SOBSTUDYPortable AP chestCOMPARISONMay 2022FINDINGSThere is no significant pneumonia or atelectasis now identified. Slight interstitial prominence remains in both lower lungs accentuated by mild pulmonary hypoaeration. Heart size remains normal.IMPRESSIONInterval improvement with no new abnormality. See above.Electronically signed by: MAURISIO SALMERON (December 10, 2022 09:00:00)
[2022-12-10] MEDS: PULMICORT NEB TX 0.5 MG NEB SCH (09:19)
--- NOTE | 2022-12-10 10:33 | PCM.PROG ---
Progress Note - Progress Note for Day of Date of Exam: 12/10/22 - Subjective Subjective: IS CURRENTLY INPATIENT STATUS FOR TREATMENT OF LEFT LOWER LOBE PNEUMONIA, CHF, HYPOALBUMINEMIA, GENERALIZED WEAKNESS, AND AMS. HE HAS A PAST MEDICAL HISTORY OF HYPERTENSION, SLEEP APNEA, BPH, HYPOTHYROIDISM, GOUT, CHRONIC LOW BACK PAIN, DM II, AND BILATERAL KNEE REPLACEMENTS. UPON MORNING ROUNDS, HE IS ALERT, LYING IN THE BED ON MORNING ROUNDS. HE RESPONDS VERBALLY WHEN SPOKEN TO. HE ANSWERS QUESTIONS AND DOES FOLLOW SIMPLE COMMANDS AT THIS MORNING. HIS SPOUSE IS AT BEDSIDE. SPOUSE AND NURSE REPORTS THAT HE HAD A GOOD, UNEVENTFUL NIGHT. HE RESTED WELL AND WAS NOT COMBATIVE OR AGITATED. HE WAS ABLE TO AMBULATE IN THE ROOM WITH ASSISTANCE AND SIT UP IN THE CHAIR YESTERDAY. THEY REPORT THAT HIS MORNING HAS GONE WELL SO FAR AND HE HAS BEEN CALM. HE HAS NOT BEEN IN RESTRAINTS IN SEVERAL DAYS. HE IS CURRENTLY ON ROOM AIR. HIS OXYGEN SATURATIONS HAVE BEEN IN THE 90s ON ROOM AIR. HE DOES NOT APPEAR TO BE IN ANY RESPIRATORY DISTRESS. ON EXAMINATION, HEART IS REGULAR IN RATE AND RHYTHM. BILATERAL LUNGS ARE NOTED WITH DIMINISHED LUNG SOUNDS THROUGHOUT. ABDOMEN IS OBESE, SOFT, AND NON-TENDER. NORMAL BOWEL SOUNDS NOTED IN ALL QUADRANTS. TRACE EDEMA NOTED TO LOWER EXTREMITIES. HIS VITALS THIS MORNING ARE: 97.8-74-18-94%-124/66. LABS WERE OBTAINED. WBC 7.5, RBC 4.82, HGB 13.9, HCT 40.6, PLT COUNT 270, SODIUM 138, POTASSIUM 3.4, BUN 21, CREATININE 1.35, GLUCOSE 99, CALCIUM 10.2, TOTAL BILI 0.90, AST 48, ALT 46, ALK PHOS 111, TOTAL PROTEIN 8.2, ALBUMIN 4.1. RESPIRATORY VIRAL PANEL WAS NEGATIVE FOR COVID OR OTHER VIRUSES/BACTERIA. BLOOD CULTURES ARE PENDING. A CHEST XRAY WAS REPEATED THIS MORNING AND REVEALED: There is no significant pneumonia or atelectasis now identified. Slight interstitial prominence remains in both lower lungs accentuated by mild pulmonary hypoaeration. Heart size remains normal. HE IS CURRENTLY RECEIVING LEVAQUIN 750MG IV DAILY, ALBUMIN 25% IV DAILY, DUONEBS Q6H, PULMICORT NEBS BID, LASIX 40MG IV BID, TESSALON PERLES TID PRN, LOVENOX 40MG SC DAILY, TUSSIONEX 5ML Q12H PRN, MEGACE 40MG BID, COLACE 200MG IV Q12H, KLONOPIN 2MG HS, HALDOL 5MG IM Q8H PRN, MORPHINE 2MG IV Q4H PRN, OTBS ACHS, AND THE POTASSIUM AND MAGNESIUM PROTOCOLS. HIS HOME MEDICATIONS WERE RESUMED. HOME MEDS INCLUDE: ZYLOPRIM, COLACE, CYMBALTA, NEURONTIN, PLAQUENIL, SYNTHROID, GLUCOPHAGE, SINGULAIR, OXYBUTYNIN, OXYCODONE PRN, MIRAPEX, AND JANUVIA. WE WILL CONTINUE WITH CURRENT PLAN OF CARE TODAY. WE FEEL THAT HE COULD BENEFIT FROM ADDITIONAL THERAPY BEFORE RETURNING HOME. WE WILL TRY TO GET HIM PLACED AT [facility] FOR PHYSICAL THERAPY AND RAHAB. HE HAS AN UNSTEADY GAIT AND REQUIRES ASSISTANCE WITH AMBULATION. PATIENT IS HEMODYNAMICALLY STABLE AND IS STABLE FROM A RESPIRATORY STANDPOINT. HE IS NO LONGER IN RESPIRATORY DISTRESS. WE WILL CONTINUE TO MONITOR AND OBTAIN LABS AND A CHEST XRAY IN THE MORNING. TIME SPENT ON CLINICAL ASSESSMENT, REVIEWING LABS AND IMAGING, DECISION MAKING, AND DOCUMENTATION GREATER THAN 45 MINUTES. - Past Medical Family Social History Past Med/Fam/Surg Hx: No changes since H&P Allergies: Allergies No Known Drug Allergies Allergy (Verified 02/05/19 11:58) - Review of Systems ROS: No change since H&P - Vital Signs and I&O's Vital Signs: Temperature 97.8 F Pulse Rate [Apical] 92 Pulse Rate [Right Brachial] 80 Pulse Rate [Left] 78 Pulse Rate 74 Respiratory Rate 18 Blood Pressure [Right Arm] 119/67 Blood Pressure [Left Arm] 99/58 Blood Pressure 124/66 O2 Sat by Pulse Oximetry 90 Intake and Output: Intake & Output 12/07/22 12/08/22 12/09/22 12/10/22 11:59 11:59 11:59 11:59 Intake Total 840 / 840 1050 / 1050 1320 / 1320 1402 / 1402 Output Total 400 / 400 725 / 725 Balance 840 / 840 1050 / 1050 920 / 920 677 / 677 - Physical Exam Oriented: Not Oriented Eyes: Normal Ear: Normal Nose: Normal Throat: Normal Respiratory: Diminished Cardiovascular: Normal. negative: Edema : Frequency Auscultation: Bowel Sounds: Normal Palpation: Normal Tenderness: Normal Skin: Normal Musculoskeletal: Normal Psychiatric: Agitation Mood Description: Calm Affect: Normal Speech Pattern: Delayed - Laboratory and Diagnostics Result Diagrams: 12/10/22 04:05 12/10/22 04:05 Labs: 12/07/22 14:04 Blood Blood Culture - Preliminary 12/07/22 13:56 Blood Blood Culture - Preliminary 12/03/22 17:25 Urine,[place] Urine Culture - Final 11/24/22 21:10 Urine,Clean Catch Urine Culture - Final Laboratory WBC 7.5 X10^3/uL (3.6-10.0) 12/10/22 04:05 RBC 4.82 X10^6/uL (4.7-6.0) 12/10/22 04:05 Hgb 13.9 g/dL (13.5-18.0) 12/10/22 04:05 Hct 40.6 % (42.0-54.0) L 12/10/22 04:05 MCV 84.3 fL (80.0-100.0) 12/10/22 04:05 MCH 28.8 pg (27.0-34.0) 12/10/22 04:05 MCHC 34.2 g/dL (33.0-35.0) 12/10/22 04:05 RDW 15.1 % (11.6-16.5) 12/10/22 04:05 Plt Count 270 X10^3/uL (150.0-450.0) 12/10/22 04:05 Plt Count Comment Adequate (ADEQUATE) 12/10/22 04:05 MPV 7.8 fL (7.4-11.0) 12/10/22 04:05 Neut % (Auto) 74.0 % (42.0-75.0) 12/10/22 04:05 Lymph % (Auto) 13.4 % (21.0-51.0) L 12/10/22 04:05 [place] % (Auto) 8.5 % (0.0-13.0) 12/10/22 04:05 Eos % (Auto) 3.5 % (0.9-2.9) H 12/10/22 04:05 Baso % (Auto) 0.6 % (0.2-1.0) 12/10/22 04:05 Neut # (Auto) 5.5 x10^3/uL (2.2-4.8) H 12/10/22 04:05 Lymph # (Auto) 1.0 X10^3/uL (1.3-2.9) L 12/10/22 04:05 [place] # (Auto) 0.6 x10^3/uL (0.3-0.8) 12/10/22 04:05 Eos # (Auto) 0.3 x10^3/uL (0.0-0.2) H 12/10/22 04:05 Baso # (Auto) 0.0 X10^3/uL (0.0-0.1) 12/10/22 04:05 Absolute Nucleated RBC 0.0 /100WBC 12/10/22 04:05 Total Counted 100 12/02/22 04:00 Neutrophils % (Manual) 92 % (39-76) H 12/02/22 04:00 Band Neutrophils % 6 % (0-10) 11/28/22 05:46 Lymphocytes % (Manual) 4 % (13-43) L 12/02/22 04:00 Monocytes % (Manual) 4 % (4-9) 12/02/22 04:00 Eosinophils % (Manual) Not Reportable 11/30/22 05:25 Plt Morphology Comment Normal (NORMAL) 12/10/22 04:05 RBC Morphology Normal (NORMAL) 12/10/22 04:05 Sample Site [facility] 12/01/22 09:20 ABG pH 7.500 (7.35-7.45) H 12/01/22 09:20 ABG pCO2 36.0 mmHg (35.0-45.0) 12/01/22 09:20 ABG pO2 57.0 mmHg (80.0-100.0) L 12/01/22 09:20 ABG HCO3 28.1 mmol/L (22-26) H 12/01/22 09:20 ABG O2 Saturation 92.0 % (90-100) 12/01/22 09:20 ABG Base Excess 4.8 mmol/L (-2.0-2.0) H 12/01/22 09:20 Mp Test N/a 12/01/22 09:20 A-a Gradient 183.0 mmHg 12/01/22 09:20 FiO2 40.0 12/01/22 09:20 Blood Gas Comments Pt darlene well elj cdn 12/01/22 09:20 Sodium 138 mmol/L (136-145) 12/10/22 04:05 Corrected Sodium TNP 12/10/22 04:05 Potassium 3.4 mmol/L (3.5-5.1) L 12/10/22 04:05 Chloride 99 mmol/L (98-107) 12/10/22 04:05 Carbon Dioxide 28.1 mmol/L (21-32) 12/10/22 04:05 BUN 21 mg/dL (7-18) H 12/10/22 04:05 Creatinine 1.35 mg/dL (0.70-1.30) H 12/10/22 04:05 Est GFR (MDRD) Af Amer > 60 (>60) 12/10/22 04:05 Est GFR (MDRD) Non-Af 55 (>60) L 12/10/22 04:05 Glucose 99 mg/dL (65-99) 12/10/22 04:05 POC Glucose (mg/dL) 109 mg/dL (65-99) H 12/10/22 10:28 Calcium 10.2 mg/dL (8.5-10.1) H 12/10/22 04:05 Corrected Calcium TNP 12/10/22 04:05 Magnesium 2.1 mg/dL (2.0-2.9) 12/08/22 04:15 Total Bilirubin 0.90 mg/dL (0.2-1.0) 12/10/22 04:05 AST 48 Units/L (15-37) H 12/10/22 04:05 ALT 46 Units/L (12-78) 12/10/22 04:05 Alkaline Phosphatase 111 Units/L (46-116) 12/10/22 04:05 Creatine Kinase 20 Units/L (39-308) L 11/29/22 21:16 Troponin I High Sens 9.4 ng/L (4.0-60.0) 12/05/22 18:26 B-Natriuretic Peptide 87.9 pg/mL (0-79) H 12/07/22 04:20 Total Protein 8.2 g/dL (6.4-8.2) 12/10/22 04:05 Albumin 4.1 g/dL (3.4-5.0) 12/10/22 04:05 Globulin 4.1 g/dL (2.5-4.5) 12/10/22 04:05 Albumin/Globulin Ratio 1.0 Ratio (1.1-2.1) L 12/10/22 04:05 Amylase 34 Units/L (25-115) 11/24/22 17:20 Lipase 62 Units/L (73-393) L 11/24/22 17:20 Specimen Type Catherized urine 11/30/22 08:46 Urine Color Yellow (YELLOW) 11/30/22 08:46 Urine Appearance Clear (CLEAR) 11/30/22 08:46 Urine pH 6.0 (5.0 - 8.0) 11/30/22 08:46 Ur Specific [place] 1.025 (1.000-1.030) 11/30/22 08:46 Urine Protein Negative (NEGATIVE) 11/30/22 08:46 Urine Glucose (UA) Negative (NEGATIVE) 11/30/22 08:46 Urine Ketones Negative (NEGATIVE) 11/30/22 08:46 Urine Blood 2+ (NEGATIVE) 11/30/22 08:46 Urine Nitrite Negative (NEGATIVE) 11/30/22 08:46 Urine Bilirubin Negative (NEGATIVE) 11/30/22 08:46 Urine Urobilinogen 1+ (NORMAL) 11/30/22 08:46 Ur Leukocyte Esterase Negative (NEGATIVE) 11/30/22 08:46 Urine RBC 3-5 /HPF (0-3) A 11/30/22 08:46 Urine WBC None seen /HPF (0-5) 11/30/22 08:46 Ur Squamous Epith Cells Rare /HPF (NEGATIVE) 11/30/22 08:46 Urine Bacteria Trace /HPF (NEGATIVE) 11/30/22 08:46 Urine Mucus Moderate /HPF (NEGATIVE) 11/24/22 21:10 Ur Culture Indicated? No/not indicated 11/30/22 08:46 Resp Viral Panel (PCR) See scanned report 12/07/22 14:15 - Plan (1) CHF exacerbation Status: Acute Qualifiers: Heart failure type: unspecified Qualified Code(s): I50.9 - Heart failure, unspecified Plan: SUPPLEMENTAL OXYGEN, LEVAQUIN 750MG IV DAILY, DUONEBS Q6H, PULMICORT NEBS BID, LASIX 40MG BID, ALBUMIN 25% IV DAILY, TESSALON PERLES TID PRN, LOVENOX 40MG SC DAILY, TORADOL 30MG IV Q6H, COLACE 200MG IV Q12H, KLONOPIN 2 MG HS, HALDOL 5MG IM Q4H PRN, MEGACE 40MG BID, OTBS ACHS, AND THE POTASSIUM AND MAGNESIUM PROTOCOLS. RESUME HOME MEDS (2) Left lower lobe pneumonia Status: Acute Qualifiers: Pneumonia type: due to unspecified organism Qualified Code(s): J18.9 - Pneumonia, unspecified organism (3) Acute respiratory failure Status: Resolved Qualifiers: Respiratory failure complication: hypoxia Qualified Code(s): J96.01 - Acute respiratory failure with hypoxia Plan: CONTINUE SUPPLEMENTAL OXYGEN, CONTINUE NEBS TX, RESPIRATORY THERAPY (4) Abdominal pain Status: Resolved Qualifiers: Abdominal location: left lower quadrant Qualified Code(s): R10.32 - Left lower quadrant pain (5) Urinary tract infection Status: Acute Qualifiers: Urinary tract infection type: acute cystitis Hematuria presence: without hematuria Qualified Code(s): N30.00 - Acute cystitis without hematuria Plan: CONTINUE IV ANTIBIOTICS (6) Altered mental status Status: Acute Qualifiers: Altered mental status type: transient alteration of awareness Qualified Code(s): R40.4 - Transient alteration of awareness (7) Hypoalbuminemia Status: Acute (8) Nausea Status: Acute (9) Generalized weakness Status: Acute Plan: PT/OT (10) Dyspnea Status: Acute Qualifiers: Dyspnea type: shortness of breath Qualified Code(s): R06.02 - Shortness of breath (11) BPH (benign prostatic hyperplasia) Status: Chronic Qualifiers: Lower urinary tract symptom presence: symptoms present Lower urinary tract symptom detail: urinary frequency Qualified Code(s): N40.1 - Benign prostatic hyperplasia with lower urinary tract symptoms; R35.0 - Frequency of micturition Plan: CONTINUE HOME MEDICATIONS (12) Hypothyroidism Status: Chronic Qualifiers: Hypothyroidism type: acquired Qualified Code(s): E03.9 - Hypothyroidism, unspecified Plan: CONTINUE HOME MEDICATIONS (13) Gout Status: Chronic Qualifiers: Gout site: multiple sites Encounter type: subsequent encounter Chronicity: chronic Presence of tophus: without tophus Plan: CONTINUE HOME MEDICATIONS
[2022-12-10] MEDS: KLONOPIN TAB 1 MG PO SCH (20:32)
[2022-12-11] MEDS: RESTORIL CAP 15 MG PO PRN (00:41)
[2022-12-11] MEDS: MIRAPEX TAB 1 MG PO SCH (05:04)
[2022-12-11 05:25] LABS: BASOPHILS # (AUTO) 0.1 X10^3/uL (0.0-0.1); BASOPHILS % (AUTO) 0.8 % (0.2-1.0); EOSINOPHILS # (AUTO) 0.2 x10^3/uL (0.0-0.2); EOSINOPHILS % (AUTO) 3.3 % (0.9-2.9); HEMOGLOBIN 13.4 g/dL (13.5-18.0); LYMPHOCYTES # (AUTO) 1.2 X10^3/uL (1.3-2.9); LYMPHOCYTES % (AUTO) 17.2 % (21.0-51.0); MEAN CORPUSCULAR HEMOGLOBIN 28.7 pg (27.0-34.0); MEAN CORPUSCULAR HGB CONC 34.4 g/dL (33.0-35.0); MEAN CORPUSCULAR VOLUME 83.4 fL (80.0-100.0); MONOCYTES # (AUTO) 0.7 x10^3/uL (0.3-0.8); MONOCYTES % (AUTO) 10.3 % (0.0-13.0); NEUTROPHILS # (AUTO) 4.7 x10^3/uL (2.2-4.8); NEUTROPHILS % (AUTO) 68.4 % (42.0-75.0); PLATELET COUNT 275 X10^3/uL (150.0-450.0); RED BLOOD COUNT 4.68 X10^6/uL (4.7-6.0); WHITE BLOOD COUNT 6.8 X10^3/uL (3.6-10.0)
[2022-12-11 05:39] LABS: ALANINE AMINOTRANSFERASE 44 Units/L (12-78); ALBUMIN 4.2 g/dL (3.4-5.0); ALKALINE PHOSPHATASE 105 Units/L (46-116); ASPARTATE AMINO TRANSFERASE 47 Units/L (15-37); BLOOD UREA NITROGEN 21 mg/dL (7-18); CALCIUM 10.1 mg/dL (8.5-10.1); CARBON DIOXIDE 26.6 mmol/L (21-32); CHLORIDE 99 mmol/L (98-107); CREATININE 1.28 mg/dL (0.70-1.30); GLUCOSE 95 mg/dL (65-99); POTASSIUM 3.3 mmol/L (3.5-5.1); SODIUM 137 mmol/L (136-145); TOTAL PROTEIN 8.1 g/dL (6.4-8.2); eGFR NON BLACK RACES 59 (>60)
[2022-12-11] MEDS: SYNTHROID 75 mcg TAB PO SCH (06:25)
[2022-12-11] MEDS: ALBUMIN HUMAN 25%- 100 ML 100 ML IV SCH (08:25)
[2022-12-11] MEDS: VSL#3 PO SCH (08:26)
[2022-12-11] MEDS: LOVENOX INJ 40 MG SYR SC SCH (08:26)
[2022-12-11] MEDS: OXYBUTYNIN CHLORIDE ER PO SCH (08:26)
[2022-12-11] MEDS: GLUCOPHAGE XR 24-HR PO SCH (08:27)
[2022-12-11] MEDS: LASIX IVP SCH (08:27)
[2022-12-11] MEDS: MEGACE PO SCH (08:27)
[2022-12-11] MEDS: CYMBALTA PO SCH (08:28)
[2022-12-11] MEDS: JANUVIA PO SCH (08:28)
[2022-12-11] MEDS: NEURONTIN CAP 100 MG PO SCH (08:28)
[2022-12-11] MEDS: COLACE CAP 100 MG PO SCH (08:28)
[2022-12-11] MEDS: ROBITUSSIN DM PO SCH (08:28)
[2022-12-11] MEDS: ZYLOPRIM PO SCH (08:29)
[2022-12-11] MEDS: PLAQUENIL PO SCH (08:29)
[2022-12-11] MEDS: LEVAQUIN PREMIX IV 750 MG 750 MG/150 ML BAG IV SCH (08:29)
[2022-12-11] MEDS: SINGULAIR TAB 10 MG PO SCH (08:29)
[2022-12-11] MEDS: KLOR-CON PO PRN (08:32)
[2022-12-11 09:47] VITALS: TEMP 98.3
[2022-12-11 13:02] VITALS: BP 123/77; PULSE 77; O2SAT 98
--- NOTE | 2022-12-11 14:12 | RAD ---
HISTORYPNEUMONIA, SOB CHFSTUDYCHEST, 1 [id number] cardiomediastinal silhouette is stable. Similar chronic interstitial changes in the lungs. No acute airspace disease. No pneumothorax or effusion. The bony thorax appears intact.IMPRESSIONNo acute cardiopulmonary disease.Electronically signed by: CHERI CORBETT (December 11, 2022 14:10:31)
== END 2022-12-11 13:45 | DRG 689 ==
LOC: MED/SURG → OBSVTOIN 16:55 → INTOOBSV 16:55 → MED/SURG 11-28 01:07 → INTOOBSV 11-30 07:58 → ICU 12-01 10:50
PROVIDERS: ADMIT Internal Medicine; ATTEND Internal Medicine